=== PATIENT | female | born 1960 | race Caucasian/White ===

== ENCOUNTER 2021-10-30 01:36 | Inpatient (IN) | payer MEDICARE, SELFPAY ==
[2021-10-30] VITALS (64 sets, daily range): BP systolic 30–187; BP diastolic 16–115; PULSE 58–84; RESP 12–21; TEMP 34.8–37.9; O2SAT 48–100; BMI 53.1; BMI 51.2
--- NOTE | 2021-10-30 01:42 | RAD_ITS ---
ACR Level 3 findings have been noted. An addendum which confirms receipt of the report will follow. EXAM: XR CHEST, 1 VIEW CLINICAL INDICATION: dyspnea TECHNIQUE: Frontal view of the chest. This report was created using [employer] report generation technology. COMPARISON: None. FINDINGS: LUNGS AND PLEURAL SPACES: Mixed density ill-defined airspace disease involving multiple lobes of the right lung. Partial atelectasis suspected at both bases with low lung volumes demonstrate overall. Pleural effusions may be present. No pneumothorax. HEART: Fullness of the cardiac silhouette is concerning for cardiomegaly and/or pericardial fluid. MEDIASTINUM: Fullness of the mediastinum and left hilar region. BONES/JOINTS: Degenerative changes of the spine. SOFT TISSUES: Unremarkable. TUBES, LINES AND DEVICES: ET tube tip is at the camelia. Suggest retracting to a more optimal position. Transesophageal catheter has its side-port below the GE junction and tip at the proximal stomach. Right-sided dialysis catheter has its tip at or near the cavoatrial junction. Left-sided AICD/pacer identified with intact wires/leads. RAD/Chest 1 View (Portable) IMPRESSION: 1. ET tube tip is at the camelia. Suggest retracting to a more optimal position. 2. Mixed density ill-defined airspace disease involving multiple lobes of the right lung. Correlate clinically to exclude pneumonia. Partial atelectasis suspected at both bases with low lung volumes demonstrate overall. 3. No pneumothorax. Electronically Signed: Wale Benitez MD at 3:12 EST ,
--- NOTE | 2021-10-30 01:45 | EKG12_ITS ---
Test Reason : DYSRHYTHMIA Blood Pressure : / mmHG Vent. Rate : 060 BPM Atrial Rate : 060 BPM P-R Int : 210 ms QRS Dur : 104 ms QT Int : 488 ms P-R-T Axes : 026 027 062 degrees QTc Int : 488 ms Sinus rhythm with 1st degree A-V block Inferior infarct , age undetermined Anterior infarct , age undetermined Abnormal ECG Confirmed by ROBIN TAYLOR, MARILYN ([id number]), telegraph editor ELAINE ORNELAS ([id number]) on 11/03/2021 12:30:34 PM Referred By: MARCELA Confirmed By:MARILYN KELLY MD
--- NOTE | 2021-10-30 01:45 | CT_ITS ---
HISTORY: altered mental status TECHNIQUE: Multiple axial images were obtained of the brain without intravenous contrast. Coronal and sagittal reformats obtained. Bone algorithm axial images obtained. A radiation dose optimization technique was used for this scan. COMPARISON: None FINDINGS: # of images incl. paperwork: 286 TUBES: Endotracheal tube and enteric tubes partially seen. HEMORRHAGE: No evidence of acute intracranial hemorrhage. CEREBRAL PARENCHYMA: --Volume: Normal cerebral volume for age. --White matter: Mild Hypodense periventricular and subcortical chronic small vessel white matter ischemic change. --Mass: No evidence of intracranial mass. --Stroke: Sheth-white matter differentiation is preserved. VENTRICULAR SYSTEM: No hydrocephalus. MASS EFFECT: No midline shift or focal sulci effacement. Basal cisterns are preserved. SCALP: No large scalp hematoma. CALVARIUM/SKULL BASE: No fracture. PARANASAL SINUSES: Clear. MASTOID AIR CELLS: Scattered partial opacification of the mastoid air cells and posterior middle ears ORBIT IMAGED PORTIONS: Unremarkable for age. VESSELS: Carotid and vertebral atherosclerosis. ASPECTS acute stroke score: 10 CT/Brain/Head without Contrast IMPRESSION: No CT evidence of acute intracranial hemorrhage or injury. Findings concerning for left otomastoiditis. Minimal nonspecific right mastoid air cell fluid. Mild senescent changes with atherosclerosis. Individualized dose optimization techniques were used for this CT. at 0650 Reported and signed by: Aditya Glass MD Electronically Signed: Aditya Glass MD at 6:49 EST Reading Location ID and State: [facility] / [place] Tel , Service support ,
[2021-10-30 02:11] LABS: Allen Test Positive; Base Excess -4 mmol/L (-2 to +2); Bicarbonate 26.1 mmol/L (22-26); Blood Gas Specimen Type ART; FI02 40; O2 Delivery Device BiPAP; PEEP 8; PO2 77 mmHG (75-100); RR 12; SITE R Radial; SO2 88 % (95-99); Total Carbon Dioxide 29 mmol/L; pCO2 82.8 mmHg (35-45); pH 7.11 (7.35-7.45)
[2021-10-30] MEDS: Etomidate 20 MG/10 ML Vial 10 MG IV (02:44)
[2021-10-30 03:05] LABS: Mucous, Urine 0 SEEN /hpf (<or=2+); Squamous Epithelial Cells - UA 0 SEEN /hpf (5-10)
[2021-10-30 03:05] LABS: Absolute Lymphocyte Count 0.32 X10^3/uL (0.83-4.51); Absolute Neutrophil Count 8.2 X10^3/uL (2.0-7.7); Basophil# 0.02 X10^3/uL; Basophil% 0.2 % (0-1); Eosinophil# 0.01 X10^3/uL; Eosinophils% 0.1 % (0-5); Hematocrit 21.9 % (37-47); Hemoglobin 6.4 g/dL (12.0-15.0); Lymphocyte # 0.32 X10^3/ul (0.83-4.51); Lymphocyte % 3.5 % (19-41); Mean Corp Hgb Conc 29.2 g/dL (32-36); Mean Corpuscular Hgb 27.4 pg (27.0-32.0); Mean Corpuscular Volume 93.6 fL (81-99); Mean Platelet Vol. 9.8 fl (6.2-12.0); Monocyte# 0.43 X10^3/uL; Monocyte% 4.7 % (0-10); NRBC Flagged by Analyzer 0 % (0-5); Neutrophil # 8.24 X10^3/uL (2.7-7.7); Neutrophil % 90.7 % (47-70); POSITIVE DIFFERENTIAL YES; Platelet Count 157 K/mm3 (150-450); RBC Distribution Width CV 13.9 % (11.6-14.6); RBC Distribution Width SD 46.5 fl (35.1-43.9); Red Blood Count 2.34 M/mm3 (4.2-5.4); White Blood Count 9.1 K/mm3 (4.4-11.0)
[2021-10-30] MEDS: fentaNYL 100 MCG/2 ML Ampul 50 MCG IV (03:05)
[2021-10-30 03:06] LABS: Differential Indicated SCAN CRITERIA MET
[2021-10-30 03:12] LABS: Color, Urine Red (Yellow); Glucose, Dipstick Normal (Normal); Ketone-Dipstick Negative (Negative); Leukocyte Esterase-Dipstick 25 /ul (Negative); Nitrite-Dipstick Negative (Negative); Occult Blood-Urine 250 /ul (Negative); Protein-Dipstick 500 mg/dl (Negative); Urine Bilirubin Dipstick Negative (Negative); Urine Clarity Turbid (Clear); Urine Urobilinogen Normal (Normal)
[2021-10-30 03:14] LABS: Amorphous Sediment 2+; Bacteria 2+ /hpf (None Seen); Red Blood Cells-Urine > 100 SEEN /hpf (0-5); White Blood Cells 0-5 SEEN /hpf (0-5)
[2021-10-30 03:14] LABS: International Normalized Ratio 1.6; Prothrombin Time (Protime)PT. 18.5 SECONDS (11.7-14.9)
--- NOTE | 2021-10-30 03:21 | HP.PCM.HOS_ITS ---
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 to [facility] and on the same day was noted to have altered mental status at the care home. Patient progressed at the care home to a stage that she was no longer responsive. Her pulse ox was in the 70s to 80s. Squad subsequently brought patient to the emergency department on a nonrebreather mask. On the nonrebreather mask her oxygen saturation was 95%. When a nonrebreather mask was taken off her oxygen saturation dropped to about 50%. Patient was responding to only pain. Reportedly at the care home patient hemoglobin was 6.9. History above was taken for emergent department doctor as patient was intubated and sedated on mechanical ventilation at the time of examination. Also nurses at the emergency department where the patient has had loose stools and stool specimen has been sent to the lab. History was then taken from patient's over the phone. Per patient about 2 and half weeks ago patient was diagnosed with UTI that affected her kidneys and required her to be started on dialysis. After each dialysis episode patient required the use of BiPAP and then she gets unresponsive to the point that her is wondering whether the BiPAP machine is causing her to be unresponsive. 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 Kidney disease Kidney failure Obesity Pneumonia Polyneuropathy due to type 2 diabetes mellitus Recurrent infections Sleep apnea Type 2 diabetes mellitus with stage 3 chronic kidney disease UTI (urinary tract infection) Vision problem Home Medications albuterol sulfate 2.5 mg INHALATION Q6H 07/29/21 [History Last Taken Unknown] amiodarone 200 mg tablet 200 mg PO DAILY 07/29/21 [History Last Taken Unknown] apixaban 5 mg tablet tablet PO 07/29/21 [History Last Taken Unknown] gabapentin 400 mg capsule cap PO 07/29/21 [History Last Taken Unknown] insulin glargine 100 unit/mL (3 mL) subcutaneous pen ml SUBCUT 07/29/21 [History Last Taken Unknown] insulin lispro 100 unit/mL subcutaneous pen ml SUBCUT 07/29/21 [History Last Taken Unknown] levothyroxine 125 mcg tablet tablet PO 07/29/21 [History Last Taken Unknown] losartan 25 mg tablet ea PO 07/29/21 [History Last Taken Unknown] metoprolol succinate 50 mg tablet,extended release 24 hr tablet PO 07/29/21 [History Last Taken Unknown] nitroglycerin 0.4 mg sublingual tablet 0.4 mg SUBLINGUAL Q5M PRN 07/29/21 [History Last Taken Unknown] omeprazole 20 mg capsule,delayed release 20 mg PO cap 07/29/21 [History Last Taken Unknown] pravastatin 80 mg tablet tablet PO 07/29/21 [History Last Taken Unknown] buspirone 5 mg PO BID 10/30/21 [History Last Taken Unknown] clopidogrel 75 mg PO DAILY 10/30/21 [History Last Taken Unknown] cyanocobalamin (vitamin B-12) 1,000 mcg PO DAILY 10/30/21 [History Last Taken Unknown] gabapentin 1,200 mg PO QHS 10/30/21 [History Last Taken Unknown] guaifenesin [Mucinex] 600 mg PO BID 10/30/21 [History Last Taken Unknown] hydrocodone-acetaminophen [Burwell] 1 tab PO Q8H PRN 10/30/21 [History Last Taken Unknown] multivitamin 1 tab PO DAILY 10/30/21 [History Last Taken Unknown] zinc 50 mg PO DAILY 10/30/21 [History Last Taken Unknown] zolpidem 10 mg PO QHS PRN 10/30/21 [History Last Taken Unknown] Allergy/AdvReac Type Severity Reaction Status Date / Time adhesive tape Allergy Intermediate Rash Verified 10/30/21 01:53 codeine Allergy Intermediate n/a Verified 10/30/21 01:53 exenatide Allergy Intermediate n/a Verified 10/30/21 01:53 nalbuphine [From Nubain] Allergy Intermediate n/a Verified 10/30/21 01:53 pantoprazole [From Protonix] Allergy Intermediate n/a Verified 10/30/21 01:53 trioxsalen Allergy Intermediate n/a Verified 10/30/21 01:53 adhesive Allergy rash Verified 10/30/21 01:53 Family History Other Depression Diabetes Heart disease High cholesterol Hypertension Kidney disease Myocardial infarction Social History Smoking Status: Never smoker alcohol intake: never substance use type: does not use what type of physical activity do you participate in: none ROS ROS Narrative Pertinent positives and pertinent negatives that could be provided by patient's is as noted in HPI. All other systems were reviewed patient's did not know or they were negative. Vital Signs Vital Signs Vital Signs: 10/30/21 01:37 10/30/21 01:42 10/30/21 01:49 Temperature 95.5 F L Temperature Source Temporal Pulse Rate 66 Respiratory Rate 15 20 H Respiratory Effort Respiratory Pattern Blood Pressure 123/64 H Blood Pressure Mean 83 Pulse Ox 100 48 100 Oxygen Delivery Method Non-Rebreather Room Air Non-Rebreather Oxygen Flow Rate (L/min) 15 15 Fraction of Inspired Oxygen (FIO2) 10/30/21 01:50 10/30/21 01:53 10/30/21 02:00 Temperature Temperature Source Pulse Rate 66 Respiratory Rate 21 H 15 Respiratory Effort Non-Labored Respiratory Pattern Tachypnea Blood Pressure Blood Pressure Mean Pulse Ox 97 91 Oxygen Delivery Method Bi-pap Oxygen Flow Rate (L/min) Fraction of Inspired Oxygen (FIO2) 40 10/30/21 02:52 Temperature Temperature Source Pulse Rate 58 L Respiratory Rate 20 H Respiratory Effort Respiratory Pattern Blood Pressure Blood Pressure Mean Pulse Ox 96 Oxygen Delivery Method Oxygen Flow Rate (L/min) Fraction of Inspired Oxygen (FIO2) 100 Weight Weight: 131.9 kg Body Mass Index (BMI) 53.1 Physical Exam Narrative Physical exam: General: Morbidly obese. Intubated and sedated on mechanical ventilation. Head: Normocephalic, atraumatic, no tenderness Eyes: Miotic pupils. ENT: ET tube in place. Neck: Nontender. Obese neck. CVS: Regular rate and rhythm. S1-S2 present. No murmur, gallop or rub. Respiratory : clear to auscultation bilaterally, chest wall nontender, no wheezing Abdomen: Soft, nontender, nondistended, normal bowel sounds, no masses : Mckeon catheter in place with gross hematuria in Mckeon bag. Back: Nontender, no CVA tenderness, no midline spinal tenderness, Extremities: Nontender: No edema. Skin: Normal color, no trauma, abrasions Neuro: Intubated and sedated on mechanical ventilation. Psychiatry: Intubated and sedated on mechanical ventilation. Results Lab / Micro Data Result Diagrams: 10/30/21 02:39 10/30/21 02:39 Labs: Laboratory Results - last 24 hr 10/30/21 02:39: WBC 9.1, RBC 2.34 L, Hgb 6.4 L, Hct 21.9 L, MCV 93.6, MCH 27.4, MCHC 29.2 L, RDW Std Deviation 46.5 H, RDW Coeff of Loyda 13.9, Plt Count 157, MPV 9.8, Immature Gran % (Auto) 0.800, Neut % (Auto) 90.7 H, Lymph % (Auto) 3.5 L, Kane % (Auto) 4.7, Eos % (Auto) 0.1, Baso % (Auto) 0.2, Absolute Neuts (auto) 8.2 H, Absolute Lymphs (auto) 0.32 L, Nucleated RBC % 0 10/30/21 02:55: Urine Color Red, Urine Clarity Turbid, Urine pH 6.0, Ur Specific Kerens 1.020, Urine Protein 500 H, Urine Glucose (UA) Normal, Urine Ketones Negative, Urine Occult Blood 250 H, Urine Nitrite Negative, Urine Bilirubin Negative, Urine Urobilinogen Normal, Ur Leukocyte Esterase 25 H, Urine RBC > 100 SEEN, Urine WBC 0-5 SEEN, Ur Squamous Epith Cells 0 SEEN, Amorphous Sediment 2+, Urine Bacteria 2+, Urine Mucus 0 SEEN ABG Data ABG results: ABG 10/30/21 02:04 Specimen Type ART Sample Site R Radial pH 7.11 L* Bicarbonate Actual 26.1 H Total CO2 29 Base Excess -4 L O2 Saturation 88 L O2 % 40 ABG pCO2 82.8 H* ABG pO2 77 Santi Test Positive Respiration Rate 12 O2 Delivery Device BiPAP POC PEEP 8 Crit Call To/Read Back Yes Blood Gas Notified Whom Andes Clinical Comments 14/05 12 40% Radiology Impression Chest X-Ray 10/30/21 01:42 IMPRESSION: 1. ET tube tip is at the camelia. Suggest retracting to a more optimal position. 2. Mixed density ill-defined airspace disease involving multiple lobes of the right lung. Correlate clinically to exclude pneumonia. Partial atelectasis suspected at both bases with low lung volumes demonstrate overall. 3. No pneumothorax. Electronically Signed: Wale Benitez MD at 3:12 EST Reading Location ID and State: [address] [place] [address] Tel , Service support , Assessment & Plan Assessment/Plan (1) Acute and chronic respiratory failure with hypercapnia: (2) Bilateral pneumonia: QUALIFIERS: Lung location: unspecified part of lung Pneumonia type: due to unspecified organism Qualified Code(s): J18.9 - Pneumonia, unspecified organism PLAN: Acute and chronic respiratory failure with hypercapnia secondary to Pneumonia Gram positive, gram negative or atypic pneumonia. Lactic acid: 1.7 Blood culture ?2 is pending Respiratory Gram stain and culture pending Antibiotics: Review of records show that patient was on vancomycin for MRSA in a urine that was started on 10/15/2021. Also patient received 7 days of Zosyn at [facility]. DuoNeb scheduled. Albuterol as needed Legionella antigen screen and Strep antigen ordered Intubated and sedated in the emergency department. Admit to intensive care unit. Because of transient low blood pressure propofol was not started. Patient was started on Versed and fentanyl drip the patient is tolerating well. We will continue patient on Versed and fentanyl drip. Femoral line placed at the ED. Elevated troponin Initial troponin of 56 that has increased to 509. EKG with acute elevations in leads V1 to V3. No previous EKG to compare with. Patient is having hematuria and aspirin would not be started at this point. Indeed her Eliquis will be held at this point. Emergency department doctor discussed the case with cardiology who is okay keeping patient in the hospital. We will continue patient on Plavix and Eliquis. Cardiology consult. Heart failure with reduced ejection fraction Actual chest CT was independently visualized and interpreted. Patchy right greater than left consolidative changes with bronchogram concerning for underlying pneumonia with component of atelectasis and small pleural effusions. I agree with radiologist interpretation. Received IV Lasix at the emergency department. BNP is 1632.2. Per patient has reduced ejection fraction with EF around 4 days. Cannot rule out a component of heart failure at this time. Check echocardiogram. History of atrial fibrillation In sinus rhythm. Eliquis will be continued per cardiology recommendation. Diarrhea Stool studies ordered to ED; follow. Diabetes mellitus Patient with hyperglycemia on presentation De-escalate home basal insulin as patient is n.p.o. Accu-Chek with correction scale insulin ordered. Gross hematuria Eliquis continued per recommendation from cardiology. If hematuria persist consider discussing with urology. End-stage renal disease on dialysis Nephrology consult DVT prophylaxis: SCD ordered.
[2021-10-30 03:28] LABS: Differential Comment SCANNED; Hypochromasia 1+
[2021-10-30 03:29] LABS: Partial Thromboplast Time 42.5 Seconds (24.1-36.2); Platelet Estimate ADEQUATE (ADEQ)
--- NOTE | 2021-10-30 03:34 | CT_ITS ---
STUDY: CT CHEST WITHOUT CONTRAST REASON FOR EXAM: Female, 61 years old. dyspnea RADIATION DOSAGE (If Supplied By Facility): CTDIvol = ( 20.15 ) mGy, DLP = ( 760.27 ) mGycm TECHNIQUE: Transaxial imaging was performed without the administration of intravenous contrast material. Individualized dose optimization techniques were used for this CT. COMPARISON: None. FINDINGS: There is a right tunneled catheter with tip tracking into the right atrium. There is an AICD from a left subclavian approach. Endotracheal tube tracks into the distal trachea. Gastric tube tracks into the stomach. The lungs demonstrate consolidative right greater than left lung base opacities with also consolidative changes involving the right and left upper lobes. There is no demonstrated pleural abnormality. There are calcifications of the coronary arteries. Normal mediastinum. Normal hilar regions. Normal unenhanced pulmonary arteries. Normal aorta arch and descending thoracic aorta. There are multi-level degenerative changes of the thoracic spine. There is no demonstrated abnormality of the visualized upper abdomen. CT/Chest without Contrast IMPRESSION: Patchy right greater than left areas of consolidative changes with air bronchograms concerning for underlying pneumonia with component of atelectasis and small pleural effusions. Electronically Signed: Leroy Aiken MD at 5:51 EST ,
[2021-10-30 03:37] LABS: Lactic Acid 1.7 mmol/L (0.4-1.9)
--- NOTE | 2021-10-30 03:56 | EDS_ITS ---
HPI History of Present Illness Chief Complaint: Alt LOC Narrative Narrative: Patient is a 61-year-old female who was recently admitted to [facility] in the middle of September secondary to acute on chronic renal failure with anemia and UTI. she was discharged from their facility to the long-term today and reportedly long-term noticed that she was having diminished mental status and worsening of her pulse ox and therefore EMS was called. EMS states when they arrived the patient was essentially unresponsive and pulse ox was in the 70s to 80s. They placed her on a nonrebreather and brought her to the hospital for evaluation. Patient cannot give any further history based on her altered mental status. Chart review does show that patient was treated with vancomycin and Zosyn for MRSA positive urinary tract infection. She also had worsening of her kidney function and therefore dialysis catheter was placed and she was started on hemodialysis. It was noted that she had worsening anemia most likely from her worsening renal function and will start on erythropoietin. It is recommended from the notes that she be transfused if hemoglobin drops below 7. 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 Kidney disease Kidney failure Obesity Pneumonia Polyneuropathy due to type 2 diabetes mellitus Recurrent infections Sleep apnea Type 2 diabetes mellitus with stage 3 chronic kidney disease UTI (urinary tract infection) Vision problem Home Medications albuterol sulfate 2.5 mg INHALATION Q6H 07/29/21 [History Last Taken Unknown] amiodarone 200 mg tablet 200 mg PO DAILY 07/29/21 [History Last Taken Unknown] apixaban 5 mg tablet tablet PO 07/29/21 [History Last Taken Unknown] gabapentin 400 mg capsule cap PO 07/29/21 [History Last Taken Unknown] insulin glargine 100 unit/mL (3 mL) subcutaneous pen ml SUBCUT 07/29/21 [History Last Taken Unknown] insulin lispro 100 unit/mL subcutaneous pen ml SUBCUT 07/29/21 [History Last Taken Unknown] levothyroxine 125 mcg tablet tablet PO 07/29/21 [History Last Taken Unknown] losartan 25 mg tablet ea PO 07/29/21 [History Last Taken Unknown] metoprolol succinate 50 mg tablet,extended release 24 hr tablet PO 07/29/21 [History Last Taken Unknown] nitroglycerin 0.4 mg sublingual tablet 0.4 mg SUBLINGUAL Q5M PRN 07/29/21 [History Last Taken Unknown] omeprazole 20 mg capsule,delayed release 20 mg PO cap 07/29/21 [History Last Taken Unknown] pravastatin 80 mg tablet tablet PO 07/29/21 [History Last Taken Unknown] buspirone 5 mg PO BID 10/30/21 [History Last Taken Unknown] clopidogrel 75 mg PO DAILY 10/30/21 [History Last Taken Unknown] cyanocobalamin (vitamin B-12) 1,000 mcg PO DAILY 10/30/21 [History Last Taken Unknown] gabapentin 1,200 mg PO QHS 10/30/21 [History Last Taken Unknown] guaifenesin [Mucinex] 600 mg PO BID 10/30/21 [History Last Taken Unknown] hydrocodone-acetaminophen [[place]] 1 tab PO Q8H PRN 10/30/21 [History Last Taken Unknown] multivitamin 1 tab PO DAILY 10/30/21 [History Last Taken Unknown] zinc 50 mg PO DAILY 10/30/21 [History Last Taken Unknown] zolpidem 10 mg PO QHS PRN 10/30/21 [History Last Taken Unknown] Allergy/AdvReac Type Severity Reaction Status Date / Time adhesive tape Allergy Intermediate Rash Verified 10/30/21 01:53 codeine Allergy Intermediate n/a Verified 10/30/21 01:53 exenatide Allergy Intermediate n/a Verified 10/30/21 01:53 nalbuphine [From Nubain] Allergy Intermediate n/a Verified 10/30/21 01:53 pantoprazole [From Protonix] Allergy Intermediate n/a Verified 10/30/21 01:53 trioxsalen Allergy Intermediate n/a Verified 10/30/21 01:53 adhesive Allergy rash Verified 10/30/21 01:53 Family History Other Depression Diabetes Heart disease High cholesterol Hypertension Kidney disease Myocardial infarction Social History Smoking Status: Never smoker alcohol intake: never substance use type: does not use what type of physical activity do you participate in: none ROS ROS ED Review of Systems ROS Unobtainable: due to mental status EXAM Physical Exam Const Vital Signs: 10/30/21 01:37 10/30/21 01:42 10/30/21 01:49 Temperature 95.5 F L Temperature Source Temporal Pulse Rate 66 Respiratory Rate 15 20 H Respiratory Effort Respiratory Pattern Blood Pressure 123/64 H Blood Pressure Mean 83 Pulse Ox 100 48 100 Oxygen Delivery Method Non-Rebreather Room Air Non-Rebreather Oxygen Flow Rate (L/min) 15 15 Fraction of Inspired Oxygen (FIO2) 10/30/21 01:50 10/30/21 01:53 10/30/21 02:00 Temperature Temperature Source Pulse Rate 66 Respiratory Rate 21 H 15 Respiratory Effort Non-Labored Respiratory Pattern Tachypnea Blood Pressure Blood Pressure Mean Pulse Ox 97 91 Oxygen Delivery Method Bi-pap Oxygen Flow Rate (L/min) Fraction of Inspired Oxygen (FIO2) 40 10/30/21 02:37 10/30/21 02:52 10/30/21 03:27 Temperature 96 F L 96.4 F L Temperature Source Temporal Core Pulse Rate 65 58 L 60 Respiratory Rate 18 20 H 19 H Respiratory Effort Respiratory Pattern Blood Pressure 86/53 L 138/73 H Blood Pressure Mean 64 94 Pulse Ox 92 96 100 Oxygen Delivery Method Bi-pap Mechanical Ventilator Oxygen Flow Rate (L/min) Fraction of Inspired Oxygen (FIO2) 100 Positive obese and unkempt General Appearance ED: unkempt Nutritional Appearance: obese HEENT Reports dry mucous membranes HEENT Narrative: Mucous membranes are dry and tacky without tongue or lip swelling no airway edema or compromise Mouth ED: Yes dry mucous membranes Mouth: dry mucous membranes Eyes PERRL General Eye ED: Yes pale conjunctiva Neck supple Neck Narrative: No obvious meningeal signs noted Chest Wall palpation of chest normal Chest Narrative: Patient has a dialysis catheter in place in the right chest wall. No obvious signs of secondary infection noted Resp Resp Narrative: Patient has diminished breath sounds throughout with diffuse crackles. When she is taken off the nonrebreather her pulse ox drops down to 50% Cardio regular rate and regular rhythm Rate: other Other Details: Radial pulses are +2-4 bilaterally are equal and symmetric GI non-distended and no masses GI Narrative: No pulsatile mass or fluid wave no rigidity noted Auscultation: normoactive bowel sounds Palpation: soft Extremity Extremity Narrative: Extremities have +2 pitting edema that is equal and symmetric Neuro Neuro Narrative: Patient is obtunded with GCS of 9. She will open her eyes to loud voice or sternal rub but then quickly fall back asleep. Gag reflex is present but diminished. No obvious focal neurologic deficit Psych Psych Narrative: Patient has a flat/depressed affect Appearance: unkempt Mood & Affect: depressed Skin no rashes or lesions noted Skin Narrative: Skin is pale in color but capillary refill still less than 3 seconds. She has areas of yeast in the pannus/genital region and underneath breasts. There are also perez consistent with recent IV placements but no obvious signs of cellulitis or abscess MDM MDM MDM Narrative Medical decision making narrative: Patient presented to the ER obtunded with GCS of 9. She would awake to voice and pain but then quickly fall back asleep. She also had a mild gag reflex. As this was a reported improvement from the EMS initial evaluation the patient I did elect to place her on BiPAP initially. We were unable to obtain any peripheral access so therefore a left femoral central line was placed. The patient had a pulse ox in the mid 90s while on the BiPAP but her mental status continued to diminish. Therefore after the central line was placed she was intubated with a 7.0 ET tube as documented below. The patient also became hypotensive while awaiting for the venous access and intubation. Therefore Levophed was ordered after venous access was obtained. However without any type of vasopressor medication given the patient's blood pressure improved to a normal tensive value. Patient's mental status did improve with increased oxygenation with intubation and therefore she was started on a fentanyl and Versed drip. Mckeon catheter was placed and showed dark red urine with +2 bacteria concerning for infection. X-ray also showed inflammatory changes indicating consolidation of the right lung. She had a blood culture obtained as well as urine culture and will start on vancomycin and Zosyn secondary to this. At this time patient is require mechanical ventilation and h er mental status remains diminished and therefore she will need admitted to the ICU for continued treatment. [facility] patient had left the facility only 24 hours ago. They feel that even though there is low chance she would need a repeat heart cath with her troponin increasing by approximately 450 points in 2 hours and her known cardiac history that she would not be appropriate for their facility. They recommend patient be sent to [facility] if we are going to transfer to their facility. I then called the who wishes that patient be kept at our site/hospital. The case was then discussed with the gravel truck driver as well as cardiology and both agree that we are capable of caring for the patient and therefore patient will remain at this facility Patient had a left femoral central line placed. The femoral vein was visualized with ultrasound. It was cannulated and there was return of dark red nonpulsatile blood. The guidewire threaded without difficulty. The central line was placed in each port chen and flushed without difficulty as well. Patient tolerated procedure well without complication Patient was intubated with a 7.0 ET tube. Patient was given 10 mg of etomidate for sedation. The vocal cords were visualized with the glide scope. The ET tube was passed through the vocal cords with 1 attempt. Confirmation was by color change capnography bilateral breath sounds and chest rise. Patient tolerated procedure well without complication. Lab Data Attestation: I reviewed the patient's lab results. Labs: Laboratory Results - last 24 hr 10/30/21 10/30/21 10/30/21 02:39 02:39 02:39 WBC 9.1 RBC 2.34 L Hgb 6.4 L Hct 21.9 L MCV 93.6 MCH 27.4 MCHC 29.2 L RDW Std Deviation 46.5 H RDW Coeff of Loyda 13.9 Plt Count 157 MPV 9.8 Immature Gran % (Auto) 0.800 Neut % (Auto) 90.7 H Lymph % (Auto) 3.5 L Hand % (Auto) 4.7 Eos % (Auto) 0.1 Baso % (Auto) 0.2 Absolute Neuts (auto) 8.2 H Absolute Lymphs (auto) 0.32 L Nucleated RBC % 0 Differential Comment SCANNED Platelet Estimate ADEQUATE Hypochromasia 1+ PT 18.5 H INR 1.6 APTT 42.5 H Sodium 130 L Potassium 6.0 H* Chloride 97 L Carbon Dioxide 25.0 Anion Gap 8 BUN 66 H Creatinine 6.50 H Estim Creat Clear Calc 7.37 Est GFR (MDRD) Af Amer 8 L Est GFR (MDRD) Non-Af 7 L BUN/Creatinine Ratio 10.2 Glucose 270 H Lactic Acid Calcium 7.9 L Magnesium 3.1 H Total Bilirubin 0.50 Direct Bilirubin 0.09 AST 54 H ALT 37 Alkaline Phosphatase 178 H Ammonia Total Creatine Kinase Troponin I High Sens 56 H B-Natriuretic Peptide Total Protein 8.7 H Albumin 1.8 L Globulin 6.9 H TSH 2.26 Urine Color Urine Clarity Urine pH Ur Specific Perrin Urine Protein Urine Glucose (UA) Urine Ketones Urine Occult Blood Urine Nitrite Urine Bilirubin Urine Urobilinogen Ur Leukocyte Esterase Urine RBC Urine WBC Ur Squamous Epith Cells Amorphous Sediment Urine Bacteria Urine Mucus Blood Type Antibody Screen Crossmatch 10/30/21 10/30/21 10/30/21 02:39 02:39 02:39 WBC RBC Hgb Hct MCV MCH MCHC RDW Std Deviation RDW Coeff of Loyda Plt Count MPV Immature Gran % (Auto) Neut % (Auto) Lymph % (Auto) Hand % (Auto) Eos % (Auto) Baso % (Auto) Absolute Neuts (auto) Absolute Lymphs (auto) Nucleated RBC % Differential Comment Platelet Estimate Hypochromasia PT INR APTT Sodium Potassium Chloride Carbon Dioxide Anion Gap BUN Creatinine Estim Creat Clear Calc Est GFR (MDRD) Af Amer Est GFR (MDRD) Non-Af BUN/Creatinine Ratio Glucose Lactic Acid 1.7 Calcium Magnesium Total Bilirubin Direct Bilirubin AST ALT Alkaline Phosphatase Ammonia 21.0 Total Creatine Kinase Troponin I High Sens B-Natriuretic Peptide 1632.2 H Total Protein Albumin Globulin TSH Urine Color Urine Clarity Urine pH Ur Specific Perrin Urine Protein Urine Glucose (UA) Urine Ketones Urine Occult Blood Urine Nitrite Urine Bilirubin Urine Urobilinogen Ur Leukocyte Esterase Urine RBC Urine WBC Ur Squamous Epith Cells Amorphous Sediment Urine Bacteria Urine Mucus Blood Type O POSITIVE Antibody Screen NEGATIVE Crossmatch 10/30/21 10/30/21 10/30/21 02:39 02:39 02:55 WBC RBC Hgb Hct MCV MCH MCHC RDW Std Deviation RDW Coeff of Loyda Plt Count MPV Immature Gran % (Auto) Neut % (Auto) Lymph % (Auto) Hand % (Auto) Eos % (Auto) Baso % (Auto) Absolute Neuts (auto) Absolute Lymphs (auto) Nucleated RBC % Differential Comment Platelet Estimate Hypochromasia PT INR APTT Sodium Potassium Chloride Carbon Dioxide Anion Gap BUN Creatinine Estim Creat Clear Calc Est GFR (MDRD) Af Amer Est GFR (MDRD) Non-Af BUN/Creatinine Ratio Glucose Lactic Acid Calcium Magnesium Total Bilirubin Direct Bilirubin AST ALT Alkaline Phosphatase Ammonia Total Creatine Kinase 31 Troponin I High Sens B-Natriuretic Peptide Total Protein Albumin Globulin TSH Urine Color Red Urine Clarity Turbid Urine pH 6.0 Ur Specific Perrin 1.020 Urine Protein 500 H Urine Glucose (UA) Normal Urine Ketones Negative Urine Occult Blood 250 H Urine Nitrite Negative Urine Bilirubin Negative Urine Urobilinogen Normal Ur Leukocyte Esterase 25 H Urine RBC > 100 SEEN Urine WBC 0-5 SEEN Ur Squamous Epith Cells 0 SEEN Amorphous Sediment 2+ Urine Bacteria 2+ Urine Mucus 0 SEEN Blood Type Antibody Screen Crossmatch See Detail ABG Data ABG results: ABG 10/30/21 02:04 Specimen Type ART Sample Site R Radial pH 7.11 L* Bicarbonate Actual 26.1 H Total CO2 29 Base Excess -4 L O2 Saturation 88 L O2 % 40 ABG pCO2 82.8 H* ABG pO2 77 Santi Test Positive Respiration Rate 12 O2 Delivery Device BiPAP POC PEEP 8 Crit Call To/Read Back Yes Blood Gas Notified Whom Andes Clinical Comments 14/05 12 40% Radiography Diagnostic Testing: Clinical Impression(s) from Imaging Studies Chest X-Ray 10/30/21 01:42 IMPRESSION: 1. ET tube tip is at the camelia. Suggest retracting to a more optimal position. 2. Mixed density ill-defined airspace disease involving multiple lobes of the right lung. Correlate clinically to exclude pneumonia. Partial atelectasis suspected at both bases with low lung volumes demonstrate overall. 3. No pneumothorax. Electronically Signed: Wale Benitez MD at 3:12 EST Reading Location ID and State: [employer] / [place] Tel , Service support , ADDENDUM: 10/30/21 0321 IMPRESSION: 1. ET tube tip is at the camelia. Suggest retracting to a more optimal position. 2. Mixed density ill-defined airspace disease involving multiple lobes of the right lung. Correlate clinically to exclude pneumonia. Partial atelectasis suspected at both bases with low lung volumes demonstrate overall. 3. No pneumothorax. N.B. : Dejuan Agustin RN, confirmed on 10/30/2021 03:14:46 (ET) that the healthcare facility has received the radiology report. Electronically Signed: Wale Benitez MD at 3:12 EST , Brain CT 10/30/21 01:45 IMPRESSION: No CT evidence of acute intracranial hemorrhage or injury. Findings concerning for left otomastoiditis. Minimal nonspecific right mastoid air cell fluid. Mild senescent changes with atherosclerosis. Individualized dose optimization techniques were used for this CT. at 0650 Reported and signed by: Aditya Glass MD Electronically Signed: Aidtya Glass MD at 6:49 EST Reading Location ID and State: [facility] / [place] Tel , Service support , Critical Care Time Critical Care Time: Yes Critical care time (excluding procedures): - (Please note critical care time of 77 minutes) Discharge Plan Triage Chief Complaint: Alt LOC ED Provider: Wale Gibbs Dx/Rx/DC Orders Clinical Impression: Acute and chronic respiratory failure with hypercapnia, Bilateral pneumonia, Chronic renal failure, Hyperkalemia, Urinary tract infection, Non-ST elevated myocardial infarction (non-STEMI), Current use of intermediate manager anticoagulation Primary Care Provider: Blaire Pizano Disposition Disposition: Acute Care Hospital [facility]
[2021-10-30 03:58] LABS: CPK Total, Creatine Kinase 31 U/L (26-192)
[2021-10-30 04:06] LABS: AST(SGOT) 54 U/L (15-37); Alanine Aminotransfer ALT/SGPT 37 U/L (13-56); Albumin, Serum 1.8 g/dL (3.2-5.0); Alkaline Phosphatase 178 U/L (45-117); Anion Gap 8 (5-15); BUN 66 mg/dL (7-18); BUN/Creat Ratio 10.2 RATIO (10-20); Bilirubin, Direct 0.09 mg/dL (0.00-0.30); Calcium,Total 7.9 mg/dL (8.5-10.1); Chloride 97 mmol/L (98-107); EST Glomerular Filtration Rate 7 mL/min (>60); Est Glom Filt Rate - Afr Amer 8 mL/min (>60); Estimated Creatinine Clearance 7.37 ml/min; Globulin 6.9 g/dL (2.2-4.2); Glucose 270 mg/dL (74-106); Magnesium 3.1 mg/dL (1.6-2.6); Protein, Total 8.7 g/dL (6.4-8.2); Sodium Level 130 mmol/L (136-145); Thyroid Stim Hormone (TSH) 2.26 uIU/mL (0.358-3.74); Troponin-I HS 56 pg/mL (3.0-54.0)
[2021-10-30] MEDS: Furosemide 40 MG/4 ML Vial IV (04:09)
--- NOTE | 2021-10-30 04:10 | EKG12_ITS ---
Test Reason : DYSRHYTHMIA Blood Pressure : / mmHG Vent. Rate : 058 BPM Atrial Rate : 058 BPM P-R Int : 202 ms QRS Dur : 104 ms QT Int : 456 ms P-R-T Axes : 053 018 042 degrees QTc Int : 447 ms Sinus bradycardia Inferior infarct , age undetermined Anterior infarct , age undetermined Abnormal ECG Confirmed by ROBIN TAYLOR, MARILYN ([id number]), editor city ELAINE ORNELAS ([id number]) on 11/03/2021 12:30:55 PM Referred By: MARCELA Confirmed By:MARILYN KELLY MD
[2021-10-30] MEDS: Calcium Chloride 1 GM/10 ML Syringe IV (04:40)
[2021-10-30] MEDS: Dextrose 10%-Water 250 ML 999 ML IV (04:42)
[2021-10-30] MEDS: Insulin Lispro 10 UNIT in Syringe 0 ML 6 UNIT IV (05:00)
--- NOTE | 2021-10-30 05:10 | ED.RN ---
report given to BHARAT BOJORQUEZ
[2021-10-30 05:13] LABS: Troponin-I HS 509 pg/mL (3.0-54.0)
[2021-10-30 08:26] LABS: Allen Test Positive; Base Excess -3 mmol/L (-2 to +2); Bicarbonate 24.5 mmol/L (22-26); Blood Gas Specimen Type ART; FI02 35; Mode AC; O2 Delivery Device Adult Vent; PEEP 5; PO2 77 mmHG (75-100); RR 16; SITE R Brach; SO2 92 % (95-99); Total Carbon Dioxide 26 mmol/L; Vt 450; pCO2 56.9 mmHg (35-45); pH 7.24 (7.35-7.45)
--- NOTE | 2021-10-30 08:26 | ECHOCS_ITS ---
Reason For Study: SOB Procedure This was a 2D Doppler, Color Flow transthoracic echocardiogram. The study was technically difficult. Patient was scanned in supine position during reflux assessment. UNABLE TO REPOSITION PATIENT DUE TO OBESITY. PT ON VENT. Contrast injection was performed. Exam performed portable in ICU/CCU. Left Ventricle The estimated ejection fraction is 40-45 %. There is evidence of diastolic dysfunction. [place] : Hypokinetic. septal hypokinesis. Right Ventricle Normal RV size. Normal systolic function. Atria Normal left atrium. Normal right atrium. No doppler evidence for ASD. Mitral Valve There is no mitral valve stenosis. No mitral valve insufficiency. Tricuspid Valve There is no tricuspid stenosis. Unable to estimate RV systolic pressure due to inadequate jet, pulmonary artery pressure probably normal. Aortic Valve The aortic valve is not well visualized. There is no aortic stenosis. No aortic valve insufficiency. Pulmonic Valve There is no pulmonic valvular stenosis. No pulmonic valve insufficiency. Great Vessels Normal aortic root. Pericardium/Pleural No pericardial effusion. Medication Diluted definity 7.0ml given slow IV push to enhance endocardial definition. MMode/2D Measurements & Calculations LVIDd: 4.7 cm FS: 32.8 % Ao root diam: 3.5 cm LVIDs: 3.2 cm LAV(MOD-sp4): 74.1 ml LA A4 area: 25.8 cm2 LA dimension(2D): 3.7 cm Time Measurements MV dec time: 0.21 sec Doppler Measurements & Calculations MV E max harrison: 81.4 cm/sec Lat Peak E' Harrison: 5.8 cm/sec Med Peak E' Harrison: 6.8 cm/sec MV A max harrison: 99.3 cm/sec E/E' lat: 14.0 E/E' med: 11.9 MV E/A: 0.82 Ao V2 max: 134.4 cm/sec LV V1 max: 105.0 cm/sec PA V2 max: 85.3 cm/sec Ao max P.2 mmHg LV V1 max P.4 mmHg ECHO/Echo Complete W/ Contrast Interpretation Summary The estimated ejection fraction is 40-45 %. There is evidence of diastolic dysfunction. [place] : Hypokinetic. septal hypokinesis Ordering Physician: Gage Schwab Referring Physician: Daisy Pizano Performed By: Sirena Washington, RDCS, RVT
[2021-10-30] MEDS: Chlorhexidine 15 ML PO ×2 (09:00→23:09)
[2021-10-30 09:01] LABS: Bedside Glucose 192 mg/dL (70-110)
--- NOTE | 2021-10-30 09:41 | CON.PCM.CC_ITS ---
Assessment & Plan Assessment/Plan (1) Acute and chronic respiratory failure with hypercapnia: (2) Bilateral pneumonia: QUALIFIERS: Lung location: unspecified part of lung Pneumonia type: due to unspecified organism Qualified Code(s): J18.9 - Pneumonia, unspecified organism (3) Non-ST elevated myocardial infarction (non-STEMI): (4) Type 2 diabetes mellitus with stage 3 chronic kidney disease: QUALIFIERS: Chronic kidney disease stage 3 subtype: stage 3b (GFR 30-44) Diabetes mellitus care home insulin use: with manager intermediate use Qualified Code(s): E11.22 - Type 2 diabetes mellitus with diabetic chronic kidney disease; N18.32 - Chronic kidney disease, stage 3b; Z79.4 - manager intermediate (current) use of insulin PLAN: RECOMMENDATIONS: 1. Continue empiric antibiotics pending cultures 2. Obtain echocardiogram for possible endocarditis 3. Hold anticoagulation given hematuria. Consider urology evaluation 4. Okay to start tube feeds 5. Aggressive control of blood sugars 6. Transfuse to keep hemoglobin greater than 7 given blood crisis 7. Spontaneous breathing and awakening trials per protocol 8. Attempt to obtain further information on protracted hospitalization 9. Volume removal with dialysis IMPRESSIONS: 1. Acute on chronic combined respiratory failure secondary to bilateral pneumonia Patient with predominant right lower lobe pneumonia. Cannot exclude aspiration given decreased mental status. Patient reportedly has also had a recent infection with MRSA in the urine. This may be hematologic spread. Some concern for possible endocarditis, but given body habitus this will be difficult to assess. Antigens have been ordered. Patient will be continued on antibiotics pending culture results. Discontinue Versed drip as this is will be difficult to titrate given renal failure. Wean supplemental oxygen as tolerated. Spontaneous breathing and awakening trials per protocol. Patient will likely need BiPAP on extubation. Patient is a reported non-smoker. Patient may have an element of obesity hypoventilation syndrome. Unclear if steroids are necessary. 2. Coronary artery disease with elevated troponin/acute systolic CHF/history of A. fib Await echocardiogram. Patient does have an elevated BNP at this time. Patient has received IV Lasix of unclear utility. Patient does have a dialysis catheter, so volume removal with dialysis may be necessary. Patient appears to be sinus rhythm at this time. Eliquis will be discontinued given anemia, hematuria and need for transfusions in the setting of a blood crisis. 3. Uncontrolled diabetes mellitus?insulin-dependent Unclear baseline regimen. Patient currently is n.p.o., but tube feeds can be initiated. Patient should be placed on Lantus with sliding scale insulin. Will attempt to avoid steroids given patient's diabetes and unknown obstructive lung disease component. 4. End-stage renal disease on hemodialysis Unclear when patient had last hemodialysis. Will consult nephrology. Patient would benefit from volume removal given elevated BNP and hypoxia. 5. Acute blood loss anemia secondary to gross hematuria Unclear etiology. We will continue to monitor. If hematuria continues or patient gets persistent clots, may need to consult urology. We will discontinue Eliquis given need for transfusion and variable availability of blood products. Continue H&H's with transfusions as necessary. 7. Morbid obesity/recent protracted hospitalization/poor history/hypercho lesterolemia/hypertension/hypothyroidism Complicates care, management, recovery and prognosis. Okay to continue with baseline antihypertensives. Amiodarone okay to continue, but Eliquis needs to be held. Plavix can be continued for now, but this may ultimately also need to be held. Patient is on Synthroid and this can be continued. Addendum 4:12 PM: Patient did receive dialysis today with volume removal. However, at the end of dialysis, patient became very hypotensive. No pulse was noted, so CPR was initiated. Patient was noted to be DNR Comfort Care arrest with intubation, so compressions were ceased. However, patient was noted to have cardiac squeeze and a pulse oximetry showing good correlation. Resulting blood pressure was hypertensive. Patient did not receive epinephrine. Hospitalist discussed with the patient's and she was made a full code. TIME: 78 minutes critical care time spent addressing patient's acute on chronic respiratory failure, coronary artery disease, diabetes mellitus, end-stage renal disease, acute blood loss anemia, review of all data and collaboration with care team HPI Consult Data Date of Consult: 10/30/21 HPI Narrative HPI Narrative: YANIRA LEMOS is a 61 F, with past medical history listed below, who presents to [facility] on 10/30/2021 for altered mental status. Patient reportedly has been admitted to [facility] for almost 6 weeks and was sent to a local senior living. In less than 24 hours, patient was noted to have worsening mental status, pulse ox and EMS was called. On arrival, patient reportedly had a pulse ox in the 70s to 80s and was placed on a nonrebreather. Patient reportedly had been treated with vancomycin and Zosyn secondary to an MRSA urinary tract infection while at outside facility. Patient reportedly had progressive renal failure and was placed on dialysis. Patient reportedly also had anemia and was started on erythropoietin. On arrival to the emergency department, patient was hypothermic, but normotensive at 123/64. Patient was noted to be 48% on room air 100% on nonrebreather. Patient was attempted on BiPAP, but ultimately required intubation. Laboratory work-up showed a white blood cell count of 9.1, hemoglob in of 6.4 and platelets of 157. Patient was noted to have an INR of 1.6, potassium of 6, BUN of 66 and creatinine of 6.5. Glucose was elevated at 270. Lactate was within normal limits, but BNP was elevated at 1632. Mckeon catheter was difficult to place, but ultimately had red turbid output. Urinalysis showed significant red blood cells, but no white blood cells. Patient did have leukocyte esterase and 2+ bacteria. Nitrites were negative. VBG on BiPAP showed significant acidosis. Patient did have a central line placed in the left femoral area. Levophed was ordered, but not initiated. Patient was given vancomycin and Zosyn. There was discussion about sending the patient back to [facility], but they refused secondary to elevated troponin. There was a recommendation to go to [facility], but reportedly the had asked the patient to stay here. Awaiting additional history from [facility] on protracted hospitalization. There does not appear to be any discussion of previous hematuria. Patient reportedly did have a spinal lesion, but it is unclear on the status. Patient has received a blood transfusion. It is unclear when patient last had hemodialysis. [facility] is not able to provide much additional information as she was only there for a brief period of time. Patient has never been seen as an inpatient at [facility]. [facility] Medical History (Updated 10/30/21 @ 11:[address] 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 Kidney disease Kidney failure Obesity Pneumonia Polyneuropathy due to type 2 diabetes mellitus Recurrent infections Sleep apnea Type 2 diabetes mellitus with stage 3 chronic kidney disease UTI (urinary tract infection) Vision problem Home Medications albuterol sulfate 2.5 mg INHALATION Q6H 07/29/21 [History Last Taken Unknown] amiodarone 200 mg tablet 200 mg PO DAILY 07/29/21 [History Last Taken Unknown] apixaban 5 mg tablet 2.5 tablet PO BID 07/29/21 [History Last Taken Unknown] gabapentin 400 mg capsule 400 cap PO DAILY 07/29/21 [History Last Taken Unknown] insulin glargine 100 unit/mL (3 mL) subcutaneous pen 75 ml SUBCUT QHS 07/29/21 [History Last Taken Unknown] insulin lispro 100 unit/mL subcutaneous pen 0 ml SUBCUT ACHS 07/29/21 [History Last Taken Unknown] levothyroxine 125 mcg tablet 125 tablet PO QHS 07/29/21 [History Last Taken Unknown] losartan 25 mg tablet 50 ea PO DAILY 07/29/21 [History Last Taken Unknown] metoprolol succinate 50 mg tablet,extended release 24 hr 50 tablet PO BID 07/29/21 [History Last Taken Unknown] nitroglycerin 0.4 mg sublingual tablet 0.4 mg SUBLINGUAL Q5M PRN 07/29/21 [History Last Taken Unknown] omeprazole 20 mg capsule,delayed release 20 mg PO DAILY cap 07/29/21 [History Last Taken Unknown] pravastatin 80 mg tablet 80 tablet PO QHS 07/29/21 [History Last Taken Unknown] buspirone 5 mg PO BID 10/30/21 [History Last Taken Unknown] clopidogrel 75 mg PO DAILY 10/30/21 [History Last Taken Unknown] cyanocobalamin (vitamin B-12) 1,000 mcg PO DAILY 10/30/21 [History Last Taken Unknown] gabapentin 1,200 mg PO QHS 10/30/21 [History Last Taken Unknown] guaifenesin [Mucinex] 600 mg PO BID 10/30/21 [History Last Taken Unknown] hydrocodone-acetaminophen [[place]] 1 tab PO Q8H PRN 10/30/21 [History Last Taken Unknown] multivitamin 1 tab PO DAILY 10/30/21 [History Last Taken Unknown] zinc 50 mg PO DAILY 10/30/21 [History Last Taken Unknown] zolpidem 10 mg PO QHS PRN 10/30/21 [History Last Taken Unknown] Allergy/AdvReac Type Severity Reaction Status Date / Time adhesive tape Allergy Intermediate Rash Verified 10/30/21 01:53 codeine Allergy Intermediate n/a Verified 10/30/21 01:53 exenatide Allergy Intermediate n/a Verified 10/30/21 01:53 nalbuphine [From Nubain] Allergy Intermediate n/a Verified 10/30/21 01:53 pantoprazole [From Protonix] Allergy Intermediate n/a Verified 10/30/21 01:53 trioxsalen Allergy Intermediate n/a Verified 10/30/21 01:53 adhesive Allergy rash Verified 10/30/21 01:53 Family History Other Depression Diabetes Heart disease High cholesterol Hypertension Kidney disease Myocardial infarction Social History Smoking Status: Never smoker alcohol intake: never substance use type: does not use what type of physical activity do you participate in: none ROS Review of Systems ROS Unobtainable: due to endotracheal tube and other Details: Brief ECF stay Physical Exam Const Constitutional Narrative: Fair vent synchrony General Appearance: uncooperative, lethargic, intubated and patient mechanically ventilated Nutritional Appearance: morbidly obese HEENT normocephalic HEENT Narrative: Extremely short neck Mouth: endotracheal tube in place and OG tube in place Eyes PERRL, EOMs intact bilaterally and no scleral icterus Sclera: No sclera abnormal Neck Neck Narrative: Unable to assess JVD and lymphadenopathy secondary to adipose tissue Chest inspection of chest normal Chest Narrative: Right temporary hemodialysis catheter in subclavian position is clean, dry and intact Chest: symmetrical chest wall rise; Negative for crepitus Resp Effort and Inspection: prolonged expiratory phase Auscultation: rhonchi right lower and diminished lung sounds; Negative for rales or wheezes Cardio regular rate, regular rhythm, S1 normal heart sound, S2 normal heart sound, no murmurs, no rub and no gallops GI normal to inspection, nondistended, normoactive bowel sounds Extremity General Extremity: edema Skin no rashes or lesions noted Neuro Sensorium / Orientation: sedated on vent Psych Mood & Affect: flat affect Lab / Micro Data Result Diagrams: 10/30/21 11:20 10/30/21 02:39 Labs: Laboratory Results - last 24 hr 10/30/21 02:39: WBC 9.1, RBC 2.34 L, Hgb 6.4 L, Hct 21.9 L, MCV 93.6, MCH 27.4, MCHC 29.2 L, RDW Std Deviation 46.5 H, RDW Coeff of [place] 13.9, Plt Count 157, MPV 9.8, Immature Gran % (Auto) 0.800, Neut % (Auto) 90.7 H, Lymph % (Auto) 3.5 L, [place] % (Auto) 4.7, Eos % (Auto) 0.1, Baso % (Auto) 0.2, Absolute Neuts (auto) 8.2 H, Absolute Lymphs (auto) 0.32 L, Nucleated RBC % 0, Differential Comment SCANNED, Platelet Estimate ADEQUATE, Hypochromasia 1+ 10/30/21 02:39: PT 18.5 H, INR 1.6, APTT 42.5 H 10/30/21 02:39: Sodium 130 L, Potassium 6.0 H*, Chloride 97 L, Carbon Dioxide 25.0, Anion Gap 8, BUN 66 H, Creatinine 6.50 H, Estim Creat Clear Calc 7.37, Est GFR (MDRD) Af Amer 8 L, Est GFR (MDRD) Non-Af 7 L, BUN/Creatinine Ratio 10.2, Glucose 270 H, Calcium 7.9 L, Magnesium 3.1 H, Total Bilirubin 0.50, Direct Bilirubin 0.09, AST 54 H, ALT 37, Alkaline Phosphatase 178 H, Troponin I High Sens 56 H, Total Protein 8.7 H, Albumin 1.8 L, Globulin 6.9 H, TSH 2.26 10/30/21 02:39: Ammonia 21.0, B-Natriuretic Peptide 1632.2 H 10/30/21 02:39: Lactic Acid 1.7 10/30/21 02:39: Blood Type O POSITIVE, Antibody Screen NEGATIVE 10/30/21 02:39: Total Creatine Kinase 31 10/30/21 02:39: Crossmatch See Detail 10/30/21 02:55: Urine Color Red, Urine Clarity Turbid, Urine pH 6.0, Ur Specific [place] 1.020, Urine Protein 500 H, Urine Glucose (UA) Normal, Urine Ketones Negative, Urine Occult Blood 250 H, Urine Nitrite Negative, Urine Bilirubin Negative, Urine Urobilinogen Normal, Ur Leukocyte Esterase 25 H, Urine RBC > 100 SEEN, Urine WBC 0-5 SEEN, Ur Squamous Epith Cells 0 SEEN, Amorphous Sediment 2+, Urine Bacteria 2+, Urine Mucus 0 SEEN 10/30/21 04:40: Troponin I High Sens 509 H* 10/30/21 08:55: POC Glucose 192 H Micro: Microbiology 10/30/21 03:40 Stool Stool Lactoferrin - Final 10/30/21 03:40 Stool Enteric Bacteriology - Final 10/30/21 03:40 Stool C. difficile DNA Amplification - Final 10/30/21 04:30 Mucosa - Nasopharyngeal Influenza Types A,B Direct FA (MILI) - Final 10/30/21 03:30 Urine Catheter - Mckeon Legionella Antigen - Final 10/30/21 03:30 Urine Catheter - Mckeon Streptococcus pneumoniae Antigen (M - Final 10/30/21 04:11 Nasal Secretion SARS-CoV-2 Antigen (Rapid) - Final ABG Data ABG results: ABG 10/30/21 10/30/21 02:04 08:19 Specimen Type ART ART Sample Site R Radial R Brach pH 7.11 L* 7.24 L Bicarbonate Actual 26.1 H 24.5 Total CO2 29 26 Base Excess -4 L -3 L O2 Saturation 88 L 92 L O2 % 40 35 ABG pCO2 82.8 H* 56.9 H ABG pO2 77 77 Santi Test Positive Positive Respiration Rate 12 16 O2 Delivery Device BiPAP Adult Vent Vent Mode AC Tidal Volume 450 POC PEEP 8 5 Crit Call To/Read Back Yes Blood Gas Notified Whom Andes Clinical Comments 14/05 12 40% Radiology Impression Chest X-Ray 10/30/21 01:42 IMPRESSION: 1. ET tube tip is at the camelia. Suggest retracting to a more optimal position. 2. Mixed density ill-defined airspace disease involving multiple lobes of the right lung. Correlate clinically to exclude pneumonia. Partial atelectasis suspected at both bases with low lung volumes demonstrate overall. 3. No pneumothorax. Electronically Signed: Wale Benitez MD at 3:12 EST , ADDENDUM: 10/30/21 0321 IMPRESSION: 1. ET tube tip is at the camelia. Suggest retracting to a more optimal position. 2. Mixed density ill-defined airspace disease involving multiple lobes of the right lung. Correlate clinically to exclude pneumonia. Partial atelectasis suspected at both bases with low lung volumes demonstrate overall. 3. No pneumothorax. N.B. : Dejuan Agustin RN, confirmed on 10/30/2021 03:14:46 (ET) that the healthcare facility has received the radiology report. Electronically Signed: Wale Benitez MD at 3:12 EST , Brain CT 10/30/21 01:45 IMPRESSION: No CT evidence of acute intracranial hemorrhage or injury. Findings concerning for left otomastoiditis. Minimal nonspecific right mastoid air cell fluid. Mild senescent changes with atherosclerosis. Individualized dose optimization techniques were used for this CT. at 0650 Reported and signed by: Aditya Glass MD Electronically Signed: Aditya Glass MD at 6:49 EST , Chest CT 10/30/21 03:34 IMPRESSION: Patchy right greater than left areas of consolidative changes with air bronchograms concerning for underlying pneumonia with component of atelectasis and small pleural effusions. Electronically Signed: Leroy Aiken MD at 5:51 EST , Charges/Coding Procedures Hospitalists Procedures: 61414 Critial Care 1st Hr Multi Select Codes Hospitalists' Procedures Procedures: 32952 Critial Care Addl 30 Min
[2021-10-30] MEDS: 0.9% Saline Lock 10 ML Syringe IV ×2 (11:03→18:04)
--- NOTE | 2021-10-30 11:32 | PCM.CONS.C ---
Assessment & Plan Assessment/Plan (1) Elevated troponin: PLAN: While patient does have underlying CAD, her elevated troponin this time appears to be from her underlying respiratory failure with a pH of 7.1 and PCO2 of over 80 on presentation. She also has active hematuria. Her hemoglobin was 6.9. She does not need anticoagulation at this time. Okay to hold Eliquis. Since she had recent stents, if possible continue aspirin and Plavix. This can be held as well, if required, balancing the risks of continuing severe bleed and risk of stent thrombosis. If aspirin and Plavix are held, please restart when stable from a bleeding standpoint. We will sign off at this time. Please let us know if we can be of any further assistance. Thank you very much for letting us participate in the care of this patient. (2) Coronary artery disease: QUALIFIERS: Coronary Disease-Associated Artery/Lesion type: [place] artery [place] vs. transplanted heart: ass[place] and si[place] heart Associated angina: unspecified whether angina present Qualified Code(s): I25.10 - Atherosclerotic heart disease of [place] coronary artery without angina pectoris (3) Atrial fibrillation: QUALIFIERS: Atrial fibrillation type: unspecified Qualified Code(s): I48.91 - Unspecified atrial fibrillation HPI Consult Data Date of Consult: 10/30/21 HPI Narrative HPI Narrative: Patient is intubated, sedated and history is obtained from chart. 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 Patient progressed at the long-term to a stage that she was no longer responsive. Her pulse ox was in the 70s to 80s. Squad subsequently brought patient to the emergency department on a nonrebreather mask. On the nonrebreather mask her oxygen saturation was 95%. When a nonrebreather mask was taken off her oxygen saturation dropped to about 50%. Patient was responding to only pain. Reportedly at the long-term patient hemoglobin was 6.9. Patient was also noted to have hematuria and her Eliquis has been held. Apparently she was on Eliquis for A. fib. Cardiology consult was requested since her troponin went up to around 500. [facility] Medical History (Updated 10/30/21 @ 11:[address] 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 Kidney disease Kidney failure Obesity Pneumonia Polyneuropathy due to type 2 diabetes mellitus Recurrent infections Sleep apnea Type 2 diabetes mellitus with stage 3 chronic kidney disease UTI (urinary tract infection) Vision problem Home Medications albuterol sulfate 2.5 mg INHALATION Q6H 07/29/21 [History Last Taken Unknown] amiodarone 200 mg tablet 200 mg PO DAILY 07/29/21 [History Last Taken Unknown] apixaban 5 mg tablet 2.5 tablet PO BID 07/29/21 [History Last Taken Unknown] gabapentin 400 mg capsule 400 cap PO DAILY 07/29/21 [History Last Taken Unknown] insulin glargine 100 unit/mL (3 mL) subcutaneous pen 75 ml SUBCUT QHS 07/29/21 [History Last Taken Unknown] insulin lispro 100 unit/mL subcutaneous pen 0 ml SUBCUT ACHS 07/29/21 [History Last Taken Unknown] levothyroxine 125 mcg tablet 125 tablet PO QHS 07/29/21 [History Last Taken Unknown] losartan 25 mg tablet 50 ea PO DAILY 07/29/21 [History Last Taken Unknown] metoprolol succinate 50 mg tablet,extended release 24 hr 50 tablet PO BID 07/29/21 [History Last Taken Unknown] nitroglycerin 0.4 mg sublingual tablet 0.4 mg SUBLINGUAL Q5M PRN 07/29/21 [History Last Taken Unknown] omeprazole 20 mg capsule,delayed release 20 mg PO DAILY cap 07/29/21 [History Last Taken Unknown] pravastatin 80 mg tablet 80 tablet PO QHS 07/29/21 [History Last Taken Unknown] buspirone 5 mg PO BID 10/30/21 [History Last Taken Unknown] clopidogrel 75 mg PO DAILY 10/30/21 [History Last Taken Unknown] cyanocobalamin (vitamin B-12) 1,000 mcg PO DAILY 10/30/21 [History Last Taken Unknown] gabapentin 1,200 mg PO QHS 10/30/21 [History Last Taken Unknown] guaifenesin [Mucinex] 600 mg PO BID 10/30/21 [History Last Taken Unknown] hydrocodone-acetaminophen [[place]] 1 tab PO Q8H PRN 10/30/21 [History Last Taken Unknown] multivitamin 1 tab PO DAILY 10/30/21 [History Last Taken Unknown] zinc 50 mg PO DAILY 10/30/21 [History Last Taken Unknown] zolpidem 10 mg PO QHS PRN 10/30/21 [History Last Taken Unknown] Allergy/AdvReac Type Severity Reaction Status Date / Time adhesive tape Allergy Intermediate Rash Verified 10/30/21 01:53 codeine Allergy Intermediate n/a Verified 10/30/21 01:53 exenatide Allergy Intermediate n/a Verified 10/30/21 01:53 nalbuphine [From Nubain] Allergy Intermediate n/a Verified 10/30/21 01:53 pantoprazole [From Protonix] Allergy Intermediate n/a Verified 10/30/21 01:53 trioxsalen Allergy Intermediate n/a Verified 10/30/21 01:53 adhesive Allergy rash Verified 10/30/21 01:53 Family History Other Depression Diabetes Heart disease High cholesterol Hypertension Kidney disease Myocardial infarction Social History Smoking Status: Never smoker alcohol intake: never substance use type: does not use what type of physical activity do you participate in: none Physical Exam Const Constitutional Narrative: Intubated, sedated HEENT normocephalic Resp clear to auscultation bilaterally Extremity Extremity Narrative: Trace edema Risk Stratification Risk Stratification Applicable: No Charges/Coding Visit Charges Inpatient E&M: 51779 Init Hosp L2 Objective Data Vital Signs: Vital Signs Temp Pulse Resp BP Pulse Ox 96.7 F L 61 16 154/88 H 98 10/30/21 06:50 10/30/21 07:15 10/30/21 07:15 10/30/21 06:50 10/30/21 07:15 Oxygen Flow Rate (L/min) 15 Oxygen Delivery Method Mechanical Ventilator Weight: 290 lb 12.635 oz Body Mass Index (BMI) 53.1 Intake & Output: Intake and Output for Last 24 Hours 10/28/21 10/29/21 10/30/21 23:59 23:59 23:59 Intake Total 851.47 / 851.47 Balance 851.47 / 851.47 Lab / Micro Data Result Diagrams: 10/30/21 02:39 10/30/21 02:39 Labs: Laboratory Results - last 24 hr 10/30/21 02:39: WBC 9.1, RBC 2.34 L, Hgb 6.4 L, Hct 21.9 L, MCV 93.6, MCH 27.4, MCHC 29.2 L, RDW Std Deviation 46.5 H, RDW Coeff of [place] 13.9, Plt Count 157, MPV 9.8, Immature Gran % (Auto) 0.800, Neut % (Auto) 90.7 H, Lymph % (Auto) 3.5 L, [place] % (Auto) 4.7, Eos % (Auto) 0.1, Baso % (Auto) 0.2, Absolute Neuts (auto) 8.2 H, Absolute Lymphs (auto) 0.32 L, Nucleated RBC % 0, Differential Comment SCANNED, Platelet Estimate ADEQUATE, Hypochromasia 1+ 10/30/21 02:39: PT 18.5 H, INR 1.6, APTT 42.5 H 10/30/21 02:39: Sodium 130 L, Potassium 6.0 H*, Chloride 97 L, Carbon Dioxide 25.0, Anion Gap 8, BUN 66 H, Creatinine 6.50 H, Estim Creat Clear Calc 7.37, Est GFR (MDRD) Af Amer 8 L, Est GFR (MDRD) Non-Af 7 L, BUN/Creatinine Ratio 10.2, Glucose 270 H, Calcium 7.9 L, Magnesium 3.1 H, Total Bilirubin 0.50, Direct Bilirubin 0.09, AST 54 H, ALT 37, Alkaline Phosphatase 178 H, Troponin I High Sens 56 H, Total Protein 8.7 H, Albumin 1.8 L, Globulin 6.9 H, TSH 2.26 10/30/21 02:39: Ammonia 21.0, B-Natriuretic Peptide 1632.2 H 10/30/21 02:39: Lactic Acid 1.7 10/30/21 02:39: Blood Type O POSITIVE, Antibody Screen NEGATIVE 10/30/21 02:39: Total Creatine Kinase 31 10/30/21 02:39: Crossmatch See Detail 10/30/21 02:55: Urine Color Red, Urine Clarity Turbid, Urine pH 6.0, Ur Specific [place] 1.020, Urine Protein 500 H, Urine Glucose (UA) Normal, Urine Ketones Negative, Urine Occult Blood 250 H, Urine Nitrite Negative, Urine Bilirubin Negative, Urine Urobilinogen Normal, Ur Leukocyte Esterase 25 H, Urine RBC > 100 SEEN, Urine WBC 0-5 SEEN, Ur Squamous Epith Cells 0 SEEN, Amorphous Sediment 2+, Urine Bacteria 2+, Urine Mucus 0 SEEN 10/30/21 04:40: Troponin I High Sens 509 H* 10/30/21 08:55: POC Glucose 192 H Micro: Microbiology 10/30/21 03:40 Stool Stool Lactoferrin - Final 10/30/21 03:40 Stool Enteric Bacteriology - Final 10/30/21 03:40 Stool C. difficile DNA Amplification - Final 10/30/21 04:30 Mucosa - Nasopharyngeal Influenza Types A,B Direct FA (MILI) - Final 10/30/21 03:30 Urine Catheter - [place]on Legionella Antigen - Final 10/30/21 03:30 Urine Catheter - Mcke[place] Streptococcus pneumoniae Antigen (M - Final 10/30/21 04:11 Nasal Secretion SARS-CoV-2 Antigen (Rapid) - Final ABG Data ABG results: ABG 10/30/21 10/30/21 02:04 08:19 Specimen Type ART ART Sample Site R Radial R Brach pH 7.11 L* 7.24 L Bicarbonate Actual 26.1 H 24.5 Total CO2 29 26 Base Excess -4 L -3 L O2 Saturation 88 L 92 L O2 % 40 35 ABG pCO2 82.8 H* 56.9 H ABG pO2 77 77 Santi Test Positive Positive Respiration Rate 12 16 O2 Delivery Device BiPAP Adult Vent Vent Mode AC Tidal Volume 450 POC PEEP 8 5 Crit Call To/Read Back Yes Blood Gas Notified Whom Andes Clinical Comments 14/05 12 40% Cardiology Labs/Tests 10/30/21 02:04: pH 7.11 L*, Bicarbonate Actual 26.1 H, Base Excess -4 L, O2 Saturation 88 L, ABG pCO2 82.8 H*, ABG pO2 77, Santi Test Positive 10/30/21 02:39: WBC 9.1, RBC 2.34 L, Hgb 6.4 L, Hct 21.9 L, MCV 93.6, MCH 27.4, MCHC 29.2 L, Plt Count 157, MPV 9.8, Immature Gran % (Auto) 0.800, Neut % (Auto) 90.7 H, Lymph % (Auto) 3.5 L, [place] % (Auto) 4.7, Eos % (Auto) 0.1, Baso % (Auto) 0.2, Absolute Neuts (auto) 8.2 H, Nucleated RBC % 0 10/30/21 02:39: PT 18.5 H, INR 1.6, APTT 42.5 H 10/30/21 02:39: Sodium 130 L, Potassium 6.0 H*, Chloride 97 L, Carbon Dioxide 25.0, Anion Gap 8, BUN 66 H, Creatinine 6.50 H, Est GFR (MDRD) Af Amer 8 L, Est GFR (MDRD) Non-Af 7 L, BUN/Creatinine Ratio 10.2, Glucose 270 H, Calcium 7.9 L, Magnesium 3.1 H, Total Bilirubin 0.50, Direct Bilirubin 0.09 10/30/21 02:39: B-Natriuretic Peptide 1632.2 H 10/30/21 02:39: Lactic Acid 1.7 10/30/21 02:55: Urine Color Red, Urine Clarity Turbid, Urine pH 6.0, Ur Specific [place] 1.020, Urine Protein 500 H, Urine Glucose (UA) Normal, Urine Ketones Negative, Urine Occult Blood 250 H, Urine Nitrite Negative, Urine Bilirubin Negative, Urine Urobilinogen Normal, Ur Leukocyte Esterase 25 H, Urine RBC > 100 SEEN, Urine WBC 0-5 SEEN 10/30/21 08:19: pH 7.24 L, Bicarbonate Actual 24.5, Base Excess -3 L, O2 Saturation 92 L, ABG pCO2 56.9 H, ABG pO2 77, Santi Test Positive Rhythm: EKG: ECHO: Stress Test: Cardiac Cath: PCI: CT Surgery: Holter monitor: EPS: PPM: CXR: Chest CT Scan: Radiography Diagnostic Testing: Radiology Impression Chest X-Ray 10/30/21 01:42 IMPRESSION: 1. ET tube tip is at the [place]. Suggest retracting to a more optimal position. 2. Mixed density ill-defined airspace disease involving multiple lobes of the right lung. Correlate clinically to exclude pneumonia. Partial atelectasis suspected at both bases with low lung volumes demonstrate overall. 3. No pneumothorax. Electronically Signed: Wale Benitez MD at 3:12 EST , ADDENDUM: 10/30/21 0321 IMPRESSION: 1. ET tube tip is at the [place]. Suggest retracting to a more optimal position. 2. Mixed density ill-defined airspace disease involving multiple lobes of the right lung. Correlate clinically to exclude pneumonia. Partial atelectasis suspected at both bases with low lung volumes demonstrate overall. 3. No pneumothorax. N.B. : Dejuan Agustin RN, confirmed on 10/30/2021 03:14:46 (ET) that the healthcare facility has received the radiology report. Electronically Signed: Wale Benitez MD at 3:12 EST , Brain CT 10/30/21 01:45 IMPRESSION: No CT evidence of acute intracranial hemorrhage or injury. Findings concerning for left otomastoiditis. Minimal nonspecific right mastoid air cell fluid. Mild senescent changes with atherosclerosis. Individualized dose optimization techniques were used for this CT. at 0650 Reported and signed by: Aditya Glass MD Electronically Signed: Aditya Glass MD at 6:49 EST , Chest CT 10/30/21 03:34 IMPRESSION: Patchy right greater than left areas of consolidative changes with air bronchograms concerning for underlying pneumonia with component of atelectasis and small pleural effusions. Electronically Signed: Leroy Aiken MD at 5:51 EST ,
[2021-10-30 11:33] LABS: Hematocrit 23.5 % (37-47); Hemoglobin 7.3 g/dL (12.0-15.0)
[2021-10-30] MEDS: Propofol 10MG/Ml 1,000 MG/100 ML Bottle 7.9 MG CONT INF ×2 (12:30→22:55)
[2021-10-30 14:03] LABS: Hepatitis B Surface Antibody Non-Reactive; Hepatitis B Surface Antigen Non-Reactive (Nonreactive)
--- NOTE | 2021-10-30 14:20 | CASEMGMT ---
RN BECKY called for initial transition planning/care coordination assessment as patient is currently on ventilator. RN BECKY introduced self and role at [facility]. , [place], willing to participate in assessment and is able to answer all questions appropriately. Care providers, pharmacy, and demographics verified. wishes for patient to return to [facility] when medically stable. states he has no further needs or concerns at this time. CM to follow for discharge planning needs that may arise. PCP: Andres Velez Specialists: Clara Z[employer] Preferred Pharmacy: [facility] Insurance: [place] [facility] Prescription Benefit: yes Living Will/HPOA: yes, Refugio Bridger LNOK: Living Arrangements: Patient lives with in a 2 story home with bed and bath on the first floor. Patient was independent at home prior to currently illness. Transportation: DME/HHC: patient has shower chair, hospital bed, walker, wheelchair, lift chair, nebulizer, pulse ox, and oxygen with portability through [employer] at 3-5lpm. Patient was at [facility] prior to admission to [facility]. Disposition Plan: [facility] when medically stable. Lizette MAC, RN, CM
--- NOTE | 2021-10-30 14:31 | NURSING ---
1420 vent alarming, RN to room, curator present. vent alarming high pressure, pt marquez/mottled, bp 30/16. call for Dr. Cruz. 1422 Dr. Cruz present, dialysis stopped, blood returned to pt. 1428 pt w/good color return, bp 182/66 HR 79, SpO2 97
--- NOTE | 2021-10-30 15:19 | CASEMGMT ---
Social Work Pt is from [facility] and per pt , pt plans to return. Shay at [facility] updated. BRIAN Garcia
--- NOTE | 2021-10-30 15:38 | DIALYSIS ---
Pt rec'd 2hrs of 2.5hr tx. BP dropped, ns bolus given, and bp dropped further. Blood returned. ICU team at bedside. Post blood return BP 187/81. See flow record for tx data. Net UF -1360ml.
--- NOTE | 2021-10-30 16:08 | PCM.HOSP.N ---
Hospitalist Note Patient was seen and examined today briefly in ICU, she remains sedated and on the ventilator, she had an episode this afternoon more nursing briefly was not able to palpate a pulse, this was during dialysis treatment, patient's pulse ox however did not drop during this episode. There was brief chest compressions delivered and critical care evaluated the patient, a short time later there was a palpable pulse. His ICU nurse talked with the of the patient by phone who requested that I call him to discuss her CODE STATUS-she was a DNR CC arrest with intubation when she was admitted to the hospital. wished to reverse this and he wanted her to be a full code. He felt that he was talked into making her a DNR by another physician at the hospital where she recently was hospitalized. I went over with him that she had multiple medical problems, and I tried to paint a picture that her recovery was very guarded, he stated that he wanted to give her every chance. Patient is now full code, I let critical care know about the discussion. At this time I will transfuse 1 more unit of packed red blood cells, her last hemoglobin was 7.3 and the dialysis nurses here and able to give the blood through her dialysis catheter.
[2021-10-30] MEDS: Aspirin 81 MG TAB.CHEW GT (17:27)
[2021-10-30] MEDS: busPIRone 5 MG Tablet GT ×2 (17:28→23:09)
[2021-10-30] MEDS: Clopidogrel Bisulfate 75 MG Tablet GT (17:29)
[2021-10-30] MEDS: NEPRO TUBE FEED 1,000 ML 40 ML GT (17:29)
[2021-10-30] MEDS: Famotidine 20 MG Tablet GT (17:29)
[2021-10-30] MEDS: Amiodarone 200 MG Tablet GT (17:29)
[2021-10-30 17:51] LABS: Bedside Glucose 63 mg/dL (70-110)
[2021-10-30 17:51] LABS: Bedside Glucose 64 mg/dL (70-110)
[2021-10-30 18:20] LABS: Bedside Glucose 71 mg/dL (70-110)
--- NOTE | 2021-10-30 18:57 | CON.PCM_ITS ---
Assessment & Plan Assessment/Plan (1) Urinary tract infection: (2) Gross hematuria: PLAN: Continue with manual irrigations every 3 hours and continuous bladder irrigation to keep urine pink-tinged to clear Await final urine culture results and continue antibiotic coverage Will eventually require imaging and cystoscopy for full evaluation. due to her condition today and the fact that we can see half of her kidneys on the chest CT without obvious evidence of obstruction, we will plan to image her tomorrow to rule out urologic obstruction will follow with you HPI Consult Data Date of Consult: 10/30/21 HPI Narrative HPI Narrative: YANIRA LEMOS, is a 61 F who presented unresponsive from a nursing facility with multiple medical concerns including respiratory failure, renal failure for which dialysis was started approximately 2 weeks ago. On further evaluation here, she was found to have grossly bloody, purulent urine via catheter. [facility] Medical History (Updated 10/30/21 @ 18:[address] 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 Kidney disease Kidney failure Obesity Pneumonia Polyneuropathy due to type 2 diabetes mellitus Recurrent infections Sleep apnea Type 2 diabetes mellitus with stage 3 chronic kidney disease UTI (urinary tract infection) Vision problem Home Medications albuterol sulfate 2.5 mg INHALATION Q6H 07/29/21 [History Last Taken Unknown] amiodarone 200 mg tablet 200 mg PO DAILY 07/29/21 [History Last Taken Unknown] apixaban 5 mg tablet 2.5 tablet PO BID 07/29/21 [History Last Taken Unknown] gabapentin 400 mg capsule 400 cap PO DAILY 07/29/21 [History Last Taken Unknown] insulin glargine 100 unit/mL (3 mL) subcutaneous pen 75 ml SUBCUT QHS 07/29/21 [History Last Taken Unknown] insulin lispro 100 unit/mL subcutaneous pen 0 ml SUBCUT ACHS 07/29/21 [History Last Taken Unknown] levothyroxine 125 mcg tablet 125 tablet PO QHS 07/29/21 [History Last Taken Unknown] losartan 25 mg tablet 50 ea PO DAILY 07/29/21 [History Last Taken Unknown] metoprolol succinate 50 mg tablet,extended release 24 hr 50 tablet PO BID 07/29/21 [History Last Taken Unknown] nitroglycerin 0.4 mg sublingual tablet 0.4 mg SUBLINGUAL Q5M PRN 07/29/21 [History Last Taken Unknown] omeprazole 20 mg capsule,delayed release 20 mg PO DAILY cap 07/29/21 [History Last Taken Unknown] pravastatin 80 mg tablet 80 tablet PO QHS 07/29/21 [History Last Taken Unknown] buspirone 5 mg PO BID 10/30/21 [History Last Taken Unknown] clopidogrel 75 mg PO DAILY 10/30/21 [History Last Taken Unknown] cyanocobalamin (vitamin B-12) 1,000 mcg PO DAILY 10/30/21 [History Last Taken Unknown] gabapentin 1,200 mg PO QHS 10/30/21 [History Last Taken Unknown] guaifenesin [Mucinex] 600 mg PO BID 10/30/21 [History Last Taken Unknown] hydrocodone-acetaminophen [[place]] 1 tab PO Q8H PRN 10/30/21 [History Last Taken Unknown] multivitamin 1 tab PO DAILY 10/30/21 [History Last Taken Unknown] zinc 50 mg PO DAILY 10/30/21 [History Last Taken Unknown] zolpidem 10 mg PO QHS PRN 10/30/21 [History Last Taken Unknown] Allergy/AdvReac Type Severity Reaction Status Date / Time adhesive tape Allergy Intermediate Rash Verified 10/30/21 01:53 codeine Allergy Intermediate n/a Verified 10/30/21 01:53 exenatide Allergy Intermediate n/a Verified 10/30/21 01:53 nalbuphine [From Nubain] Allergy Intermediate n/a Verified 10/30/21 01:53 pantoprazole [From Protonix] Allergy Intermediate n/a Verified 10/30/21 01:53 trioxsalen Allergy Intermediate n/a Verified 10/30/21 01:53 adhesive Allergy rash Verified 10/30/21 01:53 Family History Other Depression Diabetes Heart disease High cholesterol Hypertension Kidney disease Myocardial infarction Social History Smoking Status: Never smoker alcohol intake: never substance use type: does not use what type of physical activity do you participate in: none ROS Review of Systems ROS Unobtainable: due to endotracheal tube Physical Exam Resp Resp Narrative: On ventilator Cardio regular rate GI soft to palpation Narrative: Three-way Mckeon catheter is in place and continuous bladder irrigation is running with clear urine. Some gross clot has been irrigated. Urine culture is pending. Extremity normal to inspection Skin no rashes or lesions noted, no wounds, no jaundice and no petechiae Lab / Micro Data Result Diagrams: 10/30/21 11:20 10/30/21 02:39 Labs: Laboratory Results - last 24 hr 10/30/21 02:39: WBC 9.1, RBC 2.34 L, Hgb 6.4 L, Hct 21.9 L, MCV 93.6, MCH 27.4, MCHC 29.2 L, RDW Std Deviation 46.5 H, RDW Coeff of Loyda 13.9, Plt Count 157, MPV 9.8, Immature Gran % (Auto) 0.800, Neut % (Auto) 90.7 H, Lymph % (Auto) 3.5 L, Band[place] % (Auto) 4.7, Eos % (Auto) 0.1, Baso % (Auto) 0.2, Absolute Neuts (auto) 8.2 H, Absolute Lymphs (auto) 0.32 L, Nucleated RBC % 0, Differential Comment SCANNED, Platelet Estimate ADEQUATE, Hypochromasia 1+ 10/30/21 02:39: PT 18.5 H, INR 1.6, APTT 42.5 H 10/30/21 02:39: Sodium 130 L, Potassium 6.0 H*, Chloride 97 L, Carbon Dioxide 25.0, Anion Gap 8, BUN 66 H, Creatinine 6.50 H, Estim Creat Clear Calc 7.37, Est GFR (MDRD) Af Amer 8 L, Est GFR (MDRD) Non-Af 7 L, BUN/Creatinine Ratio 10.2, Glucose 270 H, Calcium 7.9 L, Magnesium 3.1 H, Total Bilirubin 0.50, Direct Bilirubin 0.09, AST 54 H, ALT 37, Alkaline Phosphatase 178 H, Troponin I High Sens 56 H, Total Protein 8.7 H, Albumin 1.8 L, Globulin 6.9 H, TSH 2.26 10/30/21 02:39: Ammonia 21.0, B-Natriuretic Peptide 1632.2 H 10/30/21 02:39: Lactic Acid 1.7 10/30/21 02:39: Blood Type O POSITIVE, Antibody Screen NEGATIVE 10/30/21 02:39: Total Creatine Kinase 31 10/30/21 02:39: Crossmatch See Detail 10/30/21 02:39: Crossmatch See Detail 10/30/21 02:55: Urine Color Red, Urine Clarity Turbid, Urine pH 6.0, Ur Specific [place] 1.020, Urine Protein 500 H, Urine Glucose (UA) Normal, Urine Ketones Negative, Urine Occult Blood 250 H, Urine Nitrite Negative, Urine Bilirubin Negative, Urine Urobilinogen Normal, Ur Leukocyte Esterase 25 H, Urine RBC > 100 SEEN, Urine WBC 0-5 SEEN, Ur Squamous Epith Cells 0 SEEN, Amorphous Sediment 2+, Urine Bacteria 2+, Urine Mucus 0 SEEN 10/30/21 04:40: Troponin I High Sens 509 H* 10/30/21 08:55: POC Glucose 192 H 10/30/21 11:20: Hgb 7.3 L, Hct 23.5 L 10/30/21 13:15: Hep Bs Antigen Non-Reactive, Hep Bs Antibody Non-Reactive 10/30/21 17:27: POC Glucose 63 L 10/30/21 17:46: POC Glucose 64 L 10/30/21 18:06: POC Glucose 71 Micro: Microbiology 10/30/21 03:32 Sputum, Tracheal Aspirate Gram Stain - Final 10/30/21 03:40 Stool Stool Lactoferrin - Final 10/30/21 03:40 Stool Enteric Bacteriology - Final 10/30/21 03:40 Stool C. difficile DNA Amplification - Final 10/30/21 04:30 Mucosa - Nasopharyngeal Influenza Types A,B Direct FA (MILI) - Final 10/30/21 03:30 Urine Catheter - Mckeon Legionella Antigen - Final 10/30/21 03:30 Urine Catheter - Mckeon Streptococcus pneumoniae Antigen (M - Final 10/30/21 04:11 Nasal Secretion SARS-CoV-2 Antigen (Rapid) - Final ABG Data ABG results: ABG 10/30/21 10/30/21 02:04 08:19 Specimen Type ART ART Sample Site R Radial R Brach pH 7.11 L* 7.24 L Bicarbonate Actual 26.1 H 24.5 Total CO2 29 26 Base Excess -4 L -3 L O2 Saturation 88 L 92 L O2 % 40 35 ABG pCO2 82.8 H* 56.9 H ABG pO2 77 77 Santi Test Positive Positive Respiration Rate 12 16 O2 Delivery Device BiPAP Adult Vent Vent Mode AC Tidal Volume 450 POC PEEP 8 5 Crit Call To/Read Back Yes Blood Gas Notified Whom Andes Clinical Comments 14/05 12 40% Radiology Impression Chest X-Ray 10/30/21 01:42 IMPRESSION: 1. ET tube tip is at the camelia. Suggest retracting to a more optimal position. 2. Mixed density ill-defined airspace disease involving multiple lobes of the right lung. Correlate clinically to exclude pneumonia. Partial atelectasis suspected at both bases with low lung volumes demonstrate overall. 3. No pneumothorax. Electronically Signed: Wale Benitez MD at 3:12 EST , ADDENDUM: 10/30/21 0321 IMPRESSION: 1. ET tube tip is at the camelia. Suggest retracting to a more optimal position. 2. Mixed density ill-defined airspace disease involving multiple lobes of the right lung. Correlate clinically to exclude pneumonia. Partial atelectasis suspected at both bases with low lung volumes demonstrate overall. 3. No pneumothorax. N.B. : Dejuan Agustin RN, confirmed on 10/30/2021 03:14:46 (ET) that the healthcare facility has received the radiology report. Electronically Signed: Wale Benitez MD at 3:12 EST , Brain CT 10/30/21 01:45 IMPRESSION: No CT evidence of acute intracranial hemorrhage or injury. Findings concerning for left otomastoiditis. Minimal nonspecific right mastoid air cell fluid. Mild senescent changes with atherosclerosis. Individualized dose optimization techniques were used for this CT. at 0650 Reported and signed by: Aditya Glass MD Electronically Signed: Aditya Glass MD at 6:49 EST , Chest CT 10/30/21 03:34 IMPRESSION: Patchy right greater than left areas of consolidative changes with air bronchograms concerning for underlying pneumonia with component of atelectasis and small pleural effusions. Electronically Signed: Leroy Aiken MD at 5:51 EST ,
--- NOTE | 2021-10-30 19:59 | NURSING ---
education re chronic illness deferred till acute illness resovling
[2021-10-30] MEDS: Pravastatin 80 MG Tablet GT (23:09)
[2021-10-30] MEDS: Levothyroxine 125 MCG Tablet GT (23:09)
[2021-10-30] MEDS: Metoprolol Tartrate 50 MG Tablet GT (23:09)
--- NOTE | 2021-10-30 23:44 | PCM.PN.BLA ---
Progress Note Blood glucose of 99. With earlier episodes of hypoglycemia. Patient now on tube feeding. At home patient is on basal insulin 75 nightly. On presentation patient was ordered 30 units basal insulin nightly. At this time we will hold 30 units basal insulin for tonight and will give 10 units basal insulin and see how patient fares.
[2021-10-31] VITALS (47 sets, daily range): BP systolic 98–177; BP diastolic 39–106; PULSE 60–82; RESP 12–21; TEMP 36.1–36.7; O2SAT 88–100
[2021-10-31 04:01] LABS: Bedside Glucose 99 mg/dL (70-110)
[2021-10-31 04:25] LABS: Absolute Lymphocyte Count 1.43 X10^3/uL (0.83-4.51); Absolute Neutrophil Count 6.5 X10^3/uL (2.0-7.7); Basophil# 0.04 X10^3/uL; Basophil% 0.4 % (0-1); Eosinophil# 0.15 X10^3/uL; Eosinophils% 1.7 % (0-5); Hematocrit 23.7 % (37-47); Hemoglobin 7.7 g/dL (12.0-15.0); Lymphocyte # 1.43 X10^3/ul (0.83-4.51); Lymphocyte % 16.1 % (19-41); Mean Corp Hgb Conc 32.5 g/dL (32-36); Mean Corpuscular Hgb 28.3 pg (27.0-32.0); Mean Corpuscular Volume 87.1 fL (81-99); Mean Platelet Vol. 10.1 fl (6.2-12.0); Monocyte# 0.76 X10^3/uL; Monocyte% 8.5 % (0-10); NRBC Flagged by Analyzer 0 % (0-5); Neutrophil # 6.45 X10^3/uL (2.7-7.7); Neutrophil % 72.6 % (47-70); Platelet Count 100 K/mm3 (150-450); RBC Distribution Width CV 14.3 % (11.6-14.6); RBC Distribution Width SD 45.1 fl (35.1-43.9); Red Blood Count 2.72 M/mm3 (4.2-5.4); White Blood Count 8.9 K/mm3 (4.4-11.0)
[2021-10-31 04:41] LABS: Anion Gap 6 (5-15); BUN 59 mg/dL (7-18); BUN/Creat Ratio 10.8 RATIO (10-20); Calcium,Total 7.7 mg/dL (8.5-10.1); Chloride 98 mmol/L (98-107); Creatinine, Serum 5.47 mg/dL (0.55-1.02); EST Glomerular Filtration Rate 9 mL/min (>60); Est Glom Filt Rate - Afr Amer 10 mL/min (>60); Estimated Creatinine Clearance 8.76 ml/min; Glucose 87 mg/dL (74-106); Potassium 4.3 mmol/L (3.5-5.1); Sodium Level 132 mmol/L (136-145)
[2021-10-31 05:04] LABS: CPK Total, Creatine Kinase 38 U/L (26-192); Triglycerides 170 mg/dL
[2021-10-31 06:31] LABS: Allen Test Positive; Base Excess 1 mmol/L (-2 to +2); Bicarbonate 26.4 mmol/L (22-26); Blood Gas Specimen Type ART; FI02 30; Mode CPAP/PS; O2 Delivery Device Adult Vent; PEEP 5; PO2 62 mmHG (75-100); PS 5; SITE L Radial; SO2 91 % (95-99); Total Carbon Dioxide 28 mmol/L; pCO2 45.8 mmHg (35-45); pH 7.37 (7.35-7.45)
--- NOTE | 2021-10-31 06:36 | PCM.PN.INT ---
Assessment & Plan Assessment/Plan (1) Acute and chronic respiratory failure with hypercapnia: (2) Bilateral pneumonia: QUALIFIERS: Pneumonia type: due to unspecified organism Lung location: unspecified part of lung Qualified Code(s): J18.9 - Pneumonia, unspecified organism (3) Non-ST elevated myocardial infarction (non-STEMI): (4) Type 2 diabetes mellitus with stage 3 chronic kidney disease: QUALIFIERS: Diabetes mellitus jail insulin use: with long chain quiller tender use Chronic kidney disease stage 3 subtype: stage 3b (GFR 30-44) Qualified Code(s): E11.22 - Type 2 diabetes mellitus with diabetic chronic kidney disease; N18.32 - Chronic kidney disease, stage 3b; Z79.4 - manager long term care (current) use of insulin PLAN: RECOMMENDATIONS: 1. Continue empiric antibiotics pending cultures 2. Consider echocardiogram for possible endocarditis 3. Hold anticoagulation given hematuria. Okay to continue Plavix from my perspective 4. Proceed with extubation 5. Aggressive control of blood sugars 6. Transfuse to keep hemoglobin greater than 7 given blood crisis 7. Keep saturations between 90 and 94% 8. Volume removal with dialysis IMPRESSIONS: 1. Acute on chronic combined respiratory failure secondary to bilateral pneumonia Patient with predominant right lower lobe pneumonia. Cannot exclude aspiration given decreased mental status. Patient reportedly has also had a recent infection with MRSA in the urine. This may be hematologic spread. Some concern for possible endocarditis, but given body habitus this will be difficult to assess. Antigens were negative. Patient appears to be growing E faecalis in her blood. Patient will be extubated given results of blood gas. Patient will likely need BiPAP on extubation. Patient is a reported non-smoker. Patient may have an element of obesity hypoventilation syndrome. Unclear if steroids are necessary. 2. Coronary artery disease with elevated troponin/acute systolic CHF/history of A. fib Consider echocardiogram. Cardiology has seen the patient, but abruptly signed off. Patient does have an elevated BNP at this time. Patient does have a dialysis catheter, so volume removal with dialysis may be necessary. Patient appears to be sinus rhythm at this time. Eliquis will be discontinued given anemia, hematuria and need for transfusions in the setting of a blood crisis. 3. Uncontrolled diabetes mellitus?insulin-dependent Unclear baseline regimen. Patient currently is n.p.o., but tube feeds can be initiated. Patient should be placed on Lantus with sliding scale insulin. Will attempt to avoid steroids given patient's diabetes and unknown obstructive lung disease component. 4. End-stage renal disease on hemodialysis Unclear when patient had last hemodialysis. Nephrology following. Patient would benefit from volume removal given elevated BNP and hypoxia. 5. Acute blood loss anemia secondary to gross hematuria Unclear etiology. We will continue to monitor. Urology planning work-up. We will discontinue Eliquis given need for transfusion and variable availability of blood products. Continue H&H's with transfusions as necessary. 7. Morbid obesity/recent protracted hospitalization/poor history/hypercholesterolemia/hypertension/hypothyroidism Complicates care, management, recovery and prognosis. Okay to continue with baseline antihypertensives. Amiodarone okay to continue, but Eliquis needs to be held. Plavix can be continued for now, but this may ultimately also need to be held. Patient is on Synthroid and this can be continued. TIME: 34 minutes critical care time spent addressing patient's acute on chronic respiratory failure, coronary artery disease, diabetes mellitus, end-stage renal disease, acute blood loss anemia, review of all data and collaboration with care team Subjective Subjective Patient did well overnight. Patient has been receiving CBI with good response. Patient did receive 2 units of packed red blood cells and tolerated this well. Nursing is reporting patient has E.faecalis growing in her blood. Patient is following commands and was able to pass a spontaneous breathing trial this morning. Patient did have dialysis yesterday. Objective Data Objective Data Vital Signs: Vital Signs Temp Pulse Resp BP Pulse Ox 36.6 C 76 18 154/59 H 93 10/31/21 04:00 10/31/21 06:00 10/31/21 06:00 10/31/21 06:00 10/31/21 06:00 Oxygen Flow Rate (L/min) 15 Oxygen Delivery Method Mechanical Ventilator Weight: 125.7 kg Body Mass Index (BMI) 51.2 Intake & Output: Intake and Output for Last 24 Hours 10/29/21 10/30/21 10/31/21 23:59 23:59 23:59 Intake Total 1440.63 / 1512.36 447.36 / 447.36 Output Total 3820 / 5770 6400 / 6400 Balance -2379.37 / -4257.64 -5952.64 / -5952.64 Lab / Micro Data Result Diagrams: 10/31/21 04:15 10/31/21 04:15 Labs: Laboratory Results - last 24 hr 10/30/21 02:39: Crossmatch See Detail 10/30/21 02:39: Crossmatch See Detail 10/30/21 04:15: Total Creatine Kinase 38, Triglycerides 170 10/30/21 08:55: POC Glucose 192 H 10/30/21 11:20: Hgb 7.3 L, Hct 23.5 L 10/30/21 13:15: Hep Bs Antigen Non-Reactive, Hep Bs Antibody Non-Reactive 10/30/21 17:27: POC Glucose 63 L 10/30/21 17:46: POC Glucose 64 L 10/30/21 18:06: POC Glucose 71 10/30/21 23:23: POC Glucose 99 10/31/21 04:15: WBC 8.9, RBC 2.72 L, Hgb 7.7 L, Hct 23.7 L, MCV 87.1 D, MCH 28.3, MCHC 32.5 D, RDW Std Deviation 45.1 H, RDW Coeff of Loyda 14.3, Plt Count 100 L, MPV 10.1, Immature Gran % (Auto) 0.700, Neut % (Auto) 72.6 H, Lymph % (Auto) 16.1 L, [place] % (Auto) 8.5, Eos % (Auto) 1.7, Baso % (Auto) 0.4, Absolute Neuts (auto) 6.5, Absolute Lymphs (auto) 1.43, Nucleated RBC % 0 10/31/21 04:15: Sodium 132 L, Potassium 4.3, Chloride 98, Carbon Dioxide 28.0, Anion Gap 6, BUN 59 H, Creatinine 5.47 H, Estim Creat Clear Calc 8.76, Est GFR (MDRD) Af Amer 10 L, Est GFR (MDRD) Non-Af 9 L, BUN/Creatinine Ratio 10.8, Glucose 87, Calcium 7.7 L Micro: Microbiology 10/30/21 02:39 Blood Culture (Wb) - Femoral Artery Bacteria Detection (PCR) - Preliminary Enterococcus faecalis 10/30/21 02:39 Blood Culture (Wb) - Femoral Artery Blood Culture - Preliminary 10/30/21 03:32 Sputum, Tracheal Aspirate Gram Stain - Final 10/30/21 03:40 Stool Stool Lactoferrin - Final 10/30/21 03:40 Stool Enteric Bacteriology - Final 10/30/21 03:40 Stool C. difficile DNA Amplification - Final 10/30/21 04:30 Mucosa - Nasopharyngeal Influenza Types A,B Direct FA (MILI) - Final 10/30/21 03:30 Urine Catheter - Mckeon Legionella Antigen - Final 10/30/21 03:30 Urine Catheter - Mckeon Streptococcus pneumoniae Antigen (M - Final 10/30/21 04:11 Nasal Secretion SARS-CoV-2 Antigen (Rapid) - Final ABG Data ABG results: ABG 10/30/21 10/31/21 08:19 06:24 Specimen Type ART ART Sample Site R Brach L Radial pH 7.24 L 7.37 Bicarbonate Actual 24.5 26.4 H Total CO2 26 28 Base Excess -3 L 1 O2 Saturation 92 L 91 L O2 % 35 30 ABG pCO2 56.9 H 45.8 H ABG pO2 77 62 L Santi Test Positive Positive Respiration Rate 16 O2 Delivery Device Adult Vent Adult Vent Vent Mode AC CPAP/PS Tidal Volume 450 POC PEEP 5 5 POC Pressure Suppt 5 Radiography Diagnostic Testing: Radiology Impression Brain CT 10/30/21 01:45 IMPRESSION: No CT evidence of acute intracranial hemorrhage or injury. Findings concerning for left otomastoiditis. Minimal nonspecific right mastoid air cell fluid. Mild senescent changes with atherosclerosis. Individualized dose optimization techniques were used for this CT. at 0650 Reported and signed by: Aditya Glass MD Electronically Signed: Aditya Glass MD at 6:49 EST , Physical Exam Const Constitutional Narrative: Seen well on spontaneous breathing trial General Appearance: uncooperative, lethargic, intubated and patient mechanically ventilated Nutritional Appearance: morbidly obese HEENT normocephalic HEENT Narrative: Extremely short neck. Some attempts at IJ noted. Mouth: endotracheal tube in place and OG tube in place Eyes PERRL, EOMs intact bilaterally and no scleral icterus Sclera: No sclera abnormal Neck Neck Narrative: Unable to assess JVD and lymphadenopathy secondary to adipose tissue Chest inspection of chest normal Chest Narrative: Right temporary hemodialysis catheter in subclavian position is clean, dry and intact Chest: symmetrical chest wall rise; Negative for crepitus Resp Effort and Inspection: prolonged expiratory phase Auscultation: rhonchi right lower and diminished lung sounds; Negative for rales or wheezes Cardio regular rate, regular rhythm, S1 normal heart sound, S2 normal heart sound, no murmurs, no rub and no gallops GI normal to inspection, nondistended, normoactive bowel sounds Extremity General Extremity: edema Skin no rashes or lesions noted Neuro Sensorium / Orientation: sedated on vent Psych Mood & Affect: flat affect Charges/Coding Procedures Hospitalists Procedures: [id number] Critial Care 1st Hr
[2021-10-31 06:51] LABS: Bedside Glucose 78 mg/dL (70-110)
[2021-10-31] MEDS: Morphine 2 MG/ML Syringe IV ×3 (08:38→21:36)
[2021-10-31] MEDS: 0.9% Saline Lock 10 ML Syringe IV ×3 (08:39→21:36)
[2021-10-31] MEDS: Vancomycin IV 1,000 MG/200 ML BAG 200 MG IV (09:44)
--- NOTE | 2021-10-31 09:53 | PCM.RX.CS ---
Consult Pharmacy has been consulted to manage selected antiobiotic: Vancomycin Type of Consult: Follow-up Suspected Infection: Bacteremia Labs: Sodium 132 mmol/L (136-145) L 10/31/21 04:15 Potassium 4.3 mmol/L (3.5-5.1) 10/31/21 04:15 Chloride 98 mmol/L (98-107) 10/31/21 04:15 Carbon Dioxide 28.0 mmol/L (21.0-32.0) 10/31/21 04:15 Anion Gap 6 (5-15) 10/31/21 04:15 BUN 59 mg/dL (7-18) H 10/31/21 04:15 Creatinine 5.47 mg/dL (0.55-1.02) H 10/31/21 04:15 Est GFR (MDRD) Af Amer 10 mL/min (>60) L 10/31/21 04:15 Est GFR (MDRD) Non-Af 9 mL/min (>60) L 10/31/21 04:15 BUN/Creatinine Ratio 10.8 RATIO (10-20) 10/31/21 04:15 Glucose 87 mg/dL (74-106) 10/31/21 04:15 Microbiology: Microbiology 10/30/21 03:32 Sputum, Tracheal Aspirate Gram Stain - Final 10/30/21 03:32 Sputum, Tracheal Aspirate Respiratory Culture - Preliminary Alpha Hemolytic Streptococcus Gram positive organism 10/30/21 02:55 Urine Catheter - Catheter Urine Culture - Preliminary Culture exhibits no growth. 10/30/21 02:39 Blood Culture (Wb) - Femoral Artery Bacteria Detection (PCR) - Final Enterococcus faecalis 10/30/21 02:39 Blood Culture (Wb) - Femoral Artery Blood Culture - Preliminary 10/30/21 03:40 Stool Stool Lactoferrin - Final 10/30/21 03:40 Stool Enteric Bacteriology - Final 10/30/21 03:40 Stool C. difficile DNA Amplification - Final 10/30/21 04:30 Mucosa - Nasopharyngeal Influenza Types A,B Direct FA (MILI) - Final 10/30/21 03:30 Urine Catheter - Mckeon Legionella Antigen - Final 10/30/21 03:30 Urine Catheter - Mckeon Streptococcus pneumoniae Antigen (M - Final 10/30/21 04:11 Nasal Secretion SARS-CoV-2 Antigen (Rapid) - Final Goal Trough: 15-20 mcg/mL Pharmacy Plan for Drug Dosing: DAILY ASSESSMENT Current Vancomycin Dose: 2G IV X1 10/30/21 @0414 Number of Doses Received: 1 Current Renal Function: On hemodialysis, pharmacy needs to call daily to assess if pt is getting a HD treatment Renal Function Trend: n/a Lab/Micro: Cx growing E. faecalis, no sensitivity data at this time Any Change in Vanc Plan: 1g IV x1 today, no plans for HD today at this time per discussion with patient's RN. Patient will be due for a pre-HD level prior to next treatment. Pharmacy to call floor daily to assess daily HD needs and to schedule subsequent troughs and doses Pending Level:Call daily to determine HD status Pharmacy Service will continue to monitor and adjust dosing as required.
--- NOTE | 2021-10-31 11:01 | NURSING ---
Pt taken off bipap for approx 1.5 hours. SPO2 88/89 majority of time at 6L. Placed back on AVAPS at this time FIO2 30%. Tolerating well. Unable to complete swallow evaluation at this time due to this.
--- NOTE | 2021-10-31 11:25 | CASEMGMT ---
RN BECKY called [facility] and spoke with Shay in admissions. Per Shay patient will need precert to return to [facility]. Roberto was just extubated this am. Shay stated that she would start precert when patient is more medically ready for discharge and will have her phone on her over the weekend for updates. BECKY will continue to follow this patient and plan for a safe discharge.
[2021-10-31 12:06] LABS: Bedside Glucose 60 mg/dL (70-110)
[2021-10-31] MEDS: Dextrose 10%-Water 250 ML 999 ML IV (12:19)
--- NOTE | 2021-10-31 13:26 | CON.PCM.RE_ITS ---
Assessment & Plan Assessment/Plan (1) Hyperkalemia: (2) Chronic renal failure: PLAN: As per records from previous admission, she had history of CKD stage IV, sustained acute renal failure in the setting of pyelonephritis/UTI and ended up on dialysis. S/p dialysis yesterday. Dialysis next schedule planned for tomorrow. Hyperkalemia. Is better with dialysis. Will discuss with ICU attending. HPI Consult Data Date of Consult: 10/31/21 HPI Narrative HPI Narrative: YANIRA LEMOS, is a 61 F who presents to the hospital with worsening respiratory status. Nephrology consulted for possible ESRD. She is from [facility]. Worsening Dr. Ziegler from [place]. Recently admitted to [facility] after recent hospital stay with UTI. Sustained renal failure and started on dialysis. Was sent back into the ER with worsening oxygenation. Chest x-ray is consistent with extensive pneumonia, pleural effusions. Nephrology consulted for dialysis needs. She was dialyzed on an emergent basis yesterday. Currently extubated. Complains of low back pain. [facility] Medical History (Updated 10/30/21 @ 18:[address] 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 Kidney disease Kidney failure Obesity Pneumonia Polyneuropathy due to type 2 diabetes mellitus Recurrent infections Sleep apnea Type 2 diabetes mellitus with stage 3 chronic kidney disease UTI (urinary tract infection) Vision problem Home Medications albuterol sulfate 2.5 mg INHALATION Q6H 07/29/21 [History Last Taken Unknown] amiodarone 200 mg tablet 200 mg PO DAILY 07/29/21 [History Last Taken Unknown] apixaban 5 mg tablet 2.5 tablet PO BID 07/29/21 [History Last Taken Unknown] gabapentin 400 mg capsule 400 cap PO DAILY 07/29/21 [History Last Taken Unknown] insulin glargine 100 unit/mL (3 mL) subcutaneous pen 75 ml SUBCUT QHS 07/29/21 [History Last Taken Unknown] insulin lispro 100 unit/mL subcutaneous pen 0 ml SUBCUT ACHS 07/29/21 [History Last Taken Unknown] levothyroxine 125 mcg tablet 125 tablet PO QHS 07/29/21 [History Last Taken Unknown] losartan 25 mg tablet 50 ea PO DAILY 07/29/21 [History Last Taken Unknown] metoprolol succinate 50 mg tablet,extended release 24 hr 50 tablet PO BID 07/29/21 [History Last Taken Unknown] nitroglycerin 0.4 mg sublingual tablet 0.4 mg SUBLINGUAL Q5M PRN 07/29/21 [History Last Taken Unknown] omeprazole 20 mg capsule,delayed release 20 mg PO DAILY cap 07/29/21 [History Last Taken Unknown] pravastatin 80 mg tablet 80 tablet PO QHS 07/29/21 [History Last Taken Unknown] buspirone 5 mg PO BID 10/30/21 [History Last Taken Unknown] clopidogrel 75 mg PO DAILY 10/30/21 [History Last Taken Unknown] cyanocobalamin (vitamin B-12) 1,000 mcg PO DAILY 10/30/21 [History Last Taken Unknown] gabapentin 1,200 mg PO QHS 10/30/21 [History Last Taken Unknown] guaifenesin [Mucinex] 600 mg PO BID 10/30/21 [History Last Taken Unknown] hydrocodone-acetaminophen [[place]] 1 tab PO Q8H PRN 10/30/21 [History Last Taken Unknown] multivitamin 1 tab PO DAILY 10/30/21 [History Last Taken Unknown] zinc 50 mg PO DAILY 10/30/21 [History Last Taken Unknown] zolpidem 10 mg PO QHS PRN 10/30/21 [History Last Taken Unknown] Allergy/AdvReac Type Severity Reaction Status Date / Time adhesive tape Allergy Intermediate Rash Verified 10/30/21 01:53 codeine Allergy Intermediate n/a Verified 10/30/21 01:53 exenatide Allergy Intermediate n/a Verified 10/30/21 01:53 nalbuphine [From Nubain] Allergy Intermediate n/a Verified 10/30/21 01:53 pantoprazole [From Protonix] Allergy Intermediate n/a Verified 10/30/21 01:53 trioxsalen Allergy Intermediate n/a Verified 10/30/21 01:53 adhesive Allergy rash Verified 10/30/21 01:53 Family History Other Depression Diabetes Heart disease High cholesterol Hypertension Kidney disease Myocardial infarction Social History Smoking Status: Never smoker alcohol intake: never substance use type: does not use what type of physical activity do you participate in: none ROS ROS Narrative Somewhat sleepy. Negative except above Physical Exam Narrative sleepy no obvious distress no pallor no icterus no JVD s1s2 no murmurs lungs clear abdomen soft no organomegaly no edema no cyanosis Lab / Micro Data Result Diagrams: 10/31/21 04:15 10/31/21 04:15 Labs: Laboratory Results - last 24 hr 10/30/21 02:39: Crossmatch See Detail 10/30/21 02:39: Crossmatch See Detail 10/30/21 04:15: Total Creatine Kinase 38, Triglycerides 170 10/30/21 13:15: Hep Bs Antigen Non-Reactive, Hep Bs Antibody Non-Reactive 10/30/21 17:27: POC Glucose 63 L 10/30/21 17:46: POC Glucose 64 L 10/30/21 18:06: POC Glucose 71 10/30/21 23:23: POC Glucose 99 10/31/21 04:15: WBC 8.9, RBC 2.72 L, Hgb 7.7 L, Hct 23.7 L, MCV 87.1 D, MCH 28.3, MCHC 32.5 D, RDW Std Deviation 45.1 H, RDW Coeff of Loyda 14.3, Plt Count 100 L, MPV 10.1, Immature Gran % (Auto) 0.700, Neut % (Auto) 72.6 H, Lymph % (Auto) 16.1 L, [place] % (Auto) 8.5, Eos % (Auto) 1.7, Baso % (Auto) 0.4, Absolute Neuts (auto) 6.5, Absolute Lymphs (auto) 1.43, Nucleated RBC % 0 10/31/21 04:15: Sodium 132 L, Potassium 4.3, Chloride 98, Carbon Dioxide 28.0, Anion Gap 6, BUN 59 H, Creatinine 5.47 H, Estim Creat Clear Calc 8.76, Est GFR (MDRD) Af Amer 10 L, Est GFR (MDRD) Non-Af 9 L, BUN/Creatinine Ratio 10.8, Glucose 87, Calcium 7.7 L 10/31/21 06:21: POC Glucose 78 10/31/21 12:04: POC Glucose 60 L Micro: Microbiology 10/30/21 03:32 Sputum, Tracheal Aspirate Gram Stain - Final 10/30/21 03:32 Sputum, Tracheal Aspirate Respiratory Culture - Preliminary Alpha Hemolytic Streptococcus Coag Negative Staph 10/30/21 02:39 Blood Culture (Wb) - Femoral Artery Bacteria Detection (PCR) - Final Enterococcus faecalis 10/30/21 02:39 Blood Culture (Wb) - Femoral Artery Blood Culture - Preliminary Enterococcus faecalis 10/30/21 02:55 Urine Catheter - Catheter Urine Culture - Preliminary Culture exhibits no growth. ABG Data ABG results: ABG 10/31/21 06:24 Specimen Type ART Sample Site L Radial pH 7.37 Bicarbonate Actual 26.4 H Total CO2 28 Base Excess 1 O2 Saturation 91 L O2 % 30 ABG pCO2 45.8 H ABG pO2 62 L Santi Test Positive O2 Delivery Device Adult Vent Vent Mode CPAP/PS POC PEEP 5 POC Pressure Suppt 5 Radiology Impression Echocardiogram 10/30/21 08:26 Interpretation Summary The estimated ejection fraction is 40-45 %. There is evidence of diastolic dysfunction. [place] : Hypokinetic. septal hypokinesis Ordering Physician: Gage Schwab Referring Physician: Daisy Pizano Performed By: Sirena Washington, BENIGNO, RVT
--- NOTE | 2021-10-31 13:39 | CHAPLAIN ---
Type of Pastoral Visit _x__ Initial Visit ___ Follow-up Visit ___ On-call Visit ___ General Patient Visit ___ Spiritual Assessment ___ Family Conference ___ Bereavement ___ Rapid Response ___ Code Blue ___ Other (describe below) Pastoral Care Referral From ___ Patient _x__ Family ___ Nurse ___ Physician ___ Research Psychologist ___ Inspector Open Die ___ Other (describe below) Sacrament/Intervention _x__ Active listening ___ Anointing ___ Religious ___ Bereavement ___ Communion ___ [place] exploration ___ _x__ Life review _x__ Prayer ___ Reconciliation ___ Sacrament of Sick __x_ Supportive presence ___ Wedding ___ Other (describe below) Pastoral Comments patient was sleeping and on bi-pap when this basic combatant swimmer entered the room; spouse is sitting at bedside; offer of support to spouse who gives information on health status of pt; 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
--- NOTE | 2021-10-31 13:50 | PN.HOSP_ITS ---
Subjective Subjective Patient was seen and examined today, she was extubated earlier this morning, she is alert at this time and complains of generalized back pain to this examiner. Patient does not complain of any shortness of breath or chest discomfort. Objective Data Objective Data Vital Signs: Vital Signs Temp Pulse Resp BP Pulse Ox 98.1 F 74 19 H 169/73 H 97 10/31/21 12:00 10/31/21 13:00 10/31/21 13:00 10/31/21 13:00 10/31/21 13:00 Oxygen Flow Rate (L/min) 6 Oxygen Delivery Method Bi-pap Weight: 125.7 kg Body Mass Index (BMI) 51.2 Intake & Output: Intake and Output for Last 24 Hours 10/29/21 10/30/21 10/31/21 23:59 23:59 23:59 Intake Total 1440.63 / 1512.36 897.36 / 897.36 Output Total 3820 / 5770 6400 / 6400 Balance -2379.37 / -4257.64 -5502.64 / -5502.64 Lab / Micro Data Result Diagrams: 10/31/21 04:15 10/31/21 04:15 Labs: Laboratory Results - last 24 hr 10/30/21 02:39: Crossmatch See Detail 10/30/21 02:39: Crossmatch See Detail 10/30/21 04:15: Total Creatine Kinase 38, Triglycerides 170 10/30/21 13:15: Hep Bs Antigen Non-Reactive, Hep Bs Antibody Non-Reactive 10/30/21 17:27: POC Glucose 63 L 10/30/21 17:46: POC Glucose 64 L 10/30/21 18:06: POC Glucose 71 10/30/21 23:23: POC Glucose 99 10/31/21 04:15: WBC 8.9, RBC 2.72 L, Hgb 7.7 L, Hct 23.7 L, MCV 87.1 D, MCH 28.3, MCHC 32.5 D, RDW Std Deviation 45.1 H, RDW Coeff of Loyda 14.3, Plt Count 100 L, MPV 10.1, Immature Gran % (Auto) 0.700, Neut % (Auto) 72.6 H, Lymph % (Auto) 16.1 L, [place] % (Auto) 8.5, Eos % (Auto) 1.7, Baso % (Auto) 0.4, Absolute Neuts (auto) 6.5, Absolute Lymphs (auto) 1.43, Nucleated RBC % 0 10/31/21 04:15: Sodium 132 L, Potassium 4.3, Chloride 98, Carbon Dioxide 28.0, Anion Gap 6, BUN 59 H, Creatinine 5.47 H, Estim Creat Clear Calc 8.76, Est GFR (MDRD) Af Amer 10 L, Est GFR (MDRD) Non-Af 9 L, BUN/Creatinine Ratio 10.8, Glucose 87, Calcium 7.7 L 10/31/21 06:21: POC Glucose 78 10/31/21 12:04: POC Glucose 60 L Micro: Microbiology 10/30/21 03:32 Sputum, Tracheal Aspirate Gram Stain - Final 10/30/21 03:32 Sputum, Tracheal Aspirate Respiratory Culture - Preliminary Alpha Hemolytic Streptococcus Coag Negative Staph 10/30/21 02:39 Blood Culture (Wb) - Femoral Artery Bacteria Detection (PCR) - Final Enterococcus faecalis 10/30/21 02:39 Blood Culture (Wb) - Femoral Artery Blood Culture - Preliminary Enterococcus faecalis 10/30/21 02:55 Urine Catheter - Catheter Urine Culture - Preliminary Culture exhibits no growth. 10/30/21 03:40 Stool Stool Lactoferrin - Final 10/30/21 03:40 Stool Enteric Bacteriology - Final 10/30/21 03:40 Stool C. difficile DNA Amplification - Final 10/30/21 04:30 Mucosa - Nasopharyngeal Influenza Types A,B Direct FA (MILI) - Final 10/30/21 03:30 Urine Catheter - [place] Legionella Antigen - Final 10/30/21 03:30 Urine Catheter - [place] Streptococcus pneumoniae Antigen (M - Final 10/30/21 04:11 Nasal Secretion SARS-CoV-2 Antigen (Rapid) - Final ABG Data ABG results: ABG 10/31/21 06:24 Specimen Type ART Sample Site L Radial pH 7.37 Bicarbonate Actual 26.4 H Total CO2 28 Base Excess 1 O2 Saturation 91 L O2 % 30 ABG pCO2 45.8 H ABG pO2 62 L Santi Test Positive O2 Delivery Device Adult Vent Vent Mode CPAP/PS POC PEEP 5 POC Pressure Suppt 5 Radiography Diagnostic Testing: Radiology Impression Echocardiogram 10/30/21 08:26 Interpretation Summary The estimated ejection fraction is 40-45 %. There is evidence of diastolic dysfunction. [place] : Hypokinetic. septal hypokinesis Ordering Physician: Gage Schwab Referring Physician: Daisy Pizano Performed By: Sirena Washington, BENIGNO, RVT Physical Exam Const alert, oriented x3 and no apparent distress Constitutional Narrative: Patient appears older than her stated age General Appearance: cooperative, well kempt and well developed Orientation / Consciousness: awake, oriented to person, oriented to place and oriented to time Nutritional Appearance: morbidly obese HEENT normocephalic, head/scalp atraumatic and moist oral mucous membranes Head and Scalp: normocephalic Eyes PERRL, EOMs intact bilaterally and conjunctivae normal Neck nuchal rigidity, supple, no JVD and thyroid normal General: trachea midline Resp normal respiratory effort, no retractions, no use of accessory muscles and clear to auscultation bilaterally Auscultation: Negative for rales, rhonchi or wheezes Cardio regular rate, regular rhythm, S1 normal heart sound, S2 normal heart sound, no murmurs, no rub and no gallops GI normal to inspection, nondistended, normoactive bowel sounds, soft to palpation, non-tender and non-distended Extremity no clubbing, cyanosis or edema Skin no rashes or lesions noted and no wounds General Skin Exam: no breakdown Neuro CN's II-XII intact bilaterally, no focal motor deficits and no sensory deficits noted Sensorium / Orientation: awake, alert, oriented to person and oriented to place Speech: speech normal Psych Psych Narrative: flat affect Assessment & Plan Assessment/Plan (1) Acute and chronic respiratory failure with hypercapnia: PLAN: 1. Acute on chronic combined respiratory failure secondary to bilateral pneumonia-probably from alpha hemolytic Streptococcus,-continue present antibiotic coverage #2 bacteremia secondary to Enterococcus faecalis-continue present antibiotic treatment #3 acute cystitis-exact etiology unknown at this time, continue present antibiotic coverage #4 acute hematuria-patient is now off Eliquis, she was seen in consultation by urology, the exact etiology of the hematuria is unknown but may be secondary to acute cystitis. #5 morbid obesity-complicates care, recovery, and prognosis Charges/Coding Visit Charges Inpatient E&M: 65357 Subs Hosp L2
--- NOTE | 2021-10-31 14:07 | PN_ITS ---
Subjective Subjective Off ventilator on CPAP at present. Shaking head in response to questions. Was up to side of bed earlier. Objective Data Objective Data Vital Signs: Vital Signs Temp Pulse Resp BP Pulse Ox 98.1 F 74 19 H 169/73 H 97 10/31/21 12:00 10/31/21 13:00 10/31/21 13:00 10/31/21 13:00 10/31/21 13:00 Oxygen Flow Rate (L/min) 6 Oxygen Delivery Method Bi-pap Weight: 125.7 kg Body Mass Index (BMI) 51.2 Intake & Output: Intake and Output for Last 24 Hours 10/29/21 10/30/21 10/31/21 23:59 23:59 23:59 Intake Total 1440.63 / 1512.36 897.36 / 897.36 Output Total 3820 / 5770 6400 / 6400 Balance -2379.37 / -4257.64 -5502.64 / -5502.64 Lab / Micro Data Result Diagrams: 10/31/21 04:15 10/31/21 04:15 Labs: Laboratory Results - last 24 hr 10/30/21 02:39: Crossmatch See Detail 10/30/21 02:39: Crossmatch See Detail 10/30/21 04:15: Total Creatine Kinase 38, Triglycerides 170 10/30/21 17:27: POC Glucose 63 L 10/30/21 17:46: POC Glucose 64 L 10/30/21 18:06: POC Glucose 71 10/30/21 23:23: POC Glucose 99 10/31/21 04:15: WBC 8.9, RBC 2.72 L, Hgb 7.7 L, Hct 23.7 L, MCV 87.1 D, MCH 28.3, MCHC 32.5 D, RDW Std Deviation 45.1 H, RDW Coeff of Loyda 14.3, Plt Count 100 L, MPV 10.1, Immature Gran % (Auto) 0.700, Neut % (Auto) 72.6 H, Lymph % (Auto) 16.1 L, [place] % (Auto) 8.5, Eos % (Auto) 1.7, Baso % (Auto) 0.4, Absolute Neuts (auto) 6.5, Absolute Lymphs (auto) 1.43, Nucleated RBC % 0 10/31/21 04:15: Sodium 132 L, Potassium 4.3, Chloride 98, Carbon Dioxide 28.0, Anion Gap 6, BUN 59 H, Creatinine 5.47 H, Estim Creat Clear Calc 8.76, Est GFR (MDRD) Af Amer 10 L, Est GFR (MDRD) Non-Af 9 L, BUN/Creatinine Ratio 10.8, Glucose 87, Calcium 7.7 L 10/31/21 06:21: POC Glucose 78 10/31/21 12:04: POC Glucose 60 L Micro: Microbiology 10/30/21 03:32 Sputum, Tracheal Aspirate Gram Stain - Final 10/30/21 03:32 Sputum, Tracheal Aspirate Respiratory Culture - Preliminary Alpha Hemolytic Streptococcus Coag Negative Staph 10/30/21 02:39 Blood Culture (Wb) - Femoral Artery Bacteria Detection (PCR) - Final Enterococcus faecalis 10/30/21 02:39 Blood Culture (Wb) - Femoral Artery Blood Culture - Prelimin chuck Enterococcus faecalis 10/30/21 02:55 Urine Catheter - Catheter Urine Culture - Preliminary Culture exhibits no growth. 10/30/21 03:40 Stool Stool Lactoferrin - Final 10/30/21 03:40 Stool Enteric Bacteriology - Final 10/30/21 03:40 Stool C. difficile DNA Amplification - Final 10/30/21 04:30 Mucosa - Nasopharyngeal Influenza Types A,B Direct FA (MILI) - Final 10/30/21 03:30 Urine Catheter - [place] Legionella Antigen - Final 10/30/21 03:30 Urine Catheter - [place] Streptococcus pneumoniae Antigen (M - Final 10/30/21 04:11 Nasal Secretion SARS-CoV-2 Antigen (Rapid) - Final ABG Data ABG results: ABG 10/31/21 06:24 Specimen Type ART Sample Site L Radial pH 7.37 Bicarbonate Actual 26.4 H Total CO2 28 Base Excess 1 O2 Saturation 91 L O2 % 30 ABG pCO2 45.8 H ABG pO2 62 L Santi Test Positive O2 Delivery Device Adult Vent Vent Mode CPAP/PS POC PEEP 5 POC Pressure Suppt 5 Radiography Diagnostic Testing: Radiology Impression Echocardiogram 10/30/21 08:26 Interpretation Summary The estimated ejection fraction is 40-45 %. There is evidence of diastolic dysfunction. [place] : Hypokinetic. septal hypokinesis Ordering Physician: Gage Schwab Referring Physician: Daisy Pizano Performed By: Sirena Washington RDCS, RVT Physical Exam Neck supple General: trachea midline Chest Chest: symmetrical chest wall rise GI soft to palpation and non-distended Narrative: cho draining clear with CBI running. I turned the CBI off. Skin no rashes or lesions noted Neuro CN's II-XII intact bilaterally and moves all extremities Assessment & Plan Assessment/Plan (1) Gross hematuria: (2) Urinary tract infection: PLAN: CBI off. Manually irrigate as needed to keep clear. culture negative, but still could be due to infection. needs imaging, will order CT without contrast will need cystoscopy in the office and will order cytology as well
--- NOTE | 2021-10-31 14:11 | CT_ITS ---
STUDY: CT ABDOMEN AND PELVIS WITHOUT CONTRAST REASON FOR EXAM: Female, 61 years old. Gross hematuria, renal failure RADIATION DOSAGE (If Supplied By Facility): CTDIvol = ( 33.40 ) mGy, DLP = ( 1810.62 ) mGycm TECHNIQUE: Transaxial images were obtained from the dome of the diaphragm to the symphysis pubis without oral contrast, and without intravenous contrast. Sagittal and coronal images were reconstructed. Individualized dose optimization techniques were used for this CT. COMPARISON: None. FINDINGS: Small right pleural effusion with right basilar infiltrate. Mild pulmonary infiltrate in the left lower lobe. A paulo catheter is seen with the tip in the right atrium. Coronary artery calcification. Normal liver. There are surgical clips in the gallbladder fossa consistent with a prior cholecystectomy. Normal spleen. Normal pancreas. Normal bilateral adrenal glands. The right kidney is enlarged. Is evidence of a right perinephric stranding worse along the lower pole. I suspect a 5.7 cm x 6 cm hyperdense mass in the lower pole. This may represent focal hematoma. Clinical correlation is recommended. Underlying mass lesion cannot be excluded. Normal left kidney. Normal visualized stomach. Normal small intestine. Normal colon. The appendix is visualized and appears normal. There is diffuse atherosclerotic calcification of the abdominal aorta and its major visceral branches, without a demonstrated aneurysm. Normal inferior vena cava. Normal retroperitoneum. A BLACKBURN catheter is seen within the urinary bladder. I suspect a 3 cm Bard 3 cm polypoid lesion arising from the right lateral bladder wall. An air-fluid level is seen within the urinary bladder most likely secondary to the BLACKBURN catheter insertion. Increased markings are seen overlying the right subcutaneous tissues worse in the right lateral mid abdomen. There is evidence of a 8.6 cm x 6.3 cm soft tissue density at that site. This may represent possible hematoma. Clinical correlation is recommended. 50% loss of height of the L5 vertebrae. 5% loss of height of the superior endplate of the L3 vertebrae. CT/Abdomen/Pelvis without Cont IMPRESSION: Enlargement of the right kidney with the hyperdense mass in the lower pole with surrounding perinephric stranding. A capsular hematoma versus mass lesion should BE ruled out. Increased markings in the subcutaneous tissues overlying the right lateral abdomen as described. Loss of height of the L4 and L5 lumbar vertebrae. Right basilar infiltrate. Electronically Signed: Miguel Chisholm MD at 15:28 EST ,
[2021-10-31 17:31] LABS: Bedside Glucose 59 mg/dL (70-110)
--- NOTE | 2021-10-31 19:14 | DIALYSIS ---
Hemodialysis today. UF -2000mL removed., Pt stable and tolerated tx well. Report to surekha Iniguez
[2021-10-31] MEDS: Pravastatin 80 MG Tablet GT (21:32)
[2021-10-31] MEDS: Metoprolol Tartrate 50 MG Tablet GT (21:32)
[2021-10-31] MEDS: Levothyroxine 125 MCG Tablet GT (21:32)
[2021-10-31] MEDS: busPIRone 5 MG Tablet GT (21:35)
[2021-10-31] MEDS: Insulin Lispro 100 UNIT/ML INSULN.PEN SC (23:19)
[2021-10-31 23:25] LABS: Bedside Glucose 165 mg/dL (70-110)
[2021-11-01] VITALS (29 sets, daily range): BP systolic 111–144; BP diastolic 31–62; PULSE 60–76; RESP 12–19; TEMP 36.3–36.8; O2SAT 93–100
[2021-11-01] MEDS: Morphine 2 MG/ML Syringe IV ×2 (01:50→06:26)
[2021-11-01 05:16] LABS: Absolute Lymphocyte Count 0.88 X10^3/uL (0.83-4.51); Absolute Neutrophil Count 5.9 X10^3/uL (2.0-7.7); Basophil# 0.02 X10^3/uL; Basophil% 0.3 % (0-1); Eosinophil# 0.13 X10^3/uL; Eosinophils% 1.7 % (0-5); Hematocrit 25.9 % (37-47); Hemoglobin 8.1 g/dL (12.0-15.0); Lymphocyte # 0.88 X10^3/ul (0.83-4.51); Lymphocyte % 11.5 % (19-41); Mean Corp Hgb Conc 31.3 g/dL (32-36); Mean Corpuscular Hgb 28.6 pg (27.0-32.0); Mean Corpuscular Volume 91.5 fL (81-99); Monocyte# 0.67 X10^3/uL; Monocyte% 8.8 % (0-10); NRBC Flagged by Analyzer 0 % (0-5); Neutrophil # 5.91 X10^3/uL (2.7-7.7); Neutrophil % 77.4 % (47-70); Platelet Count 103 K/mm3 (150-450); RBC Distribution Width CV 14.3 % (11.6-14.6); RBC Distribution Width SD 47.6 fl (35.1-43.9); Red Blood Count 2.83 M/mm3 (4.2-5.4); White Blood Count 7.6 K/mm3 (4.4-11.0)
[2021-11-01 05:31] LABS: Anion Gap 5 (5-15); BUN 45 mg/dL (7-18); BUN/Creat Ratio 9.1 RATIO (10-20); Calcium,Total 7.9 mg/dL (8.5-10.1); Chloride 97 mmol/L (98-107); Creatinine, Serum 4.92 mg/dL (0.55-1.02); EST Glomerular Filtration Rate 10 mL/min (>60); Est Glom Filt Rate - Afr Amer 12 mL/min (>60); Estimated Creatinine Clearance 9.74 ml/min; Glucose 118 mg/dL (74-106); Potassium 4.7 mmol/L (3.5-5.1); Sodium Level 132 mmol/L (136-145)
[2021-11-01 05:35] LABS: Vancomycin, Random Level 29.2 ug/mL (0.0-15.0)
[2021-11-01] MEDS: 0.9% Saline Lock 10 ML Syringe IV (06:26)
--- NOTE | 2021-11-01 07:03 | PN.CC_ITS ---
Assessment & Plan Assessment/Plan (1) Acute and chronic respiratory failure with hypercapnia: (2) Bilateral pneumonia: QUALIFIERS: Pneumonia type: due to unspecified organism Lung location: unspecified part of lung Qualified Code(s): J18.9 - Pneumonia, unspecified organism (3) Non-ST elevated myocardial infarction (non-STEMI): (4) Type 2 diabetes mellitus with stage 3 chronic kidney disease: QUALIFIERS: Diabetes mellitus usp insulin use: with extermination supervisor use Chronic kidney disease stage 3 subtype: stage 3b (GFR 30-44) Qualified Code(s): E11.22 - Type 2 diabetes mellitus with diabetic chronic kidney disease; N18.32 - Chronic kidney disease, stage 3b; Z79.4 - termite control technician (current) use of insulin PLAN: RECOMMENDATIONS: 1. Continue empiric antibiotics pending sensitivities 2. Consider echocardiogram for possible endocarditis 3. Hold anticoagulation given hematuria. Okay to continue Plavix from my perspective 4. Proceed with extubation 5. Aggressive control of blood sugars 6. Transfuse to keep hemoglobin greater than 7 given blood crisis 7. Keep saturations between 90 and 94% 8. Volume removal with dialysis 9. Okay to leave the intensive care unit from my perspective IMPRESSIONS: 1. Acute on chronic combined respiratory failure secondary to bilateral pneumonia Patient with predominant right lower lobe pneumonia. Cannot exclude aspiration given decreased mental status. Patient reportedly has also had a recent infection with MRSA in the urine. This may be hematologic spread and patient currently has E faecalis and staph aureus growing in blood culture. Some concern for possible endocarditis, but given body habitus this will be difficult to assess. Patient may require a BRITTA for evaluation. Antigens were negative. We will continue with AVAPS with sleep and rescue. Patient is a reported non-smoker. Patient may have an element of obesity hypoventilation syndrome. This will be exacerbated by patient's need for pain medications 2. Coronary artery disease with elevated troponin/acute systolic CHF/history of A. fib Echocardiogram not showing significant change in EF, but valve visualization is poor given body habitus. Cardiology has seen the patient, but signed off. Patient does have an elevated BNP at this time. Patient does have a dialysis catheter, so volume removal with dialysis may be necessary. Patient appears to be sinus rhythm at this time. Eliquis will be discontinued given anemia, hematuria and need for transfusions in the setting of a blood crisis. 3. Uncontrolled diabetes mellitus?insulin-dependent Unclear baseline regimen. Patient tolerating p.o. diet at this time. Patient should be placed on Lantus with sliding scale insulin. Will attempt to avoid steroids given patient's diabetes and unknown obstructive lung disease component. 4. End-stage renal disease on hemodialysis Unclear when patient had last hemodialysis prior to hospitalization. Nephrology following. Patient would benefit from volume removal given elevated BNP and hypoxia. 5. Acute blood loss anemia secondary to gross hematuria Unclear etiology. We will continue to monitor. Urology planning work-up. CT of the abdomen showing a possible renal mass. We will discontinue Eliquis given need for transfusion and variable availability of blood products. Likely okay to transition to daily blood counts 7. Morbid obesity/recent protracted hospitalization/poor history/hypercholesterolemia/hypertension/hypothyroidism Complicates care, management, recovery and prognosis. Okay to continue with baseline antihypertensives. Amiodarone okay to continue, but Eliquis needs to be held. Plavix can be continued for now, but this may ultimately also need to be held. Patient is on Synthroid and this can be continued. Subjective Subjective Patient successfully extubated yesterday. No acute issues have been reported. Patient continues to report chronic pain, but does not believe this is changed in character or intensity. Patient was able to tolerate dinner last evening. Patient was able to tolerate BiPAP with sleep. Objective Data Objective Data Vital Signs: Vital Signs Temp Pulse Resp BP Pulse Ox 36.6 C 67 16 128/62 H 93 11/01/21 04:00 11/01/21 06:00 11/01/21 06:00 11/01/21 06:00 11/01/21 06:00 Oxygen Flow Rate (L/min) 2 Oxygen Delivery Method Bi-pap Weight: 127.5 kg Body Mass Index (BMI) 51.2 Intake & Output: Intake and Output for Last 24 Hours 10/30/21 10/31/21 11/01/21 23:59 23:59 23:59 Intake Total 1440.63 / 1512.36 947.36 / 947.36 50 / 50 Output Total 3820 / 5770 7300 / 7300 1800 / 1800 Balance -2379.37 / -4257.64 -6352.64 / -6352.64 -1750 / -1750 Lab / Micro Data Result Diagrams: 11/01/21 04:35 11/01/21 04:35 Labs: Laboratory Results - last 24 hr 10/31/21 12:04: POC Glucose 60 L 10/31/21 17:23: POC Glucose 59 L 10/31/21 23:16: POC Glucose 165 H 11/01/21 04:35: Random Vancomycin 29.2 H 11/01/21 04:35: WBC 7.6, RBC 2.83 L, Hgb 8.1 L, Hct 25.9 L, MCV 91.5 D, MCH 28.6, MCHC 31.3 L, RDW Std Deviation 47.6 H, RDW Coeff of [place] 14.3, Plt Count 103 L, MPV 10.0, Immature Gran % (Auto) 0.300, Neut % (Auto) 77.4 H, Lymph % (Auto) 11.5 L, [place] % (Auto) 8.8, Eos % (Auto) 1.7, Baso % (Auto) 0.3, Absolute Neuts (auto) 5.9, Absolute Lymphs (auto) 0.88, Nucleated RBC % 0 11/01/21 04:35: Sodium 132 L, Potassium 4.7, Chloride 97 L, Carbon Dioxide 30.0, Anion Gap 5, BUN 45 H, Creatinine 4.92 H, Estim Creat Clear Calc 9.74, Est GFR (MDRD) Af Amer 12 L, Est GFR (MDRD) Non-Af 10 L, BUN/Creatinine Ratio 9.1 L, Glucose 118 H, Calcium 7.9 L Micro: Microbiology 10/30/21 02:39 Blood Culture (Wb) - Femoral Artery Bacteria Detection (PCR) - Final Enterococcus faecalis 10/30/21 02:39 Blood Culture (Wb) - Femoral Artery Blood Culture - Preliminary Enterococcus faecalis Staphylococcus aureus 10/30/21 03:32 Sputum, Tracheal Aspirate Gram Stain - Final 10/30/21 03:32 Sputum, Tracheal Aspirate Respiratory Culture - Preliminary Alpha Hemolytic Streptococcus Coag Negative Staph 10/30/21 02:55 Urine Catheter - Catheter Urine Culture - Preliminary Culture exhibits no growth. 10/30/21 03:40 Stool Stool Lactoferrin - Final 10/30/21 03:40 Stool Enteric Bacteriology - Final 10/30/21 03:40 Stool C. difficile DNA Amplification - Final 10/30/21 04:30 Mucosa - Nasopharyngeal Influenza Types A,B Direct FA (MILI) - Final 10/30/21 03:30 Urine Catheter - Mckeon Legionella Antigen - Final 10/30/21 03:30 Urine Catheter - Mckeon Streptococcus pneumoniae Antigen (M - Final 10/30/21 04:11 Nasal Secretion SARS-CoV-2 Antigen (Rapid) - Final Radiography Diagnostic Testing: Radiology Impression Echocardiogram 10/30/21 08:26 Interpretation Summary The estimated ejection fraction is 40-45 %. There is evidence of diastolic dysfunction. [place] : Hypokinetic. septal hypokinesis Ordering Physician: Gage Schwab Referring Physician: Daisy Pizano Performed By: Sirena Washington, RDCS, RVT Abdomen/Pelvis CT 10/31/21 14:11 IMPRESSION: Enlargement of the right kidney with the hyperdense mass in the lower pole with surrounding perinephric stranding. A capsular hematoma versus mass lesion should BE ruled out. Increased markings in the subcutaneous tissues overlying the right lateral abdomen as described. Loss of height of the L4 and L5 lumbar vertebrae. Right basilar infiltrate. Electronically Signed: Miguel Chisholm MD at 15:28 EST , Physical Exam Const Constitutional Narrative: Interacting well with BiPAP in place General Appearance: uncooperative and lethargic Nutritional Appearance: morbidly obese HEENT normocephalic HEENT Narrative: Extremely short neck. Some attempts at IJ noted. Eyes PERRL, EOMs intact bilaterally and no scleral icterus Sclera: No sclera abnormal Neck Neck Narrative: Unable to assess JVD and lymphadenopathy secondary to adipose tissue Chest inspection of chest normal Chest Narrative: Right temporary hemodialysis catheter in subclavian position is clean, dry and intact Chest: symmetrical chest wall rise; Negative for crepitus Resp Effort and Inspection: prolonged expiratory phase Auscultation: rhonchi right lower and diminished lung sounds; Negative for rales or wheezes Cardio regular rate, regular rhythm, S1 normal heart sound, S2 normal heart sound, no murmurs, no rub and no gallops GI normal to inspection, nondistended, normoactive bowel sounds Extremity General Extremity: edema Skin no rashes or lesions noted Neuro Sensorium / Orientation: sedated on vent Psych Mood & Affect: flat affect Charges/Coding Visit Charges Inpatient E&M: 78486 [facility] Hosp L3
[2021-11-01 08:06] LABS: Bedside Glucose 90 mg/dL (70-110)
[2021-11-01] MEDS: Clopidogrel Bisulfate 75 MG Tablet GT (08:34)
[2021-11-01] MEDS: Amiodarone 200 MG Tablet GT (08:34)
[2021-11-01] MEDS: Famotidine 20 MG Tablet GT (08:34)
[2021-11-01] MEDS: busPIRone 5 MG Tablet GT ×2 (08:34→21:12)
[2021-11-01] MEDS: Metoprolol Tartrate 50 MG Tablet GT ×2 (08:34→21:12)
[2021-11-01] MEDS: Aspirin 81 MG TAB.CHEW GT (08:34)
--- NOTE | 2021-11-01 09:26 | PN.CARD_ITS ---
Subjective Subjective Patient seen and evaluated. And appears to be doing well. Objective Data Vital Signs: Vital Signs Temp Pulse Resp BP Pulse Ox 98.0 F 72 14 127/47 H 98 11/01/21 08:00 11/01/21 08:34 11/01/21 08:00 11/01/21 08:00 11/01/21 08:55 Oxygen Flow Rate (L/min) 2 Oxygen Delivery Method Nasal Cannula Weight: 281 lb 1.43 oz Body Mass Index (BMI) 51.2 Intake & Output: Intake and Output for Last 24 Hours 10/30/21 10/31/21 11/01/21 23:59 23:59 23:59 Intake Total 1440.63 / 1512.36 947.36 / 947.36 50 / 50 Output Total 3820 / 5770 7300 / 7300 1850 / 1850 Balance -2379.37 / -4257.64 -6352.64 / -6352.64 -1800 / -1800 Lab / Micro Data Result Diagrams: 11/01/21 04:35 11/01/21 04:35 Labs: Laboratory Results - last 24 hr 10/31/21 12:04: POC Glucose 60 L 10/31/21 17:23: POC Glucose 59 L 10/31/21 23:16: POC Glucose 165 H 11/01/21 04:35: Random Vancomycin 29.2 H 11/01/21 04:35: WBC 7.6, RBC 2.83 L, Hgb 8.1 L, Hct 25.9 L, MCV 91.5 D, MCH 28.6, MCHC 31.3 L, RDW Std Deviation 47.6 H, RDW Coeff of [place]oyda 14.3, Plt Count 103 L, MPV 10.0, Immature Gran % (Auto) 0.300, Neut % (Auto) 77.4 H, Lymph % (Auto) 11.5 L, [place] % (Auto) 8.8, Eos % (Auto) 1.7, Baso % (Auto) 0.3, Absolute Neuts (auto) 5.9, Absolute Lymphs (auto) 0.88, Nucleated RBC % 0 11/01/21 04:35: Sodium 132 L, Potassium 4.7, Chloride 97 L, Carbon Dioxide 30.0, Anion Gap 5, BUN 45 H, Creatinine 4.92 H, Estim Creat Clear Calc 9.74, Est GFR (MDRD) Af Amer 12 L, Est GFR (MDRD) Non-Af 10 L, BUN/Creatinine Ratio 9.1 L, Glucose 118 H, Calcium 7.9 L 11/01/21 07:59: POC Glucose 90 Micro: Microbiology 10/30/21 03:32 Sputum, Tracheal Aspirate Gram Stain - Final 10/30/21 03:32 Sputum, Tracheal Aspirate Respiratory Culture - Preliminary Appears to be normal respiratory franny. Further studies to follow. 10/30/21 02:55 Urine Catheter - Catheter Urine Culture - Final Culture exhibits no growth. 10/30/21 02:39 Blood Culture (Wb) - Femoral Artery Bacteria Detection (PCR) - Final Enterococcus faecalis 10/30/21 02:39 Blood Culture (Wb) - Femoral Artery Blood Culture - Preliminary Enterococcus faecalis Staphylococcus aureus Cardiology Labs/Tests 11/01/21 04:35: WBC 7.6, RBC 2.83 L, Hgb 8.1 L, Hct 25.9 L, MCV 91.5 D, MCH 28.6, MCHC 31.3 L, Plt Count 103 L, MPV 10.0, Immature Gran % (Auto) 0.300, Neut % (Auto) 77.4 H, Lymph % (Auto) 11.5 L, [place] % (Auto) 8.8, Eos % (Auto) 1.7, Baso % (Auto) 0.3, Absolute Neuts (auto) 5.9, Nucleated RBC % 0 11/01/21 04:35: Sodium 132 L, Potassium 4.7, Chloride 97 L, Carbon Dioxide 30.0, Anion Gap 5, BUN 45 H, Creatinine 4.92 H, Est GFR (MDRD) Af Amer 12 L, Est GFR (MDRD) Non-Af 10 L, BUN/Creatinine Ratio 9.1 L, Glucose 118 H, Calcium 7.9 L Rhythm: EKG: ECHO: Stress Test: Cardiac Cath: PCI: CT Surgery: Holter monitor: EPS: PPM: CXR: Chest CT Scan: Radiography Diagnostic Testing: Radiology Impression Echocardiogram 10/30/21 08:26 Interpretation Summary The estimated ejection fraction is 40-45 %. There is evidence of diastolic dysfunction. [place] : Hypokinetic. septal hypokinesis Ordering Physician: Gage Schwab Referring Physician: Daisy Pizano Performed By: Sirena Washington, BENIGNO, RVT Abdomen/Pelvis CT 10/31/21 14:11 IMPRESSION: Enlargement of the right kidney with the hyperdense mass in the lower pole with surrounding perinephric stranding. A capsular hematoma versus mass lesion should BE ruled out. Increased markings in the subcutaneous tissues overlying the right lateral abdomen as described. Loss of height of the L4 and L5 lumbar vertebrae. Right basilar infiltrate. Electronically Signed: Miguel Chisholm MD at 15:28 EST , Physical Exam Const alert, oriented x3 and no apparent distress General Appearance: cooperative HEENT hearing grossly normal bilaterally Head and Scalp: atraumatic Eyes EOMs intact bilaterally Neck General: normal visual inspection Chest inspection of chest normal and palpation of chest normal Resp normal respiratory effort Auscultation: clear to auscultation bilaterally Cardio regular rate, regular rhythm, S1 normal heart sound and S2 normal heart sound Jugular Venous Distention: JVD GI normal to inspection, nondistended, normoactive bowel sounds Extremity normal capillary refill and no pedal edema Peripheral Pulses: Yes pulses 2+ throughout and femoral pulses present Skin no rashes or lesions noted Neuro oriented x3 and CN's II-XII intact bilaterally Psych Appearance: grossly normal and appropriate Assessment & Plan Assessment/Plan (1) Elevated troponin: PLAN: Patient has a recent history of elevated troponin. The above is likely secondary to demand ischemia. My recommendation at this time will be in the face of her significant renal dysfunction to continue to manage her expectantly. Her ejection fraction demonstrates mildly reduced left ventricular systolic function with apical hypokinesis. (2) Coronary artery disease: QUALIFIERS: Coronary Disease-Associated Artery/Lesion type: [place] artery [place] vs. transplanted heart: [place] heart Associated angina: unspecified whether angina present Qualified Code(s): I25.10 - Atherosclerotic heart disease of [place] coronary artery without angina pectoris PLAN: She does have a history of coronary disease status post previous angioplasty and stenting. The plan will be to continue the current medical therapy. The aspirin and the clopidogrel can be continued. (3) Atrial fibrillation: QUALIFIERS: Atrial fibrillation type: unspecified Qualified Code(s): I48.91 - Unspecified atrial fibrillation PLAN: She does have evidence of previous atrial fibrillation. She is maintaining sinus rhythm at this time. Due to the hematuria I would not recommend anticoagulation. She will remain on amiodarone for maintenance of sinus rhythm. Thank you for allowing me to participate in the care of your patient. Please don't hesitate to call if any issues arise.
[2021-11-01] MEDS: oxyCODONE 5 MG Tablet PO ×2 (10:54→15:33)
[2021-11-01] MEDS: Acetaminophen 650 MG/20 ML UDC GT (10:54)
[2021-11-01 11:40] LABS: Bedside Glucose 190 mg/dL (70-110)
[2021-11-01 12:35] LABS: Bedside Glucose 213 mg/dL (70-110)
[2021-11-01] MEDS: Insulin Lispro 100 UNIT/ML INSULN.PEN SC ×3 (12:47→21:09)
--- NOTE | 2021-11-01 14:51 | PN.HOSP_ITS ---
Subjective Subjective Patient was seen and examined today, she remains on nasal cannula oxygen at 2 L. She complains of generalized back pain, she states that she has it all the time. Patient takes Clare at home but she states that the Clare does not seem to affect the back pain. Objective Data Objective Data Vital Signs: Vital Signs Temp Pulse Resp BP Pulse Ox 98.2 F 66 15 118/39 L 97 11/01/21 12:00 11/01/21 14:00 11/01/21 14:00 11/01/21 14:00 11/01/21 14:00 Oxygen Flow Rate (L/min) 2 Oxygen Delivery Method Nasal Cannula Weight: 127.5 kg Body Mass Index (BMI) 51.2 Intake & Output: Intake and Output for Last 24 Hours 10/30/21 10/31/21 11/01/21 23:59 23:59 23:59 Intake Total 1440.63 / 1512.36 947.36 / 947.36 100 / 100 Output Total 3820 / 5770 7300 / 7300 1850 / 1850 Balance -2379.37 / -4257.64 -6352.64 / -6352.64 -1750 / -1750 Lab / Micro Data Result Diagrams: 11/01/21 04:35 11/01/21 04:35 Labs: Laboratory Results - last 24 hr 10/31/21 17:23: POC Glucose 59 L 10/31/21 23:16: POC Glucose 165 H 11/01/21 04:35: Random Vancomycin 29.2 H 11/01/21 04:35: WBC 7.6, RBC 2.83 L, Hgb 8.1 L, Hct 25.9 L, MCV 91.5 D, MCH 28.6, MCHC 31.3 L, RDW Std Deviation 47.6 H, RDW Coeff of Loyda 14.3, Plt Count 103 L, MPV 10.0, Immature Gran % (Auto) 0.300, Neut % (Auto) 77.4 H, Lymph % (Auto) 11.5 L, [place] % (Auto) 8.8, Eos % (Auto) 1.7, Baso % (Auto) 0.3, Absolute Neuts (auto) 5.9, Absolute Lymphs (auto) 0.88, Nucleated RBC % 0 11/01/21 04:35: Sodium 132 L, Potassium 4.7, Chloride 97 L, Carbon Dioxide 30.0, Anion Gap 5, BUN 45 H, Creatinine 4.92 H, Estim Creat Clear Calc 9.74, Est GFR (MDRD) Af Amer 12 L, Est GFR (MDRD) Non-Af 10 L, BUN/Creatinine Ratio 9.1 L, Glucose 118 H, Calcium 7.9 L 11/01/21 07:59: POC Glucose 90 11/01/21 11:36: POC Glucose 190 H 11/01/21 12:32: POC Glucose 213 H Micro: Microbiology 10/30/21 03:32 Sputum, Tracheal Aspirate Gram Stain - Final 10/30/21 03:32 Sputum, Tracheal Aspirate Respiratory Culture - Preliminary Appears to be normal respiratory franny. Further studies to follow. 10/30/21 02:55 Urine Catheter - Catheter Urine Culture - Final Culture exhibits no growth. 10/30/21 02:39 Blood Culture (Wb) - Femoral Artery Bacteria Detection (PCR) - Final Enterococcus faecalis 10/30/21 02:39 Blood Culture (Wb) - Femoral Artery Blood Culture - Preliminary Enterococcus faecalis Staphylococcus aureus 10/30/21 03:40 Stool Stool Lactoferrin - Final 10/30/21 03:40 Stool Enteric Bacteriology - Final 10/30/21 03:40 Stool C. difficile DNA Amplification - Final 10/30/21 04:30 Mucosa - Nasopharyngeal Influenza Types A,B Direct FA (MILI) - Final 10/30/21 03:30 Urine Catheter - Mckeon Legionella Antigen - Final 10/30/21 03:30 Urine Catheter - Mckeon Streptococcus pneumoniae Antigen (M - Final 10/30/21 04:11 Nasal Secretion SARS-CoV-2 Antigen (Rapid) - Final Radiography Diagnostic Testing: Radiology Impression Abdomen/Pelvis CT 10/31/21 14:11 IMPRESSION: Enlargement of the right kidney with the hyperdense mass in the lower pole with surrounding perinephric stranding. A capsular hematoma versus mass lesion should BE ruled out. Increased markings in the subcutaneous tissues overlying the right lateral abdomen as described. Loss of height of the L4 and L5 lumbar vertebrae. Right basilar infiltrate. Electronically Signed: Miguel Chisholm MD at 15:28 EST , Physical Exam Narrative alert, oriented x3 and no apparent distress Constitutional Narrative: Patient appears older than her stated age General Appearance: cooperative, well kempt and well developed Orientation / Consciousness: awake, oriented to person, oriented to place and oriented to time Nutritional Appearance: morbidly obese HEENT normocephalic, head/scalp atraumatic and moist oral mucous membranes Head and Scalp: normocephalic Eyes PERRL, EOMs intact bilaterally and conjunctivae normal Neck nuchal rigidity, supple, no JVD and thyroid normal General: trachea midline Resp normal respiratory effort, no retractions, no use of accessory muscles and clear to auscultation bilaterally Auscultation: Negative for rales, rhonchi or wheezes Cardio regular rate, regular rhythm, S1 normal heart sound, S2 normal heart sound, no murmurs, no rub and no gallops GI normal to inspection, nondistended, normoactive bowel sounds, soft to palpation, non-tender and non-distended Extremity no clubbing, cyanosis or edema Skin no rashes or lesions noted and no wounds General Skin Exam: no breakdown Neuro CN's II-XII intact bilaterally, no focal motor deficits and no sensory deficits noted Sensorium / Orientation: awake, alert, oriented to person and oriented to place Speech: speech normal Psych Psych Narrative: flat affect Assessment & Plan Assessment/Plan (1) Coronary artery disease: QUALIFIERS: Coronary Disease-Associated Artery/Lesion type: [place] artery [place] vs. transplanted heart: [place] heart Associated angina: unspecified whether angina present Qualified Code(s): I25.10 - Atherosclerotic heart disease of [place] coronary artery without angina pectoris (2) Acute and chronic respiratory failure with hypercapnia: PLAN: 1. Acute on chronic combined respiratory failure secondary to bilateral pneumonia-probably from alpha hemolytic Streptococcus,-continue present antibiotic coverage #2 bacteremia secondary to Enterococcus faecalis-continue present antibiotic treatment #3 acute cystitis-exact etiology unknown at this time, continue present antibiotic coverage #4 acute hematuria-patient is now off Eliquis, she was seen in consultation by urology, the exact etiology of the hematuria is unknown #5 morbid obesity-complicates care, recovery, and prognosis #6 chronic back pain-secondary to probable osteoarthritis and degenerative joint disease of the lumbar spine, I will maintain the patient on OxyIR for pain-we will have to be careful with the dosage to avoid sedation. #7 ischemic cardiomyopathy-patient's ejection fraction on her last echocardiogram was 40 to 45%, she has a past history of coronary artery disease, continue on aspirin and Plavix. Patient appears stable for transfer to PCU Charges/Coding Visit Charges Inpatient E&M: 50300 Subs Hosp L2
[2021-11-01 16:46] LABS: Bedside Glucose 218 mg/dL (70-110)
--- NOTE | 2021-11-01 19:52 | PCM.RX.CS ---
Consult Pharmacy has been consulted to manage selected antiobiotic: Vancomycin Type of Consult: Follow-up Suspected Infection: Pneumonia, Bacteremia Labs: Sodium 132 mmol/L (136-145) L 11/01/21 04:35 Potassium 4.7 mmol/L (3.5-5.1) 11/01/21 04:35 Chloride 97 mmol/L (98-107) L 11/01/21 04:35 Carbon Dioxide 30.0 mmol/L (21.0-32.0) 11/01/21 04:35 Anion Gap 5 (5-15) 11/01/21 04:35 BUN 45 mg/dL (7-18) H 11/01/21 04:35 Creatinine 4.92 mg/dL (0.55-1.02) H 11/01/21 04:35 Est GFR (MDRD) Af Amer 12 mL/min (>60) L 11/01/21 04:35 Est GFR (MDRD) Non-Af 10 mL/min (>60) L 11/01/21 04:35 BUN/Creatinine Ratio 9.1 RATIO (10-20) L 11/01/21 04:35 Glucose 118 mg/dL (74-106) H 11/01/21 04:35 Random Vancomycin 29.2 ug/mL (0.0-15.0) H 11/01/21 04:35 Microbiology: Microbiology 10/30/21 03:32 Sputum, Tracheal Aspirate Gram Stain - Final 10/30/21 03:32 Sputum, Tracheal Aspirate Respiratory Culture - Preliminary Appears to be normal respiratory franny. Further studies to follow. 10/30/21 02:55 Urine Catheter - Catheter Urine Culture - Final Culture exhibits no growth. 10/30/21 02:39 Blood Culture (Wb) - Femoral Artery Bacteria Detection (PCR) - Final Enterococcus faecalis 10/30/21 02:39 Blood Culture (Wb) - Femoral Artery Blood Culture - Preliminary Enterococcus faecalis Staphylococcus aureus 10/30/21 03:40 Stool Stool Lactoferrin - Final 10/30/21 03:40 Stool Enteric Bacteriology - Final 10/30/21 03:40 Stool C. difficile DNA Amplification - Final 10/30/21 04:30 Mucosa - Nasopharyngeal Influenza Types A,B Direct FA (MILI) - Final 10/30/21 03:30 Urine Catheter - Mckeon Legionella Antigen - Final 10/30/21 03:30 Urine Catheter - Mckeon Streptococcus pneumoniae Antigen (M - Final 10/30/21 04:11 Nasal Secretion SARS-CoV-2 Antigen (Rapid) - Final Goal Trough: 15-20 mcg/mL Pharmacy Plan for Drug Dosing: VANCOMYCIN LEVEL RECEIVED Current Vancomycin Dose: pt is on HD dosing Number of Doses Received: last dose received as 1000mg on 10/31/21 Vancomycin Level: 29.2 Hours Since Last Dose: 19 Renal Function: Renal Function Trend: Lab/Micro: Vancomycin Plan/Comments: pt is on MWF dialysis Pending Level: random level at 0600 on 11/03/21 Pharmacy Service will continue to monitor and adjust dosing as required. Follow-Up Labs: Trough Vancomycin - 11/03/21 at 0600 (random level)
[2021-11-01] MEDS: Levothyroxine 125 MCG Tablet GT (21:12)
[2021-11-01] MEDS: Pravastatin 80 MG Tablet GT (21:12)
[2021-11-01 21:45] LABS: Bedside Glucose 205 mg/dL (70-110)
[2021-11-02] VITALS (14 sets, daily range): BP systolic 99–144; BP diastolic 33–76; PULSE 53–62; RESP 12–20; TEMP 36.2–36.7; O2SAT 97–99
[2021-11-02] MEDS: Acetaminophen 650 MG/20 ML UDC GT (03:29)
[2021-11-02] MEDS: oxyCODONE 5 MG Tablet PO ×2 (03:29→10:07)
[2021-11-02] MEDS: Insulin Lispro 100 UNIT/ML INSULN.PEN SC ×3 (06:10→16:45)
[2021-11-02 06:25] LABS: Bedside Glucose 161 mg/dL (70-110)
--- NOTE | 2021-11-02 07:46 | PCM.PN.INT ---
Assessment & Plan Assessment/Plan (1) Acute and chronic respiratory failure with hypercapnia: (2) Bilateral pneumonia: QUALIFIERS: Pneumonia type: due to unspecified organism Lung location: unspecified part of lung Qualified Code(s): J18.9 - Pneumonia, unspecified organism (3) Non-ST elevated myocardial infarction (non-STEMI): (4) Type 2 diabetes mellitus with stage 3 chronic kidney disease: QUALIFIERS: Diabetes mellitus correction insulin use: with terminal manager use Chronic kidney disease stage 3 subtype: stage 3b (GFR 30-44) Qualified Code(s): E11.22 - Type 2 diabetes mellitus with diabetic chronic kidney disease; N18.32 - Chronic kidney disease, stage 3b; Z79.4 - intermodal truck driver (current) use of insulin PLAN: RECOMMENDATIONS: 1. Anticipate 10 days of total antibiotics 2. Consider echocardiogram for possible endocarditis 3. Hold anticoagulation given hematuria. Okay to continue Plavix from my perspective 4. Increase activity as tolerated 5. Aggressive control of blood sugars 6. Transfuse to keep hemoglobin greater than 7 given blood crisis 7. Keep saturations between 90 and 94% 8. Volume removal with dialysis 9. Hemodynamically stable on minimal nasal cannula oxygen. Will sign off from a critical care perspective 10. Patient can follow-up as an outpatient for initiation of AVAPS therapy IMPRESSIONS: 1. Acute on chronic combined respiratory failure secondary to bilateral pneumonia Patient with predominant right lower lobe pneumonia. Cannot exclude aspiration given decreased mental status. Patient reportedly has also had a recent infection with MRSA in the urine. This may be hematologic spread and patient currently has E faecalis and staph aureus growing in blood culture. Some concern for possible endocarditis, but given body habitus this will be difficult to assess. Patient may require a BRITTA for evaluation. Antigens were negative. We will continue with AVAPS with sleep and rescue. Patient is a reported non-smoker. Patient may have an element of obesity hypoventilation syndrome. This will be exacerbated by patient's need for pain medications. Patient has been stable following extubation. Will sign off from a pulmonary/critical care perspective. Patient can follow-up as an outpatient to address sleep issues. 2. Coronary artery disease with elevated troponin/acute systolic CHF/history of A. fib Echocardiogram not showing significant change in EF, but valve visualization is poor given body habitus. Cardiology has seen the patient, but signed off. Patient does have an elevated BNP at this time. Patient does have a dialysis catheter, so volume removal with dialysis may be necessary. Patient appears to be sinus rhythm at this time. Eliquis will be discontinued given anemia, hematuria and need for transfusions in the setting of a blood crisis. 3. Uncontrolled diabetes mellitus?insulin-dependent Unclear baseline regimen. Patient tolerating p.o. diet at this time. Patient should be placed on Lantus with sliding scale insulin. No real indication for steroids from a pulmonary perspective 4. End-stage renal disease on hemodialysis Unclear when patient had last hemodialysis prior to hospitalization. Nephrology following. Patient would benefit from volume removal given elevated BNP and hypoxia. 5. Acute blood loss anemia secondary to gross hematuria Unclear etiology. We will continue to monitor. Urology planning work-up. CT of the abdomen showing a possible renal mass. We will discontinue Eliquis given need for transfusion and variable availability of blood products. Await daily blood counts 7. Morbid obesity/recent protracted hospitalization/poor history/hypercholesterolemia/hypertension/hypothyroidism Complicates care, management, recovery and prognosis. Okay to continue with baseline antihypertensives. Amiodarone okay to continue, but Eliquis needs to be held. Plavix can be continued for now, but this may ultimately also need to be held. Patient is on Synthroid and this can be continued. Subjective Subjective Patient did well overnight. No acute issues were reported. Patient was able to tolerate BiPAP without difficulty. Patient states that she does not have a BiPAP for home. Patient has been able to be weaned to 2 L nasal cannula during the day. Pain is much better controlled with OxyIR. Nursing is not aware of plans for uroscopy, but hematuria has been controlled. Objective Data Objective Data Vital Signs: Vital Signs Temp Pulse Resp BP Pulse Ox 36.7 C 59 L 18 144/56 H 99 11/02/21 03:16 11/02/21 07:00 11/02/21 03:16 11/02/21 03:16 11/02/21 03:16 Oxygen Flow Rate (L/min) 2 Oxygen Delivery Method Bi-pap Weight: 131 kg Body Mass Index (BMI) 51.2 Intake & Output: Intake and Output for Last 24 Hours 10/31/21 11/01/21 11/02/21 23:59 23:59 23:59 Intake Total 947.36 / 947.36 100 / 100 50 / 50 Output Total 7300 / 7300 1850 / 1850 Balance -6352.64 / -6352.64 -1750 / -1750 50 / 50 Lab / Micro Data Result Diagrams: 11/01/21 04:35 11/01/21 04:35 Labs: Laboratory Results - last 24 hr 11/01/21 07:59: POC Glucose 90 11/01/21 11:36: POC Glucose 190 H 11/01/21 12:32: POC Glucose 213 H 11/01/21 16:31: POC Glucose 218 H 11/01/21 21:05: POC Glucose 205 H 11/02/21 06:09: POC Glucose 161 H Micro: Microbiology 10/30/21 02:39 Blood Culture (Wb) - Femoral Artery Bacteria Detection (PCR) - Final Enterococcus faecalis 10/30/21 02:39 Blood Culture (Wb) - Femoral Artery Blood Culture - Preliminary Enterococcus faecalis Staphylococcus aureus Staphylococcus epidermidis 10/30/21 03:32 Sputum, Tracheal Aspirate Gram Stain - Final 10/30/21 03:32 Sputum, Tracheal Aspirate Respiratory Culture - Preliminary Appears to be normal respiratory franny. Further studies to follow. 10/30/21 02:55 Urine Catheter - Catheter Urine Culture - Final Culture exhibits no growth. 10/30/21 03:40 Stool Stool Lactoferrin - Final 10/30/21 03:40 Stool Enteric Bacteriology - Final 10/30/21 03:40 Stool C. difficile DNA Amplification - Final 10/30/21 04:30 Mucosa - Nasopharyngeal Influenza Types A,B Direct FA (MILI) - Final 10/30/21 03:30 Urine Catheter - Mckeon Legionella Antigen - Final 10/30/21 03:30 Urine Catheter - Mckeon Streptococcus pneumoniae Antigen (M - Final 10/30/21 04:11 Nasal Secretion SARS-CoV-2 Antigen (Rapid) - Final Physical Exam Const alert, oriented x3 and no apparent distress Constitutional Narrative: Completely appropriate Nutritional Appearance: morbidly obese HEENT normocephalic HEENT Narrative: Extremely short neck. Eyes PERRL, EOMs intact bilaterally and no scleral icterus Sclera: No sclera abnormal Neck Neck Narrative: Unable to assess JVD and lymphadenopathy secondary to adipose tissue Chest inspection of chest normal Chest Narrative: Right temporary hemodialysis catheter in subclavian position is clean, dry and intact Chest: symmetrical chest wall rise; Negative for crepitus Resp Effort and Inspection: prolonged expiratory phase Auscultation: rhonchi right lower and diminished lung sounds; Negative for rales or wheezes Cardio regular rate, regular rhythm, S1 normal heart sound, S2 normal heart sound, no murmurs, no rub and no gallops GI normal to inspection, nondistended, normoactive bowel sounds Extremity General Extremity: edema Skin no rashes or lesions noted Neuro Sensorium / Orientation: sedated on vent Psych Mood & Affect: flat affect Charges/Coding Visit Charges Inpatient E&M: 15976 Subs Hosp L2
[2021-11-02 07:49] LABS: Absolute Lymphocyte Count 0.84 X10^3/uL (0.83-4.51); Absolute Neutrophil Count 5.8 X10^3/uL (2.0-7.7); Basophil# 0.02 X10^3/uL; Basophil% 0.3 % (0-1); Eosinophil# 0.08 X10^3/uL; Eosinophils% 1.1 % (0-5); Hematocrit 26.7 % (37-47); Lymphocyte # 0.84 X10^3/ul (0.83-4.51); Lymphocyte % 11.3 % (19-41); Mean Corpuscular Hgb 27.9 pg (27.0-32.0); Mean Platelet Vol. 10.1 fl (6.2-12.0); Monocyte# 0.61 X10^3/uL; Monocyte% 8.2 % (0-10); NRBC Flagged by Analyzer 0 % (0-5); Neutrophil # 5.84 X10^3/uL (2.7-7.7); Neutrophil % 78.7 % (47-70); Platelet Count 103 K/mm3 (150-450); RBC Distribution Width CV 14.3 % (11.6-14.6); RBC Distribution Width SD 48.2 fl (35.1-43.9); Red Blood Count 2.87 M/mm3 (4.2-5.4); White Blood Count 7.4 K/mm3 (4.4-11.0)
[2021-11-02 08:09] LABS: Anion Gap 6 (5-15); BUN 60 mg/dL (7-18); BUN/Creat Ratio 9.7 RATIO (10-20); Calcium,Total 7.9 mg/dL (8.5-10.1); Chloride 96 mmol/L (98-107); Creatinine, Serum 6.18 mg/dL (0.55-1.02); EST Glomerular Filtration Rate 7 mL/min (>60); Est Glom Filt Rate - Afr Amer 9 mL/min (>60); Estimated Creatinine Clearance 7.75 ml/min; Glucose 182 mg/dL (74-106); Potassium 5.1 mmol/L (3.5-5.1); Sodium Level 128 mmol/L (136-145)
--- NOTE | 2021-11-02 09:49 | PN.CARD_ITS ---
Subjective Subjective Patient seen. Status quo. Objective Data Vital Signs: Vital Signs Temp Pulse Resp BP Pulse Ox 98.1 F 59 L 18 144/56 H 98 11/02/21 03:16 11/02/21 07:00 11/02/21 03:16 11/02/21 03:16 11/02/21 06:55 Oxygen Flow Rate (L/min) 2.5 Oxygen Delivery Method Nasal Cannula Weight: 288 lb 12.889 oz Body Mass Index (BMI) 51.2 Intake & Output: Intake and Output for Last 24 Hours 10/31/21 11/01/21 11/02/21 23:59 23:59 23:59 Intake Total 947.36 / 947.36 100 / 100 50 / 50 Output Total 7300 / 7300 1850 / 1850 Balance -6352.64 / -6352.64 -1750 / -1750 50 / 50 Lab / Micro Data Result Diagrams: 11/02/21 07:35 11/02/21 07:35 Labs: Laboratory Results - last 24 hr 11/01/21 11:36: POC Glucose 190 H 11/01/21 12:32: POC Glucose 213 H 11/01/21 16:31: POC Glucose 218 H 11/01/21 21:05: POC Glucose 205 H 11/02/21 06:09: POC Glucose 161 H 11/02/21 07:35: WBC 7.4, RBC 2.87 L, Hgb 8.0 L, Hct 26.7 L, MCV 93.0, MCH 27.9, MCHC 30.0 L, RDW Std Deviation 48.2 H, RDW Coeff of [place] 14.3, Plt Count 103 L, MPV 10.1, Immature Gran % (Auto) 0.400, Neut % (Auto) 78.7 H, Lymph % (Auto) 11.3 L, [place] % (Auto) 8.2, Eos % (Auto) 1.1, Baso % (Auto) 0.3, Absolute Neuts (auto) 5.8, Absolute Lymphs (auto) 0.84, Nucleated RBC % 0 11/02/21 07:35: Sodium 128 L, Potassium 5.1, Chloride 96 L, Carbon Dioxide 26.0, Anion Gap 6, BUN 60 H, Creatinine 6.18 H, Estim Creat Clear Calc 7.75, Est GFR (MDRD) Af Amer 9 L, Est GFR (MDRD) Non-Af 7 L, BUN/Creatinine Ratio 9.7 L, Glucose 182 H, Calcium 7.9 L Micro: Microbiology 10/30/21 03:32 Sputum, Tracheal Aspirate Gram Stain - Final 10/30/21 03:32 Sputum, Tracheal Aspirate Respiratory Culture - Final Gram positive gilberto Strep not Strep pneumo 10/30/21 02:39 Blood Culture (Wb) - Femoral Artery Bacteria Detection (PCR) - Final Enterococcus faecalis 10/30/21 02:39 Blood Culture (Wb) - Femoral Artery Blood Culture - Preliminary Enterococcus faecalis Meth. resistant Staph. aureus Staphylococcus epidermidis 10/30/21 02:55 Urine Catheter - Catheter Urine Culture - Final Culture exhibits no growth. Cardiology Labs/Tests 11/02/21 07:35: WBC 7.4, RBC 2.87 L, Hgb 8.0 L, Hct 26.7 L, MCV 93.0, MCH 27.9, MCHC 30.0 L, Plt Count 103 L, MPV 10.1, Immature Gran % (Auto) 0.400, Neut % (Auto) 78.7 H, Lymph % (Auto) 11.3 L, [place] % (Auto) 8.2, Eos % (Auto) 1.1, Baso % (Auto) 0.3, Absolute Neuts (auto) 5.8, Nucleated RBC % 0 11/02/21 07:35: Sodium 128 L, Potassium 5.1, Chloride 96 L, Carbon Dioxide 26.0, Anion Gap 6, BUN 60 H, Creatinine 6.18 H, Est GFR (MDRD) Af Amer 9 L, Est GFR (MDRD) Non-Af 7 L, BUN/Creatinine Ratio 9.7 L, Glucose 182 H, Calcium 7.9 L Rhythm: EKG: ECHO: Stress Test: Cardiac Cath: PCI: CT Surgery: Holter monitor: EPS: PPM: CXR: Chest CT Scan: Physical Exam Const alert, oriented x3 and no apparent distress General Appearance: cooperative HEENT hearing grossly normal bilaterally Head and Scalp: atraumatic Eyes EOMs intact bilaterally Neck General: normal visual inspection Chest inspection of chest normal and palpation of chest normal Resp normal respiratory effort Auscultation: clear to auscultation bilaterally Cardio regular rate, regular rhythm, S1 normal heart sound and S2 normal heart sound Jugular Venous Distention: JVD GI normal to inspection, nondistended, normoactive bowel sounds Extremity normal capillary refill and no pedal edema Peripheral Pulses: Yes pulses 2+ throughout and femoral pulses present Skin no rashes or lesions noted Neuro oriented x3 and CN's II-XII intact bilaterally Psych Appearance: grossly normal and appropriate Assessment & Plan Assessment/Plan (1) Elevated troponin: PLAN: Patient has a recent history of elevated troponin. The above is likely secondary to demand ischemia. My recommendation at this time will be in the face of her significant renal dysfunction to continue to manage her expectantly. Her ejection fraction demonstrates mildly reduced left ventricular systolic function with apical hypokinesis. (2) Coronary artery disease: QUALIFIERS: Coronary Disease-Associated Artery/Lesion type: [place] artery [place] vs. transplanted heart: [place] heart Associated angina: unspecified whether angina present Qualified Code(s): I25.10 - Atherosclerotic heart disease of [place] coronary artery without angina pectoris PLAN: She does have a history of coronary disease status post previous angioplasty and stenting. The plan will be to continue the current medical therapy. The aspirin and the clopidogrel can be continued. (3) Atrial fibrillation: QUALIFIERS: Atrial fibrillation type: unspecified Qualified Code(s): I48.91 - Unspecified atrial fibrillation PLAN: She does have evidence of previous atrial fibrillation. She is maintaining sinus rhythm at this time. Due to the hematuria I would not recommend anticoagulation. She will remain on amiodarone for maintenance of sinus rhythm. Thank you for allowing me to participate in the care of your patient. Please don't hesitate to call if any issues arise.
[2021-11-02] MEDS: Aspirin 81 MG TAB.CHEW GT (10:06)
[2021-11-02] MEDS: Metoprolol Tartrate 50 MG Tablet GT (10:06)
[2021-11-02] MEDS: Clopidogrel Bisulfate 75 MG Tablet GT (10:07)
[2021-11-02] MEDS: Amiodarone 200 MG Tablet GT (10:07)
[2021-11-02] MEDS: busPIRone 5 MG Tablet GT (10:07)
--- NOTE | 2021-11-02 11:02 | PN.RENAL_ITS ---
Subjective Subjective Following for ALEXY/dialysis dependence. The patient denies chest pain, shortness of breath at rest, or nausea. Objective Data Objective Data Vital Signs: Vital Signs Temp Pulse Resp BP Pulse Ox 98.1 F 60 18 117/49 L 99 11/02/21 09:15 11/02/21 10:06 11/02/21 09:15 11/02/21 10:06 11/02/21 09:15 Oxygen Flow Rate (L/min) 2 Oxygen Delivery Method Nasal Cannula Weight: 131 kg Body Mass Index (BMI) 51.2 Intake & Output: Intake and Output for Last 24 Hours 10/31/21 11/01/21 11/02/21 23:59 23:59 23:59 Intake Total 947.36 / 947.36 100 / 100 50 / 50 Output Total 7300 / 7300 1850 / 1850 Balance -6352.64 / -6352.64 -1750 / -1750 50 / 50 Lab / Micro Data Result Diagrams: 11/02/21 07:35 11/02/21 07:35 Labs: Laboratory Results - last 24 hr 11/01/21 11:36: POC Glucose 190 H 11/01/21 12:32: POC Glucose 213 H 11/01/21 16:31: POC Glucose 218 H 11/01/21 21:05: POC Glucose 205 H 11/02/21 06:09: POC Glucose 161 H 11/02/21 07:35: WBC 7.4, RBC 2.87 L, Hgb 8.0 L, Hct 26.7 L, MCV 93.0, MCH 27.9, MCHC 30.0 L, RDW Std Deviation 48.2 H, RDW Coeff of [place]oyda 14.3, Plt Count 103 L, MPV 10.1, Immature Gran % (Auto) 0.400, Neut % (Auto) 78.7 H, Lymph % (Auto) 11.3 L, [place] % (Auto) 8.2, Eos % (Auto) 1.1, Baso % (Auto) 0.3, Absolute Neuts (auto) 5.8, Absolute Lymphs (auto) 0.84, Nucleated RBC % 0 11/02/21 07:35: Sodium 128 L, Potassium 5.1, Chloride 96 L, Carbon Dioxide 26.0, Anion Gap 6, BUN 60 H, Creatinine 6.18 H, Estim Creat Clear Calc 7.75, Est GFR (MDRD) Af Amer 9 L, Est GFR (MDRD) Non-Af 7 L, BUN/Creatinine Ratio 9.7 L, Glucose 182 H, Calcium 7.9 L Micro: Microbiology 10/30/21 03:32 Sputum, Tracheal Aspirate Gram Stain - Final 10/30/21 03:32 Sputum, Tracheal Aspirate Respiratory Culture - Final Gram positive gilberto Strep not Strep pneumo 10/30/21 02:39 Blood Culture (Wb) - Femoral Artery Bacteria Detection (PCR) - Final Enterococcus faecalis 10/30/21 02:39 Blood Culture (Wb) - Femoral Artery Blood Culture - Preliminary Enterococcus faecalis Meth. resistant Staph. aureus Staphylococcus epidermidis 10/30/21 02:55 Urine Catheter - Catheter Urine Culture - Final Culture exhibits no growth. 10/30/21 03:40 Stool Stool Lactoferrin - Final 10/30/21 03:40 Stool Enteric Bacteriology - Final 10/30/21 03:40 Stool C. difficile DNA Amplification - Final 10/30/21 04:30 Mucosa - Nasopharyngeal Influenza Types A,B Direct FA (MILI) - Final 10/30/21 03:30 Urine Catheter - Mckeon Legionella Antigen - Final 10/30/21 03:30 Urine Catheter - Mckeon Streptococcus pneumoniae Antigen (M - Final 10/30/21 04:11 Nasal Secretion SARS-CoV-2 Antigen (Rapid) - Final Physical Exam Narrative General: No apparent distress HEENT: Normocephalic, atraumatic. Mucous membrane moist Heart: Normal S1, S2. No rubs or murmurs Lungs: Clear to auscultation bilaterally Abdomen: Obese, normal bowel sound, soft, nontender Extremity: No clubbing, cyanosis, or edema Assessment & Plan Assessment/Plan (1) Acute kidney injury: PLAN: -The patient was initiated on dialysis when she was admitted to hospital in [place] recently. -ALEXY was thought to be secondary to ischemic ATN related to sepsis due to py elonephritis. -She has been on a MWF dialysis schedule. -Serum creatinine has been increasing between dialysis, so there is no evidence of renal recovery. -We will plan on dialyzing the patient tomorrow. (2) Chronic kidney disease, stage 4 (severe): PLAN: -Per Dr. Cleveland's note, the patient has stage IV chronic kidney disease prior to her admission to the hospital in [place]. -Last available serum creatinine that I can see on record was from November 2020. At that time, her serum creatinine was 1.55 mg/dL, estimated GFR 34 mL/min putting her in stage IIIb CKD. -Renal dysfunction may have deteriorated in the past year. -CKD is likely due to diabetic kidney disease. - (3) Hyperkalemia: PLAN: -The patient presented on 10/30/2021 with potassium level of 6.0 mmol/L. -Potassium has improved with hemodialysis. -We will continue to monitor serum potassium level. (4) Acute and chronic respiratory failure with hypercapnia: PLAN: -The patient is being treated for HAP (she is from a half-way facility). She has bilateral pneumonia. -Antimicrobial treatment as per hospital medicine and pulmonary team. -We will remove more fluid with dialysis tomorrow to help with oxygenation.
--- NOTE | 2021-11-02 11:37 | PN.HOSP_ITS ---
Subjective Subjective Patient was seen and examined today on PCU, she appears comfortable at rest and does not appear short of breath, she does not complain of any discomfort except when palpating the chest wall. I increase the patient's pain medication yesterday due to complaints of ongoing back pain. 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 I also talked briefly with cardiology, they did not have any plans for any additional interventional studies at this time or non interventional studies at this time. Objective Data Objective Data Vital Signs: Vital Signs Temp Pulse Resp BP Pulse Ox 98.1 F 58 L 18 117/49 L 99 11/02/21 09:15 11/02/21 11:00 11/02/21 09:15 11/02/21 10:06 11/02/21 09:15 Oxygen Flow Rate (L/min) 2 Oxygen Delivery Method Nasal Cannula Weight: 131 kg Body Mass Index (BMI) 51.2 Intake & Output: Intake and Output for Last 24 Hours 10/31/21 11/01/21 11/02/21 23:59 23:59 23:59 Intake Total 947.36 / 947.36 100 / 100 50 / 50 Output Total 7300 / 7300 1850 / 1850 Balance -6352.64 / -6352.64 -1750 / -1750 50 / 50 Lab / Micro Data Result Diagrams: 11/02/21 07:35 11/02/21 07:35 Labs: Laboratory Results - last 24 hr 11/01/21 11:36: POC Glucose 190 H 11/01/21 12:32: POC Glucose 213 H 11/01/21 16:31: POC Glucose 218 H 11/01/21 21:05: POC Glucose 205 H 11/02/21 06:09: POC Glucose 161 H 11/02/21 07:35: WBC 7.4, RBC 2.87 L, Hgb 8.0 L, Hct 26.7 L, MCV 93.0, MCH 27.9, MCHC 30.0 L, RDW Std Deviation 48.2 H, RDW Coeff of [place]oy[place] 14.3, Plt Count 103 L, MPV 10.1, Immature Gran % (Auto) 0.400, Neut % (Auto) 78.7 H, Lymph % (Auto) 11.3 L, [place] % (Auto) 8.2, Eos % (Auto) 1.1, Baso % (Auto) 0.3, Absolute Neuts (auto) 5.8, Absolute Lymphs (auto) 0.84, Nucleated RBC % 0 11/02/21 07:35: Sodium 128 L, Potassium 5.1, Chloride 96 L, Carbon Dioxide 26.0, Anion Gap 6, BUN 60 H, Creatinine 6.18 H, Estim Creat Clear Calc 7.75, Est GFR (MDRD) Af Amer 9 L, Est GFR (MDRD) Non-Af 7 L, BUN/Creatinine Ratio 9.7 L, Glucose 182 H, Calcium 7.9 L Micro: Microbiology 10/30/21 03:32 Sputum, Tracheal Aspirate Gram Stain - Final 10/30/21 03:32 Sputum, Tracheal Aspirate Respiratory Culture - Final Gram positive gilberto Strep not Strep pneumo 10/30/21 02:39 Blood Culture (Wb) - Femoral Artery Bacteria Detection (PCR) - Final Enterococcus faecalis 10/30/21 02:39 Blood Culture (Wb) - Femoral Artery Blood Culture - Preliminary Enterococcus faecalis Meth. resistant Staph. aureus Staphylococcus epidermidis 10/30/21 02:55 Urine Catheter - Catheter Urine Culture - Final Culture exhibits no growth. 10/30/21 03:40 Stool Stool Lactoferrin - Final 10/30/21 03:40 Stool Enteric Bacteriology - Final 10/30/21 03:40 Stool C. difficile DNA Amplification - Final 10/30/21 04:30 Mucosa - Nasopharyngeal Influenza Types A,B Direct FA (MILI) - Final 10/30/21 03:30 Urine Catheter - Mckeon Legionella Antigen - Final 10/30/21 03:30 Urine Catheter - Mkceon Streptococcus pneumoniae Antigen (M - Final 10/30/21 04:11 Nasal Secretion SARS-CoV-2 Antigen (Rapid) - Final Physical Exam Narrative alert, oriented x3 and no apparent distress Constitutional Narrative: Patient appears older than her stated age General Appearance: cooperative, well kempt and well developed Orientation / Consciousness: awake, oriented to person, oriented to place Nutritional Appearance: morbidly obese HEENT normocephalic, head/scalp atraumatic and moist oral mucous membranes Head and Scalp: normocephalic Eyes PERRL, EOMs intact bilaterally and conjunctivae normal Neck nuchal rigidity, supple, no JVD and thyroid normal General: trachea midline Resp normal respiratory effort, no retractions, no use of accessory muscles and clear to auscultation bilaterally Auscultation: Negative for rales, rhonchi or wheezes Cardio regular rate, regular rhythm, S1 normal heart sound, S2 normal heart sound, no murmurs, no rub and no gallops GI normal to inspection, nondistended, normoactive bowel sounds, soft to palpation, non-tender and non-distended Extremity no clubbing, cyanosis or edema Skin no rashes or lesions noted and no wounds General Skin Exam: no breakdown Neuro CN's II-XII intact bilaterally, no focal motor deficits and no sensory deficits noted Sensorium / Orientation: awake, alert, oriented to person and oriented to place Speech: speech normal Psych Psych Narrative: flat affect Assessment & Plan Assessment/Plan (1) Coronary artery disease: QUALIFIERS: Coronary Disease-Associated Artery/Lesion type: [place] artery [place] vs. transplanted heart: [place] heart Associated angina: unspecified whether angina present Qualified Code(s): I25.10 - Atherosclerotic heart disease of [place] coronary artery without angina pectoris (2) Acute and chronic respiratory failure with hypercapnia: PLAN: 1. Acute on chronic combined respiratory failure secondary to bilateral pneumonia-probably from alpha hemolytic Streptococcus,-continue present antibiotic coverage, pulmonary medicine is continuing to see the patient #2 bacteremia secondary to Enterococcus faecalis-continue present antibiotic treatment #3 acute cystitis-cannot be ruled out at this time, however, patient's urine culture exhibits no growth at this time #4 acute hematuria-patient is now off Eliquis, she was seen in consultation by urology, the exact etiology of the hematuria is unknown, patient continues to have bladder irrigation, she may need a cystoscope performed #5 morbid obesity-complicates care, recovery, and prognosis #6 chronic back pain-secondary to probable osteoarthritis and degenerative joint disease of the lumbar spine, I will maintain the patient on OxyIR for pain-we will have to be careful with the dosage to avoid sedation. #7 ischemic cardiomyopathy-patient's ejection fraction on her last echocardiogram was 40 to 45%, she has a past history of coronary artery disease, continue on aspirin and Plavix. #8 type II [id number] had elevation of her troponin when she was admitted, cardiology is aware of this but does not feel patient needs to undergo any additional testing at this time, she will continue on her present medications #9 acute kidney injury-on a backdrop of stage IV chronic kidney disease, patient has been undergoing dialysis for approximately 2 to 3 weeks, it is likely that this will be end-stage renal disease requiring dialysis chronically. Patient will be dialyzed again tomorrow #10 acute anemia-probably secondary to blood loss anemia from hematuria on a backdrop of anemia of chronic renal disease-requiring blood transfusion, patient's hemoglobin today was 8, CBC will be monitored. I do not believe she needs a blood transfusion at this time. Charges/Coding Visit Charges Inpatient E&M: 70862 Subs Hosp L3
[2021-11-02 12:05] LABS: Bedside Glucose 158 mg/dL (70-110)
[2021-11-02 17:06] LABS: Bedside Glucose 181 mg/dL (70-110)
[2021-11-02 21:51] LABS: Bedside Glucose 145 mg/dL (70-110)
[2021-11-03] VITALS (13 sets, daily range): BP systolic 108–128; BP diastolic 38–50; PULSE 63–81; RESP 12–18; TEMP 36.6–37; O2SAT 94–100
[2021-11-03 06:33] LABS: Absolute Lymphocyte Count 0.52 X10^3/uL (0.83-4.51); Absolute Neutrophil Count 5.5 X10^3/uL (2.0-7.7); Basophil# 0.01 X10^3/uL; Basophil% 0.2 % (0-1); Eosinophil# 0.01 X10^3/uL; Eosinophils% 0.2 % (0-5); Hematocrit 26.7 % (37-47); Hemoglobin 8.1 g/dL (12.0-15.0); Lymphocyte # 0.52 X10^3/ul (0.83-4.51); Lymphocyte % 8.1 % (19-41); Mean Corp Hgb Conc 30.3 g/dL (32-36); Mean Corpuscular Hgb 28.6 pg (27.0-32.0); Mean Corpuscular Volume 94.3 fL (81-99); Mean Platelet Vol. 10.2 fl (6.2-12.0); Monocyte# 0.41 X10^3/uL; Monocyte% 6.4 % (0-10); NRBC Flagged by Analyzer 0 % (0-5); Neutrophil # 5.47 X10^3/uL (2.7-7.7); Neutrophil % 84.6 % (47-70); POSITIVE DIFFERENTIAL YES; Platelet Count 110 K/mm3 (150-450); RBC Distribution Width CV 14.1 % (11.6-14.6); RBC Distribution Width SD 47.9 fl (35.1-43.9); Red Blood Count 2.83 M/mm3 (4.2-5.4); White Blood Count 6.5 K/mm3 (4.4-11.0)
[2021-11-03] MEDS: Insulin Lispro 100 UNIT/ML INSULN.PEN SC ×2 (06:34→20:55)
[2021-11-03 06:36] LABS: Bedside Glucose 210 mg/dL (70-110)
--- NOTE | 2021-11-03 06:37 | CPS ---
pt declined cpap/bipap all night. Pt was asked by RT and RN
[2021-11-03 06:46] LABS: Differential Indicated SCAN CRITERIA MET
[2021-11-03 06:56] LABS: Vancomycin, Random Level 25.3 ug/mL (0.0-15.0)
--- NOTE | 2021-11-03 07:07 | PN.CARD_ITS ---
Subjective Subjective Patient seen and evaluated. Sleeping. Objective Data Vital Signs: Vital Signs Temp Pulse Resp BP Pulse Ox 97.8 F 67 18 113/38 L 97 11/03/21 02:53 11/03/21 02:53 11/03/21 02:53 11/03/21 02:53 11/03/21 02:53 Oxygen Flow Rate (L/min) 2 Oxygen Delivery Method Nasal Cannula Weight: 293 lb 14.019 oz Body Mass Index (BMI) 51.2 Intake & Output: Intake and Output for Last 24 Hours 11/01/21 11/02/21 11/03/21 23:59 23:59 23:59 Intake Total 100 / 100 220.25 / 220.25 50 / 50 Output Total 1850 / 1850 1100 / 1250 575 / 575 Balance -1750 / -1750 -879.75 / -1029.75 -525 / -525 Lab / Micro Data Result Diagrams: 11/03/21 06:16 11/02/21 07:35 Labs: Laboratory Results - last 24 hr 11/02/21 07:35: WBC 7.4, RBC 2.87 L, Hgb 8.0 L, Hct 26.7 L, MCV 93.0, MCH 27.9, MCHC 30.0 L, RDW Std Deviation 48.2 H, RDW Coeff of [place] 14.3, Plt Count 103 L, MPV 10.1, Immature Gran % (Auto) 0.400, Neut % (Auto) 78.7 H, Lymph % (Auto) 11.3 L, [place] % (Auto) 8.2, Eos % (Auto) 1.1, Baso % (Auto) 0.3, Absolute Neuts (auto) 5.8, Absolute Lymphs (auto) 0.84, Nucleated RBC % 0 11/02/21 07:35: Sodium 128 L, Potassium 5.1, Chloride 96 L, Carbon Dioxide 26.0, Anion Gap 6, BUN 60 H, Creatinine 6.18 H, Estim Creat Clear Calc 7.75, Est GFR (MDRD) Af Amer 9 L, Est GFR (MDRD) Non-Af 7 L, BUN/Creatinine Ratio 9.7 L, Glucose 182 H, Calcium 7.9 L 11/02/21 11:25: POC Glucose 158 H 11/02/21 16:44: POC Glucose 181 H 11/02/21 21:12: POC Glucose 145 H 11/03/21 06:16: Random Vancomycin 25.3 H 11/03/21 06:16: WBC 6.5, RBC 2.83 L, Hgb 8.1 L, Hct 26.7 L, MCV 94.3, MCH 28.6, MCHC 30.3 L, RDW Std Deviation 47.9 H, RDW Coeff of [place] 14.1, Plt Count 110 L, MPV 10.2, Immature Gran % (Auto) 0.500, Neut % (Auto) 84.6 H, Lymph % (Auto) 8.1 L, [place] % (Auto) 6.4, Eos % (Auto) 0.2, Baso % (Auto) 0.2, Absolute Neuts (auto) 5.5, Absolute Lymphs (auto) 0.52 L, Nucleated RBC % 0 11/03/21 06:28: POC Glucose 210 H Micro: Microbiology 10/30/21 03:32 Sputum, Tracheal Aspirate Gram Stain - Final 10/30/21 03:32 Sputum, Tracheal Aspirate Respiratory Culture - Final Gram positive gilberto Strep not Strep pneumo 10/30/21 02:39 Blood Culture (Wb) - Femoral Artery Bacteria Detection (PCR) - Final Enterococcus faecalis 10/30/21 02:39 Blood Culture (Wb) - Femoral Artery Blood Culture - Preliminary Enterococcus faecalis Meth. resistant Staph. aureus Staphylococcus epidermidis Cardiology Labs/Tests 11/02/21 07:35: WBC 7.4, RBC 2.87 L, Hgb 8.0 L, Hct 26.7 L, MCV 93.0, MCH 27.9, MCHC 30.0 L, Plt Count 103 L, MPV 10.1, Immature Gran % (Auto) 0.400, Neut % (Auto) 78.7 H, Lymph % (Auto) 11.3 L, [place] % (Auto) 8.2, Eos % (Auto) 1.1, Baso % (Auto) 0.3, Absolute Neuts (auto) 5.8, Nucleated RBC % 0 11/02/21 07:35: Sodium 128 L, Potassium 5.1, Chloride 96 L, Carbon Dioxide 26.0, Anion Gap 6, BUN 60 H, Creatinine 6.18 H, Est GFR (MDRD) Af Amer 9 L, Est GFR (MDRD) Non-Af 7 L, BUN/Creatinine Ratio 9.7 L, Glucose 182 H, Calcium 7.9 L 11/03/21 06:16: WBC 6.5, RBC 2.83 L, Hgb 8.1 L, Hct 26.7 L, MCV 94.3, MCH 28.6, MCHC 30.3 L, Plt Count 110 L, MPV 10.2, Immature Gran % (Auto) 0.500, Neut % (Auto) 84.6 H, Lymph % (Auto) 8.1 L, [place] % (Auto) 6.4, Eos % (Auto) 0.2, Baso % (Auto) 0.2, Absolute Neuts (auto) 5.5, Nucleated RBC % 0 Rhythm: EKG: ECHO: Stress Test: Cardiac Cath: PCI: CT Surgery: Holter monitor: EPS: PPM: CXR: Chest CT Scan: Physical Exam Const alert, oriented x3 and no apparent distress General Appearance: cooperative HEENT hearing grossly normal bilaterally Head and Scalp: atraumatic Eyes EOMs intact bilaterally Neck General: normal visual inspection Chest inspection of chest normal and palpation of chest normal Resp normal respiratory effort Auscultation: clear to auscultation bilaterally Cardio regular rate, regular rhythm, S1 normal heart sound and S2 normal heart sound Jugular Venous Distention: JVD GI normal to inspection, nondistended, normoactive bowel sounds Extremity normal capillary refill and no pedal edema Peripheral Pulses: Yes pulses 2+ throughout and femoral pulses present Skin no rashes or lesions noted Neuro oriented x3 and CN's II-XII intact bilaterally Psych Appearance: grossly normal and appropriate Assessment & Plan Assessment/Plan (1) Elevated troponin: PLAN: Patient has a recent history of elevated troponin. The above is lik axel secondary to demand ischemia. My recommendation at this time will be in the face of her significant renal dysfunction to continue to manage her expectantly. Her ejection fraction demonstrates mildly reduced left ventricular systolic function with apical hypokinesis. (2) Coronary artery disease: QUALIFIERS: Coronary Disease-Associated Artery/Lesion type: [place] artery [place] vs. transplanted heart: [place] heart Associated angina: unspecified whether angina present Qualified Code(s): I25.10 - Atherosclerotic heart disease of [place] coronary artery without angina pectoris PLAN: She does have a history of coronary disease status post previous angioplasty and stenting. The plan will be to continue the current medical therapy. The aspirin and the clopidogrel can be continued. (3) Atrial fibrillation: QUALIFIERS: Atrial fibrillation type: unspecified Qualified Code(s): I48.91 - Unspecified atrial fibrillation PLAN: She does have evidence of previous atrial fibrillation. She is maintaining sinus rhythm at this time. Due to the hematuria I would not recommend anticoagulation. She will remain on amiodarone for maintenance of sinus rhythm. Thank you for allowing me to participate in the care of your patient. Please don't hesitate to call if any issues arise.
[2021-11-03 07:08] LABS: Albumin, Serum 1.8 g/dL (3.2-5.0); BUN 65 mg/dL (7-18); BUN/Creat Ratio 8.9 RATIO (10-20); Chloride 96 mmol/L (98-107); Creatinine, Serum 7.28 mg/dL (0.55-1.02); EST Glomerular Filtration Rate 6 mL/min (>60); Est Glom Filt Rate - Afr Amer 7 mL/min (>60); Estimated Creatinine Clearance 6.58 ml/min; Glucose 178 mg/dL (74-106); Phosphorus 9.4 mg/dL (2.5-4.9); Sodium Level 129 mmol/L (136-145)
--- NOTE | 2021-11-03 07:26 | PCM.RX.CS ---
Consult Type of Consult: Follow-up Suspected Infection: Pneumonia, Bacteremia Labs: Sodium 129 mmol/L (136-145) L 11/03/21 06:16 Potassium 6.0 mmol/L (3.5-5.1) H* 11/03/21 06:16 Chloride 96 mmol/L (98-107) L 11/03/21 06:16 Carbon Dioxide 24.0 mmol/L (21.0-32.0) 11/03/21 06:16 Anion Gap 6 (5-15) 11/02/21 07:35 BUN 65 mg/dL (7-18) H 11/03/21 06:16 Creatinine 7.28 mg/dL (0.55-1.02) H 11/03/21 06:16 Est GFR (MDRD) Af Amer 7 mL/min (>60) L 11/03/21 06:16 Est GFR (MDRD) Non-Af 6 mL/min (>60) L 11/03/21 06:16 BUN/Creatinine Ratio 8.9 RATIO (10-20) L 11/03/21 06:16 Glucose 178 mg/dL (74-106) H 11/03/21 06:16 Random Vancomycin 25.3 ug/mL (0.0-15.0) H 11/03/21 06:16 Microbiology: Microbiology 10/30/21 02:39 Blood Culture (Wb) - Femoral Artery Bacteria Detection (PCR) - Final Enterococcus faecalis 10/30/21 02:39 Blood Culture (Wb) - Femoral Artery Blood Culture - Preliminary Enterococcus faecalis Meth. resistant Staph. aureus Staphylococcus epidermidis 10/30/21 03:32 Sputum, Tracheal Aspirate Gram Stain - Final 10/30/21 03:32 Sputum, Tracheal Aspirate Respiratory Culture - Final Gram positive gilberto Strep not Strep pneumo 10/30/21 02:55 Urine Catheter - Catheter Urine Culture - Final Culture exhibits no growth. 10/30/21 03:40 Stool Stool Lactoferrin - Final 10/30/21 03:40 Stool Enteric Bacteriology - Final 10/30/21 03:40 Stool C. difficile DNA Amplification - Final 10/30/21 04:30 Mucosa - Nasopharyngeal Influenza Types A,B Direct FA (MILI) - Final 10/30/21 03:30 Urine Catheter - Mckeon Legionella Antigen - Final 10/30/21 03:30 Urine Catheter - Mckeon Streptococcus pneumoniae Antigen (M - Final 10/30/21 04:11 Nasal Secretion SARS-CoV-2 Antigen (Rapid) - Final Goal Trough: 15-20 mcg/mL Pharmacy Plan for Drug Dosing: VANCOMYCIN LEVEL RECEIVED Current Vancomycin Dose: Dosing by pre-HD levels Number of Doses Received: 2 Vancomycin Level: 25.3 Hours Since Last Dose: 69 Renal Function: sCr 7.28 Renal Function Trend: HD MWF Vancomycin Plan/Comments: No vancomycin dosing necessary today Pending Level: Random vancomycin level @ 0600 11/05/21 prior to next HD session Pharmacy Service will continue to monitor and adjust dosing as required. Labs to be done on [date and time ordered]: Random vancomycin level @ 0600 11/05/21
--- NOTE | 2021-11-03 09:31 | CASEMGMT ---
Social Work MIMA called [facility]Say at [facility], message left. Updates faxed. MIMA requested on fax cover sheet and via voicemail for Shay that she start precert. MIMA will continue to follow. VANESSA Cantrell
[2021-11-03 12:05] LABS: Bedside Glucose 107 mg/dL (70-110)
--- NOTE | 2021-11-03 12:18 | DIALYSIS ---
Hemodialysis today. Pt tolerated tx well. UF -2500mL removed. Pt stable Report to RENO Corrales
[2021-11-03] MEDS: Metoprolol Tartrate 50 MG Tablet GT (12:50)
[2021-11-03] MEDS: Clopidogrel Bisulfate 75 MG Tablet GT (12:50)
[2021-11-03] MEDS: Amiodarone 200 MG Tablet GT (12:51)
[2021-11-03] MEDS: Aspirin 81 MG TAB.CHEW GT (12:51)
[2021-11-03] MEDS: busPIRone 5 MG Tablet GT (12:51)
--- NOTE | 2021-11-03 13:16 | PN.HOSP_ITS ---
Subjective Subjective Patient seen and examined. She was having dialysis at time of review. She had no active complaints and denied fever, chills, cough, chest pain, nausea or vomiting. Review of systems otherwise negative. Objective Data Objective Data Vital Signs: Vital Signs Temp Pulse Resp BP Pulse Ox 98.6 F 81 18 128/47 H 100 11/03/21 12:40 11/03/21 12:50 11/03/21 12:40 11/03/21 12:40 11/03/21 12:40 Oxygen Flow Rate (L/min) 2 Oxygen Delivery Method Nasal Cannula Weight: 293 lb 14.019 oz Body Mass Index (BMI) 51.2 Intake & Output: Intake and Output for Last 24 Hours 11/01/21 11/02/21 11/03/21 23:59 23:59 23:59 Intake Total 100 / 100 220.25 / 220.25 50 / 50 Output Total 1850 / 1850 1100 / 1250 575 / 575 Balance -1750 / -1750 -879.75 / -1029.75 -525 / -525 Lab / Micro Data Result Diagrams: 11/03/21 06:16 11/03/21 06:16 Labs: Laboratory Results - last 24 hr 11/02/21 16:44: POC Glucose 181 H 11/02/21 21:12: POC Glucose 145 H 11/03/21 06:16: Random Vancomycin 25.3 H 11/03/21 06:16: Sodium 129 L, Potassium 6.0 H*, Chloride 96 L, Carbon Dioxide 24.0, BUN 65 H, Creatinine 7.28 H, Estim Creat Clear Calc 6.58, Est GFR (MDRD) Af Amer 7 L, Est GFR (MDRD) Non-Af 6 L, BUN/Creatinine Ratio 8.9 L, Glucose 178 H, Calcium 8.0 L, Phosphorus 9.4 H*, Albumin 1.8 L 11/03/21 06:16: WBC 6.5, RBC 2.83 L, Hgb 8.1 L, Hct 26.7 L, MCV 94.3, MCH 28.6, MCHC 30.3 L, RDW Std Deviation 47.9 H, RDW Coeff of Loyda 14.1, Plt Count 110 L, MPV 10.2, Immature Gran % (Auto) 0.500, Neut % (Auto) 84.6 H, Lymph % (Auto) 8.1 L, [place] % (Auto) 6.4, Eos % (Auto) 0.2, Baso % (Auto) 0.2, Absolute Neuts (auto) 5.5, Absolute Lymphs (auto) 0.52 L, Nucleated RBC % 0 11/03/21 06:28: POC Glucose 210 H 11/03/21 11:45: POC Glucose 107 Micro: Microbiology 10/30/21 02:39 Blood Culture (Wb) - Femoral Artery Bacteria Detection (PCR) - Final Enterococcus faecalis 10/30/21 02:39 Blood Culture (Wb) - Femoral Artery Blood Culture - Preli minary Enterococcus faecalis Meth. resistant Staph. aureus Staphylococcus epidermidis 10/30/21 03:32 Sputum, Tracheal Aspirate Gram Stain - Final 10/30/21 03:32 Sputum, Tracheal Aspirate Respiratory Culture - Final Gram positive gilberto Strep not Strep pneumo 10/30/21 02:55 Urine Catheter - Catheter Urine Culture - Final Culture exhibits no growth. 10/30/21 03:40 Stool Stool Lactoferrin - Final 10/30/21 03:40 Stool Enteric Bacteriology - Final 10/30/21 03:40 Stool C. difficile DNA Amplification - Final 10/30/21 04:30 Mucosa - Nasopharyngeal Influenza Types A,B Direct FA (MILI) - Final 10/30/21 03:30 Urine Catheter - Mckeon Legionella Antigen - Final 10/30/21 03:30 Urine Catheter - Mckeon Streptococcus pneumoniae Antigen (M - Final 10/30/21 04:11 Nasal Secretion SARS-CoV-2 Antigen (Rapid) - Final Physical Exam Const alert Orientation / Consciousness: lethargic Exam Limitations: no limitations HEENT head/scalp atraumatic and moist oral mucous membranes Head and Scalp: normocephalic Eyes EOMs intact bilaterally and conjunctivae normal Neck no lymphadenopathy and supple Resp Resp Narrative: mildly diminished breath sounds bibasally, no wheezes or crackles. On 2L of oxygen by nasal canula GI normal to inspection, nondistended, normoactive bowel sounds, soft to palpation, non-tender, non-distended and hepatosplenomegaly Extremity normal to inspection, full ROM and no clubbing, cyanosis or edema Peripheral Pulses: Yes pulses 2+ throughout Skin no rashes or lesions noted Skin Narrative: has dialysis catheter in chest Neuro CN's II-XII intact bilaterally and moves all extremities Neuro Narrative: lethargic Sensorium / Orientation: awake and alert Psych Psych Narrative: flat affect Assessment & Plan Assessment/Plan (1) Acute kidney injury: (2) Gross hematuria: (3) Atrial fibrillation: QUALIFIERS: Atrial fibrillation type: unspecified Qualified Code(s): I48.91 - Unspecified atrial fibrillation (4) Bilateral pneumonia: QUALIFIERS: Pneumonia type: due to unspecified organism Lung location: unspecified part of lung Qualified Code(s): J18.9 - Pneumonia, unspecified organism PLAN: #acute on chronic hypoxic respiratory failure due to Bilateral pneumonia * Sputum cultures grew alphahemolytic strep. * Pulmonology on board. * On on IV vancomycin and Zosyn. #MRSA bacterEMIA * Blood PCR grew Enterococcus faecalis as well as MRSA. * ID consulted today. Had 2D echo which showed EF of 40 to 45% with evidence of diastolic dysfunction and akinetic apex as well as septal hypokinesis. * In light of MRSA, dialysis catheter would likely need to come out. Will defer to ID recommendations. * will get blood cultures * On IV vancomycin and Zosyn. #ESRD * Appears to have ALEXY that has advanced ESRD. Patient getting dialysis. Had dialysis today. Nephrology on board. * Potassium today is 6 which is likely due to the kidney disease. Expect that will improve with dialysis. * #Hyperkalemia: Potassium is 6 as mentioned above. Expect to improve with dialysis. #Hyponatremia: Present since admission. Likely due to kidney disease as well. Hopefully should improve with dialysis. #Acute hematuria * Patient was on Eliquis which has been discontinued. CT of the abdomen and pelvis ordered by urology showed a 5.7 cm x 6 cm mass in the inferior pole of the left kidney which could be a mass versus hematoma. I discussed this with Dr. Denice LACY today who stated that patient will need to follow-up at a tertiary facility with this could be evaluated further. * Hematuria is improving. #Ischemic cardiomyopathy: EF known to be 40 to 45%. On aspirin and Plavix. #Type 2 diabetes mellitus: On Lantus 30 units nightly. Insulin sliding scale. Accu-Cheks AC at bedtime. #Hypothyroidism: On Synthroid #Hypertension: On metoprolol #Non-STEMI: Thought to be type II non-STEMI. Cardiology on board. Cardiology does not plan on any further work-up now. #Acute on chronic anemia * likely due to hematuria. Required blood transfusion during this admission * Hb today: 8.1 * #SUper morbid obesity: BMI is 53.8. complicates acute care, expected recovery and prognosis. DVT prophylaxis: SCDs. No anticoagulants o/a of hematuria * Charges/Coding Visit Charges Inpatient E&M: 40664 Subs Hosp L3
--- NOTE | 2021-11-03 14:38 | PCM.CONS.GEN ---
Assessment & Plan Assessment/Plan (1) Chronic renal failure: (2) Gross hematuria: (3) Acute and chronic respiratory failure with hypercapnia: (4) Bacteremia: PLAN: MRSA, enterococcus, and CoNS bacteremia in 1 of 1 bcx, permacath in place. Reported recent MRSA uti, not clear if came from cho or from hematogenous spread. TTE here was poor quality study. Will order repeat bcx from periphery and from permacath. On vanc/zosyn. Recommend permacath removal and line holiday if possible given MRSA bacteremia. Recommend BRITTA, will contact Dr. Garay. Not clear why she has a polymicrobial bacteremia. CT does show hyperdense renal mass with associated pyelo, urology following. May need to aspirate if possible abscess present. Will follow, thank you, d/w Dr. Murry. HPI Consult Data Date of Consult: 11/03/21 HPI Narrative HPI Narrative: YANIRA LEMOS, is a 61 F who presented to ED 2/3 from ECF with several days worsening mental status and hypoxia. Reportedly recently treated for MRSA uti. Newly started on HD. Also found to have anemia and hematuria. Admitted here, intubated, started on vanc/zosyn. Seen by urology, cardiology, pulm, and neph. Now off vent, out of icu. Feeling ok, no complaints. Not able to provide history. Full ROS performed and neg except as noted above. 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 Kidney disease Kidney failure Obesity Pneumonia Polyneuropathy due to type 2 diabetes mellitus Recurrent infections Sleep apnea Type 2 diabetes mellitus with stage 3 chronic kidney disease UTI (urinary tract infection) Vision problem Home Medications albuterol sulfate 2.5 mg INHALATION Q6H 07/29/21 [History Last Taken Unknown] amiodarone 200 mg tablet 200 mg PO DAILY 07/29/21 [History Last Taken Unknown] apixaban 5 mg tablet 2.5 tablet PO BID 07/29/21 [History Last Taken Unknown] gabapentin 400 mg capsule 400 cap PO DAILY 07/29/21 [History Last Taken Unknown] insulin glargine 100 unit/mL (3 mL) subcutaneous pen 75 ml SUBCUT QHS 07/29/21 [History Last Taken Unknown] insulin lispro 100 unit/mL subcutaneous pen 0 ml SUBCUT ACHS 07/29/21 [History Last Taken Unknown] levothyroxine 125 mcg tablet 125 tablet PO QHS 07/29/21 [History Last Taken Unknown] losartan 25 mg tablet 50 ea PO DAILY 07/29/21 [History Last Taken Unknown] metoprolol succinate 50 mg tablet,extended release 24 hr 50 tablet PO BID 07/29/21 [History Last Taken Unknown] nitroglycerin 0.4 mg sublingual tablet 0.4 mg SUBLINGUAL Q5M PRN 07/29/21 [History Last Taken Unknown] omeprazole 20 mg capsule,delayed release 20 mg PO DAILY cap 07/29/21 [History Last Taken Unknown] pravastatin 80 mg tablet 80 tablet PO QHS 07/29/21 [History Last Taken Unknown] buspirone 5 mg PO BID 10/30/21 [History Last Taken Unknown] clopidogrel 75 mg PO DAILY 10/30/21 [History Last Taken Unknown] cyanocobalamin (vitamin B-12) 1,000 mcg PO DAILY 10/30/21 [History Last Taken Unknown] gabapentin 1,200 mg PO QHS 10/30/21 [History Last Taken Unknown] guaifenesin [Mucinex] 600 mg PO BID 10/30/21 [History Last Taken Unknown] hydrocodone-acetaminophen [[place]] 1 tab PO Q8H PRN 10/30/21 [History Last Taken Unknown] multivitamin 1 tab PO DAILY 10/30/21 [History Last Taken Unknown] zinc 50 mg PO DAILY 10/30/21 [History Last Taken Unknown] zolpidem 10 mg PO QHS PRN 10/30/21 [History Last Taken Unknown] Allergy/AdvReac Type Severity Reaction Status Date / Time adhesive tape Allergy Intermediate Rash Verified 10/30/21 01:53 codeine Allergy Intermediate n/a Verified 10/30/21 01:53 exenatide Allergy Intermediate n/a Verified 10/30/21 01:53 nalbuphine [From Nubain] Allergy Intermediate n/a Verified 10/30/21 01:53 pantoprazole [From Protonix] Allergy Intermediate n/a Verified 10/30/21 01:53 trioxsalen Allergy Intermediate n/a Verified 10/30/21 01:53 adhesive Allergy rash Verified 10/30/21 01:53 Family History Other Depression Diabetes Heart disease High cholesterol Hypertension Kidney disease Myocardial infarction Social History Smoking Status: Never smoker alcohol intake: never substance use type: does not use what type of physical activity do you participate in: none Physical Exam Const no apparent distress Constitutional Narrative: oriented x1 Orientation / Consciousness: disoriented Exam Limitations: altered mental status HEENT normocephalic and head/scalp atraumatic Eyes PERRL and EOMs intact bilaterally Neck supple and No nodes Resp Auscultation: rhonchi Cardio regular rate and regular rhythm GI soft to palpation, non-tender and non-distended Extremity General Extremity: edema Skin no rashes or lesions noted Skin Narrative: R chest permacath no erythema or swelling. No splinter hemorrhages on hands or feet Neuro CN's II-XII intact bilaterally Lab / Micro Data Result Diagrams: 11/03/21 06:16 11/03/21 06:16 Labs: Laboratory Results - last 24 hr 11/02/21 16:44: POC Glucose 181 H 11/02/21 21:12: POC Glucose 145 H 11/03/21 06:16: Random Vancomycin 25.3 H 11/03/21 06:16: Sodium 129 L, Potassium 6.0 H*, Chloride 96 L, Carbon Dioxide 24.0, BUN 65 H, Creatinine 7.28 H, Estim Creat Clear Calc 6.58, Est GFR (MDRD) Af Amer 7 L, Est GFR (MDRD) Non-Af 6 L, BUN/Creatinine Ratio 8.9 L, Glucose 178 H, Calcium 8.0 L, Phosphorus 9.4 H*, Albumin 1.8 L 11/03/21 06:16: WBC 6.5, RBC 2.83 L, Hgb 8.1 L, Hct 26.7 L, MCV 94.3, MCH 28.6, MCHC 30.3 L, RDW Std Deviation 47.9 H, RDW Coeff of Loyda 14.1, Plt Count 110 L, MPV 10.2, Immature Gran % (Auto) 0.500, Neut % (Auto) 84.6 H, Lymph % (Auto) 8.1 L, [place] % (Auto) 6.4, Eos % (Auto) 0.2, Baso % (Auto) 0.2, Absolute Neuts (auto) 5.5, Absolute Lymphs (auto) 0.52 L, Nucleated RBC % 0 11/03/21 06:28: POC Glucose 210 H 11/03/21 11:45: POC Glucose 107 Micro: Microbiology 10/30/21 02:39 Blood Culture (Wb) - Femoral Artery Bacteria Detection (PCR) - Final Enterococcus faecalis 10/30/21 02:39 Blood Culture (Wb) - Femoral Artery Blood Culture - Preliminary Enterococcus faecalis Meth. resistant Staph. aureus Staphylococcus epidermidis
--- NOTE | 2021-11-03 14:59 | CHAPLAIN ---
Type of Pastoral Visit ___ Initial Visit _x__ Follow-up Visit ___ On-call Visit ___ General Patient Visit ___ Spiritual Assessment ___ Family Conference ___ Bereavement ___ Rapid Response ___ Code Blue ___ Other (describe below) Pastoral Care Referral From _x__ Patient ___ Family ___ Nurse ___ Physician ___ Educational Administration Teacher ___ Radiology Special Procedure Tech ___ Other (describe below) Sacrament/Intervention ___ Active listening ___ Anointing ___ Oriental Orthodox ___ Bereavement ___ Communion ___ [place] exploration ___ ___ Life review _x__ Prayer ___ Reconciliation ___ Sacrament of Sick _x__ Supportive presence ___ Wedding ___ Other (describe below) Pastoral Comments
--- NOTE | 2021-11-03 15:03 | ECHOTEE_ITS ---
Reason For Study: Sepsis, R/O Endocarditis Medication BRITTA probe 6VT-D (SN [id number]) passed without difficulty. No complications were noted. Cetacaine Topical [place] given X2 orally. Versed 1 mg given slow IVP. Fentanyl 50 mcg given slow IVP. Performed a rapid injection of agitated mix of 9 cc saline and 1cc air to assess for atrial septal defect. Left Ventricle Normal LV size. Left ventricular systolic function is normal. The estimated ejection fraction is 55 %. No regional wall motion abnormalities noted. Right Ventricle Normal RV size. ICD or pacer leads identified within the right ventricle. Normal systolic function. Atria Bubble contrast study negative for right to left interatrial shunt. Normal left atrium. No thrombus is detected in the left atrial appendage. Normal right atrium. ICD or pacer leads identified within the right atrium. Mitral Valve Mild diffuse mitral valve thickening. Mild mitral valve prolapse. Mild (1+) mitral valve insufficiency. Tricuspid Valve Normal tricuspid valve. Mild tricuspid valve insufficiency. Aortic Valve Normal aortic valve. Trisinus/trileaflet aortic valve. Pulmonic Valve Normal pulmonic valve. Vessels Normal aortic root. Normal arch. The pulmonary artery is normal size. Pulmonary venous flow normal. Pericardium No pericardial effusion. ECHO/Echo Transesophageal (BRITTA) Interpretation Summary Normal LV size. Left ventricular systolic function is normal. The estimated ejection fraction is 55 %. Mild mitral valve prolapse. Mild (1+) mitral valve insufficiency. Mild tricuspid valve insufficiency. No vegetations noted Ordering Physician: Dequan Garay Referring Physician: Harinder Rudd Performed By: Luz Dye RDCS
--- NOTE | 2021-11-03 16:11 | PN.RENAL_ITS ---
Subjective Subjective Resting in bed. No overnight events. No acute distress. Objective Data Objective Data Vital Signs: Vital Signs Temp Pulse Resp BP Pulse Ox 98.6 F 66 18 128/47 H 100 11/03/21 12:40 11/03/21 15:31 11/03/21 12:40 11/03/21 12:40 11/03/21 12:40 Oxygen Flow Rate (L/min) 2 Oxygen Delivery Method Nasal Cannula Weight: 133.3 kg Body Mass Index (BMI) 51.2 Intake & Output: Intake and Output for Last 24 Hours 11/01/21 11/02/21 11/03/21 23:59 23:59 23:59 Intake Total 100 / 100 220.25 / 220.25 222.5 / 222.5 Output Total 1850 / 1850 1100 / 1250 3075 / 3075 Balance -1750 / -1750 -879.75 / -1029.75 -2852.5 / -2852.5 Lab / Micro Data Result Diagrams: 11/03/21 06:16 11/03/21 06:16 Labs: Laboratory Results - last 24 hr 11/02/21 16:44: POC Glucose 181 H 11/02/21 21:12: POC Glucose 145 H 11/03/21 06:16: Random Vancomycin 25.3 H 11/03/21 06:16: Sodium 129 L, Potassium 6.0 H*, Chloride 96 L, Carbon Dioxide 24.0, BUN 65 H, Creatinine 7.28 H, Estim Creat Clear Calc 6.58, Est GFR (MDRD) Af Amer 7 L, Est GFR (MDRD) Non-Af 6 L, BUN/Creatinine Ratio 8.9 L, Glucose 178 H, Calcium 8.0 L, Phosphorus 9.4 H*, Albumin 1.8 L 11/03/21 06:16: WBC 6.5, RBC 2.83 L, Hgb 8.1 L, Hct 26.7 L, MCV 94.3, MCH 28.6, MCHC 30.3 L, RDW Std Deviation 47.9 H, RDW Coeff of Loyda 14.1, Plt Count 110 L, MPV 10.2, Immature Gran % (Auto) 0.500, Neut % (Auto) 84.6 H, Lymph % (Auto) 8.1 L, [place] % (Auto) 6.4, Eos % (Auto) 0.2, Baso % (Auto) 0.2, Absolute Neuts (auto) 5.5, Absolute Lymphs (auto) 0.52 L, Nucleated RBC % 0 11/03/21 06:28: POC Glucose 210 H 11/03/21 11:45: POC Glucose 107 Micro: Microbiology 10/30/21 02:39 Blood Culture (Wb) - Femoral Artery Bacteria Detection (PCR) - Final Enterococcus faecalis 10/30/21 02:39 Blood Culture (Wb) - Femoral Artery Blood Culture - Preliminary Enterococcus faecalis Meth. resistant Staph. aureus Staphylococcus epidermidis 10/30/21 03:32 Sputum, Tracheal Aspirate Gram Stain - Final 10/30/21 03:32 Sputum, Tracheal Aspirate Respiratory Culture - Final Gram positive gilberto Strep not Strep pneumo 10/30/21 02:55 Urine Catheter - Catheter Urine Culture - Final Culture exhibits no growth. 10/30/21 03:40 Stool Stool Lactoferrin - Final 10/30/21 03:40 Stool Enteric Bacteriology - Final 10/30/21 03:40 Stool C. difficile DNA Amplification - Final 10/30/21 04:30 Mucosa - Nasopharyngeal Influenza Types A,B Direct FA (MILI) - Final 10/30/21 03:30 Urine Catheter - Mckeon Legionella Antigen - Final 10/30/21 03:30 Urine Catheter - Mckeon Streptococcus pneumoniae Antigen (M - Final 10/30/21 04:11 Nasal Secretion SARS-CoV-2 Antigen (Rapid) - Final Physical Exam Narrative General: No apparent distress HEENT: Normocephalic, atraumatic. Mucous membrane moist Heart: Normal S1, S2. No rubs or murmurs Lungs: Clear to auscultation bilaterally Abdomen: Obese, normal bowel sound, soft, nontender Extremity: No clubbing, cyanosis, or edema Assessment & Plan Assessment/Plan (1) Acute kidney injury: PLAN: -The patient was initiated on dialysis when she was admitted to hospital in [place] recently. -ALEXY was thought to be secondary to ischemic ATN related to sepsis due to pyelonephritis. -She has been on a MWF dialysis schedule. -Serum creatinine has been increasing between dialysis, so there is no evidence of renal recovery. -Today Pre-HD creatinine 7.28 mg/dL, potassium 6; patient underwent in termittent HD today, 2kbath with around 2 L UF. Labs ordered for am (2) Chronic kidney disease, stage 4 (severe): PLAN: -Per Dr. Cleveland's note, the patient has stage IV chronic kidney disease prior to her admission to the hospital in [place]. -Last available serum creatinine that I can see on record was from November 2020. At that time, her serum creatinine was 1.55 mg/dL, estimated GFR 34 mL/min putting her in stage IIIb CKD. -Renal dysfunction may have deteriorated in the past year. -CKD is likely due to diabetic kidney disease. - bps acceptable on metoprolol, hold am dose morning of HD (3) Hyperkalemia: PLAN: -The patient presented on 10/30/2021 with potassium level of 6.0 mmol/L. -Potassium has improved with hemodialysis. -We will continue to monitor serum potassium level. -Recommend renal diet in hospital and at time of discharge (4) Acute and chronic respiratory failure with hypercapnia: PLAN: -The patient is being treated for HAP (she is from a custodial facility). She has bilateral pneumonia. -Antimicrobial treatment as per ID. Currently on Zosyn and Vanco. -We will remove more fluid with dialysis to help with oxygenation.
[2021-11-03 16:50] LABS: Bedside Glucose 117 mg/dL (70-110)
[2021-11-03] MEDS: Acetaminophen 650 MG/20 ML UDC GT (18:22)
[2021-11-03 21:06] LABS: Bedside Glucose 153 mg/dL (70-110)
[2021-11-03] MEDS: Levothyroxine 125 MCG Tablet GT (21:07)
[2021-11-03] MEDS: Pravastatin 80 MG Tablet GT (22:00)
[2021-11-04] VITALS (19 sets, daily range): BP systolic 107–145; BP diastolic 25–56; PULSE 60–72; RESP 12–18; TEMP 36.2–37.3; O2SAT 92–100
[2021-11-04] MEDS: oxyCODONE 5 MG Tablet PO ×4 (01:10→23:35)
[2021-11-04 06:01] LABS: Absolute Lymphocyte Count 0.83 X10^3/uL (0.83-4.51); Absolute Neutrophil Count 4.3 X10^3/uL (2.0-7.7); Basophil# 0.01 X10^3/uL; Basophil% 0.2 % (0-1); Eosinophil# 0.09 X10^3/uL; Eosinophils% 1.5 % (0-5); Hematocrit 23.9 % (37-47); Hemoglobin 7.5 g/dL (12.0-15.0); Lymphocyte # 0.83 X10^3/ul (0.83-4.51); Lymphocyte % 14.2 % (19-41); Mean Corp Hgb Conc 31.4 g/dL (32-36); Mean Corpuscular Hgb 28.8 pg (27.0-32.0); Mean Corpuscular Volume 91.9 fL (81-99); Mean Platelet Vol. 9.3 fl (6.2-12.0); Monocyte# 0.56 X10^3/uL; Monocyte% 9.6 % (0-10); NRBC Flagged by Analyzer 0.3 % (0-5); Neutrophil # 4.32 X10^3/uL (2.7-7.7); Platelet Count 123 K/mm3 (150-450); RBC Distribution Width CV 14.2 % (11.6-14.6); RBC Distribution Width SD 47.2 fl (35.1-43.9); White Blood Count 5.8 K/mm3 (4.4-11.0)
[2021-11-04 06:33] LABS: Anion Gap 8 (5-15); BUN 36 mg/dL (7-18); BUN/Creat Ratio 7.1 RATIO (10-20); Calcium,Total 7.8 mg/dL (8.5-10.1); Chloride 98 mmol/L (98-107); Creatinine, Serum 5.09 mg/dL (0.55-1.02); EST Glomerular Filtration Rate 9 mL/min (>60); Est Glom Filt Rate - Afr Amer 11 mL/min (>60); Estimated Creatinine Clearance 9.41 ml/min; Glucose 100 mg/dL (74-106); Potassium 4.5 mmol/L (3.5-5.1); Sodium Level 132 mmol/L (136-145)
[2021-11-04 06:51] LABS: Bedside Glucose 101 mg/dL (70-110)
[2021-11-04] MEDS: 0.9% Saline Lock 10 ML Syringe IV ×2 (07:37→09:51)
--- NOTE | 2021-11-04 07:52 | PCM.PROGNOTE ---
Subjective Subjective The patient is currently down getting BRITTA performed. I stopped the CBI last night. Per nursing she has had 20 cc of yellow urine that is slightly pink-tinged. Objective Data Objective Data CT shows a right renal mass versus hematoma, some mention as to possible abscess has been made. There is also what appears to be hematoma versus mass within the urinary bladder. Vital Signs: Vital Signs Temp Pulse Resp BP Pulse Ox 99.2 F H 71 18 144/43 H 96 11/04/21 07:15 11/04/21 07:15 11/04/21 07:15 11/04/21 07:15 11/04/21 07:15 Oxygen Flow Rate (L/min) 2 Oxygen Delivery Method Nasal Cannula Weight: 133.3 kg Body Mass Index (BMI) 51.2 Intake & Output: Intake and Output for Last 24 Hours 11/02/21 11/03/21 11/04/21 23:59 23:59 23:59 Intake Total 220.25 / 220.25 709.75 / 829.75 170 / 170 Output Total 1100 / 1250 3725 / 3730 Balance -879.75 / -1029.75 -3015.25 / -2900.25 160 / 160 Lab / Micro Data Attestation: I reviewed the patient's lab results. Result Diagrams: 11/04/21 05:50 11/04/21 05:50 Labs: Laboratory Results - last 24 hr 11/03/21 11:45: POC Glucose 107 11/03/21 16:24: POC Glucose 117 H 11/03/21 20:50: POC Glucose 153 H 11/04/21 05:50: WBC 5.8, RBC 2.60 L, Hgb 7.5 L, Hct 23.9 L, MCV 91.9, MCH 28.8, MCHC 31.4 L, RDW Std Deviation 47.2 H, RDW Coeff of Loyda 14.2, Plt Count 123 L, MPV 9.3, Immature Gran % (Auto) 0.500, Neut % (Auto) 74.0 H, Lymph % (Auto) 14.2 L, [place] % (Auto) 9.6, Eos % (Auto) 1.5, Baso % (Auto) 0.2, Absolute Neuts (auto) 4.3, Absolute Lymphs (auto) 0.83, Nucleated RBC % 0.3 11/04/21 05:50: Sodium 132 L, Potassium 4.5, Chloride 98, Carbon Dioxide 26.0, Anion Gap 8, BUN 36 H, Creatinine 5.09 H, Estim Creat Clear Calc 9.41, Est GFR (MDRD) Af Amer 11 L, Est GFR (MDRD) Non-Af 9 L, BUN/Creatinine Ratio 7.1 L, Glucose 100, Calcium 7.8 L 11/04/21 06:40: POC Glucose 101 Micro: Microbiology 10/30/21 02:39 Blood Culture (Wb) - Femoral Artery Bacteria Detection (PCR) - Final Enterococcus faecalis 10/30/21 02:39 Blood Culture (Wb) - Femoral Artery Blood Culture - Preliminary Enterococcus faecalis Meth. resistant Staph. aureus Staphylococcus epidermidis 10/30/21 03:32 Sputum, Tracheal Aspirate Gram Stain - Final 10/30/21 03:32 Sputum, Tracheal Aspirate Respiratory Culture - Final Gram positive gilberto Strep not Strep pneumo 10/30/21 02:55 Urine Catheter - Catheter Urine Culture - Final Culture exhibits no growth. 10/30/21 03:40 Stool Stool Lactoferrin - Final 10/30/21 03:40 Stool Enteric Bacteriology - Final 10/30/21 03:40 Stool C. difficile DNA Amplification - Final 10/30/21 04:30 Mucosa - Nasopharyngeal Influenza Types A,B Direct FA (MILI) - Final 10/30/21 03:30 Urine Catheter - Mckeon Legionella Antigen - Final 10/30/21 03:30 Urine Catheter - Mckeon Streptococcus pneumoniae Antigen (M - Final 10/30/21 04:11 Nasal Secretion SARS-CoV-2 Antigen (Rapid) - Final Assessment & Plan Assessment/Plan (1) Gross hematuria: (2) Renal mass: (3) Urinary tract infection: PLAN: Continue antibiotics and management of her infection per infectious disease Hold the CBI at this time and continue the Mckeon catheter Recommend a repeat CT scan to see if there has been any change or further progression or organization of the right renal mass to suggest evidence of an abscess
--- NOTE | 2021-11-04 08:17 | PN.CARD_ITS ---
Subjective Subjective Patient seen and evaluated. Appears to be doing well. Underwent BRITTA today Objective Data Vital Signs: Vital Signs Temp Pulse Resp BP Pulse Ox 99.2 F H 71 18 144/43 H 96 11/04/21 07:15 11/04/21 07:15 11/04/21 07:15 11/04/21 07:15 11/04/21 07:15 Oxygen Flow Rate (L/min) 2 Oxygen Delivery Method Nasal Cannula Weight: 293 lb 14.019 oz Body Mass Index (BMI) 51.2 Intake & Output: Intake and Output for Last 24 Hours 11/02/21 11/03/21 11/04/21 23:59 23:59 23:59 Intake Total 220.25 / 220.25 709.75 / 829.75 308.25 / 308.25 Output Total 1100 / 1250 3725 / 3730 Balance -879.75 / -1029.75 -3015.25 / -2900.25 298.25 / 298.25 Lab / Micro Data Result Diagrams: 11/04/21 05:50 11/04/21 05:50 Labs: Laboratory Results - last 24 hr 11/03/21 11:45: POC Glucose 107 11/03/21 16:24: POC Glucose 117 H 11/03/21 20:50: POC Glucose 153 H 11/04/21 05:50: WBC 5.8, RBC 2.60 L, Hgb 7.5 L, Hct 23.9 L, MCV 91.9, MCH 28.8, MCHC 31.4 L, RDW Std Deviation 47.2 H, RDW Coeff of Loyda 14.2, Plt Count 123 L, MPV 9.3, Immature Gran % (Auto) 0.500, Neut % (Auto) 74.0 H, Lymph % (Auto) 14.2 L, [place] % (Auto) 9.6, Eos % (Auto) 1.5, Baso % (Auto) 0.2, Absolute Neuts (auto) 4.3, Absolute Lymphs (auto) 0.83, Nucleated RBC % 0.3 11/04/21 05:50: Sodium 132 L, Potassium 4.5, Chloride 98, Carbon Dioxide 26.0, Anion Gap 8, BUN 36 H, Creatinine 5.09 H, Estim Creat Clear Calc 9.41, Est GFR (MDRD) Af Amer 11 L, Est GFR (MDRD) Non-Af 9 L, BUN/Creatinine Ratio 7.1 L, Glucose 100, Calcium 7.8 L 11/04/21 06:40: POC Glucose 101 Micro: Microbiology 10/30/21 02:39 Blood Culture (Wb) - Femoral Artery Bacteria Detection (PCR) - Final Enterococcus faecalis 10/30/21 02:39 Blood Culture (Wb) - Femoral Artery Blood Culture - Preliminary Enterococcus faecalis Meth. resistant Staph. aureus Staphylococcus epidermidis Cardiology Labs/Tests 11/04/21 05:50: WBC 5.8, RBC 2.60 L, Hgb 7.5 L, Hct 23.9 L, MCV 91.9, MCH 28.8, MCHC 31.4 L, Plt Count 123 L, MPV 9.3, Immature Gran % (Auto) 0.500, Neut % (Auto) 74.0 H, Lymph % (Auto) 14.2 L, [place] % (Auto) 9.6, Eos % (Auto) 1.5, Baso % (Auto) 0.2, Absolute Neuts (auto) 4.3, Nucleated RBC % 0.3 11/04/21 05:50: Sodium 132 L, Potassium 4.5, Chloride 98, Carbon Dioxide 26.0, Anion Gap 8, BUN 36 H, Creatinine 5.09 H, Est GFR (MDRD) Af Amer 11 L, Est GFR (MDRD) Non-Af 9 L, BUN/Creatinine Ratio 7.1 L, Glucose 100, Calcium 7.8 L Rhythm: EKG: ECHO: Stress Test: Cardiac Cath: PCI: CT Surgery: Holter monitor: EPS: PPM: CXR: Chest CT Scan: Assessment & Plan Assessment/Plan (1) Elevated troponin: PLAN: Patient has a recent history of elevated troponin. The above is likely secondary to demand ischemia. My recommendation at this time will be in the face of her significant renal dysfunction to continue to manage her expectantly. Her ejection fraction demonstrates mildly reduced left ventricular systolic function with apical hypokinesis. (2) Coronary artery disease: QUALIFIERS: Coronary Disease-Associated Artery/Lesion type: [place] artery [place] vs. transplanted heart: [place] heart Associated angina: unspecified whether angina present Qualified Code(s): I25.10 - Atherosclerotic heart disease of [place] coronary artery without angina pectoris PLAN: She does have a history of coronary disease status post previous angioplasty and stenting. The plan will be to continue the current medical therapy. The aspirin and the clopidogrel can be continued. (3) Atrial fibrillation: QUALIFIERS: Atrial fibrillation type: unspecified Qualified Code(s): I48.91 - Unspecified atrial fibrillation PLAN: She does have evidence of previous atrial fibrillation. She is maintaining sinus rhythm at this time. Due to the hematuria I would not recommend anticoagulation. She will remain on amiodarone for maintenance of sinus rhythm. (4) Pacemaker: PLAN: The patient is status post permanent pacemaker implantation. This will be evaluated at a later date. (5) Bacteremia: PLAN: The patient underwent a transesophageal echocardiogram today which demonstrated preserved ejection fraction and normal valvular apparatus. No evidence of endocarditis was noted. Pacemaker leads did not have any evidence of vegetation or thrombus noted.
[2021-11-04] MEDS: 0.9% Normal Saline 1,000 ML 154.2 ML IV (09:46)
--- NOTE | 2021-11-04 10:25 | PCM.PN.ID ---
Physical Exam Narrative Feeling ok, c/o back pain present for several years. Wants to eat. No fever. Const no apparent distress General Appearance: cooperative Resp normal air movement and clear to auscultation bilaterally Cardio regular rate and regular rhythm GI soft to palpation, non-tender and non-distended Skin no rashes or lesions noted ID ID: Route of nutrition/ use of supplements: [] Nutritional Intake: [] IV Site: [] Cho Catheter: [] Assessment & Plan Assessment/Plan (1) Chronic renal failure: (2) Gross hematuria: (3) Acute and chronic respiratory failure with hypercapnia: (4) Bacteremia: PLAN: MRSA, enterococcus, and CoNS bacteremia in 1 of 1 bcx, permacath in place. Reported recent MRSA uti, not clear if came from cho or from hematogenous spread. TTE here was poor quality study. Will order repeat bcx. On vanc/zosyn. Recommend permacath removal and line holiday if possible given MRSA bacteremia. BRITTA this AM neg for veg. Not clear why she has a polymicrobial bacteremia. CT does show hyperdense renal mass with associated pyelo, urology following. Repeat CT with IV contrast pending, will need to coordinate CT, HD, and line removal with neph. Will follow, d/w Dr. Murry.
--- NOTE | 2021-11-04 11:19 | PN.HOSP_ITS ---
Subjective Subjective Patient seen and examined. She had just come back from having BRITTA. She complained of back pain and wanted narcotics. She said Tylenol did not work. She denied any coughing, chest pain, nausea vomiting, palpitations or dizziness. Review of systems otherwise negative. Objective Data Objective Data Vital Signs: Vital Signs Temp Pulse Resp BP Pulse Ox 98.4 F 72 18 115/39 L 96 11/04/21 09:15 11/04/21 09:15 11/04/21 09:15 11/04/21 09:15 11/04/21 10:07 Oxygen Flow Rate (L/min) 2 Oxygen Delivery Method Nasal Cannula Weight: 293 lb 14.019 oz Body Mass Index (BMI) 51.2 Intake & Output: Intake and Output for Last 24 Hours 11/02/21 11/03/21 11/04/21 23:59 23:59 23:59 Intake Total 220.25 / 220.25 709.75 / 829.75 349.37 / 349.37 Output Total 1100 / 1250 3725 / 3730 10 / 10 Balance -879.75 / -1029.75 -3015.25 / -2900.25 339.37 / 339.37 Lab / Micro Data Result Diagrams: 11/04/21 05:50 11/04/21 05:50 Labs: Laboratory Results - last 24 hr 11/03/21 11:45: POC Glucose 107 11/03/21 16:24: POC Glucose 117 H 11/03/21 20:50: POC Glucose 153 H 11/04/21 05:50: WBC 5.8, RBC 2.60 L, Hgb 7.5 L, Hct 23.9 L, MCV 91.9, MCH 28.8, MCHC 31.4 L, RDW Std Deviation 47.2 H, RDW Coeff of Loyda 14.2, Plt Count 123 L, MPV 9.3, Immature Gran % (Auto) 0.500, Neut % (Auto) 74.0 H, Lymph % (Auto) 14.2 L, [place] % (Auto) 9.6, Eos % (Auto) 1.5, Baso % (Auto) 0.2, Absolute Neuts (auto) 4.3, Absolute Lymphs (auto) 0.83, Nucleated RBC % 0.3 11/04/21 05:50: Sodium 132 L, Potassium 4.5, Chloride 98, Carbon Dioxide 26.0, Anion Gap 8, BUN 36 H, Creatinine 5.09 H, Estim Creat Clear Calc 9.41, Est GFR (MDRD) Af Amer 11 L, Est GFR (MDRD) Non-Af 9 L, BUN/Creatinine Ratio 7.1 L, Glucose 100, Calcium 7.8 L 11/04/21 06:40: POC Glucose 101 Micro: Microbiology 10/30/21 02:39 Blood Culture (Wb) - Femoral Artery Bacteria Detection (PCR) - Final Enterococcus faecalis 10/30/21 02:39 Blood Culture (Wb) - Femoral Artery Blood Culture - Final Enterococcus faecalis Meth. resistant Staph. aureus Staphylococcus epidermidis 10/30/21 03:32 Sputum, Tracheal Aspirate Gram Stain - Final 10/30/21 03:32 Sputum, Tracheal Aspirate Respiratory Culture - Final Gram positive gilberto Strep not Strep pneumo 10/30/21 02:55 Urine Catheter - Catheter Urine Culture - Final Culture exhibits no growth. 10/30/21 03:40 Stool Stool Lactoferrin - Final 10/30/21 03:40 Stool Enteric Bacteriology - Final 10/30/21 03:40 Stool C. difficile DNA Amplification - Final 10/30/21 04:30 Mucosa - Nasopharyngeal Influenza Types A,B Direct FA (MILI) - Final 10/30/21 03:30 Urine Catheter - Mckeon Legionella Antigen - Final 10/30/21 03:30 Urine Catheter - Mckeon Streptococcus pneumoniae Antigen (M - Final 10/30/21 04:11 Nasal Secretion SARS-CoV-2 Antigen (Rapid) - Final Radiography Diagnostic Testing: Radiology Impression Transesophageal Echocardiogram 11/03/21 15:03 Interpretation Summary Normal LV size. Left ventricular systolic function is normal. The estimated ejection fraction is 55 %. Mild mitral valve prolapse. Mild (1+) mitral valve insufficiency. Mild tricuspid valve insufficiency. No vegetations noted Ordering Physician: Jarrod, [place] Referring Physician: Harinder Rudd Performed By: Luz Dye RDCS Physical Exam Const alert, oriented x3 and no apparent distress Constitutional Narrative: Patient appears older than her stated age General Appearance: cooperative, well kempt and well developed Orientation / Consciousness: awake, oriented to person, oriented to place, oriented to time and lethargic Exam Limitations: no limitations Nutritional Appearance: morbidly obese HEENT normocephalic, head/scalp atraumatic and moist oral mucous membranes Head and Scalp: normocephalic Eyes PERRL, EOMs intact bilaterally and conjunctivae normal Neck nuchal rigidity, no lymphadenopathy, supple, no JVD and thyroid normal General: trachea midline Resp normal respiratory effort, no retractions, no use of accessory muscles and clear to auscultation bilaterally Resp Narrative: mildly diminished breath sounds bibasally, no wheezes or crackles. On 2L of oxygen by nasal canula Auscultation: Negative for rales, rhonchi or wheezes Cardio regular rate, regular rhythm, S1 normal heart sound, S2 normal heart sound, no murmurs, no rub and no gallops GI normal to inspection, nondistended, normoactive bowel sounds, soft to palpation, non-tender, non-distended and hepatosplenomegaly Extremity normal to inspection, full ROM and no clubbing, cyanosis or edema Peripheral Pulses: Yes pulses 2+ throughout Skin no rashes or lesions noted and no wounds Skin Narrative: has dialysis catheter in chest General Skin Exam: no breakdown Neuro CN's II-XII intact bilaterally, moves all extremities, no focal motor deficits and no sensory deficits noted Neuro Narrative: lethargic Sensorium / Orientation: awake, alert, oriented to person and oriented to place Speech: speech normal Psych Psych Narrative: flat affect Assessment & Plan Assessment/Plan (1) Acute kidney injury: (2) Gross hematuria: (3) Atrial fibrillation: QUALIFIERS: Atrial fibrillation type: unspecified Qualified Code(s): I48.91 - Unspecified atrial fibrillation (4) Bilateral pneumonia: QUALIFIERS: Pneumonia type: due to unspecified organism Lung location: unspecified part of lung Qualified Code(s): J18.9 - Pneumonia, unspecified organism PLAN: #acute on chronic hypoxic respiratory failure due to Bilateral pneumonia * Sputum cultures grew alphahemolytic strep. * Pulmonology on board. * On on IV vancomycin and Zosyn. #MRSA bacterEMIA * Blood PCR grew Enterococcus faecalis as well as MRSA. * ID consulted today. Had 2D echo which showed EF of 40 to 45% with evidence of diastolic dysfunction and akinetic apex as well as septal hypokinesis. * repeat blood cultures pending. * Per ID, dialysis catheter needs to be removed. Nephro informed. * will get blood cultures * On IV vancomycin and Zosyn. * had BRITTA today which showed no evidence of endocarditis #ESRD * Appears to have ALEXY that has advanced ESRD. Had dialysis yesterday. Nephro on board * * #Hyperkalemia:resolved with dialysis #Hyponatremia: Present since admission. Na is 132 today #Acute hematuria * Patient was on Eliquis which has been discontinued. CT of the abdomen and pelvis ordered by urology showed a 5.7 cm x 6 cm mass in the inferior pole of the left kidney which could be a mass versus hematoma. I discussed this with Dr. Denice LACY today who stated that patient will need to follow-up at a tertiary facility with this could be evaluated further. * Hematuria is improving. * repeat CT with contrast ordered by urology for tomorrow to evaluate mass again #Ischemic cardiomyopathy: EF known to be 40 to 45%. On aspirin and Plavix. #Type 2 diabetes mellitus: On Lantus 30 units nightly. Insulin sliding scale. Accu-Cheks AC at bedtime. #Hypothyroidism: On Synthroid #Hypertension: On metoprolol #Non-STEMI: Thought to be type II non-STEMI. Cardiology on board. Cardiology does not plan on any further work-up now. #Acute on chronic anemia * likely due to hematuria. Required blood transfusion during this admission * Hb today: 7.5 * transfuse if Hb <7 * #SUper morbid obesity: BMI is 53.8. complicates acute care, expected recovery and prognosis. DVT prophylaxis: SCDs. No anticoagulants o/a of hematuria * Charges/Coding Visit Charges Inpatient E&M: [id number] [facility] Hosp L3
--- NOTE | 2021-11-04 11:56 | PCM.PN.REN ---
Subjective Subjective no new complaints Objective Data Objective Data Vital Signs: Vital Signs Temp Pulse Resp BP Pulse Ox 98.4 F 72 18 115/39 L 96 11/04/21 09:15 11/04/21 09:15 11/04/21 09:15 11/04/21 09:15 11/04/21 10:07 Oxygen Flow Rate (L/min) 2 Oxygen Delivery Method Nasal Cannula Weight: 133.3 kg Body Mass Index (BMI) 51.2 Intake & Output: Intake and Output for Last 24 Hours 11/02/21 11/03/21 11/04/21 23:59 23:59 23:59 Intake Total 220.25 / 220.25 709.75 / 829.75 349.37 / 349.37 Output Total 1100 / 1250 3725 / 3730 10 Balance -879.75 / -1029.75 -3015.25 / -2900.25 339.37 / 339.37 Lab / Micro Data Result Diagrams: 11/04/21 05:50 11/04/21 05:50 Labs: Laboratory Results - last 24 hr 11/03/21 11:45: POC Glucose 107 11/03/21 16:24: POC Glucose 117 H 11/03/21 20:50: POC Glucose 153 H 11/04/21 05:50: WBC 5.8, RBC 2.60 L, Hgb 7.5 L, Hct 23.9 L, MCV 91.9, MCH 28.8, MCHC 31.4 L, RDW Std Deviation 47.2 H, RDW Coeff of Loyda 14.2, Plt Count 123 L, MPV 9.3, Immature Gran % (Auto) 0.500, Neut % (Auto) 74.0 H, Lymph % (Auto) 14.2 L, [place] % (Auto) 9.6, Eos % (Auto) 1.5, Baso % (Auto) 0.2, Absolute Neuts (auto) 4.3, Absolute Lymphs (auto) 0.83, Nucleated RBC % 0.3 11/04/21 05:50: Sodium 132 L, Potassium 4.5, Chloride 98, Carbon Dioxide 26.0, Anion Gap 8, BUN 36 H, Creatinine 5.09 H, Estim Creat Clear Calc 9.41, Est GFR (MDRD) Af Amer 11 L, Est GFR (MDRD) Non-Af 9 L, BUN/Creatinine Ratio 7.1 L, Glucose 100, Calcium 7.8 L 11/04/21 06:40: POC Glucose 101 Micro: Microbiology 11/04/21 11:14 Blood Culture (Wb) - Right Hand Blood Culture - Preliminary 10/30/21 02:39 Blood Culture (Wb) - Femoral Artery Bacteria Detection (PCR) - Final Enterococcus faecalis 10/30/21 02:39 Blood Culture (Wb) - Femoral Artery Blood Culture - Final Enterococcus faecalis Meth. resistant Staph. aureus Staphylococcus epidermidis 10/30/21 03:32 Sputum, Tracheal Aspirate Gram Stain - Final 10/30/21 03:32 Sputum, Tracheal Aspirate Respiratory Culture - Final Gram positive gilberto Strep not Strep pneumo 10/30/21 02:55 Urine Catheter - Catheter Urine Culture - Final Culture exhibits no growth. 10/30/21 03:40 Stool Stool Lactoferrin - Final 10/30/21 03:40 Stool Enteric Bacteriology - Final 10/30/21 03:40 Stool C. difficile DNA Amplification - Final 10/30/21 04:30 Mucosa - Nasopharyngeal Influenza Types A,B Direct FA (MILI) - Final 10/30/21 03:30 Urine Catheter - Mckeon Legionella Antigen - Final 10/30/21 03:30 Urine Catheter - Mckeon Streptococcus pneumoniae Antigen (M - Final 10/30/21 04:11 Nasal Secretion SARS-CoV-2 Antigen (Rapid) - Final Radiography Diagnostic Testing: Radiology Impression Transesophageal Echocardiogram 11/03/21 15:03 Interpretation Summary Normal LV size. Left ventricular systolic function is normal. The estimated ejection fraction is 55 %. Mild mitral valve prolapse. Mild (1+) mitral valve insufficiency. Mild tricuspid valve insufficiency. No vegetations noted Ordering Physician: Dequan Garay Referring Physician: Harinder Rudd Performed By: Hardik, Luz, RDCS Physical Exam Narrative General: No apparent distress HEENT: Normocephalic, atraumatic. Mucous membrane moist Heart: Normal S1, S2. No rubs or murmurs Lungs: Clear to auscultation bilaterally Abdomen: Obese, normal bowel sound, soft, nontender Extremity: No clubbing, cyanosis, or edema No pallor icterus Assessment & Plan Assessment/Plan (1) Acute kidney injury: PLAN: -The patient was initiated on dialysis when she was admitted to hospital in [place] recently. -ALEXY was thought to be secondary to ischemic ATN related to sepsis due to pyelonephritis. -She has been on a MWF dialysis schedule. (2) Chronic kidney disease, stage 4 (severe): PLAN: -Per Dr. Cleveland's note, the patient has stage IV chronic kidney disease prior to her admission to the hospital in [place]. -Last available serum creatinine that I can see on record was from November 2020. At that time, her serum creatinine was 1.55 mg/dL, estimated GFR 34 mL/min putting her in stage IIIb CKD. -Renal dysfunction may have deteriorated in the past year. -CKD is likely due to diabetic kidney disease. (3) Hyperkalemia: PLAN: -better (4) Acute and chronic respiratory failure with hypercapnia: PLAN: Polymicrobial bacetremia. ID note reviewed. CT abd showed possible right renal mass vs fluid collection. dw Dr Murry. CT abd with contrast today for better visualization. will plan for HD after. ID requesting tunneled line removal due to MRSA bacteremia. consult placed for tunneled line removal. line removal after HD today
[2021-11-04] MEDS: Aspirin 81 MG TAB.CHEW GT (12:02)
[2021-11-04] MEDS: busPIRone 5 MG Tablet GT ×2 (12:02→22:34)
[2021-11-04] MEDS: Clopidogrel Bisulfate 75 MG Tablet GT (12:02)
[2021-11-04] MEDS: Metoprolol Tartrate 50 MG Tablet GT ×2 (12:03→22:34)
[2021-11-04] MEDS: Amiodarone 200 MG Tablet GT (12:03)
[2021-11-04 12:36] LABS: Bedside Glucose 109 mg/dL (70-110)
--- NOTE | 2021-11-04 13:00 | CASEMGMT ---
MIMA called Shay at [facility] and left her a voice mail inquiring if she has started pre-cert and/or if patient has been approved. Pepper Freeman COST ESTIMATOREloise SHAIKH
--- NOTE | 2021-11-04 13:27 | CASEMGMT ---
MIMA received a return call from [facility] and patient was approved to return to [facility]. MIMA let [facility] know patient is not ready today. Plan; d/c back to [facility] when medically ready. Pepper SHAIKH
[2021-11-04] MEDS: Acetaminophen 650 MG/20 ML UDC GT ×2 (13:30→20:33)
--- NOTE | 2021-11-04 16:25 | EX.PCM.CON.S ---
Assessment & Plan Assessment/Plan (1) Bacteremia: PLAN: Patient with MRSA, Enterococcus, coag negative staph bacteremia and concurrent right, tunneled dialysis catheter who requires discontinuation of catheter and a line holiday to try to resolve this bacteremia per infectious disease recommendations. Patient was just recently initiated on dialysis at outside hospital and has therefore only had the catheter for a couple of weeks. In conversations with nephrology, plan is to perform dialysis today and then wait a couple of days before orchestrating new access for the patient. I have explained this plan to the patient and we will plan to perform removal of the catheter under local MAC tomorrow to 11/05/2021. Patient should be made n.p.o. past midnight in anticipation of this procedure. HPI Consult Data Date of Consult: 11/04/21 HPI Narrative HPI Narrative: YANIRA LEMOS, is a 61 F with multiple comorbidities including kidney disease, super morbid obesity, arrhythmias and ICD placement, who presented earlier this month from an outside nursing facility with altered mental status. She had been at this facility just a short time as she recovered from a acute inpatient stay in [place] for a MRSA UTI. Unfortunately, the patient's chronic kidney disease was exacerbated through this process and she ultimately required initiation of dialysis at the outside hospital. Additionally, blood cultures were obtained here that shows evidence of a polymicrobial bacteremia. Infectious disease has been consulted and recommends discontinuation of the patient's tunneled dialysis catheter with a line holiday. Nephrology is performing a session of dialysis today with plans to discontinue the catheter later today versus tomorrow and reevaluating the patient's access status later this week. For her part, Mrs. Lemos denies any fevers or chills at the outside facility and is unfortunately able to comment much on her altered mental status but is now able to respond appropriately with history taking. [facility] Medical History (Updated 11/04/21 @ 08:[address] 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 Kidney disease Kidney failure Obesity Pneumonia Polyneuropathy due to type 2 diabetes mellitus Recurrent infections Renal mass Sleep apnea Type 2 diabetes mellitus with stage 3 chronic kidney disease UTI (urinary tract infection) Vision problem Home Medications albuterol sulfate 2.5 mg INHALATION Q6H 07/29/21 [History Last Taken Unknown] amiodarone 200 mg tablet 200 mg PO DAILY 07/29/21 [History Last Taken Unknown] apixaban 5 mg tablet 2.5 tablet PO BID 07/29/21 [History Last Taken Unknown] gabapentin 400 mg capsule 400 cap PO DAILY 07/29/21 [History Last Taken Unknown] insulin glargine 100 unit/mL (3 mL) subcutaneous pen 75 ml SUBCUT QHS 07/29/21 [History Last Taken Unknown] insulin lispro 100 unit/mL subcutaneous pen 0 ml SUBCUT ACHS 07/29/21 [History Last Taken Unknown] levothyroxine 125 mcg tablet 125 tablet PO QHS 07/29/21 [History Last Taken Unknown] losartan 25 mg tablet 50 ea PO DAILY 07/29/21 [History Last Taken Unknown] metoprolol succinate 50 mg tablet,extended release 24 hr 50 tablet PO BID 07/29/21 [History Last Taken Unknown] nitroglycerin 0.4 mg sublingual tablet 0.4 mg SUBLINGUAL Q5M PRN 07/29/21 [History Last Taken Unknown] omeprazole 20 mg capsule,delayed release 20 mg PO DAILY cap 07/29/21 [History Last Taken Unknown] pravastatin 80 mg tablet 80 tablet PO QHS 07/29/21 [History Last Taken Unknown] buspirone 5 mg PO BID 10/30/21 [History Last Taken Unknown] clopidogrel 75 mg PO DAILY 10/30/21 [History Last Taken Unknown] cyanocobalamin (vitamin B-12) 1,000 mcg PO DAILY 10/30/21 [History Last Taken Unknown] gabapentin 1,200 mg PO QHS 10/30/21 [History Last Taken Unknown] guaifenesin [Mucinex] 600 mg PO BID 10/30/21 [History Last Taken Unknown] hydrocodone-acetaminophen [[place]] 1 tab PO Q8H PRN 10/30/21 [History Last Taken Unknown] multivitamin 1 tab PO DAILY 10/30/21 [History Last Taken Unknown] zinc 50 mg PO DAILY 10/30/21 [History Last Taken Unknown] zolpidem 10 mg PO QHS PRN 10/30/21 [History Last Taken Unknown] Allergy/AdvReac Type Severity Reaction Status Date / Time adhesive tape Allergy Intermediate Rash Verified 10/30/21 01:53 codeine Allergy Intermediate n/a Verified 10/30/21 01:53 exenatide Allergy Intermediate n/a Verified 10/30/21 01:53 nalbuphine [From Nubain] Allergy Intermediate n/a Verified 10/30/21 01:53 pantoprazole [From Protonix] Allergy Intermediate n/a Verified 10/30/21 01:53 trioxsalen Allergy Intermediate n/a Verified 10/30/21 01:53 adhesive Allergy rash Verified 10/30/21 01:53 Family History Other Depression Diabetes Heart disease High cholesterol Hypertension Kidney disease Myocardial infarction Social History Smoking Status: Never smoker alcohol intake: never substance use type: does not use what type of physical activity do you participate in: none Physical Exam Chest Chest Narrative: Patient with right?sided tunneled CVC and chlorhexidine gel dressing in place. There is a mild amount of erythema around the patient's access site in the right neck and a visible suture remnant. Patient has no tenderness over the tunneling or access sites with palpation. Lab / Micro Data Result Diagrams: 11/04/21 05:50 11/04/21 05:50 Labs: Laboratory Results - last 24 hr 11/03/21 16:24: POC Glucose 117 H 11/03/21 20:50: POC Glucose 153 H 11/04/21 05:50: WBC 5.8, RBC 2.60 L, Hgb 7.5 L, Hct 23.9 L, MCV 91.9, MCH 28.8, MCHC 31.4 L, RDW Std Deviation 47.2 H, RDW Coeff of Loyda 14.2, Plt Count 123 L, MPV 9.3, Immature Gran % (Auto) 0.500, Neut % (Auto) 74.0 H, Lymph % (Auto) 14.2 L, [place] % (Auto) 9.6, Eos % (Auto) 1.5, Baso % (Auto) 0.2, Absolute Neuts (auto) 4.3, Absolute Lymphs (auto) 0.83, Nucleated RBC % 0.3 11/04/21 05:50: Sodium 132 L, Potassium 4.5, Chloride 98, Carbon Dioxide 26.0, Anion Gap 8, BUN 36 H, Creatinine 5.09 H, Estim Creat Clear Calc 9.41, Est GFR (MDRD) Af Amer 11 L, Est GFR (MDRD) Non-Af 9 L, BUN/Creatinine Ratio 7.1 L, Glucose 100, Calcium 7.8 L 11/04/21 06:40: POC Glucose 101 11/04/21 12:17: POC Glucose 109 Micro: Microbiology 10/30/21 03:40 Stool Ova and Parasites - Final 11/03/21 14:30 Blood Culture (Wb) - Right Hand Blood Culture - Preliminary 11/04/21 11:14 Blood Culture (Wb) - Right Hand Blood Culture - Preliminary 10/30/21 02:39 Blood Culture (Wb) - Femoral Artery Bacteria Detection (PCR) - Final Enterococcus faecalis 10/30/21 02:39 Blood Culture (Wb) - Femoral Artery Blood Culture - Final Enterococcus faecalis Meth. resistant Staph. aureus Staphylococcus epidermidis Radiology Impression Transesophageal Echocardiogram 11/03/21 15:03 Interpretation Summary Normal LV size. Left ventricular systolic function is normal. The estimated ejection fraction is 55 %. Mild mitral valve prolapse. Mild (1+) mitral valve insufficiency. Mild tricuspid valve insufficiency. No vegetations noted Ordering Physician: Dequan Garay Referring Physician: Harinder Rudd Performed By: Luz Dye RDCS Charges/Coding Visit Charges Inpatient E&M: 17068 Init Hosp L2
--- NOTE | 2021-11-04 16:26 | DIALYSIS ---
HD tx 2hrs completed without complications. Pt stable, tolerated well. Total UF removed 1800ml. Report given to RENO Rivera.
[2021-11-04 18:11] LABS: Bedside Glucose 146 mg/dL (70-110)
[2021-11-04 22:30] LABS: Bedside Glucose 192 mg/dL (70-110)
[2021-11-04] MEDS: Pravastatin 80 MG Tablet GT (22:35)
[2021-11-04] MEDS: Levothyroxine 125 MCG Tablet GT (22:35)
[2021-11-04] MEDS: Insulin Lispro 100 UNIT/ML INSULN.PEN SC (22:40)
[2021-11-05] VITALS (20 sets, daily range): BP systolic 117–158; BP diastolic 47–64; PULSE 59–72; RESP 12–20; TEMP 36.6–37.1; O2SAT 96–100; BMI 46.7
--- NOTE | 2021-11-05 01:57 | CPS ---
Patient put on bipap by RN. Patient already off bipap, only tolerated for 1-2 hours.
[2021-11-05] MEDS: Acetaminophen 650 MG/20 ML UDC GT (03:09)
[2021-11-05 05:46] LABS: Bedside Glucose 140 mg/dL (70-110)
--- NOTE | 2021-11-05 05:55 | EKG12_ITS ---
Test Reason : PRE PROCEDURE Blood Pressure : / mmHG Vent. Rate : 060 BPM Atrial Rate : 300 BPM P-R Int : 000 ms QRS Dur : 106 ms QT Int : 456 ms P-R-T Axes : 000 -06 060 degrees QTc Int : 456 ms Normal sinus rhythm Inferior infarct (cited on or before 30-OCT-2021) Anterior infarct (cited on or before 30-OCT-2021) Abnormal ECG When compared with ECG of 30-OCT-2021 04:42, Junctional rhythm has replaced Sinus rhythm T wave inversion less evident in Anterior leads Confirmed by ROBIN TAYLOR, MARILYN ([id number]), acquisition editor ELAINE ORNELAS ([id number]) on 11/06/2021 9:56:00 AM Referred By: SANDRA Confirmed By:MARILYN KELLY MD
--- NOTE | 2021-11-05 06:00 | CT_ITS ---
EXAM: CT ABDOMEN AND PELVIS WITH INTRAVENOUS CONTRAST : 1960 CLINICAL INDICATION: renal hematoma/mass/ABSCESS TECHNIQUE: Helically acquired images were obtained of the abdomen and pelvis with intravenous contrast. This CT exam was performed using one or more of the following dose reduction techniques: automated exposure control, adjustment of the mA and/or kV according to patient size, and/or use of iterative reconstruction technique. This report was created using [employer] report generation technology. CONTRAST: IV 75mL Isovue-370 COMPARISON: 10/31/21 FINDINGS: LOWER THORAX: Continued right greater than left pleural effusions with bilateral lower lobe infiltrates. No cardiomegaly. ABDOMEN: LIVER: Unremarkable. Homogeneous. No focal mass. GALLBLADDER AND BILE DUCTS: Cholecystectomy. No intra- or extrahepatic biliary ductal dilation. PANCREAS: Unremarkable. No focal cystic or solid mass. SPLEEN: Unremarkable. Normal size without focal cystic or solid mass. ADRENALS: Unremarkable. No nodules. KIDNEYS AND URETERS: Hyperdense abnormality with abnormal contour along the posterior margin of the right kidney measuring up 7.5 x 4.6 cm. Additional rounded heterogeneous abnormality in the upper pole of the right kidney measuring up to 5 cm. Normal renal size and position. No hydronephrosis. No evidence of renal abscess. STOMACH AND BOWEL: Unremarkable. No stomach or bowel distention. No focal inflammatory change. PELVIS: APPENDIX: The appendix is normal. BLADDER: Mckeon catheter the bladder. REPRODUCTIVE: Unremarkable as visualized. No mass. ABDOMEN and PELVIS: INTRAPERITONEAL SPACE: Unremarkable. No ascites or other fluid collection. No free air. BONES/JOINTS: Diffuse degenerative changes of the spine. No suspicious lytic or blastic abnormality. SOFT TISSUES: Unremarkable. No discrete abdominal or pelvic wall hernia. VASCULATURE: Moderate atherosclerotic changes of the abdominal aorta and its major branches without aneurysm. LYMPH NODES: Unremarkable. No enlarged lymph nodes. CT/Abdomen/Pelvis WITH Contrast IMPRESSION: 1. Hyperdense abnormality with abnormal contour along the posterior margin of the right kidney measuring up 7.5 x 4.6 cm. Additional rounded heterogeneous abnormality in the upper pole of the right kidney measuring up to 5 cm. Findings could represent underlying malignancy, possibly complicated by hemorrhage with capsular hematoma. Differentiation is difficult based on CT findings. Consider follow-up with MRI. 2. Continued right greater than left pleural effusions with bilateral lower lobe infiltrates. Individualized dose optimization techniques were used for this CT. at 0641 Reported and signed by: Sai Yan MD Electronically Signed: Sai Yan MD at 6:40 EST ,
[2021-11-05] MEDS: oxyCODONE 5 MG Tablet PO ×3 (06:42→22:41)
--- NOTE | 2021-11-05 08:47 | NURSING ---
Attempted to start peripheral IV x2, unable to gain IV access.
[2021-11-05 09:38] LABS: Absolute Lymphocyte Count 0.68 X10^3/uL (0.83-4.51); Absolute Neutrophil Count 3.8 X10^3/uL (2.0-7.7); Basophil# 0.02 X10^3/uL; Basophil% 0.4 % (0-1); Eosinophil# 0.12 X10^3/uL; Eosinophils% 2.3 % (0-5); Hematocrit 24.2 % (37-47); Hemoglobin 7.3 g/dL (12.0-15.0); Lymphocyte # 0.68 X10^3/ul (0.83-4.51); Mean Corp Hgb Conc 30.2 g/dL (32-36); Mean Corpuscular Hgb 28.3 pg (27.0-32.0); Mean Corpuscular Volume 93.8 fL (81-99); Mean Platelet Vol. 9.4 fl (6.2-12.0); Monocyte# 0.54 X10^3/uL; Monocyte% 10.3 % (0-10); NRBC Flagged by Analyzer 0.4 % (0-5); Neutrophil # 3.84 X10^3/uL (2.7-7.7); Neutrophil % 73.6 % (47-70); Platelet Count 144 K/mm3 (150-450); RBC Distribution Width CV 13.8 % (11.6-14.6); RBC Distribution Width SD 46.8 fl (35.1-43.9); Red Blood Count 2.58 M/mm3 (4.2-5.4); White Blood Count 5.2 K/mm3 (4.4-11.0)
[2021-11-05 09:47] LABS: Anion Gap 3 (5-15); BUN 31 mg/dL (7-18); BUN/Creat Ratio 6.6 RATIO (10-20); Calcium,Total 7.7 mg/dL (8.5-10.1); Chloride 99 mmol/L (98-107); EST Glomerular Filtration Rate 10 mL/min (>60); Est Glom Filt Rate - Afr Amer 12 mL/min (>60); Estimated Creatinine Clearance 10.19 ml/min; Glucose 119 mg/dL (74-106); Potassium 4.1 mmol/L (3.5-5.1); Sodium Level 131 mmol/L (136-145)
[2021-11-05 10:13] LABS: Vancomycin, Random Level 17.2 ug/mL (0.0-15.0)
--- NOTE | 2021-11-05 10:58 | CASEMGMT ---
MIMA called Shay at [facility] and notified her that patient is not ready for discharge. MIMA told her SW will let her know when SW has a better idea of when she will be ready. Updates faxed to [facility]. Pepper SHAIKH
--- NOTE | 2021-11-05 11:06 | PCM.RX.CS ---
Consult Pharmacy has been consulted to manage selected antiobiotic: Vancomycin Type of Consult: Follow-up Suspected Infection: Pneumonia, Bacteremia Prior Doses of Antibiotics Received/Current Regimen: Received 1000mg iv x 1 on 10.31.21. Labs: Sodium 131 mmol/L (136-145) L 11/05/21 09:00 Potassium 4.1 mmol/L (3.5-5.1) 11/05/21 09:00 Chloride 99 mmol/L (98-107) 11/05/21 09:00 Carbon Dioxide 29.0 mmol/L (21.0-32.0) 11/05/21 09:00 Anion Gap 3 (5-15) L 11/05/21 09:00 BUN 31 mg/dL (7-18) H 11/05/21 09:00 Creatinine 4.70 mg/dL (0.55-1.02) H 11/05/21 09:00 Est GFR (MDRD) Af Amer 12 mL/min (>60) L 11/05/21 09:00 Est GFR (MDRD) Non-Af 10 mL/min (>60) L 11/05/21 09:00 BUN/Creatinine Ratio 6.6 RATIO (10-20) L 11/05/21 09:00 Glucose 119 mg/dL (74-106) H 11/05/21 09:00 Random Vancomycin 17.2 ug/mL (0.0-15.0) H 11/05/21 09:00 Microbiology: Microbiology 11/03/21 18:10 Blood Culture (Wb) - Central Line Blood Culture - Preliminary Staphylococcus aureus 11/03/21 14:30 Blood Culture (Wb) - Right Hand Blood Culture - Preliminary 11/04/21 11:14 Blood Culture (Wb) - Right Hand Blood Culture - Preliminary 10/30/21 03:40 Stool Ova and Parasites - Final 10/30/21 02:39 Blood Culture (Wb) - Femoral Artery Bacteria Detection (PCR) - Final Enterococcus faecalis 10/30/21 02:39 Blood Culture (Wb) - Femoral Artery Blood Culture - Final Enterococcus faecalis Meth. resistant Staph. aureus Staphylococcus epidermidis 10/30/21 03:32 Sputum, Tracheal Aspirate Gram Stain - Final 10/30/21 03:32 Sputum, Tracheal Aspirate Respiratory Culture - Final Gram positive gilberto Strep not Strep pneumo 10/30/21 02:55 Urine Catheter - Catheter Urine Culture - Final Culture exhibits no growth. 10/30/21 03:40 Stool Stool Lactoferrin - Final 10/30/21 03:40 Stool Enteric Bacteriology - Final 10/30/21 03:40 Stool C. difficile DNA Amplification - Final 10/30/21 04:30 Mucosa - Nasopharyngeal Influenza Types A,B Direct FA (MILI) - Final 10/30/21 03:30 Urine Catheter - Mckeon Legionella Antigen - Final 10/30/21 03:30 Urine Catheter - Mckeon Streptococcus pneumoniae Antigen (M - Final 10/30/21 04:11 Nasal Secretion SARS-CoV-2 Antigen (Rapid) - Final Weight used for dosin.8 kg Estimated Creatinine Clearance: 10 ml/min Goal Trough: 15-20 mcg/mL Pharmacy Plan for Drug Dosing: Random level today ~119 hrs post last dose was 17.2. Per protocol, will give 500mg iv x 1 post dialysis session today. New random level ordered for .08.18 before next dialysis. Pharmacy Service will continue to monitor and adjust dosing as required. Follow-Up Labs: Trough Vancomycin - random level 2.08.18@0600
[2021-11-05 11:45] LABS: Bedside Glucose 93 mg/dL (70-110)
--- NOTE | 2021-11-05 12:08 | DIALYSIS ---
Hemodialysis x3 hours completed at 1200 on a 2K bath, tolerated well, UF 3000mL, accessed via right chest tunneled dialysis catheter, worked well, small amount of blood noted under dressing pre-tx and scant amount of bleeding coming through bottom of dressing during treatment, dressing not changed and lines flushed with only saline as line being removed in OR post dialysis today
--- NOTE | 2021-11-05 12:13 | NURSING ---
Report given to Hermilo BOJORQUEZ, who accompanied transport to surgery.
--- NOTE | 2021-11-05 12:52 | PCM.PN.BLA ---
Progress Note went to OR. multiple discussions with all services yesterday and today. HD today am. line out today. plan to leave without line for 2 days. also has central line. dw primary service about removal of this. can be removed once peripheral is established
--- NOTE | 2021-11-05 13:36 | PN.HOSP_ITS ---
Subjective Subjective Patient seen and examined. She was complaining of back pain still. Her was by her bedside. Back pain is chronic. She denied any lightheadedness, nausea or vomiting. She was having dialysis at time of review. Hemoglobin today is 7.3.She had a repeat CT abdomen today. Objective Data Objective Data Vital Signs: Vital Signs Temp Pulse Resp BP Pulse Ox 98.7 F 66 20 H 158/64 H 97 11/05/21 12:08 11/05/21 12:08 11/05/21 12:08 11/05/21 12:08 11/05/21 12:08 Oxygen Flow Rate (L/min) 2 Oxygen Delivery Method Nasal Cannula Weight: 255 lb 4.725 oz Body Mass Index (BMI) 46.7 Intake & Output: Intake and Output for Last 24 Hours 11/03/21 11/04/21 11/05/21 23:59 23:59 23:59 Intake Total 709.75 / 829.75 1219.37 / 1219.37 2164.02 / 2164.02 Output Total 3725 / 3730 1872 / 1872 3005 / 3005 Balance -3015.25 / -2900.25 -652.63 / -652.63 -840.98 / -840.98 Lab / Micro Data Result Diagrams: 11/05/21 09:00 11/05/21 09:00 Labs: Laboratory Results - last 24 hr 11/04/21 16:57: POC Glucose 146 H 11/04/21 22:22: POC Glucose 192 H 11/05/21 05:32: POC Glucose 140 H 11/05/21 09:00: Random Vancomycin 17.2 H 11/05/21 09:00: WBC 5.2, RBC 2.58 L, Hgb 7.3 L, Hct 24.2 L, MCV 93.8, MCH 28.3, MCHC 30.2 L, RDW Std Deviation 46.8 H, RDW Coeff of Loyda 13.8, Plt Count 144 L, MPV 9.4, Immature Gran % (Auto) 0.400, Neut % (Auto) 73.6 H, Lymph % (Auto) 13.0 L, Giles % (Auto) 10.3 H, Eos % (Auto) 2.3, Baso % (Auto) 0.4, Absolute Neuts (auto) 3.8, Absolute Lymphs (auto) 0.68 L, Nucleated RBC % 0.4 11/05/21 09:00: Sodium 131 L, Potassium 4.1, Chloride 99, Carbon Dioxide 29.0, Anion Gap 3 L, BUN 31 H, Creatinine 4.70 H, Estim Creat Clear Calc 10.19, Est GFR (MDRD) Af Amer 12 L, Est GFR (MDRD) Non-Af 10 L, BUN/Creatinine Ratio 6.6 L, Glucose 119 H, Calcium 7.7 L 11/05/21 09:00: Hemoglobin A1c 7.0 H 11/05/21 11:40: POC Glucose 93 Micro: Microbiology 11/03/21 18:10 Blood Culture (Wb) - Central Line Blood Culture - Preliminary Staphylococcus aureus 11/03/21 14:30 Blood Culture (Wb) - Right Hand Blood Culture - Preliminary 11/04/21 11:14 Blood Culture (Wb) - Right Hand Blood Culture - Preliminary 10/30/21 03:40 Stool Ova and Parasites - Final 10/30/21 02:39 Blood Culture (Wb) - Femoral Artery Bacteria Detection (PCR) - Final Enterococcus faecalis 10/30/21 02:39 Blood Culture (Wb) - Femoral Artery Blood Culture - Final Enterococcus faecalis Meth. resistant Staph. aureus Staphylococcus epidermidis 10/30/21 03:32 Sputum, Tracheal Aspirate Gram Stain - Final 10/30/21 03:32 Sputum, Tracheal Aspirate Respiratory Culture - Final Gram positive gilberto Strep not Strep pneumo 10/30/21 02:55 Urine Catheter - Catheter Urine Culture - Final Culture exhibits no growth. 10/30/21 03:40 Stool Stool Lactoferrin - Final 10/30/21 03:40 Stool Enteric Bacteriology - Final 10/30/21 03:40 Stool C. difficile DNA Amplification - Final 10/30/21 04:30 Mucosa - Nasopharyngeal Influenza Types A,B Direct FA (MILI) - Final 10/30/21 03:30 Urine Catheter - Mckeon Legionella Antigen - Final 10/30/21 03:30 Urine Catheter - Mckeon Streptococcus pneumoniae Antigen (M - Final 10/30/21 04:11 Nasal Secretion SARS-CoV-2 Antigen (Rapid) - Final Radiography Diagnostic Testing: Radiology Impression Abdomen/Pelvis CT 11/05/21 06:00 IMPRESSION: 1. Hyperdense abnormality with abnormal contour along the posterior margin of the right kidney measuring up 7.5 x 4.6 cm. Additional rounded heterogeneous abnormality in the upper pole of the right kidney measuring up to 5 cm. Findings could represent underlying malignancy, possibly complicated by hemorrhage with capsular hematoma. Differentiation is difficult based on CT findings. Consider follow-up with MRI. 2. Continued right greater than left pleural effusions with bilateral lower lobe infiltrates. Individualized dose optimization techniques were used for this CT. at 0641 Reported and signed by: Sai Yan MD Electronically Signed: Sai Yan MD at 6:40 EST , Physical Exam Const alert, oriented x3 and no apparent distress General Appearance: cooperative, well kempt and well developed Orientation / Consciousness: awake, oriented to person, oriented to place, oriented to time and lethargic Exam Limitations: no limitations Nutritional Appearance: morbidly obese HEENT normocephalic, head/scalp atraumatic and moist oral mucous membranes Eyes PERRL, EOMs intact bilaterally and conjunctivae normal Neck nuchal rigidity, no lymphadenopathy, supple, no JVD and thyroid normal General: trachea midline Resp Resp Narrative: mildly diminished breath sounds bibasally, no wheezes or crackles. On 2L of oxygen by nasal canula Auscultation: Negative for rales, rhonchi or wheezes Cardio regular rate, regular rhythm, S1 normal heart sound, S2 normal heart sound, no murmurs, no rub and no gallops GI normal to inspection, nondistended, normoactive bowel sounds, soft to palpation, non-tender, non-distended and hepatosplenomegaly Extremity normal to inspection, full ROM and no clubbing, cyanosis or edema Peripheral Pulses: Yes pulses 2+ throughout Skin no rashes or lesions noted and no wounds Skin Narrative: has dialysis catheter in chest; having dialysis at time of review General Skin Exam: no breakdown Neuro CN's II-XII intact bilaterally, moves all extremities, no focal motor deficits and no sensory deficits noted Neuro Narrative: lethargic Sensorium / Orientation: awake, alert, oriented to person and oriented to place Speech: speech normal Psych Psych Narrative: flat affect Assessment & Plan Assessment/Plan (1) Acute kidney injury: (2) Gross hematuria: (3) Atrial fibrillation: QUALIFIERS: Atrial fibrillation type: unspecified Qualified Code(s): I48.91 - Unspecified atrial fibrillation (4) Bilateral pneumonia: QUALIFIERS: Pneumonia type: due to unspecified organism Lung location: unspecified part of lung Qualified Code(s): J18.9 - Pneumonia, unspecified organism PLAN: #acute on chronic hypoxic respiratory failure due to Bilateral pneumonia * Sputum cultures grew alphahemolytic strep. * Pulmonology on board. * On on IV vancomycin and Zosyn. #MRSA bacterEMIA * Blood PCR grew Enterococcus faecalis as well as MRSA. * ID on board. Had 2D echo which showed EF of 40 to 45% with evidence of diastolic dysfunction and akinetic apex as well as septal hypokinesis. * repeat blood cultures pending. * Per ID, dialysis catheter needs to be removed today; femoral line catheter to also be removed. * On IV vancomycin and Zosyn. * had BRITTA which showed no evidence of endocarditis #ESRD * Appears to have ALEXY that has advanced ESRD. Had dialysis yesterday and is having dialysis today as well, before the dialysis catheter is removed.. Nephro on board * * #Hyperkalemia:resolved with dialysis #Hyponatremia: Present since admission. Na is 132 today #Acute hematuria * Patient was on Eliquis which has been discontinued. CT of the abdomen and pelvis ordered by urology showed a 5.7 cm x 6 cm mass in the inferior pole of the left kidney which could be a mass versus hematoma. I discussed this with Dr. Denice LACY today who stated that patient will need to follow-up at a tertiary facility with this could be evaluated further. * Hematuria is improving. * repeat CT with contrast showed hyperdense abnormality with abnormal contour along the posterior margin of the right kidney measuring 7.5 x 4.6 cm with an additional rounded heterogeneous abnormality in the upper pole of the right kidney measuring up to 5 cm and findings could represent underlying malignancy possibly complicated by hemorrhage with capsular hematoma. * Awaiting urology input. #Ischemic cardiomyopathy: EF known to be 40 to 45%. On aspirin and Plavix. #Type 2 diabetes mellitus: On Lantus 30 units nightly. Insulin sliding scale. Accu-Cheks AC at bedtime. #Hypothyroidism: On Synthroid #Hypertension: On metoprolol #Non-STEMI: Thought to be type II non-STEMI. Cardiology on board. Cardiology does not plan on any further work-up now. #Acute on chronic anemia * likely due to hematuria. Required blood transfusion during this admission * Hb today: 7.3. I am concerned the hematoma in the left kidney is causing the worsening anemia * await urology input * transfuse if Hb <7 * #SUper morbid obesity: BMI is 53.8. complicates acute care, expected recovery and prognosis. DVT prophylaxis: SCDs. No anticoagulants o/a of hematuria * Charges/Coding Visit Charges Inpatient E&M: 76016 Subs Hosp L3
[2021-11-05] MEDS: Lidocaine 1%/Epi 1:200 (30ml) 30 ML AMPUL (14:13)
--- NOTE | 2021-11-05 14:20 | OP.PCM_ITS ---
Problems Associated Problem List Diagnoses (1) Bacteremia: Report of Operation Date of Procedure: 11/05/21 Pre-Operative Diagnosis: 1. Polymicrobial bacteremia 2. Acute on chronic renal failure requiring hemodialysis 3. Difficult venous access with current femoral central venous catheter Post-Operative Diagnosis: Same Surgery/Procedure Performed:: Removal of tunneled right internal jugular hemodialysis catheter and left femoral central venous catheter under anesthesia Description of Surgical Findings:: ?Erythematous insertion site for tunneled, right hemodialysis line Surgeon: Ron Laureano distribution collection operator: None Type of Anesthesia: MAC/Supplemental Anesthesiologist: Jamari Oquendo Specimen's removed: Aerobic and anaerobic wound cultures from tunneled dialysis catheter insertion site Drains: Not applicable Estimated Blood Loss (mL): 5 Description of Procedure: After appropriate identification in the preoperative holding area the patient was brought to the operating room where she was positioned supine on the operating room table. Sedation was begun through the patient's left femoral central venous catheter. Thereafter, anesthesia begin a search for peripheral access. A peripheral IV was placed in the patient's left hand. Simultaneously, I performed an ultrasound of the patient's left neck and identified her external jugular vein. I placed a 20-gauge IV at this location as well. Satisfied with this peripheral access, we transferred the patient's intravenous lines to this access and commenced with the regular portion of the case. Patient's tunneled right internal jugular hemodialysis catheter site was prepped using Betadine as was her left femoral central venous catheter site. She was then draped in the usual sterile fashion and a formal timeout was conducted to confirm patient, procedural concerns, and the procedure to be performed. I began the procedure by instilling a total volume of 10 mL 1% lidocaine around the patient's tunneled line insertion site and tunneling tract. Then the suture material was cut from the patient's insertion site given the presence of erythema at that location as well as from around the catheter. Patient's insertion site appeared erythematous and potentially locally infected, so I obtained aerobic wound culture/Gram stain from the base of this wound. A clamp was used to bluntly dissect the patient's catheter cuff from the surrounding soft tissues. Then the patient was placed in Trendelenburg positioning and the catheter was pulled while applying pressure to the right neck at the insertion site. Given concerns for possible wound infection at this location I applied a gauze with hydrogen peroxide and attempted to cleanse the site while pressure was applied. Pressure application was made for a total of 10 minutes. I then removed the suture material anchoring the patient's left femoral line and this line was withdrawn in a similar fashion while pressure was applied. Following pressure application left groin, both sites were checked for hemostasis and this was found to be intact. Pressure dressings were fashioned with 4 x 4 gauzes folded into fourths and secured in place with Tegaderm dressings over both line insertion site. A short length of quarter inch iodoform gauze was packed into the patient's exit site for her tunneling tract and a sterile gauze was taped in place over this area as well. Patient was then allowed to emerge from sedation and was transferred to PACU for ongoing recovery. Complications None
[2021-11-05] MEDS: Vancomycin IV 500 MG/100 ML BAG 100 MG IV (16:07)
[2021-11-05 17:25] LABS: Bedside Glucose 112 mg/dL (70-110)
--- NOTE | 2021-11-05 19:14 | PN.URO_ITS ---
Subjective Subjective Patient is resting, is awake and in bed She is complaining of diffuse abdominal pain. There is no nausea or vomiting. She reports that she is having bowel movements without difficulty. She reports the same chronic back pain currently. Objective Data Objective Data Vital Signs: Vital Signs Temp Pulse Resp BP Pulse Ox 98.2 F 68 16 152/50 H 98 11/05/21 16:00 11/05/21 16:00 11/05/21 16:00 11/05/21 16:00 11/05/21 16:00 Oxygen Flow Rate (L/min) 2 Oxygen Delivery Method Nasal Cannula Weight: 115.8 kg Body Mass Index (BMI) 46.7 Intake & Output: Intake and Output for Last 24 Hours 11/03/21 11/04/21 11/05/21 23:59 23:59 23:59 Intake Total 709.75 / 829.75 1219.37 / 1219.37 2364.02 / 2364.02 Output Total 3725 / 3730 1872 / 1872 3030 / 3030 Balance -3015.25 / -2900.25 -652.63 / -652.63 -665.98 / -665.98 Lab / Micro Data Result Diagrams: 11/05/21 09:00 11/05/21 09:00 Labs: Laboratory Results - last 24 hr 11/04/21 22:22: POC Glucose 192 H 11/05/21 05:32: POC Glucose 140 H 11/05/21 09:00: Random Vancomycin 17.2 H 11/05/21 09:00: WBC 5.2, RBC 2.58 L, Hgb 7.3 L, Hct 24.2 L, MCV 93.8, MCH 28.3, MCHC 30.2 L, RDW Std Deviation 46.8 H, RDW Coeff of Loyda 13.8, Plt Count 144 L, MPV 9.4, Immature Gran % (Auto) 0.400, Neut % (Auto) 73.6 H, Lymph % (Auto) 13.0 L, Hardin % (Auto) 10.3 H, Eos % (Auto) 2.3, Baso % (Auto) 0.4, Absolute Neuts (auto) 3.8, Absolute Lymphs (auto) 0.68 L, Nucleated RBC % 0.4 11/05/21 09:00: Sodium 131 L, Potassium 4.1, Chloride 99, Carbon Dioxide 29.0, Anion Gap 3 L, BUN 31 H, Creatinine 4.70 H, Estim Creat Clear Calc 10.19, Est GFR (MDRD) Af Amer 12 L, Est GFR (MDRD) Non-Af 10 L, BUN/Creatinine Ratio 6.6 L, Glucose 119 H, Calcium 7.7 L 11/05/21 09:00: Hemoglobin A1c 7.0 H 11/05/21 11:40: POC Glucose 93 11/05/21 17:21: POC Glucose 112 H Micro: Microbiology 11/03/21 18:10 Blood Culture (Wb) - Central Line Blood Culture - Preliminary Staphylococcus aureus 11/03/21 14:30 Blood Culture (Wb) - Right Hand Blood Culture - Preliminary 11/04/21 11:14 Blood Culture (Wb) - Right Hand Blood Culture - Preliminary 10/30/21 03:40 Stool Ova and Parasites - Final 10/30/21 02:39 Blood Culture (Wb) - Femoral Artery Bacteria Detection (PCR) - Final Enterococcus faecalis 10/30/21 02:39 Blood Culture (Wb) - Femoral Artery Blood Culture - Final Enterococcus faecalis Meth. resistant Staph. aureus Staphylococcus epidermidis 10/30/21 03:32 Sputum, Tracheal Aspirate Gram Stain - Final 10/30/21 03:32 Sputum, Tracheal Aspirate Respiratory Culture - Final Gram positive gilberto Strep not Strep pneumo 10/30/21 02:55 Urine Catheter - Catheter Urine Culture - Final Culture exhibits no growth. 10/30/21 03:40 Stool Stool Lactoferrin - Final 10/30/21 03:40 Stool Enteric Bacteriology - Final 10/30/21 03:40 Stool C. difficile DNA Amplification - Final 10/30/21 04:30 Mucosa - Nasopharyngeal Influenza Types A,B Direct FA (MILI) - Final 10/30/21 03:30 Urine Catheter - Mckeon Legionella Antigen - Final 10/30/21 03:30 Urine Catheter - Mckeon Streptococcus pneumoniae Antigen (M - Final 10/30/21 04:11 Nasal Secretion SARS-CoV-2 Antigen (Rapid) - Final Radiography Diagnostic Testing: Radiology Impression Abdomen/Pelvis CT 11/05/21 06:00 IMPRESSION: 1. Hyperdense abnormality with abnormal contour along the posterior margin of the right kidney measuring up 7.5 x 4.6 cm. Additional rounded heterogeneous abnormality in the upper pole of the right kidney measuring up to 5 cm. Findings could represent underlying malignancy, possibly complicated by hemorrhage with capsular hematoma. Differentiation is difficult based on CT findings. Consider follow-up with MRI. 2. Continued right greater than left pleural effusions with bilateral lower lobe infiltrates. Individualized dose optimization techniques were used for this CT. at 0641 Reported and signed by: Sai Yan MD Electronically Signed: Sai Yan MD at 6:40 EST , Physical Exam Const alert and oriented x3 General Appearance: cooperative HEENT normocephalic and external ears normal Eyes General Eye: normal appearance of both eyes Neck supple General: trachea midline Chest Chest: symmetrical chest wall rise GI soft to palpation Palpation: soft Narrative: Urine in the Mckeon catheter is like pink lemonade. Assessment & Plan Assessment/Plan (1) Renal mass: (2) Gross hematuria: PLAN: Right kidney is suspicious for malignancy with superimposed acute hematoma. Hemoglobin has been slowly drifting, down to 7.3 today. There is minimal hematuria present and the patient is not making much urine either. I doubt that this degree of hematuria is the source for continuing drifting anemia. However, if there is new bleeding into the right kidney this could be an area of concern. In addition to the fact that she is likely not producing sufficient RBC's either. Agree with supportive care with transfusion as necessary. If hgb continues to trend down, would have low threshold for repeat imaging for enlargi ng hematoma more than evaluation of malignancy. Repeat imaging for malignancy will likely require waiting for resolution of the hematoma for better evaluation. This will need to wait and be done after the patient is stable and discharged. There are no plans for intervention in regards to possible malignancy during this admission. If she continues to have concerns with bleeding into the right kidney, requiring significant transfusion, recommend transfer to tertiary facility for possible intervention with IR.
[2021-11-05] MEDS: Nystatin Powder 15gm Bottle 1 APPLIC TOPICAL (20:48)
[2021-11-05] MEDS: Levothyroxine 125 MCG Tablet GT (20:49)
[2021-11-05] MEDS: busPIRone 5 MG Tablet GT (20:49)
[2021-11-05] MEDS: Metoprolol Tartrate 50 MG Tablet GT (20:51)
[2021-11-05] MEDS: Pravastatin 80 MG Tablet GT (20:53)
[2021-11-05 23:01] LABS: Bedside Glucose 96 mg/dL (70-110)
[2021-11-06] VITALS (12 sets, daily range): BP systolic 136–167; BP diastolic 53–72; PULSE 57–73; RESP 18; TEMP 36.3–37.1; O2SAT 92–99
[2021-11-06] MEDS: oxyCODONE 5 MG Tablet PO ×3 (04:55→17:05)
[2021-11-06 05:50] LABS: Absolute Lymphocyte Count 0.53 X10^3/uL (0.83-4.51); Absolute Neutrophil Count 4.1 X10^3/uL (2.0-7.7); Basophil# 0.02 X10^3/uL; Basophil% 0.4 % (0-1); Eosinophil# 0.07 X10^3/uL; Eosinophils% 1.3 % (0-5); Hematocrit 23.5 % (37-47); Hemoglobin 7.7 g/dL (12.0-15.0); Lymphocyte # 0.53 X10^3/ul (0.83-4.51); Lymphocyte % 9.9 % (19-41); Mean Corp Hgb Conc 32.8 g/dL (32-36); Mean Corpuscular Hgb 28.5 pg (27.0-32.0); Mean Platelet Vol. 9.3 fl (6.2-12.0); Monocyte# 0.63 X10^3/uL; Monocyte% 11.8 % (0-10); NRBC Flagged by Analyzer 0 % (0-5); Neutrophil # 4.06 X10^3/uL (2.7-7.7); Neutrophil % 76.2 % (47-70); POSITIVE DIFFERENTIAL YES; Platelet Count 170 K/mm3 (150-450); RBC Distribution Width CV 13.7 % (11.6-14.6); RBC Distribution Width SD 43.2 fl (35.1-43.9); White Blood Count 5.3 K/mm3 (4.4-11.0)
[2021-11-06 05:51] LABS: Differential Indicated SCAN CRITERIA MET
[2021-11-06 06:14] LABS: Anion Gap 8 (5-15); BUN 23 mg/dL (7-18); BUN/Creat Ratio 6.2 RATIO (10-20); Calcium,Total 7.9 mg/dL (8.5-10.1); Chloride 97 mmol/L (98-107); Creatinine, Serum 3.69 mg/dL (0.55-1.02); EST Glomerular Filtration Rate 13 mL/min (>60); Est Glom Filt Rate - Afr Amer 16 mL/min (>60); Estimated Creatinine Clearance 12.98 ml/min; Glucose 96 mg/dL (74-106); Potassium 3.6 mmol/L (3.5-5.1); Sodium Level 132 mmol/L (136-145)
[2021-11-06 07:01] LABS: Bedside Glucose 110 mg/dL (70-110)
[2021-11-06] MEDS: Acetaminophen 650 MG/20 ML UDC GT (09:58)
[2021-11-06] MEDS: Metoprolol Tartrate 50 MG Tablet GT ×2 (10:02→21:29)
[2021-11-06] MEDS: Clopidogrel Bisulfate 75 MG Tablet GT (10:03)
[2021-11-06] MEDS: busPIRone 5 MG Tablet GT ×2 (10:03→21:29)
[2021-11-06] MEDS: Aspirin 81 MG TAB.CHEW GT (10:03)
[2021-11-06] MEDS: Amiodarone 200 MG Tablet GT (10:03)
--- NOTE | 2021-11-06 10:11 | PN.ID_ITS ---
Physical Exam Narrative C/o worsening thoracic back pain. No fever. Const alert General Appearance: cooperative Resp normal air movement and clear to auscultation bilaterally Cardio regular rate and regular rhythm GI soft to palpation, non-tender and non-distended Skin no rashes or lesions noted Skin Narrative: diffuse back pain on palpation and movement ID ID: Route of nutrition/ use of supplements: [] Nutritional Intake: [] IV Site: [] Cho Catheter: [] Assessment & Plan Assessment/Plan (1) Chronic renal failure: (2) Gross hematuria: (3) Acute and chronic respiratory failure with hypercapnia: (4) Bacteremia: PLAN: MRSA, enterococcus, and CoNS bacteremia in 1 of 1 bcx, with permac ath in place on admit as well as pacemaker. Reported recent MRSA uti, not clear if came from cho or from hematogenous spread. TTE here was poor quality study. Will order repeat bcx. On vanc, zosyn stopped. Permacath removed 11/05, temp line in place. BRITTA neg for vegetation on valve or pacemaker lead. Not clear why she has a polymicrobial bacteremia. CT abd/pelvis concern for renal cancer. Urology following. Pt with chronic back pain but has been worsening since admit. Reports cannot have MRI due to pacer. Will order CT t- spine. Will follow
--- NOTE | 2021-11-06 10:14 | CT_ITS ---
EXAM: CT THORACIC SPINE WITH INTRAVENOUS CONTRAST CLINICAL INDICATION: back pain TECHNIQUE: Helically acquired images were obtained of the thoracic spine with intravenous contrast. 2D reformats were reviewed. This CT exam was performed using one or more of the following dose reduction techniques: automated exposure control, adjustment of the mA and/or kV according to patient size, and/or use of iterative reconstruction technique. This report was created using [employer] report generation technology. CONTRAST: IV 100mL [id number] COMPARISON: 10.30.[address] 11.05.21 FINDINGS: VERTEBRAE: There is a stable T11 compression deformity. DISCS/SPINAL CANAL/NEURAL FORAMINA: There are degenerative findings of the thoracic spine. VASCULATURE: Visualized thoracic aorta is not dilated. LYMPH NODES: Unremarkable. No retroperitoneal adenopathy. LUNGS AND PLEURAL SPACES: There is bilateral pneumonia. There are bilateral pleural effusions. No mass. GALLBLADDER AND BILE DUCTS: The gallbladder is surgically absent. KIDNEYS AND URETERS: There is severe motion artifact. This makes it difficult to evaluate enlarged and hyperdense right kidney. This is suggestive of subcapsular renal hematoma or underlying mass as noted on the prior studies. TUBES, LINES AND DEVICES: There is a feeding tube/ nasogastric tube noted. The tip is in the region of the stomach. ET tube in place. There is a left sided pacemaker battery pack. OTHER FINDINGS: There is an elevated right hemidiaphragm. CT/Spine Thoracic WITH Contrast IMPRESSION: 1. There is bilateral pneumonia. 2. There are bilateral pleural effusions. 3. There is a stable T11 compression deformity. 4. There is severe motion artifact. This makes it difficult to evaluate enlarged and hyperdense right kidney. This is suggestive of subcapsular renal hematoma or underlying mass as noted on the prior studies. Electronically Signed: Sai Cook MD at 14:41 EST ,
--- NOTE | 2021-11-06 10:27 | PCM.PN.SRG ---
Subjective Subjective Patient seen and examined during AM rounds. She complains of back pain but denies any pain associated with where her catheters were removed yesterday. Objective Data Objective Data Vital Signs: Vital Signs Temp Pulse Resp BP Pulse Ox 97.3 F L 73 18 160/53 H 98 11/06/21 09:00 11/06/21 10:02 11/06/21 09:00 11/06/21 09:00 11/06/21 09:00 Oxygen Flow Rate (L/min) 2 Oxygen Delivery Method Nasal Cannula Weight: 264 lb 8.875 oz Body Mass Index (BMI) 46.7 Intake & Output: Intake and Output for Last 24 Hours 11/04/21 11/05/21 11/06/21 23:59 23:59 23:59 Intake Total 1219.37 / 1219.37 2474.02 / 2474.02 Output Total 1872 / 1872 3030 / 3030 75 / 75 Balance -652.63 / -652.63 -555.98 / -555.98 -75 / -75 Lab / Micro Data Result Diagrams: 11/06/21 05:16 11/06/21 05:16 Labs: Laboratory Results - last 24 hr 11/05/21 11:40: POC Glucose 93 11/05/21 17:21: POC Glucose 112 H 11/05/21 22:39: POC Glucose 96 11/06/21 05:16: WBC 5.3, RBC 2.70 L, Hgb 7.7 L, Hct 23.5 L, MCV 87.0 D, MCH 28.5, MCHC 32.8 D, RDW Std Deviation 43.2, RDW Coeff of Loyda 13.7, Plt Count 170, MPV 9.3, Immature Gran % (Auto) 0.400, Neut % (Auto) 76.2 H, Lymph % (Auto) 9.9 L, [place] % (Auto) 11.8 H, Eos % (Auto) 1.3, Baso % (Auto) 0.4, Absolute Neuts (auto) 4.1, Absolute Lymphs (auto) 0.53 L, Nucleated RBC % 0 11/06/21 05:16: Sodium 132 L, Potassium 3.6, Chloride 97 L, Carbon Dioxide 27.0, Anion Gap 8, BUN 23 H, Creatinine 3.69 H, Estim Creat Clear Calc 12.98, Est GFR (MDRD) Af Amer 16 L, Est GFR (MDRD) Non-Af 13 L, BUN/Creatinine Ratio 6.2 L, Glucose 96, Calcium 7.9 L 11/06/21 06:33: POC Glucose 110 Micro: Microbiology 11/04/21 11:14 Blood Culture (Wb) - Right Hand Blood Culture - Preliminary Staphylococcus aureus 11/03/21 18:10 Blood Culture (Wb) - Central Line Blood Culture - Preliminary Staphylococcus aureus 11/03/21 14:30 Blood Culture (Wb) - Right Hand Blood Culture - Final Meth. resistant Staph. aureus 10/30/21 03:40 Stool Ova and Parasites - Final 10/30/21 02:39 Blood Culture (Wb) - Femoral Artery Bacteria Detection (PCR) - Final Enterococcus faecalis 10/30/21 02:39 Blood Culture (Wb) - Femoral Artery Blood Culture - Final Enterococcus faecalis Meth. resistant Staph. aureus Staphylococcus epidermidis 10/30/21 03:32 Sputum, Tracheal Aspirate Gram Stain - Final 10/30/21 03:32 Sputum, Tracheal Aspirate Respiratory Culture - Final Gram positive gilberto Strep not Strep pneumo 10/30/21 02:55 Urine Catheter - Catheter Urine Culture - Final Culture exhibits no growth. 10/30/21 03:40 Stool Stool Lactoferrin - Final 10/30/21 03:40 Stool Enteric Bacteriology - Final 10/30/21 03:40 Stool C. difficile DNA Amplification - Final 10/30/21 04:30 Mucosa - Nasopharyngeal Influenza Types A,B Direct FA (MILI) - Final 10/30/21 03:30 Urine Catheter - Mckeon Legionella Antigen - Final 10/30/21 03:30 Urine Catheter - Mckeon Streptococcus pneumoniae Antigen (M - Final 10/30/21 04:11 Nasal Secretion SARS-CoV-2 Antigen (Rapid) - Final Physical Exam Neck Neck Narrative: No abnormal swelling or evidence of subcutaneous hematoma formation. Clean, dry operative compressive dressing in place over insertion site. Chest Chest Narrative: Clean, dry operative dressing over drainage area. Patient's tunneling tract remains packed with iodoform. The margin of erythema is somewhat improved. Narrative: Patient's left groin with clean, dry, intact operative compression dressing. No evidence of underlying hematoma or infection. Assessment & Plan Assessment/Plan (1) Bacteremia: PLAN: Patient postoperative day 1 from discontinuation of right internal jugular, tunneled hemodialysis catheter and left central venous catheter for line holiday today. Physical exam confirms hemostasis is intact. I have asked nursing to replace dressings with simple, sterile gauzes today. (2) Acute kidney injury: PLAN: Patient with acute on chronic kidney injury requiring hemodialysis. Tentative plan is to replace patient's tunneled dialysis catheter on the right tomorrow in the operating room. Patient should be made n.p.o. after midnight in anticipation of this procedure.
[2021-11-06] MEDS: 0.9% Normal Saline 1,000 ML 130 ML IV (11:08)
[2021-11-06 12:00] LABS: Bedside Glucose 179 mg/dL (70-110)
[2021-11-06] MEDS: Insulin Lispro 100 UNIT/ML INSULN.PEN SC ×3 (12:12→21:28)
--- NOTE | 2021-11-06 12:59 | RAD.NOTE ---
John Bryant ([facility]) (CT) was contacted by RENO Padilla, in regards to patient's pre-contrast hydration (per radiology renal protocol) being stopped per Dr. Mauro. CAT Scan will proceed with contrasted imaging test without further hydration. Dr. Chisholm, onsite radiologist, and imaging management aware.
--- NOTE | 2021-11-06 13:15 | PN.RENAL_ITS ---
Subjective Subjective no new events Objective Data Objective Data Vital Signs: Vital Signs Temp Pulse Resp BP Pulse Ox 97.3 F L 73 18 160/53 H 98 11/06/21 09:00 11/06/21 10:02 11/06/21 09:00 11/06/21 09:00 11/06/21 09:00 Oxygen Flow Rate (L/min) 2 Oxygen Delivery Method Nasal Cannula Weight: 120 kg Body Mass Index (BMI) 46.7 Intake & Output: Intake and Output for Last 24 Hours 11/04/21 11/05/21 11/06/21 23:59 23:59 23:59 Intake Total 1219.37 / 1219.37 2474.02 / 2474.02 303.67 / 303.67 Output Total 1872 / 1872 3030 / 3030 75 / 75 Balance -652.63 / -652.63 -555.98 / -555.98 228.67 / 228.67 Lab / Micro Data Result Diagrams: 11/06/21 05:16 11/06/21 05:16 Labs: Laboratory Results - last 24 hr 11/05/21 17:21: POC Glucose 112 H 11/05/21 22:39: POC Glucose 96 11/06/21 05:16: WBC 5.3, RBC 2.70 L, Hgb 7.7 L, Hct 23.5 L, MCV 87.0 D, MCH 28.5, MCHC 32.8 D, RDW Std Deviation 43.2, RDW Coeff of Loyda 13.7, Plt Count 170, MPV 9.3, Immature Gran % (Auto) 0.400, Neut % (Auto) 76.2 H, Lymph % (Auto) 9.9 L, [place] % (Auto) 11.8 H, Eos % (Auto) 1.3, Baso % (Auto) 0.4, Absolute Neuts (auto) 4.1, Absolute Lymphs (auto) 0.53 L, Nucleated RBC % 0 11/06/21 05:16: Sodium 132 L, Potassium 3.6, Chloride 97 L, Carbon Dioxide 27.0, Anion Gap 8, BUN 23 H, Creatinine 3.69 H, Estim Creat Clear Calc 12.98, Est GFR (MDRD) Af Amer 16 L, Est GFR (MDRD) Non-Af 13 L, BUN/Creatinine Ratio 6.2 L, Glucose 96, Calcium 7.9 L 11/06/21 06:33: POC Glucose 110 11/06/21 11:52: POC Glucose 179 H Micro: Microbiology 11/05/21 14:01 Catheter Insertion Site Gram Stain - Final 11/05/21 14:01 Catheter Insertion Site Wound Culture - Preliminary No growth-Final to follow 11/04/21 11:14 Blood Culture (Wb) - Right Hand Blood Culture - Preliminary Staphylococcus aureus 11/03/21 18:10 Blood Culture (Wb) - Central Line Blood Culture - Preliminary Staphylococcus aureus 11/03/21 14:30 Blood Culture (Wb) - Right Hand Blood Culture - Final Meth. resistant Staph. aureus 10/30/21 03:40 Stool Ova and Parasites - Final 10/30/21 02:39 Blood Culture (Wb) - Femoral Artery Bacteria Detection (PCR) - Final Enterococcus faecalis 10/30/21 02:39 Blood Culture (Wb) - Femoral Artery Blood Culture - Final Enterococcus faecalis Meth. resistant Staph. aureus Staphylococcus epidermidis 10/30/21 03:32 Sputum, Tracheal Aspirate Gram Stain - Final 10/30/21 03:32 Sputum, Tracheal Aspirate Respiratory Culture - Final Gram positive gilberto Strep not Strep pneumo 10/30/21 02:55 Urine Catheter - Catheter Urine Culture - Final Culture exhibits no growth. 10/30/21 03:40 Stool Stool Lactoferrin - Final 10/30/21 03:40 Stool Enteric Bacteriology - Final 10/30/21 03:40 Stool C. difficile DNA Amplification - Final 10/30/21 04:30 Mucosa - Nasopharyngeal Influenza Types A,B Direct FA (MILI) - Final 10/30/21 03:30 Urine Catheter - Mckeon Legionella Antigen - Final 10/30/21 03:30 Urine Catheter - Mckeon Streptococcus pneumoniae Antigen (M - Final 10/30/21 04:11 Nasal Secretion SARS-CoV-2 Antigen (Rapid) - Final Physical Exam Narrative General: No apparent distress HEENT: Normocephalic, atraumatic. Mucous membrane moist Heart: Normal S1, S2. No rubs or murmurs Lungs: Clear to auscultation bilaterally Abdomen: Obese, normal bowel sound, soft, nontender Extremity: No clubbing, cyanosis, or edema No pallor icterus Assessment & Plan Assessment/Plan (1) Acute kidney injury: PLAN: -The patient was initiated on dialysis when she was admitted to hospital in [place] recently. -ALEXY was thought to be secondary to ischemic ATN related to sepsis due to pyelonephritis. -last HD was yesterday. remains anuric. (2) Chronic kidney disease, stage 4 (severe): PLAN: -Per Dr. Cleveland's note, the patient has stage IV chronic kidney disease prior to her admission to the hospital in [place]. -Last available serum creatinine that I can see on record was from November 2020. At that time, her serum creatinine was 1.55 mg/dL, estimated GFR 34 mL/min putting her in stage IIIb CKD. -Renal dysfunction may have deteriorated in the past year. -CKD is likely due to diabetic kidney disease. (3) Hyperkalemia: PLAN: -better (4) Acute and chronic respiratory failure with hypercapnia: PLAN: dw Dr Joshua Laureano. last cultures are still positive. sent another set today. all central lines out. hold tunneled line tomorrow. CT T spine ordered by ID. spoke to radiology attending. no need for IV fluids with CT since she is anuric already. dw hospitalist
--- NOTE | 2021-11-06 13:58 | PN.HOSP_ITS ---
Subjective Subjective Patient seen and examined. She is complaining of back pain still. She however has no other complaints. She was comfortably eating breakfast. She has remained hemodynamically stable. Objective Data Objective Data Vital Signs: Vital Signs Temp Pulse Resp BP Pulse Ox 97.3 F L 73 18 160/53 H 98 11/06/21 09:00 11/06/21 10:02 11/06/21 09:00 11/06/21 09:00 11/06/21 09:00 Oxygen Flow Rate (L/min) 2 Oxygen Delivery Method Nasal Cannula Weight: 264 lb 8.875 oz Body Mass Index (BMI) 46.7 Intake & Output: Intake and Output for Last 24 Hours 11/04/21 11/05/21 11/06/21 23:59 23:59 23:59 Intake Total 1219.37 / 1219.37 2474.02 / 2474.02 303.67 / 303.67 Output Total 1872 / 1872 3030 / 3030 75 / 75 Balance -652.63 / -652.63 -555.98 / -555.98 228.67 / 228.67 Lab / Micro Data Result Diagrams: 11/06/21 05:16 11/06/21 05:16 Labs: Laboratory Results - last 24 hr 11/05/21 17:21: POC Glucose 112 H 11/05/21 22:39: POC Glucose 96 11/06/21 05:16: WBC 5.3, RBC 2.70 L, Hgb 7.7 L, Hct 23.5 L, MCV 87.0 D, MCH 28.5, MCHC 32.8 D, RDW Std Deviation 43.2, RDW Coeff of Loyda 13.7, Plt Count 170, MPV 9.3, Immature Gran % (Auto) 0.400, Neut % (Auto) 76.2 H, Lymph % (Auto) 9.9 L, [place] % (Auto) 11.8 H, Eos % (Auto) 1.3, Baso % (Auto) 0.4, Absolute Neuts (auto) 4.1, Absolute Lymphs (auto) 0.53 L, Nucleated RBC % 0 11/06/21 05:16: Sodium 132 L, Potassium 3.6, Chloride 97 L, Carbon Dioxide 27.0, Anion Gap 8, BUN 23 H, Creatinine 3.69 H, Estim Creat Clear Calc 12.98, Est GFR (MDRD) Af Amer 16 L, Est GFR (MDRD) Non-Af 13 L, BUN/Creatinine Ratio 6.2 L, Glucose 96, Calcium 7.9 L 11/06/21 06:33: POC Glucose 110 11/06/21 11:52: POC Glucose 179 H Micro: Microbiology 11/05/21 14:01 Catheter Insertion Site Gram Stain - Final 11/05/21 14:01 Catheter Insertion Site Wound Culture - Preliminary No growth-Final to follow 11/04/21 11:14 Blood Culture (Wb) - Right Hand Blood Culture - Preliminary Staphylococcus aureus 11/03/21 18:10 Blood Culture (Wb) - Central Line Blood Culture - Preliminary Staphylococcus aureus 11/03/21 14:30 Blood Culture (Wb) - Right Hand Blood Culture - Final Meth. resistant Staph. aureus 10/30/21 03:40 Stool Ova and Parasites - Final 10/30/21 02:39 Blood Culture (Wb) - Femoral Artery Bacteria Detection (PCR) - Final Enterococcus faecalis 10/30/21 02:39 Blood Culture (Wb) - Femoral Artery Blood Culture - Final Enterococcus faecalis Meth. resistant Staph. aureus Staphylococcus epidermidis 10/30/21 03:32 Sputum, Tracheal Aspirate Gram Stain - Final 10/30/21 03:32 Sputum, Tracheal Aspirate Respiratory Culture - Final Gram positive gilberto Strep not Strep pneumo 10/30/21 02:55 Urine Catheter - Catheter Urine Culture - Final Culture exhibits no growth. 10/30/21 03:40 Stool Stool Lactoferrin - Final 10/30/21 03:40 Stool Enteric Bacteriology - Final 10/30/21 03:40 Stool C. difficile DNA Amplification - Final 10/30/21 04:30 Mucosa - Nasopharyngeal Influenza Types A,B Direct FA (MILI) - Final 10/30/21 03:30 Urine Catheter - Mckeon Legionella Antigen - Final 10/30/21 03:30 Urine Catheter - Mckeon Streptococcus pneumoniae Antigen (M - Final 10/30/21 04:11 Nasal Secretion SARS-CoV-2 Antigen (Rapid) - Final Physical Exam Const alert, oriented x3 and no apparent distress General Appearance: cooperative, well kempt and well developed Orientation / Consciousness: awake, oriented to person, oriented to place, oriented to time and lethargic Exam Limitations: no limitations Nutritional Appearance: morbidly obese HEENT normocephalic, head/scalp atraumatic and moist oral mucous membranes Eyes PERRL, EOMs intact bilaterally and conjunctivae normal Neck nuchal rigidity, no lymphadenopathy, supple, no JVD and thyroid normal General: trachea midline Resp normal respiratory effort, no retractions, no use of accessory muscles and clear to auscultation bilaterally Resp Narrative: mildly diminished breath sounds bibasally, no wheezes or crackles. On 2L of oxygen by nasal canula Auscultation: Negative for rales, rhonchi or wheezes Cardio regular rate, regular rhythm, S1 normal heart sound, S2 normal heart sound, no murmurs, no rub and no gallops GI normal to inspection, nondistended, normoactive bowel sounds, soft to palpation, non-tender, non-distended and hepatosplenomegaly Extremity normal to inspection, full ROM and no clubbing, cyanosis or edema Peripheral Pulses: Yes pulses 2+ throughout Skin no rashes or lesions noted and no wounds General Skin Exam: no breakdown Neuro CN's II-XII intact bilaterally, moves all extremities, no focal motor deficits and no sensory deficits noted Neuro Narrative: lethargic Sensorium / Orientation: awake, alert, oriented to person and oriented to place Speech: speech normal Psych Psych Narrative: flat affect Assessment & Plan Assessment/Plan (1) Acute kidney injury: (2) Gross hematuria: (3) Atrial fibrillation: QUALIFIERS: Atrial fibrillation type: unspecified Qualified Code(s): I48.91 - Unspecified atrial fibrillation (4) Bilateral pneumonia: QUALIFIERS: Pneumonia type: due to unspecified organism Lung location: unspecified part of lung Qualified Code(s): J18.9 - Pneumonia, unspecified organism PLAN: #acute on chronic hypoxic respiratory failure due to Bilateral pneumonia * Sputum cultures grew alphahemolytic strep. * Pulmonology on board. * On on IV vancomycin and Zosyn. #MRSA bacteremia * Blood PCR grew Enterococcus faecalis as well as MRSA. * ID on board. Had 2D echo which showed EF of 40 to 45% with evidence of diastolic dysfunction and akinetic apex as well as septal hypokinesis. * repeat blood cultures still growing mrsa * femoral line and dialysis catheter removed. * On IV vancomycin and Zosyn. * had BRITTA which showed no evidence of endocarditis * CT of the thoracic spine ordered as patient keeps complaining of back pain. Read is pending #ESRD * Appears to have ALEXY that has advanced ESRD. * dialysis catheter removed. * nephrology on board * * #Hyperkalemia:resolved with dialysis #Hyponatremia: chronic. Present since admission. Na is 132 today #Acute hematuria * Patient was on Eliquis which has been discontinued. CT of the abdomen and pelvis ordered by urology showed a 5.7 cm x 6 cm mass in the inferior pole of the left kidney which could be a mass versus hematoma. I discussed this with Dr. Denice LACY today who stated that patient will need to follow-up at a tertiary facility with this could be evaluated further. * Hematuria is improving. * repeat CT with contrast showed hyperdense abnormality with abnormal contour along the posterior margin of the right kidney measuring 7.5 x 4.6 cm with an additional rounded heterogeneous abnormality in the upper pole of the right kidney measuring up to 5 cm and findings could represent underlying malignancy possibly complicated by hemorrhage with capsular hematoma. * per urology, no plans for intervention in regards to possible malignancy during this admission. If there are still concerns with bleeding into the right kidney, she may require referral to tertiary facility for intervention with IR. * Hb today is 7.7. #Ischemic cardiomyopathy: EF known to be 40 to 45%. On aspirin and Plavix. #Type 2 diabetes mellitus: On Lantus 30 units nightly. Insulin sliding scale. Accu-Cheks AC at bedtime. #Hypothyroidism: On Synthroid #Hypertension: On metoprolol #Non-STEMI: Thought to be type II non-STEMI. Cardiology on board. Cardiology does not plan on any further work-up now. #Acute on chronic anemia * likely due to hematuria. Required blood transfusion during this admission * Hb today: 7.7. I am concerned the hematoma in the left kidney is causing the worsening anemia * await urology input * transfuse if Hb <7 * #SUper morbid obesity: BMI is 53.8. complicates acute care, expected recovery and prognosis. DVT prophylaxis: SCDs. No anticoagulants o/a of hematuria * Charges/Coding Visit Charges Inpatient E&M: 13720 [facility] Hosp L3
--- NOTE | 2021-11-06 15:24 | CASEMGMT ---
MIMA called Shay at [facility] and let her know the plan is for patient to get a new tunneled dialysis catheter on Wednesday. MIMA will send up updates on Wednesday so she can obtain pre-cert. Pepper SHAIKH
[2021-11-06 17:10] LABS: Bedside Glucose 195 mg/dL (70-110)
--- NOTE | 2021-11-06 18:00 | PCM.PN.GU ---
Subjective Subjective Feeling pretty good today. No pain. Ready to get the hco out. We discussed further imaging for right kidney. She has pacemaker so will need to have repeat CT in few weeks, and will need cystoscopy as outpatient for full work up. Objective Data Objective Data Vital Signs: Vital Signs Temp Pulse Resp BP Pulse Ox 97.8 F 64 18 155/63 H 99 11/06/21 15:00 11/06/21 15:00 11/06/21 15:00 11/06/21 15:00 11/06/21 15:00 Oxygen Flow Rate (L/min) 2 Oxygen Delivery Method Nasal Cannula Weight: 120 kg Body Mass Index (BMI) 46.7 Intake & Output: Intake and Output for Last 24 Hours 11/04/21 11/05/21 11/06/21 23:59 23:59 23:59 Intake Total 1219.37 / 1219.37 2474.02 / 2474.02 303.67 / 303.67 Output Total 1872 / 1872 3030 / 3030 75 / 75 Balance -652.63 / -652.63 -555.98 / -555.98 228.67 / 228.67 Lab / Micro Data Result Diagrams: 11/06/21 05:16 11/06/21 05:16 Labs: Laboratory Results - last 24 hr 11/05/21 22:39: POC Glucose 96 11/06/21 05:16: WBC 5.3, RBC 2.70 L, Hgb 7.7 L, Hct 23.5 L, MCV 87.0 D, MCH 28.5, MCHC 32.8 D, RDW Std Deviation 43.2, RDW Coeff of Loyda 13.7, Plt Count 170, MPV 9.3, Immature Gran % (Auto) 0.400, Neut % (Auto) 76.2 H, Lymph % (Auto) 9.9 L, [place] % (Auto) 11.8 H, Eos % (Auto) 1.3, Baso % (Auto) 0.4, Absolute Neuts (auto) 4.1, Absolute Lymphs (auto) 0.53 L, Nucleated RBC % 0 11/06/21 05:16: Sodium 132 L, Potassium 3.6, Chloride 97 L, Carbon Dioxide 27.0, Anion Gap 8, BUN 23 H, Creatinine 3.69 H, Estim Creat Clear Calc 12.98, Est GFR (MDRD) Af Amer 16 L, Est GFR (MDRD) Non-Af 13 L, BUN/Creatinine Ratio 6.2 L, Glucose 96, Calcium 7.9 L 11/06/21 06:33: POC Glucose 110 11/06/21 11:52: POC Glucose 179 H 11/06/21 17:03: POC Glucose 195 H Micro: Microbiology 11/05/21 14:01 Catheter Insertion Site Gram Stain - Final 11/05/21 14:01 Catheter Insertion Site Wound Culture - Preliminary No growth-Final to follow 11/04/21 11:14 Blood Culture (Wb) - Right Hand Blood Culture - Preliminary Staphylococcus aureus 11/03/21 18:10 Blood Culture (Wb) - Central Line Blood Culture - Preliminary Staphylococcus aureus 11/03/21 14:30 Blood Culture (Wb) - Right Hand Blood Culture - Final Meth. resistant Staph. aureus 10/30/21 03:40 Stool Ova and Parasites - Final 10/30/21 02:39 Blood Culture (Wb) - Femoral Artery Bacteria Detection (PCR) - Final Enterococcus faecalis 10/30/21 02:39 Blood Culture (Wb) - Femoral Artery Blood Culture - Final Enterococcus faecalis Meth. resistant Staph. aureus Staphylococcus epidermidis 10/30/21 03:32 Sputum, Tracheal Aspirate Gram Stain - Final 10/30/21 03:32 Sputum, Tracheal Aspirate Respiratory Culture - Final Gram positive gilberto Strep not Strep pneumo 10/30/21 02:55 Urine Catheter - Catheter Urine Culture - Final Culture exhibits no growth. 10/30/21 03:40 Stool Stool Lactoferrin - Final 10/30/21 03:40 Stool Enteric Bacteriology - Final 10/30/21 03:40 Stool C. difficile DNA Amplification - Final 10/30/21 04:30 Mucosa - Nasopharyngeal Influenza Types A,B Direct FA (MILI) - Final 10/30/21 03:30 Urine Catheter - Cho Legionella Antigen - Final 10/30/21 03:30 Urine Catheter - Cho Streptococcus pneumoniae Antigen (M - Final 10/30/21 04:11 Nasal Secretion SARS-CoV-2 Antigen (Rapid) - Final Radiography Diagnostic Testing: Radiology Impression Thoracic Spine CT 11/06/21 10:14 IMPRESSION: 1. There is bilateral pneumonia. 2. There are bilateral pleural effusions. 3. There is a stable T11 compression deformity. 4. There is severe motion artifact. This makes it difficult to evaluate enlarged and hyperdense right kidney. This is suggestive of subcapsular renal hematoma or underlying mass as noted on the prior studies. Electronically Signed: Sai Cook MD at 14:41 EST Reading Location ID and State: [facility] / [place] , Service support , Physical Exam Const alert, oriented x3 and no apparent distress HEENT normocephalic and head/scalp atraumatic Chest Chest: symmetrical chest wall rise Resp normal respiratory effort, normal air movement and no retractions Cardio regular rate and regular rhythm GI soft to palpation, non-tender and non-distended Narrative: urine clear yellow Skin no rashes or lesions noted, no jaundice, no petechiae and no mottling Neuro oriented x3, CN's II-XII intact bilaterally and moves all extremities Psych mental status grossly normal Assessment & Plan Assessment/Plan (1) Renal mass: (2) Gross hematuria: PLAN: ok to remove cho catheter from my standpoint send urine for cytology will need out patient cystoscopy and follow up imaging right kidney (3) Obesity: QUALIFIERS: Obesity type: due to excess calories Obesity classification: adult class 3 (BMI >= 40) Serious obesity comorbidity presence: with serious comorbidity Body mass index: BMI 50.0-59.9 Qualified Code(s): E66.01 - Morbid (severe) obesity due to excess calories; Z68.43 - Body mass index [BMI] 50.0-59.9, adult
[2021-11-06] MEDS: Levothyroxine 125 MCG Tablet GT (21:29)
[2021-11-06] MEDS: Pravastatin 80 MG Tablet GT (21:30)
[2021-11-06] MEDS: Nystatin Powder 15gm Bottle 1 APPLIC TOPICAL (21:48)
[2021-11-06 23:26] LABS: Bedside Glucose 181 mg/dL (70-110)
[2021-11-07] VITALS (12 sets, daily range): BP systolic 118–167; BP diastolic 46–66; PULSE 57–70; RESP 16–18; TEMP 35.9–37.1; O2SAT 93–100
[2021-11-07] MEDS: oxyCODONE 5 MG Tablet PO ×3 (03:02→17:50)
[2021-11-07 06:10] LABS: Absolute Lymphocyte Count 0.49 X10^3/uL (0.83-4.51); Absolute Neutrophil Count 4.3 X10^3/uL (2.0-7.7); Basophil# 0.02 X10^3/uL; Basophil% 0.4 % (0-1); Eosinophil# 0.05 X10^3/uL; Eosinophils% 0.9 % (0-5); Hematocrit 27.5 % (37-47); Hemoglobin 8.1 g/dL (12.0-15.0); Lymphocyte # 0.49 X10^3/ul (0.83-4.51); Lymphocyte % 8.9 % (19-41); Mean Corp Hgb Conc 29.5 g/dL (32-36); Mean Corpuscular Volume 95.2 fL (81-99); Mean Platelet Vol. 9.2 fl (6.2-12.0); Monocyte# 0.61 X10^3/uL; Monocyte% 11.1 % (0-10); NRBC Flagged by Analyzer 0 % (0-5); Neutrophil # 4.32 X10^3/uL (2.7-7.7); Neutrophil % 78.2 % (47-70); POSITIVE DIFFERENTIAL YES; Platelet Count 167 K/mm3 (150-450); RBC Distribution Width CV 13.9 % (11.6-14.6); RBC Distribution Width SD 47.8 fl (35.1-43.9); Red Blood Count 2.89 M/mm3 (4.2-5.4); White Blood Count 5.5 K/mm3 (4.4-11.0)
[2021-11-07 06:20] LABS: Differential Indicated SCAN CRITERIA MET
[2021-11-07 06:46] LABS: Anion Gap 9 (5-15); BUN 32 mg/dL (7-18); BUN/Creat Ratio 6.3 RATIO (10-20); Chloride 99 mmol/L (98-107); EST Glomerular Filtration Rate 9 mL/min (>60); Est Glom Filt Rate - Afr Amer 11 mL/min (>60); Estimated Creatinine Clearance 9.39 ml/min; Glucose 124 mg/dL (74-106); Sodium Level 131 mmol/L (136-145); Vancomycin, Random Level 18.9 ug/mL (0.0-15.0)
[2021-11-07 06:56] LABS: Bedside Glucose 142 mg/dL (70-110)
[2021-11-07 08:35] LABS: Bedside Glucose 136 mg/dL (70-110)
[2021-11-07] MEDS: Metoprolol Tartrate 50 MG Tablet GT (09:37)
[2021-11-07] MEDS: Amiodarone 200 MG Tablet GT (09:37)
[2021-11-07] MEDS: Aspirin 81 MG TAB.CHEW GT (09:37)
[2021-11-07] MEDS: busPIRone 5 MG Tablet GT (09:37)
[2021-11-07] MEDS: Clopidogrel Bisulfate 75 MG Tablet GT (09:38)
[2021-11-07] MEDS: Nystatin Powder 15gm Bottle 1 APPLIC TOPICAL ×2 (09:47→22:27)
[2021-11-07 11:21] LABS: Bedside Glucose 119 mg/dL (70-110)
--- NOTE | 2021-11-07 12:32 | PCM.PN.ID ---
Physical Exam Narrative Sleeping this AM, no fever Const no apparent distress Resp normal air movement and clear to auscultation bilaterally Cardio regular rate and regular rhythm GI soft to palpation, non-tender and non-distended Skin no rashes or lesions noted ID ID: Route of nutrition/ use of supplements: [] Nutritional Intake: [] IV Site: [] Cho Catheter: [] Assessment & Plan Assessment/Plan (1) Chronic renal failure: (2) Gross hematuria: (3) Acute and chronic respiratory failure with hypercapnia: (4) Bacteremia: PLAN: MRSA, enterococcus, and CoNS bacteremia in 1 of 1 bcx, with permacath in place on admit as well as pacemaker. Reported recent MRSA uti, not clear if came from cho or from hematogenous spread. TTE here was poor quality study. On vanc, zosyn stopped. Permacath removed 11/05. BRITTA neg for vegetation on valve or pacemaker lead. Not clear why she has a polymicrobial bacteremia. CT abd/pelvis concern for renal cancer. Urology following. Pt with chronic back pain but has been worsening since admit. CT spine did not show osteo/discitis/epidural abscess. Repeat bcx still with GPC seen. Cannot get permacath until bcx are cleared. Will repeat today and tomorrow. Will follow
--- NOTE | 2021-11-07 13:53 | PCM.PN.SRG ---
Subjective Subjective Patient seen and examined during afternoon rounds. She is found lying flat on her bed trying to make a phone call. She complains of uncontrolled back pain, but denies any complaints of pain around her catheter sites. Objective Data Objective Data Vital Signs: Vital Signs Temp Pulse Resp BP Pulse Ox 96.6 F L 66 18 167/66 H 99 11/07/21 09:34 11/07/21 09:37 11/07/21 09:34 11/07/21 09:37 11/07/21 09:34 Oxygen Flow Rate (L/min) 2.5 Oxygen Delivery Method Nasal Cannula Weight: 323 lb 6.69 oz Body Mass Index (BMI) 46.7 Intake & Output: Intake and Output for Last 24 Hours 11/05/21 11/06/21 11/07/21 23:59 23:59 23:59 Intake Total 2474.02 / 2474.02 363.67 / 363.67 Output Total 3030 / 3030 125 / 125 60 / 60 Balance -555.98 / -555.98 238.67 / 238.67 -60 / -60 Lab / Micro Data Result Diagrams: 11/07/21 05:56 11/07/21 05:56 Labs: Laboratory Results - last 24 hr 11/06/21 17:03: POC Glucose 195 H 11/06/21 21:27: POC Glucose 181 H 11/07/21 05:56: WBC 5.5, RBC 2.89 L, Hgb 8.1 L, Hct 27.5 L, MCV 95.2 D, MCH 28.0, MCHC 29.5 L D, RDW Std Deviation 47.8 H, RDW Coeff of Loyda 13.9, Plt Count 167, MPV 9.2, Immature Gran % (Auto) 0.500, Neut % (Auto) 78.2 H, Lymph % (Auto) 8.9 L, [place] % (Auto) 11.1 H, Eos % (Auto) 0.9, Baso % (Auto) 0.4, Absolute Neuts (auto) 4.3, Absolute Lymphs (auto) 0.49 L, Nucleated RBC % 0 11/07/21 05:56: Sodium 131 L, Potassium 4.0, Chloride 99, Carbon Dioxide 23.0, Anion Gap 9, BUN 32 H, Creatinine 5.10 H, Estim Creat Clear Calc 9.39, Est GFR (MDRD) Af Amer 11 L, Est GFR (MDRD) Non-Af 9 L, BUN/Creatinine Ratio 6.3 L, Glucose 124 H, Calcium 8.0 L 11/07/21 05:56: Random Vancomycin 18.9 H 11/07/21 06:28: POC Glucose 142 H 11/07/21 08:29: POC Glucose 136 H 11/07/21 11:11: POC Glucose 119 H Micro: Microbiology 11/05/21 14:01 Catheter Insertion Site Gram Stain - Final 11/05/21 14:01 Catheter Insertion Site Wound Culture - Preliminary No growth-Final to follow 11/05/21 14:01 Catheter Insertion Site Anaerobic Culture - Preliminary No growth in 48 hours. 11/04/21 11:14 Blood Culture (Wb) - Right Hand Blood Culture - Final Meth. resistant Staph. aureus 11/03/21 18:10 Blood Culture (Wb) - Central Line Blood Culture - Final Meth. resistant Staph. aureus 11/06/21 10:15 Blood Culture (Wb) - Venous Blood Culture - Preliminary 11/03/21 14:30 Blood Culture (Wb) - Right Hand Blood Culture - Final Meth. resistant Staph. aureus 10/30/21 03:40 Stool Ova and Parasites - Final 10/30/21 02:39 Blood Culture (Wb) - Femoral Artery Bacteria Detection (PCR) - Final Enterococcus faecalis 10/30/21 02:39 Blood Culture (Wb) - Femoral Artery Blood Culture - Final Enterococcus faecalis Meth. resistant Staph. aureus Staphylococcus epidermidis 10/30/21 03:32 Sputum, Tracheal Aspirate Gram Stain - Final 10/30/21 03:32 Sputum, Tracheal Aspirate Respiratory Culture - Final Gram positive gilberto Strep not Strep pneumo 10/30/21 02:55 Urine Catheter - Catheter Urine Culture - Final Culture exhibits no growth. 10/30/21 03:40 Stool Stool Lactoferrin - Final 10/30/21 03:40 Stool Enteric Bacteriology - Final 10/30/21 03:40 Stool C. difficile DNA Amplification - Final 10/30/21 04:30 Mucosa - Nasopharyngeal Influenza Types A,B Direct FA (MILI) - Final 10/30/21 03:30 Urine Catheter - Mckeon Legionella Antigen - Final 10/30/21 03:30 Urine Catheter - Mckeon Streptococcus pneumoniae Antigen (M - Final 10/30/21 04:11 Nasal Secretion SARS-CoV-2 Antigen (Rapid) - Final Radiography Diagnostic Testing: Radiology Impression Thoracic Spine CT 11/06/21 10:14 IMPRESSION: 1. There is bilateral pneumonia. 2. There are bilateral pleural effusions. 3. There is a stable T11 compression deformity. 4. There is severe motion artifact. This makes it difficult to evaluate enlarged and hyperdense right kidney. This is suggestive of subcapsular renal hematoma or underlying mass as noted on the prior studies. Electronically Signed: Sai Cook MD at 14:41 EST , Physical Exam Const no apparent distress Neck Neck Narrative: Patient's catheter insertion site redness has resolved. There is no evidence of underlying hematoma. Chest Chest Narrative: Patient's exit site for tunneled line is clear and erythema has resolved. There is still a small amount of fresh clot at the opening of the wound. The dressing is clean and dry aside from some adherent residual old blood. Resp normal respiratory effort Assessment & Plan Assessment/Plan (1) Bacteremia: PLAN: Patient is postoperative day 2 from discontinuation of right tunneled hemodialysis catheter and left femoral CVC. Hemostasis remains intact and the erythema noted at the time of the operation about the tunneled line has resolved. Yesterday nephrology requested additional time for replacing the tunneled line. Therefore the date has been moved to the afternoon of 11/10/2021. For the interim, I have asked nursing to replace patient's gauzes over the insertion site and tunneling site today. Charges/Coding Visit Charges Inpatient E&M: 80083 Subs Hosp L2
--- NOTE | 2021-11-07 14:06 | PN.HOSP_ITS ---
Subjective Subjective Patient seen and examined. She was lying comfortably in bed. She had no active complaints, and had an uneventful night. Review of systems otherwise negative. Her back pain is better controlled. Objective Data Objective Data Vital Signs: Vital Signs Temp Pulse Resp BP Pulse Ox 98.8 F 60 16 125/57 H 100 11/07/21 14:02 11/07/21 14:02 11/07/21 14:02 11/07/21 14:02 11/07/21 14:02 Oxygen Flow Rate (L/min) 3 Oxygen Delivery Method Nasal Cannula Weight: 323 lb 6.69 oz Body Mass Index (BMI) 46.7 Intake & Output: Intake and Output for Last 24 Hours 11/05/21 11/06/21 11/07/21 23:59 23:59 23:59 Intake Total 2474.02 / 2474.02 363.67 / 363.67 Output Total 3030 / 3030 125 / 125 60 / 60 Balance -555.98 / -555.98 238.67 / 238.67 -60 / -60 Lab / Micro Data Result Diagrams: 11/07/21 05:56 11/07/21 05:56 Labs: Laboratory Results - last 24 hr 11/06/21 17:03: POC Glucose 195 H 11/06/21 21:27: POC Glucose 181 H 11/07/21 05:56: WBC 5.5, RBC 2.89 L, Hgb 8.1 L, Hct 27.5 L, MCV 95.2 D, MCH 28.0, MCHC 29.5 L D, RDW Std Deviation 47.8 H, RDW Coeff of Loyda 13.9, Plt Count 167, MPV 9.2, Immature Gran % (Auto) 0.500, Neut % (Auto) 78.2 H, Lymph % (Auto) 8.9 L, [place] % (Auto) 11.1 H, Eos % (Auto) 0.9, Baso % (Auto) 0.4, Absolute Neuts (auto) 4.3, Absolute Lymphs (auto) 0.49 L, Nucleated RBC % 0 11/07/21 05:56: Sodium 131 L, Potassium 4.0, Chloride 99, Carbon Dioxide 23.0, Anion Gap 9, BUN 32 H, Creatinine 5.10 H, Estim Creat Clear Calc 9.39, Est GFR (MDRD) Af Amer 11 L, Est GFR (MDRD) Non-Af 9 L, BUN/Creatinine Ratio 6.3 L, Glucose 124 H, Calcium 8.0 L 11/07/21 05:56: Random Vancomycin 18.9 H 11/07/21 06:28: POC Glucose 142 H 11/07/21 08:29: POC Glucose 136 H 11/07/21 11:11: POC Glucose 119 H Micro: Microbiology 11/05/21 14:01 Catheter Insertion Site Gram Stain - Final 11/05/21 14:01 Catheter Insertion Site Wound Culture - Preliminary No growth-Final to follow 11/05/21 14:01 Catheter Insertion Site Anaerobic Culture - Preliminary No growth in 48 hours. 11/04/21 11:14 Blood Culture (Wb) - Right Hand Blood Culture - Final Meth. resistant Staph. aureus 11/03/21 18:10 Blood Culture (Wb) - Central Line Blood Culture - Final Meth. resistant Staph. aureus 11/06/21 10:15 Blood Culture (Wb) - Venous Blood Culture - Preliminary 11/03/21 14:30 Blood Culture (Wb) - Right Hand Blood Culture - Final Meth. resistant Staph. aureus 10/30/21 03:40 Stool Ova and Parasites - Final 10/30/21 02:39 Blood Culture (Wb) - Femoral Artery Bacteria Detection (PCR) - Final Enterococcus faecalis 10/30/21 02:39 Blood Culture (Wb) - Femoral Artery Blood Culture - Final Enterococcus faecalis Meth. resistant Staph. aureus Staphylococcus epidermidis 10/30/21 03:32 Sputum, Tracheal Aspirate Gram Stain - Final 10/30/21 03:32 Sputum, Tracheal Aspirate Respiratory Culture - Final Gram positive gilberto Strep not Strep pneumo 10/30/21 02:55 Urine Catheter - Catheter Urine Culture - Final Culture exhibits no growth. 10/30/21 03:40 Stool Stool Lactoferrin - Final 10/30/21 03:40 Stool Enteric Bacteriology - Final 10/30/21 03:40 Stool C. difficile DNA Amplification - Final 10/30/21 04:30 Mucosa - Nasopharyngeal Influenza Types A,B Direct FA (MILI) - Final 10/30/21 03:30 Urine Catheter - Mckeon Legionella Antigen - Final 10/30/21 03:30 Urine Catheter - Mckeon Streptococcus pneumoniae Antigen (M - Final 10/30/21 04:11 Nasal Secretion SARS-CoV-2 Antigen (Rapid) - Final Radiography Diagnostic Testing: Radiology Impression Thoracic Spine CT 11/06/21 10:14 IMPRESSION: 1. There is bilateral pneumonia. 2. There are bilateral pleural effusions. 3. There is a stable T11 compression deformity. 4. There is severe motion artifact. This makes it difficult to evaluate enlarged and hyperdense right kidney. This is suggestive of subcapsular renal hematoma or underlying mass as noted on the prior studies. Electronically Signed: Sai Cook MD at 14:41 EST Reading Location ID and State: [facility] / [place] , Service support , Physical Exam Const alert, oriented x3 and no apparent distress General Appearance: cooperative, well kempt and well developed Orientation / Consciousness: awake, oriented to person, oriented to place and oriented to time Exam Limitations: no limitations Nutritional Appearance: morbidly obese HEENT normocephalic, head/scalp atraumatic and moist oral mucous membranes Head and Scalp: normocephalic Eyes PERRL, EOMs intact bilaterally and conjunctivae normal Neck nuchal rigidity, no lymphadenopathy, supple, no JVD and thyroid normal General: trachea midline Resp normal respiratory effort, no retractions, no use of accessory muscles and clear to auscultation bilaterally Resp Narrative: mildly diminished breath sounds bibasally, no wheezes or crackles. On 2L of oxygen by nasal canula Auscultation: Negative for rales, rhonchi or wheezes Cardio regular rate, regular rhythm, S1 normal heart sound, S2 normal heart sound, no murmurs, no rub and no gallops GI normal to inspection, nondistended, normoactive bowel sounds, soft to palpation, non-tender, non-distended and hepatosplenomegaly Extremity normal to inspection, full ROM and no clubbing, cyanosis or edema Peripheral Pulses: Yes pulses 2+ throughout Skin no rashes or lesions noted and no wounds General Skin Exam: no breakdown Neuro oriented x3, CN's II-XII intact bilaterally, moves all extremities, no focal motor deficits and no sensory deficits noted Sensorium / Orientation: awake and alert Speech: speech normal Psych affect normal Assessment & Plan Assessment/Plan (1) Acute kidney injury: (2) Gross hematuria: (3) Atrial fibrillation: QUALIFIERS: Atrial fibrillation type: unspecified Qualified Code(s): I48.91 - Unspecified atrial fibrillation (4) Bilateral pneumonia: QUALIFIERS: Pneumonia type: due to unspecified organism Lung location: unspecified part of lung Qualified Code(s): J18.9 - Pneumonia, unsp ecified organism PLAN: #acute on chronic hypoxic respiratory failure due to Bilateral pneumonia * Sputum cultures grew alphahemolytic strep. * Pulmonology on board. * On on IV vancomycin * remains on 2L of oxygen. Titrate oxygen to maintain sats >90% #MRSA bacteremia * Blood PCR grew Enterococcus faecalis as well as MRSA. * ID on board. Had 2D echo which showed EF of 40 to 45% with evidence of diastolic dysfunction and akinetic apex as well as septal hypokinesis. * repeat blood cultures still growing mrsa * femoral line and dialysis catheter removed. * On IV vancomycin and Zosyn. * had BRITTA which showed no evidence of endocarditis * CT of the thoracic spine done due to complaints of back pain shwoed bilateral pneumonia and bilateral pleural pleural effusions with a stable T11 compression deformity * Blood cultures repeated. Permacath cannot be reinserted until her blood cultures have cleared. #ESRD * Appears to have ALEXY that has advanced ESRD. * dialysis catheter removed. * nephrology on board * now on dialysis holiday as dialysis catheter has been removed. For re insertion of dialysis catheter on Wednesday11/09/2021 * #Hyperkalemia:resolved with dialysis #Hyponatremia: chronic. Present since admission. Na is 132 today #Acute hematuria * Patient was on Eliquis which has been discontinued. CT of the abdomen and pelvis ordered by urology showed a 5.7 cm x 6 cm mass in the inferior pole of the left kidney which could be a mass versus hematoma. I discussed this with Dr. Denice LACY today who stated that patient will need to follow-up at a tertiary facility with this could be evaluated further. * Hematuria is improving. * repeat CT with contrast showed hyperdense abnormality with abnormal contour along the posterior margin of the right kidney measuring 7.5 x 4.6 cm with an additional rounded heterogeneous abnormality in the upper pole of the right kidney measuring up to 5 cm and findings could represent underlying malignancy possibly complicated by hemorrhage with capsular hematoma. * per urology, no plans for intervention in regards to possible malignancy during this admission. If there are still concerns with bleeding into the right kidney, she may require referral to tertiary facility for intervention with IR. * Hb today is 8.1 #Ischemic cardiomyopathy: EF known to be 40 to 45%. On aspirin and Plavix. #Type 2 diabetes mellitus: On Lantus 30 units nightly. Insulin sliding scale. Accu-Cheks AC at bedtime. #Hypothyroidism: On Synthroid #Hypertension: On metoprolol #Non-STEMI: Thought to be type II non-STEMI. Cardiology on board. Cardiology does not plan on any further work-up now. #Acute on chronic anemia * likely due to hematuria. Required blood transfusion during this admission * Hb today: 8.1 * await urology input * transfuse if Hb <7 * #SUper morbid obesity: BMI is 53.8. complicates acute care, expected recovery and prognosis. DVT prophylaxis: SCDs. No anticoagulants o/a of hematuria * Charges/Coding Visit Charges Inpatient E&M: 65066 Subs Hosp L2
--- NOTE | 2021-11-07 15:26 | PCM.PN.REN ---
Subjective Subjective no new events Objective Data Objective Data Vital Signs: Vital Signs Temp Pulse Resp BP Pulse Ox 98.8 F 57 L 16 125/57 H 100 11/07/21 14:02 11/07/21 14:50 11/07/21 14:02 11/07/21 14:02 11/07/21 14:04 Oxygen Flow Rate (L/min) 3 Oxygen Delivery Method Nasal Cannula Weight: 146.7 kg Body Mass Index (BMI) 46.7 Intake & Output: Intake and Output for Last 24 Hours 11/05/21 11/06/21 11/07/21 23:59 23:59 23:59 Intake Total 2474.02 / 2474.02 363.67 / 363.67 Output Total 3030 / 3030 125 / 125 60 / 60 Balance -555.98 / -555.98 238.67 / 238.67 -60 / -60 Lab / Micro Data Result Diagrams: 11/07/21 05:56 11/07/21 05:56 Labs: Laboratory Results - last 24 hr 11/06/21 17:03: POC Glucose 195 H 11/06/21 21:27: POC Glucose 181 H 11/07/21 05:56: WBC 5.5, RBC 2.89 L, Hgb 8.1 L, Hct 27.5 L, MCV 95.2 D, MCH 28.0, MCHC 29.5 L D, RDW Std Deviation 47.8 H, RDW Coeff of Loyda 13.9, Plt Count 167, MPV 9.2, Immature Gran % (Auto) 0.500, Neut % (Auto) 78.2 H, Lymph % (Auto) 8.9 L, [place] % (Auto) 11.1 H, Eos % (Auto) 0.9, Baso % (Auto) 0.4, Absolute Neuts (auto) 4.3, Absolute Lymphs (auto) 0.49 L, Nucleated RBC % 0 11/07/21 05:56: Sodium 131 L, Potassium 4.0, Chloride 99, Carbon Dioxide 23.0, Anion Gap 9, BUN 32 H, Creatinine 5.10 H, Estim Creat Clear Calc 9.39, Est GFR (MDRD) Af Amer 11 L, Est GFR (MDRD) Non-Af 9 L, BUN/Creatinine Ratio 6.3 L, Glucose 124 H, Calcium 8.0 L 11/07/21 05:56: Random Vancomycin 18.9 H 11/07/21 06:28: POC Glucose 142 H 11/07/21 08:29: POC Glucose 136 H 11/07/21 11:11: POC Glucose 119 H Micro: Microbiology 11/05/21 14:01 Catheter Insertion Site Gram Stain - Final 11/05/21 14:01 Catheter Insertion Site Wound Culture - Preliminary No growth-Final to follow 11/05/21 14:01 Catheter Insertion Site Anaerobic Culture - Preliminary No growth in 48 hours. 11/04/21 11:14 Blood Culture (Wb) - Right Hand Blood Culture - Final Meth. resistant Staph. aureus 11/03/21 18:10 Blood Culture (Wb) - Central Line Blood Culture - Final Meth. resistant Staph. aureus 11/06/21 10:15 Blood Culture (Wb) - Venous Blood Culture - Preliminary 11/03/21 14:30 Blood Culture (Wb) - Right Hand Blood Culture - Final Meth. resistant Staph. aureus 10/30/21 03:40 Stool Ova and Parasites - Final 10/30/21 02:39 Blood Culture (Wb) - Femoral Artery Bacteria Detection (PCR) - Final Enterococcus faecalis 10/30/21 02:39 Blood Culture (Wb) - Femoral Artery Blood Culture - Final Enterococcus faecalis Meth. resistant Staph. aureus Staphylococcus epidermidis 10/30/21 03:32 Sputum, Tracheal Aspirate Gram Stain - Final 10/30/21 03:32 Sputum, Tracheal Aspirate Respiratory Culture - Final Gram positive gilberto Strep not Strep pneumo 10/30/21 02:55 Urine Catheter - Catheter Urine Culture - Final Culture exhibits no growth. 10/30/21 03:40 Stool Stool Lactoferrin - Final 10/30/21 03:40 Stool Enteric Bacteriology - Final 10/30/21 03:40 Stool C. difficile DNA Amplification - Final 10/30/21 04:30 Mucosa - Nasopharyngeal Influenza Types A,B Direct FA (MILI) - Final 10/30/21 03:30 Urine Catheter - Mckeon Legionella Antigen - Final 10/30/21 03:30 Urine Catheter - Mckeon Streptococcus pneumoniae Antigen (M - Final 10/30/21 04:11 Nasal Secretion SARS-CoV-2 Antigen (Rapid) - Final Physical Exam Narrative General: No apparent distress HEENT: Normocephalic, atraumatic. Mucous membrane moist Heart: Normal S1, S2. No rubs or murmurs Lungs: Clear to auscultation bilaterally Abdomen: Obese, normal bowel sound, soft, nontender Extremity: No clubbing, cyanosis, or edema No pallor icterus Assessment & Plan Assessment/Plan (1) Acute kidney injury: PLAN: -The patient was initiated on dialysis when she was admitted to hospital in [place] recently. -ALEXY was thought to be secondary to ischemic ATN related to sepsis due to pyelonephritis. last HD wednesday. blood cultures will finalize tomorrow likely. if negative tunneled line on wednesday. will try lasix if any fluid issues and kayexalate if any K issues (2) Chronic kidney disease, stage 4 (severe): PLAN: -Per Dr. Cleveland's note, the patient has stage IV chronic kidney disease prior to her admission to the hospital in [place]. -Last available serum creatinine that I can see on record was from November 2020. At that time, her serum creatinine was 1.55 mg/dL, estimated GFR 34 mL/min putting her in stage IIIb CKD. -Renal dysfunction may have deteriorated in the past year. -CKD is likely due to diabetic kidney disease. (3) Hyperkalemia: PLAN: -better (4) Acute and chronic respiratory failure with hypercapnia:
[2021-11-07 16:21] LABS: Bedside Glucose 93 mg/dL (70-110)
[2021-11-07] MEDS: 0.9% Saline Lock 10 ML Syringe IV (21:55)
[2021-11-07] MEDS: Insulin Lispro 100 UNIT/ML INSULN.PEN SC (21:56)
[2021-11-07] MEDS: busPIRone 5 MG Tablet PO (21:58)
[2021-11-07] MEDS: Levothyroxine 125 MCG Tablet PO (21:59)
[2021-11-07] MEDS: Metoprolol Tartrate 50 MG Tablet PO (21:59)
[2021-11-07] MEDS: Pravastatin 80 MG Tablet PO (21:59)
[2021-11-07 22:06] LABS: Bedside Glucose 174 mg/dL (70-110)
[2021-11-08] VITALS (14 sets, daily range): BP systolic 109–128; BP diastolic 46–53; PULSE 58–70; RESP 14–18; TEMP 36.1–36.9; O2SAT 95–99
--- NOTE | 2021-11-08 01:30 | CPS ---
pt refused BiPAP
[2021-11-08 05:25] LABS: Absolute Lymphocyte Count 0.48 X10^3/uL (0.83-4.51); Absolute Neutrophil Count 3.8 X10^3/uL (2.0-7.7); Basophil# 0.01 X10^3/uL; Basophil% 0.2 % (0-1); Hematocrit 25.2 % (37-47); Hemoglobin 7.7 g/dL (12.0-15.0); Lymphocyte # 0.48 X10^3/ul (0.83-4.51); Lymphocyte % 9.8 % (19-41); Mean Corp Hgb Conc 30.6 g/dL (32-36); Mean Corpuscular Volume 91.6 fL (81-99); Mean Platelet Vol. 8.8 fl (6.2-12.0); Monocyte# 0.56 X10^3/uL; Monocyte% 11.4 % (0-10); NRBC Flagged by Analyzer 0 % (0-5); Neutrophil # 3.75 X10^3/uL (2.7-7.7); Neutrophil % 76.4 % (47-70); POSITIVE DIFFERENTIAL YES; Platelet Count 205 K/mm3 (150-450); RBC Distribution Width SD 46.6 fl (35.1-43.9); Red Blood Count 2.75 M/mm3 (4.2-5.4); White Blood Count 4.9 K/mm3 (4.4-11.0)
[2021-11-08 05:31] LABS: Differential Indicated SCAN CRITERIA MET
[2021-11-08 05:48] LABS: Anion Gap 6 (5-15); BUN 40 mg/dL (7-18); BUN/Creat Ratio 6.1 RATIO (10-20); Calcium,Total 7.8 mg/dL (8.5-10.1); Chloride 97 mmol/L (98-107); Creatinine, Serum 6.61 mg/dL (0.55-1.02); EST Glomerular Filtration Rate 7 mL/min (>60); Est Glom Filt Rate - Afr Amer 8 mL/min (>60); Estimated Creatinine Clearance 7.25 ml/min; Glucose 158 mg/dL (74-106); Potassium 4.4 mmol/L (3.5-5.1); Sodium Level 131 mmol/L (136-145)
[2021-11-08] MEDS: Insulin Lispro 100 UNIT/ML INSULN.PEN SC ×2 (06:41→21:09)
[2021-11-08] MEDS: oxyCODONE 5 MG Tablet PO (06:45)
[2021-11-08 06:46] LABS: Bedside Glucose 158 mg/dL (70-110)
--- NOTE | 2021-11-08 07:50 | PCM.PN.SRG ---
Subjective Subjective Preliminary blood cultures gram-positive cocci in clusters in 1 and gram-positive cocci in the other. Patient has no complaints otherwise Objective Data Objective Data Vital Signs: Vital Signs Temp Pulse Resp BP Pulse Ox 97.8 F 62 18 120/49 L 99 11/08/21 02:00 11/08/21 06:59 11/08/21 02:00 11/08/21 02:00 11/08/21 02:00 Oxygen Flow Rate (L/min) 3 Oxygen Delivery Method Nasal Cannula Weight: 328 lb 0.765 oz Body Mass Index (BMI) 46.7 Intake & Output: Intake and Output for Last 24 Hours 11/06/21 11/07/21 11/08/21 23:59 23:59 23:59 Intake Total 363.67 / 363.67 240 / 435 285 / 285 Output Total 125 / 125 3060 / 3160 100 / 100 Balance 238.67 / 238.67 -2820 / -2725 185 / 185 Lab / Micro Data Result Diagrams: 11/08/21 05:13 11/08/21 05:13 Labs: Laboratory Results - last 24 hr 11/07/21 08:29: POC Glucose 136 H 11/07/21 11:11: POC Glucose 119 H 11/07/21 16:11: POC Glucose 93 11/07/21 21:54: POC Glucose 174 H 11/08/21 05:13: WBC 4.9, RBC 2.75 L, Hgb 7.7 L, Hct 25.2 L, MCV 91.6, MCH 28.0, MCHC 30.6 L, RDW Std Deviation 46.6 H, RDW Coeff of Loyda 14.0, Plt Count 205, MPV 8.8, Immature Gran % (Auto) 0.200, Neut % (Auto) 76.4 H, Lymph % (Auto) 9.8 L, [place] % (Auto) 11.4 H, Eos % (Auto) 2.0, Baso % (Auto) 0.2, Absolute Neuts (auto) 3.8, Absolute Lymphs (auto) 0.48 L, Nucleated RBC % 0 11/08/21 05:13: Sodium 131 L, Potassium 4.4, Chloride 97 L, Carbon Dioxide 28.0, Anion Gap 6, BUN 40 H, Creatinine 6.61 H, Estim Creat Clear Calc 7.25, Est GFR (MDRD) Af Amer 8 L, Est GFR (MDRD) Non-Af 7 L, BUN/Creatinine Ratio 6.1 L, Glucose 158 H, Calcium 7.8 L 11/08/21 06:40: POC Glucose 158 H Micro: Microbiology 11/07/21 12:30 Blood Culture (Wb) - Right Hand Blood Culture - Preliminary 11/05/21 14:01 Catheter Insertion Site Gram Stain - Final 11/05/21 14:01 Catheter Insertion Site Wound Culture - Preliminary No growth-Final to follow 11/05/21 14:01 Catheter Insertion Site Anaerobic Culture - Preliminary No growth in 48 hours. 11/04/21 11:14 Blood Culture (Wb) - Right Hand Blood Culture - Final Meth. resistant Staph. aureus 11/03/21 18:10 Blood Culture (Wb) - Central Line Blood Culture - Final Meth. resistant Staph. aureus 11/06/21 10:15 Blood Culture (Wb) - Venous Blood Culture - Preliminary 11/03/21 14:30 Blood Culture (Wb) - Right Hand Blood Culture - Final Meth. resistant Staph. aureus 10/30/21 03:40 Stool Ova and Parasites - Final 10/30/21 02:39 Blood Culture (Wb) - Femoral Artery Bacteria Detection (PCR) - Final Enterococcus faecalis 10/30/21 02:39 Blood Culture (Wb) - Femoral Artery Blood Culture - Final Enterococcus faecalis Meth. resistant Staph. aureus Staphylococcus epidermidis 10/30/21 03:32 Sputum, Tracheal Aspirate Gram Stain - Final 10/30/21 03:32 Sputum, Tracheal Aspirate Respiratory Culture - Final Gram positive gilberto Strep not Strep pneumo 10/30/21 02:55 Urine Catheter - Catheter Urine Culture - Final Culture exhibits no growth. 10/30/21 03:40 Stool Stool Lactoferrin - Final 10/30/21 03:40 Stool Enteric Bacteriology - Final 10/30/21 03:40 Stool C. difficile DNA Amplification - Final 10/30/21 04:30 Mucosa - Nasopharyngeal Influenza Types A,B Direct FA (MILI) - Final 10/30/21 03:30 Urine Catheter - Mckeon Legionella Antigen - Final 10/30/21 03:30 Urine Catheter - Mckeon Streptococcus pneumoniae Antigen (M - Final 10/30/21 04:11 Nasal Secretion SARS-CoV-2 Antigen (Rapid) - Final Physical Exam Narrative Right IJ site dressed clean dry and intact, left femoral site also dressed clean dry and intact. Const oriented x3 and no apparent distress Resp normal respiratory effort Cardio regular rate GI soft to palpation and non-tender Assessment & Plan Assessment/Plan (1) Bacteremia: PLAN: Patient is s/p discontinuation of right tunneled hemodialysis catheter and left femoral CVC. Dressings clean dry and intact. Patient's blood cultures are pulmonary growing gram positive cocci. Initially did plan for tunneled dialysis line on Wednesday will await nephrology's recommendation. Cari Arambula M.D. Pager: [phone] [facility] [address] [place] [address], [facility], [address] [place] [address] Office: [phone] Charges/Coding Visit Charges Inpatient E&M: 73165 Subs Hosp L3
[2021-11-08] MEDS: Clopidogrel Bisulfate 75 MG Tablet PO (09:49)
[2021-11-08] MEDS: Amiodarone 200 MG Tablet PO (09:49)
[2021-11-08] MEDS: busPIRone 5 MG Tablet PO ×2 (09:50→21:04)
[2021-11-08] MEDS: Aspirin 81 MG TAB.CHEW PO (09:50)
--- NOTE | 2021-11-08 11:20 | PN.RENAL_ITS ---
Subjective Subjective Following for dialysis dependent ALEXY. Patient is slow to answer questions but denies CP, SOB or nausea. Objective Data Objective Data Vital Signs: Vital Signs Temp Pulse Resp BP Pulse Ox 98.3 F 59 L 18 109/47 L 99 11/08/21 09:46 11/08/21 09:46 11/08/21 09:46 11/08/21 09:46 11/08/21 09:46 Oxygen Flow Rate (L/min) 3 Oxygen Delivery Method Nasal Cannula Weight: 148.8 kg Body Mass Index (BMI) 46.7 Intake & Output: Intake and Output for Last 24 Hours 11/06/21 11/07/21 11/08/21 23:59 23:59 23:59 Intake Total 363.67 / 363.67 240 / 435 285 / 285 Output Total 125 / 125 3060 / 3160 100 / 100 Balance 238.67 / 238.67 -2820 / -2725 185 / 185 Lab / Micro Data Result Diagrams: 11/12/21 05:09 11/12/21 05:09 Labs: Laboratory Results - last 24 hr 11/07/21 11:11: POC Glucose 119 H 11/07/21 16:11: POC Glucose 93 11/07/21 21:54: POC Glucose 174 H 11/08/21 05:13: WBC 4.9, RBC 2.75 L, Hgb 7.7 L, Hct 25.2 L, MCV 91.6, MCH 28.0, MCHC 30.6 L, RDW Std Deviation 46.6 H, RDW Coeff of Loyda 14.0, Plt Count 205, MPV 8.8, Immature Gran % (Auto) 0.200, Neut % (Auto) 76.4 H, Lymph % (Auto) 9.8 L, [place] % (Auto) 11.4 H, Eos % (Auto) 2.0, Baso % (Auto) 0.2, Absolute Neuts (auto) 3.8, Absolute Lymphs (auto) 0.48 L, Nucleated RBC % 0 11/08/21 05:13: Sodium 131 L, Potassium 4.4, Chloride 97 L, Carbon Dioxide 28.0, Anion Gap 6, BUN 40 H, Creatinine 6.61 H, Estim Creat Clear Calc 7.25, Est GFR (MDRD) Af Amer 8 L, Est GFR (MDRD) Non-Af 7 L, BUN/Creatinine Ratio 6.1 L, Glucose 158 H, Calcium 7.8 L 11/08/21 06:40: POC Glucose 158 H Micro: Microbiology 11/06/21 10:15 Blood Culture (Wb) - Venous Blood Culture - Preliminary Staphylococcus aureus 11/07/21 12:30 Blood Culture (Wb) - Right Hand Blood Culture - Preliminary 11/05/21 14:01 Catheter Insertion Site Gram Stain - Final 11/05/21 14:01 Catheter Insertion Site Wound Culture - Preliminary No growth-Final to follow 11/05/21 14:01 Catheter Insertion Site Anaerobic Culture - Preliminary No growth in 48 hours. 11/04/21 11:14 Blood Culture (Wb) - Right Hand Blood Culture - Final Meth. resistant Staph. aureus 11/03/21 18:10 Blood Culture (Wb) - Central Line Blood Culture - Final Meth. resistant Staph. aureus 11/03/21 14:30 Blood Culture (Wb) - Right Hand Blood Culture - Final Meth. resistant Staph. aureus 10/30/21 03:40 Stool Ova and Parasites - Final 10/30/21 02:39 Blood Culture (Wb) - Femoral Artery Bacteria Detection (PCR) - Final Enterococcus faecalis 10/30/21 02:39 Blood Culture (Wb) - Femoral Artery Blood Culture - Final Enterococcus faecalis Meth. resistant Staph. aureus Staphylococcus epidermidis 10/30/21 03:32 Sputum, Tracheal Aspirate Gram Stain - Final 10/30/21 03:32 Sputum, Tracheal Aspirate Respiratory Culture - Final Gram positive gilberto Strep not Strep pneumo 10/30/21 02:55 Urine Catheter - Catheter Urine Culture - Final Culture exhibits no growth. 10/30/21 03:40 Stool Stool Lactoferrin - Final 10/30/21 03:40 Stool Enteric Bacteriology - Final 10/30/21 03:40 Stool C. difficile DNA Amplification - Final 10/30/21 04:30 Mucosa - Nasopharyngeal Influenza Types A,B Direct FA (MILI) - Final 10/30/21 03:30 Urine Catheter - Mckeon Legionella Antigen - Final 10/30/21 03:30 Urine Catheter - Mckeon Streptococcus pneumoniae Antigen (M - Final 10/30/21 04:11 Nasal Secretion SARS-CoV-2 Antigen (Rapid) - Final Physical Exam Narrative General: No apparent distress HEENT: Normocephalic, atraumatic. Mucous membrane moist Heart: Normal S1, S2. No rubs or murmurs Lungs: Clear to auscultation bilaterally Abdomen: Obese, normal bowel sound, soft, nontender Extremity: No clubbing, cyanosis, or edema No pallor icterus Assessment & Plan Assessment/Plan (1) Acute kidney injury: PLAN: -The patient was initiated on dialysis when she was admitted to hospital in [place] recently (less than 3 months ago), so she is still considered ALEXY. -ALEXY was thought to be secondary to ischemic ATN related to sepsis due to pyelonephritis. -However, there is no signs of recovery from ALEXY. If no recovery 3 months after start of HD, she will be considered ESRD. -Will continue MWF HD scehdule. -No need for HD today. -HD on 11/10/21 after new line placement. (2) Chronic kidney disease, stage 4 (severe): PLAN: -Per previous notes, the patient has stage IV chronic kidney disease prior to her admission to the hospital in [place]. -Last available serum creatinine that I can see on record was from November 2020. At that time, her serum creatinine was 1.55 mg/dL, estimated GFR 34 mL/min putting her in stage IIIb CKD. -Renal dysfunction may have deteriorated in the past year. -CKD is likely due to diabetic kidney disease. (3) Hyperkalemia: PLAN: -Resolved. -Continue to monitor K. (4) Bacteremia: PLAN: -Patient has Enterococcus and MRSA bacteremia. -Central lines (including dialysis catheter) have been removed. -Antimicrobial as per hospital medicine and ID services. -To get new HD line on 11/10/21.
[2021-11-08 12:36] LABS: Bedside Glucose 110 mg/dL (70-110)
[2021-11-08] MEDS: Nystatin Powder 15gm Bottle 1 APPLIC TOPICAL ×2 (15:16→21:04)
--- NOTE | 2021-11-08 16:03 | PN.HOSP_ITS ---
Subjective Subjective Patient seen and examined. She was lying in bed and had no active complaints today. She denies chest pain, palpitations no dizziness, nausea or vomiting. Review of systems otherwise negative. She has remained hemodynamically stable. Objective Data Objective Data Vital Signs: Vital Signs Temp Pulse Resp BP Pulse Ox 98.4 F 65 16 128/47 H 99 11/08/21 15:00 11/08/21 15:00 11/08/21 15:00 11/08/21 15:00 11/08/21 15:00 Oxygen Flow Rate (L/min) 3 Oxygen Delivery Method Nasal Cannula Weight: 328 lb 0.765 oz Body Mass Index (BMI) 46.7 Intake & Output: Intake and Output for Last 24 Hours 11/06/21 11/07/21 11/08/21 23:59 23:59 23:59 Intake Total 363.67 / 363.67 240 / 435 360 / 360 Output Total 125 / 125 3060 / 3160 125 / 125 Balance 238.67 / 238.67 -2820 / -2725 235 / 235 Lab / Micro Data Result Diagrams: 11/08/21 05:13 11/08/21 05:13 Labs: Laboratory Results - last 24 hr 11/07/21 16:11: POC Glucose 93 11/07/21 21:54: POC Glucose 174 H 11/08/21 05:13: WBC 4.9, RBC 2.75 L, Hgb 7.7 L, Hct 25.2 L, MCV 91.6, MCH 28.0, MCHC 30.6 L, RDW Std Deviation 46.6 H, RDW Coeff of Loyda 14.0, Plt Count 205, MPV 8.8, Immature Gran % (Auto) 0.200, Neut % (Auto) 76.4 H, Lymph % (Auto) 9.8 L, [place] % (Auto) 11.4 H, Eos % (Auto) 2.0, Baso % (Auto) 0.2, Absolute Neuts (auto) 3.8, Absolute Lymphs (auto) 0.48 L, Nucleated RBC % 0 11/08/21 05:13: Sodium 131 L, Potassium 4.4, Chloride 97 L, Carbon Dioxide 28.0, Anion Gap 6, BUN 40 H, Creatinine 6.61 H, Estim Creat Clear Calc 7.25, Est GFR (MDRD) Af Amer 8 L, Est GFR (MDRD) Non-Af 7 L, BUN/Creatinine Ratio 6.1 L, Glucose 158 H, Calcium 7.8 L 11/08/21 06:40: POC Glucose 158 H 11/08/21 12:28: POC Glucose 110 Micro: Microbiology 11/06/21 10:15 Blood Culture (Wb) - Venous Blood Culture - Preliminary Staphylococcus aureus 11/07/21 12:30 Blood Culture (Wb) - Right Hand Blood Culture - Preliminary 11/05/21 14:01 Catheter Insertion Site Gram Stain - Final 11/05/21 14:01 Catheter Insertion Site Wound Culture - Preliminary No growth-Final to follow 11/05/21 14:01 Catheter Insertion Site Anaerobic Culture - Preliminary No growth in 48 hours. 11/04/21 11:14 Blood Culture (Wb) - Right Hand Blood Culture - Final Meth. resistant Staph. aureus 11/03/21 18:10 Blood Culture (Wb) - Central Line Blood Culture - Final Meth. resistant Staph. aureus 11/03/21 14:30 Blood Culture (Wb) - Right Hand Blood Culture - Final Meth. resistant Staph. aureus 10/30/21 03:40 Stool Ova and Parasites - Final 10/30/21 02:39 Blood Culture (Wb) - Femoral Artery Bacteria Detection (PCR) - Final Enterococcus faecalis 10/30/21 02:39 Blood Culture (Wb) - Femoral Artery Blood Culture - Final Enterococcus faecalis Meth. resistant Staph. aureus Staphylococcus epidermidis 10/30/21 03:32 Sputum, Tracheal Aspirate Gram Stain - Final 10/30/21 03:32 Sputum, Tracheal Aspirate Respiratory Culture - Final Gram positive gilberto Strep not Strep pneumo 10/30/21 02:55 Urine Catheter - Catheter Urine Culture - Final Culture exhibits no growth. 10/30/21 03:40 Stool Stool Lactoferrin - Final 10/30/21 03:40 Stool Enteric Bacteriology - Final 10/30/21 03:40 Stool C. difficile DNA Amplification - Final 10/30/21 04:30 Mucosa - Nasopharyngeal Influenza Types A,B Direct FA (MILI) - Final 10/30/21 03:30 Urine Catheter - Mckeon Legionella Antigen - Final 10/30/21 03:30 Urine Catheter - Mckeon Streptococcus pneumoniae Antigen (M - Final 10/30/21 04:11 Nasal Secretion SARS-CoV-2 Antigen (Rapid) - Final Physical Exam Const alert, oriented x3 and no apparent distress General Appearance: cooperative, well kempt and well developed Orientation / Consciousness: awake, oriented to person, oriented to place and oriented to time Exam Limitations: no limitations Nutritional Appearance: morbidly obese HEENT normocephalic, head/scalp atraumatic and moist oral mucous membranes Eyes PERRL, EOMs intact bilaterally and conjunctivae normal Neck nuchal rigidity, no lymphadenopathy, supple, no JVD and thyroid normal General: trachea midline Resp Resp Narrative: mildly diminished breath sounds bibasally, no wheezes or crackles. On 2L of oxygen by nasal canula Cardio regular rate, regular rhythm, S1 normal heart sound, S2 normal heart sound, no murmurs, no rub and no gallops GI normal to inspection, nondistended, normoactive bowel sounds, soft to palpation, non-tender, non-distended and hepatosplenomegaly Extremity normal to inspection, full ROM and no clubbing, cyanosis or edema Peripheral Pulses: Yes pulses 2+ throughout Skin no rashes or lesions noted and no wounds General Skin Exam: no breakdown Neuro oriented x3, CN's II-XII intact bilaterally, moves all extremities, no focal mo tor deficits and no sensory deficits noted Sensorium / Orientation: awake and alert Speech: speech normal Psych Psych Narrative: flat affect Assessment & Plan Assessment/Plan (1) Acute kidney injury: (2) Gross hematuria: (3) Atrial fibrillation: QUALIFIERS: Atrial fibrillation type: unspecified Qualified Code(s): I48.91 - Unspecified atrial fibrillation (4) Bilateral pneumonia: QUALIFIERS: Pneumonia type: due to unspecified organism Lung location: unspecified part of lung Qualified Code(s): J18.9 - Pneumonia, unspe cified organism PLAN: #acute on chronic hypoxic respiratory failure due to Bilateral pneumonia * Sputum cultures grew alphahemolytic strep. * Pulmonology on board. * on IV vancomycin * remains on 2L of oxygen. Titrate oxygen to maintain sats >90% #MRSA bacteremia * Blood PCR grew Enterococcus faecalis as well as MRSA. * ID on board. Had 2D echo which showed EF of 40 to 45% with evidence of diastolic dysfunction and akinetic apex as well as septal hypokinesis. * repeat blood cultures still growing mrsa * femoral line and dialysis catheter removed. * On IV vancomycin * had BRITTA which showed no evidence of endocarditis * CT of the thoracic spine done due to complaints of back pain shwoed bilateral pneumonia and bilateral pleural pleural effusions with a stable T11 comp ression deformity * Blood cultures repeated. Permacath cannot be reinserted until her blood cultures have cleared. For dialysis catheter insertion on Wednesday #ESRD * dialysis catheter removed. * nephrology on board * now on dialysis holiday as dialysis catheter has been removed. For re insertion of dialysis catheter on Wednesday11/09/2021 * #Hyperkalemia:resolved with dialysis #Hyponatremia: chronic. Present since admission. Na is 131 today #Acute hematuria * Patient was on Eliquis which has been discontinued. CT of the abdomen and pelvis ordered by urology showed a 5.7 cm x 6 cm mass in the inferior pole of the left kidney which could be a mass versus hematoma. I discussed this with Dr. Denice LACY today who stated that patient will need to follow-up at a tertiary facility with this could be evaluated further. * Hematuria is improving. * repeat CT with contrast showed hyperdense abnormality with abnormal contour along the posterior margin of the right kidney measuring 7.5 x 4.6 cm with an additional rounded heterogeneous abnormality in the upper pole of the right kidney measuring up to 5 cm and findings could represent underlying malignancy possibly complicated by hemorrhage with capsular hematoma. * per urology, no plans for intervention in regards to possible malignancy during this admission. If there are still concerns with bleeding into the right kidney, she may require referral to tertiary facility for intervention with IR. * Hb today is 7.7 #Ischemic cardiomyopathy: EF known to be 40 to 45%. On aspirin and Plavix. #Type 2 diabetes mellitus: On Lantus 30 units nightly. Insulin sliding scale. Accu-Cheks AC at bedtime. #Hypothyroidism: On Synthroid #Hypertension: On metoprolol #Non-STEMI: Thought to be type II non-STEMI. Cardiology on board. Cardiology does not plan on any further work-up now. #Acute on chronic anemia * likely due to hematuria. Required blood transfusion during this admission * Hb today: 7.7 * await urology input * transfuse if Hb <7 * #SUper morbid obesity: BMI is 53.8. complicates acute care, expected recovery and prognosis. DVT prophylaxis: SCDs. No anticoagulants o/a of hematuria * Charges/Coding Visit Charges Inpatient E&M: 48383 Subs Hosp L2
[2021-11-08 17:16] LABS: Bedside Glucose 149 mg/dL (70-110)
[2021-11-08] MEDS: Levothyroxine 125 MCG Tablet PO (21:03)
[2021-11-08] MEDS: Metoprolol Tartrate 50 MG Tablet PO (21:03)
[2021-11-08] MEDS: Pravastatin 80 MG Tablet PO (21:03)
[2021-11-08 22:11] LABS: Bedside Glucose 159 mg/dL (70-110)
[2021-11-09] VITALS (12 sets, daily range): BP systolic 102–122; BP diastolic 33–90; PULSE 58–66; RESP 14–18; TEMP 36.4–36.9; O2SAT 93–100
[2021-11-09] MEDS: oxyCODONE 5 MG Tablet PO ×3 (04:18→17:19)
[2021-11-09 06:50] LABS: Bedside Glucose 136 mg/dL (70-110)
[2021-11-09 07:19] LABS: Absolute Lymphocyte Count 0.65 X10^3/uL (0.83-4.51); Absolute Neutrophil Count 3.8 X10^3/uL (2.0-7.7); Basophil# 0.02 X10^3/uL; Basophil% 0.4 % (0-1); Eosinophil# 0.12 X10^3/uL; Eosinophils% 2.3 % (0-5); Hematocrit 22.5 % (37-47); Hemoglobin 7.3 g/dL (12.0-15.0); Lymphocyte # 0.65 X10^3/ul (0.83-4.51); Lymphocyte % 12.6 % (19-41); Mean Corp Hgb Conc 32.4 g/dL (32-36); Mean Corpuscular Hgb 28.4 pg (27.0-32.0); Mean Corpuscular Volume 87.5 fL (81-99); Mean Platelet Vol. 9.4 fl (6.2-12.0); Monocyte# 0.58 X10^3/uL; Monocyte% 11.2 % (0-10); NRBC Flagged by Analyzer 0 % (0-5); Neutrophil # 3.75 X10^3/uL (2.7-7.7); Neutrophil % 72.7 % (47-70); Platelet Count 215 K/mm3 (150-450); RBC Distribution Width SD 44.5 fl (35.1-43.9); Red Blood Count 2.57 M/mm3 (4.2-5.4); White Blood Count 5.2 K/mm3 (4.4-11.0)
[2021-11-09 07:48] LABS: Anion Gap 9 (5-15); BUN 47 mg/dL (7-18); Calcium,Total 7.3 mg/dL (8.5-10.1); Chloride 99 mmol/L (98-107); Creatinine, Serum 7.83 mg/dL (0.55-1.02); EST Glomerular Filtration Rate 6 mL/min (>60); Est Glom Filt Rate - Afr Amer 7 mL/min (>60); Estimated Creatinine Clearance 6.12 ml/min; Glucose 131 mg/dL (74-106); Potassium 4.5 mmol/L (3.5-5.1); Sodium Level 131 mmol/L (136-145)
[2021-11-09] MEDS: Acetaminophen 650 MG/20 ML UDC PO (08:43)
[2021-11-09] MEDS: Clopidogrel Bisulfate 75 MG Tablet PO (08:43)
[2021-11-09] MEDS: Metoprolol Tartrate 50 MG Tablet PO (08:43)
[2021-11-09] MEDS: busPIRone 5 MG Tablet PO ×2 (08:43→22:15)
[2021-11-09] MEDS: Nystatin Powder 15gm Bottle 1 APPLIC TOPICAL ×2 (08:44→22:14)
[2021-11-09] MEDS: Amiodarone 200 MG Tablet PO (08:44)
[2021-11-09] MEDS: Aspirin 81 MG TAB.CHEW PO (08:44)
[2021-11-09 11:41] LABS: Bedside Glucose 139 mg/dL (70-110)
--- NOTE | 2021-11-09 12:25 | PN.RENAL_ITS ---
Subjective Subjective Following for dialysis dependent ALEXY. The patient has no new complaints. She denies chest pain or shortness of breath at rest. Unfortunately, surveillance blood culture from 11/08/2021 is still positive for gram-positive cocci. Objective Data Objective Data Vital Signs: Vital Signs Temp Pulse Resp BP Pulse Ox 98.2 F 65 16 110/57 L 100 11/09/21 08:35 11/09/21 08:43 11/09/21 08:35 11/09/21 08:43 11/09/21 08:35 Oxygen Flow Rate (L/min) 3 Oxygen Delivery Method Nasal Cannula Weight: 149 kg Body Mass Index (BMI) 46.7 Intake & Output: Intake and Output for Last 24 Hours 11/07/21 11/08/21 11/09/21 23:59 23:59 23:59 Intake Total 240 / 435 445 / 445 100 / 100 Output Total 3060 / 3160 140 / 145 15 / 15 Balance -2820 / -2725 305 / 300 85 / 85 Lab / Micro Data Result Diagrams: 11/09/21 06:46 11/09/21 06:46 Labs: Laboratory Results - last 24 hr 11/08/21 12:28: POC Glucose 110 11/08/21 17:05: POC Glucose 149 H 11/08/21 21:08: POC Glucose 159 H 11/09/21 06:38: POC Glucose 136 H 11/09/21 06:46: WBC 5.2, RBC 2.57 L, Hgb 7.3 L, Hct 22.5 L, MCV 87.5, MCH 28.4, MCHC 32.4 D, RDW Std Deviation 44.5 H, RDW Coeff of Loyda 14.0, Plt Count 215, MPV 9.4, Immature Gran % (Auto) 0.800, Neut % (Auto) 72.7 H, Lymph % (Auto) 12.6 L, [place] % (Auto) 11.2 H, Eos % (Auto) 2.3, Baso % (Auto) 0.4, Absolute Neuts (auto) 3.8, Absolute Lymphs (auto) 0.65 L, Nucleated RBC % 0 11/09/21 06:46: Sodium 131 L, Potassium 4.5, Chloride 99, Carbon Dioxide 23.0, Anion Gap 9, BUN 47 H, Creatinine 7.83 H*, Estim Creat Clear Calc 6.12, Est GFR (MDRD) Af Amer 7 L, Est GFR (MDRD) Non-Af 6 L, BUN/Creatinine Ratio 6.0 L, Glucose 131 H, Calcium 7.3 L 11/09/21 11:08: POC Glucose 139 H Micro: Microbiology 11/07/21 12:30 Blood Culture (Wb) - Right Hand Blood Culture - Preliminary Staphylococcus species 11/08/21 08:36 Blood Culture (Wb) - Anticubital Right Blood Culture - Preliminary 11/05/21 14:01 Catheter Insertion Site Gram Stain - Final 11/05/21 14:01 Catheter Insertion Site Wound Culture - Final No growth aerobically. 11/05/21 14:01 Catheter Insertion Site Anaerobic Culture - Preliminary No growth in 48 hours. 11/06/21 10:15 Blood Culture (Wb) - Venous Blood Culture - Final Meth. resistant Staph. aureus 11/04/21 11:14 Blood Culture (Wb) - Right Hand Blood Culture - Final Meth. resistant Staph. aureus 11/03/21 18:10 Blood Culture (Wb) - Central Line Blood Culture - Final Meth. resistant Staph. aureus 11/03/21 14:30 Blood Culture (Wb) - Right Hand Blood Culture - Final Meth. resistant Staph. aureus 10/30/21 03:40 Stool Ova and Parasites - Final 10/30/21 02:39 Blood Culture (Wb) - Femoral Artery Bacteria Detection (PCR) - Final Enterococcus faecalis 10/30/21 02:39 Blood Culture (Wb) - Femoral Artery Blood Culture - Final Enterococcus faecalis Meth. resistant Staph. aureus Staphylococcus epidermidis 10/30/21 03:32 Sputum, Tracheal Aspirate Gram Stain - Final 10/30/21 03:32 Sputum, Tracheal Aspirate Respiratory Culture - Final Gram positive gilberto Strep not Strep pneumo 10/30/21 02:55 Urine Catheter - Catheter Urine Culture - Final Culture exhibits no growth. 10/30/21 03:40 Stool Stool Lactoferrin - Final 10/30/21 03:40 Stool Enteric Bacteriology - Final 10/30/21 03:40 Stool C. difficile DNA Amplification - Final 10/30/21 04:30 Mucosa - Nasopharyngeal Influenza Types A,B Direct FA (MILI) - Final 10/30/21 03:30 Urine Catheter - Mckeon Legionella Antigen - Final 10/30/21 03:30 Urine Catheter - Mckeon Streptococcus pneumoniae Antigen (M - Final 10/30/21 04:11 Nasal Secretion SARS-CoV-2 Antigen (Rapid) - Final Physical Exam Narrative General: No apparent distress HEENT: Normocephalic, atraumatic. Mucous membrane moist Heart: Normal S1, S2. No rubs or murmurs Lungs: Clear to auscultation anteriorly Abdomen: Obese, normal bowel sound, soft, nontender Extremity: No clubbing, cyanosis, or edema No pallor icterus Assessment & Plan Assessment/Plan (1) Acute kidney injury: PLAN: -The patient was initiated on dialysis when she was admitted to hospital in [place] recently (in September 2021, less than 3 months ago), so she is still considered ALEXY. -ALEXY was thought to be secondary to ischemic ATN related to sepsis due to pyelonephritis. -However, there is no signs of recovery from ALEXY. The patient does have a underlying chronic kidney disease stage IV. -If no recovery 3 months after start of HD, she will be considered ESRD. -Will continue MWF HD schedule. -No need for HD today. -HD on 11/10/21 after new line placement. -New dialysis line will need to be a temporary catheter because the patient has not cleared blood culture yet. -I will notify Dr. Arambula. (2) Chronic kidney disease, stage 4 (severe): PLAN: -Per previous notes, the patient has stage IV chronic kidney disease prior to her admission to the hospital in [place]. -Last available serum creatinine that I can see on record was from November 2020. At that time, her serum creatinine was 1.55 mg/dL, estimated GFR 34 mL/min putting her in stage IIIb CKD. -Renal dysfunction may have deteriorated in the past year to stage IV CKD. -CKD is likely due to diabetic kidney disease. (3) Hyperkalemia: PLAN: -Resolved. -Continue to monitor K. (4) Bacteremia: PLAN: -Patient has Enterococcus and MRSA bacteremia. -Central lines (including dialysis catheter) have been removed. -Antimicrobial as per hospital medicine and ID services. -To get new HD line on 11/10/21. We will have to be a temporary line since blood culture has not yet cleared of bacteremia. Blood culture from 11/08/2021 was still positive for gram-positive cocci. I will discuss with surgery.
[2021-11-09 12:47] LABS: Vancomycin, Random Level 17.3 ug/mL (0.0-15.0)
--- NOTE | 2021-11-09 13:39 | PCM.PN.BLA ---
Progress Note We will plan to place a temporary dialysis catheter on Wednesday as patient's blood cultures were still positive. Will cancel the OR for tunnelled catheter for now.
--- NOTE | 2021-11-09 15:04 | PN.HOSP_ITS ---
Subjective Subjective Patient seen and examined. She was lying in bed. He had no active complaints. She says she wanted to go home. Review of systems otherwise negative. Repeat blood cultures are still positive. Objective Data Objective Data Vital Signs: Vital Signs Temp Pulse Resp BP Pulse Ox 97.8 F 58 L 18 106/38 L 98 11/09/21 14:30 11/09/21 14:30 11/09/21 14:30 11/09/21 14:30 11/09/21 14:30 Oxygen Flow Rate (L/min) 3 Oxygen Delivery Method Nasal Cannula Weight: 328 lb 7.82 oz Body Mass Index (BMI) 46.7 Intake & Output: Intake and Output for Last 24 Hours 11/07/21 11/08/21 11/09/21 23:59 23:59 23:59 Intake Total 240 / 435 445 / 445 100 / 100 Output Total 3060 / 3160 140 / 145 15 / 15 Balance -2820 / -2725 305 / 300 85 / 85 Lab / Micro Data Result Diagrams: 11/09/21 06:46 11/09/21 06:46 Labs: Laboratory Results - last 24 hr 11/08/21 17:05: POC Glucose 149 H 11/08/21 21:08: POC Glucose 159 H 11/09/21 06:38: POC Glucose 136 H 11/09/21 06:46: WBC 5.2, RBC 2.57 L, Hgb 7.3 L, Hct 22.5 L, MCV 87.5, MCH 28.4, MCHC 32.4 D, RDW Std Deviation 44.5 H, RDW Coeff of Loyda 14.0, Plt Count 215, MPV 9.4, Immature Gran % (Auto) 0.800, Neut % (Auto) 72.7 H, Lymph % (Auto) 12.6 L, [place] % (Auto) 11.2 H, Eos % (Auto) 2.3, Baso % (Auto) 0.4, Absolute Neuts (auto) 3.8, Absolute Lymphs (auto) 0.65 L, Nucleated RBC % 0 11/09/21 06:46: Sodium 131 L, Potassium 4.5, Chloride 99, Carbon Dioxide 23.0, Anion Gap 9, BUN 47 H, Creatinine 7.83 H*, Estim Creat Clear Calc 6.12, Est GFR (MDRD) Af Amer 7 L, Est GFR (MDRD) Non-Af 6 L, BUN/Creatinine Ratio 6.0 L, Glucose 131 H, Calcium 7.3 L 11/09/21 11:08: POC Glucose 139 H 11/09/21 11:57: Random Vancomycin 17.3 H Micro: Microbiology 11/07/21 12:30 Blood Culture (Wb) - Right Hand Blood Culture - Preliminary Staphylococcus species 11/08/21 08:36 Blood Culture (Wb) - Anticubital Right Blood Culture - Preliminary 11/05/21 14:01 Catheter Insertion Site Gram Stain - Final 11/05/21 14:01 Catheter Insertion Site Wound Culture - Final No growth aerobically. 11/05/21 14:01 Catheter Insertion Site Anaerobic Culture - Preliminary No growth in 48 hours. 11/06/21 10:15 Blood Culture (Wb) - Venous Blood Culture - Final Meth. resistant Staph. aureus 11/04/21 11:14 Blood Culture (Wb) - Right Hand Blood Culture - Final Meth. resistant Staph. aureus 11/03/21 18:10 Blood Culture (Wb) - Central Line Blood Culture - Final Meth. resistant Staph. aureus 11/03/21 14:30 Blood Culture (Wb) - Right Hand Blood Culture - Final Meth. resistant Staph. aureus 10/30/21 03:40 Stool Ova and Parasites - Final 10/30/21 02:39 Blood Culture (Wb) - Femoral Artery Bacteria Detection (PCR) - Final Enterococcus faecalis 10/30/21 02:39 Blood Culture (Wb) - Femoral Artery Blood Culture - Final Enterococcus faecalis Meth. resistant Staph. aureus Staphylococcus epidermidis 10/30/21 03:32 Sputum, Tracheal Aspirate Gram Stain - Final 10/30/21 03:32 Sputum, Tracheal Aspirate Respiratory Culture - Final Gram positive gilberto Strep not Strep pneumo 10/30/21 02:55 Urine Catheter - Catheter Urine Culture - Final Culture exhibits no growth. 10/30/21 03:40 Stool Stool Lactoferrin - Final 10/30/21 03:40 Stool Enteric Bacteriology - Final 10/30/21 03:40 Stool C. difficile DNA Amplification - Final 10/30/21 04:30 Mucosa - Nasopharyngeal Influenza Types A,B Direct FA (MILI) - Final 10/30/21 03:30 Urine Catheter - Mckeon Legionella Antigen - Final 10/30/21 03:30 Urine Catheter - Mckeon Streptococcus pneumoniae Antigen (M - Final 10/30/21 04:11 Nasal Secretion SARS-CoV-2 Antigen (Rapid) - Final Physical Exam Const alert, oriented x3 and no apparent distress General Appearance: cooperative, well kempt and well developed Orientation / Consciousness: awake, oriented to person, oriented to place and oriented to time Exam Limitations: no limitations Nutritional Appearance: morbidly obese HEENT normocephalic, head/scalp atraumatic and moist oral mucous membranes Head and Scalp: normocephalic Eyes PERRL, EOMs intact bilaterally and conjunctivae normal Neck nuchal rigidity, no lymphadenopathy, supple, no JVD and thyroid normal General: trachea midline Resp normal respiratory effort, no retractions, no use of accessory muscles and clear to auscultation bilaterally Resp Narrative: mildly diminished breath sounds bibasally, no wheezes or crackles. On 3L of oxygen by nasal canula Auscultation: Negative for rales, rhonchi or wheezes Cardio regular rate, regular rhythm, S1 normal heart sound, S2 normal heart sound, no murmurs, no rub and no gallops GI normal to inspection, nondistended, normoactive bowel sounds, soft to palpation, non-tender, non-distended and hepatosplenomegaly Extremity normal to inspection, full ROM and no clubbing, cyanosis or edema Peripheral Pulses: Yes pulses 2+ throughout Skin no rashes or lesions noted and no wounds General Skin Exam: no breakdown Neuro oriented x3, CN's II-XII intact bilaterally, moves all extremities, no focal motor deficits and no sensory deficits noted Sensorium / Orientation: awake and alert Speech: speech normal Psych Psych Narrative: flat affect Assessment & Plan Assessment/Plan (1) Acute kidney injury: (2) Gross hematuria: (3) Atrial fibrillation: QUALIFIERS: Atrial fibrillation type: unspecified Qualified Code(s): I48.91 - Unspecified atrial fibrillation (4) Bilateral pneumonia: QUALIFIERS: Pneumonia type: due to unspecified organism Lung location: unspecified part of lung Qualified Code(s): J18.9 - Pneumonia, unspecified organism PLAN: #acute on chronic hypoxic respiratory failure due to Bilateral pneumonia * Sputum cultures grew alphahemolytic strep. * Pulmonology on board. * on IV vancomycin * remains on 2L of oxygen. Titrate oxygen to maintain sats >90% #MRSA bacteremia * Blood PCR grew Enterococcus faecalis as well as MRSA. * ID on board. Had 2D echo which showed EF of 40 to 45% with evidence of diastolic dysfunction and akinetic apex as well as septal hypokinesis. * repeat blood cultures x 2 still growing mrsa * femoral line and dialysis catheter removed. * On IV vancomycin * had BRITTA which showed no evidence of endocarditis * CT of the thoracic spine done due to complaints of back pain shwoed bilateral pneumonia and bilateral pleural pleural effusions with a stable T11 compression deformity * Blood cultures repeated. Permacath cannot be reinserted until her blood cultures have cleared. * since her repeat blood cultures are still positive, will have temporary dialysis catheter inserted tomorrow, as she cannot have tunneled catheter since cultures are still positive. #ESRD * dialysis catheter removed. * nephrology on board * now on dialysis holiday as dialysis catheter has been removed. For insertion of temporary dialysis catheter on Wednesday11/09/2021 * CR is up to 7.83 today. * #Hyperkalemia:resolved with dialysis #Hyponatremia: chronic. Present since admission. Na is 131 today #Acute hematuria * Patient was on Eliquis which has been discontinued. CT of the abdomen and pelvis ordered by urology showed a 5.7 cm x 6 cm mass in the inferior pole of the left kidney which could be a mass versus hematoma. I discussed this with Dr. Grant who stated that patient will need to follow-up at a tertiary [facility] hospitalty with this could be evaluated further. * Hematuria is improving. * repeat CT with contrast showed hyperdense abnormality with abnormal contour along the posterior margin of the right kidney measuring 7.5 x 4.6 cm with an additional rounded heterogeneous abnormality in the upper pole of the right kidney measuring up to 5 cm and findings could represent underlying malignancy possibly complicated by hemorrhage with capsular hematoma. * per urology, no plans for intervention in regards to possible malignancy during this admission. If there are still concerns with bleeding into the right kidney, she may require referral to tertiary facility for intervention with IR. * Hb today is 7.3 #Ischemic cardiomyopathy: EF known to be 40 to 45%. On aspirin and Plavix. #Type 2 diabetes mellitus: On Lantus 30 units nightly. Insulin sliding scale. Accu-Cheks AC at bedtime. #Hypothyroidism: On Synthroid #Hypertension: On metoprolol #Non-STEMI: Thought to be type II non-STEMI. Cardiology on board. Cardiology does not plan on any further work-up now. #Acute on chronic anemia * likely due to hematuria. Required blood transfusion during this admission * Hb today: 7.3 * transfuse if Hb <7 * #SUper morbid obesity: BMI is 53.8. complicates acute care, expected recovery and prognosis. DVT prophylaxis: SCDs. No anticoagulants o/a of hematuria * Charges/Coding Visit Charges Inpatient E&M: 26506 Subs Hosp L2
[2021-11-09] MEDS: Vancomycin IV 500 MG/100 ML BAG 100 MG IV (16:51)
[2021-11-09 17:16] LABS: Bedside Glucose 112 mg/dL (70-110)
[2021-11-09] MEDS: Levothyroxine 125 MCG Tablet PO (22:15)
[2021-11-09] MEDS: Pravastatin 80 MG Tablet PO (22:15)
[2021-11-09 22:31] LABS: Bedside Glucose 148 mg/dL (70-110)
[2021-11-10] VITALS (13 sets, daily range): BP systolic 105–164; BP diastolic 38–66; PULSE 65–95; RESP 14–20; TEMP 3–37.6; O2SAT 92–99; BMI 59.3
[2021-11-10] MEDS: Insulin Lispro 100 UNIT/ML INSULN.PEN SC (06:38)
[2021-11-10 06:51] LABS: Bedside Glucose 180 mg/dL (70-110)
[2021-11-10 06:51] LABS: Vancomycin, Random Level 20.7 ug/mL (0.0-15.0)
[2021-11-10 07:05] LABS: Absolute Lymphocyte Count 0.31 X10^3/uL (0.83-4.51); Absolute Neutrophil Count 5.2 X10^3/uL (2.0-7.7); Basophil# 0.01 X10^3/uL; Basophil% 0.2 % (0-1); Hematocrit 24.6 % (37-47); Hemoglobin 7.9 g/dL (12.0-15.0); Lymphocyte # 0.31 X10^3/ul (0.83-4.51); Lymphocyte % 5.3 % (19-41); Mean Corp Hgb Conc 32.1 g/dL (32-36); Mean Corpuscular Hgb 28.1 pg (27.0-32.0); Mean Corpuscular Volume 87.5 fL (81-99); Monocyte# 0.23 X10^3/uL; NRBC Flagged by Analyzer 0 % (0-5); Neutrophil # 5.23 X10^3/uL (2.7-7.7); POSITIVE DIFFERENTIAL YES; Platelet Count 248 K/mm3 (150-450); RBC Distribution Width CV 13.9 % (11.6-14.6); RBC Distribution Width SD 44.2 fl (35.1-43.9); Red Blood Count 2.81 M/mm3 (4.2-5.4); White Blood Count 5.8 K/mm3 (4.4-11.0)
[2021-11-10 07:06] LABS: Anion Gap 11 (5-15); BUN 56 mg/dL (7-18); BUN/Creat Ratio 6.4 RATIO (10-20); Calcium,Total 7.8 mg/dL (8.5-10.1); Chloride 95 mmol/L (98-107); Creatinine, Serum 8.79 mg/dL (0.55-1.02); EST Glomerular Filtration Rate 5 mL/min (>60); Est Glom Filt Rate - Afr Amer 6 mL/min (>60); Estimated Creatinine Clearance 5.45 ml/min; Glucose 166 mg/dL (74-106); Potassium 5.9 mmol/L (3.5-5.1); Sodium Level 129 mmol/L (136-145)
[2021-11-10 07:12] LABS: Differential Indicated SCAN CRITERIA MET
[2021-11-10 07:23] LABS: Differential Comment SCANNED
[2021-11-10] MEDS: Nystatin Powder 15gm Bottle 1 APPLIC TOPICAL ×2 (08:25→21:12)
--- NOTE | 2021-11-10 09:35 | PN.SURG_ITS ---
Subjective Subjective Patient seen and examined during AM rounds. She is found resting flat on her back in her bed. She is less cooperative with questioning today, but denies any complaints. In conversations with her this morning, he states that she has experienced more confusion and has conveyed this during their conversations over the last couple of days. Objective Data Objective Data Vital Signs: Vital Signs Temp Pulse Resp BP Pulse Ox 98.2 F 69 18 117/41 L 92 11/10/21 08:18 11/10/21 08:18 11/10/21 08:18 11/10/21 08:18 11/10/21 08:18 Oxygen Flow Rate (L/min) 3 Oxygen Delivery Method Nasal Cannula Weight: 324 lb 4.8 oz Body Mass Index (BMI) 59.3 Intake & Output: Intake and Output for Last 24 Hours 11/08/21 11/09/21 11/10/21 23:59 23:59 23:59 Intake Total 445 / 445 200 / 200 Output Total 140 / 145 45 / 65 30 / 30 Balance 305 / 300 155 / 135 -30 / -30 Lab / Micro Data Result Diagrams: 11/10/21 06:16 11/10/21 06:05 Labs: Laboratory Results - last 24 hr 11/09/21 11:08: POC Glucose 139 H 11/09/21 11:57: Random Vancomycin 17.3 H 11/09/21 16:44: POC Glucose 112 H 11/09/21 22:18: POC Glucose 148 H 11/10/21 06:05: WBC Cancelled, Corrected WBC Cancelled, RBC Cancelled, Hgb Cancelled, Hct Cancelled, MCV Cancelled, MCH Cancelled, MCHC Cancelled, RDW Std Deviation Cancelled, RDW Coeff of Loyda Cancelled, Plt Count Cancelled, MPV Cancelled, Immature Gran % (Auto) Cancelled, Neut % (Auto) Cancelled, Lymph % (Auto) Cancelled, [place] % (Auto) Cancelled, Eos % (Auto) Cancelled, Baso % (Auto) Cancelled, Absolute Neuts (auto) Cancelled, Absolute Lymphs (auto) Cancelled, Total Counted Cancelled, Neutrophils % (Manual) Cancelled, Band Neutrophils % Cancelled, Lymphocytes % (Manual) Cancelled, Monocytes % (Manual) Cancelled, Eosinophils % (Manual) Cancelled, Basophils % (Manual) Cancelled, Metamyelocytes % Cancelled, Myelocytes % Cancelled, Promyelocytes % Cancelled, Blast Cells % Cancelled, Plasma Cell % (Manual) Cancelled, Other Cells % Cancelled, Nucleated RBC % Cancelled, Nucleated RBCs/100 WBC Cancelled, Differential Comment Cancelled, Diff Path Review Cancelled, Hypersegmented Neuts Cancelled, Atypical Lymphocytes Cancelled, Reactive Lymphocytes Cancelled, Smudge Cells Cancelled, Toxic Granulation Cancelled, Toxic Vacuolation Cancelled, Dohle Bodies Cancelled, Jimy Rods Cancelled, Platelet Estimate Cancelled, Plt Morphology Comment Cancelled, RBC Morphology Cancelled, Polychromasia Cancelled, Hypoch romasia Cancelled, Poikilocytosis Cancelled, Basophilic Stippling Cancelled, Anisocytosis Cancelled, Microcytosis Cancelled, Macrocytosis Cancelled, Spherocytes Cancelled, Sickle Cells Cancelled, Target Cells Cancelled, Tear Drop Cells Cancelled, Ovalocytes Cancelled, Stomatocytes Cancelled, Ruth-[place] Bodies Cancelled, [place] Cells Cancelled, Bite Cells Cancelled, Crenated Cell Cancelled, Acanthocytes (Spur) Cancelled, Rouleaux Cancelled, Schistocytes Cancelled 11/10/21 06:05: Sodium 129 L, Potassium 5.9 H, Chloride 95 L, Carbon Dioxide 23.0, Anion Gap 11, BUN 56 H, Creatinine 8.79 H*, Estim Creat Clear Calc 5.45, Est GFR (MDRD) Af Amer 6 L, Est GFR (MDRD) Non-Af 5 L, BUN/Creatinine Ratio 6.4 L, Glucose 166 H, Calcium 7.8 L 11/10/21 06:05: Random Vancomycin 20.7 H 11/10/21 06:16: WBC 5.8, RBC 2.81 L, Hgb 7.9 L, Hct 24.6 L, MCV 87.5, MCH 28.1, MCHC 32.1, RDW Std Deviation 44.2 H, RDW Coeff of Loyda 13.9, Plt Count 248, MPV 9.0, Immature Gran % (Auto) 0.500, Neut % (Auto) 90.0 H, Lymph % (Auto) 5.3 L, [place] % (Auto) 4.0, Eos % (Auto) 0.0, Baso % (Auto) 0.2, Absolute Neuts (auto) 5.2, Absolute Lymphs (auto) 0.31 L, Nucleated RBC % 0, Differential Comment SCANNED 11/10/21 06:37: POC Glucose 180 H Micro: Microbiology 11/05/21 14:01 Catheter Insertion Site Gram Stain - Final 11/05/21 14:01 Catheter Insertion Site Wound Culture - Final No growth aerobically. 11/05/21 14:01 Catheter Insertion Site Anaerobic Culture - Final No anaerobic bacteria isolated. 11/08/21 08:36 Blood Culture (Wb) - Anticubital Right Blood Culture - Preliminary Staphylococcus aureus 11/07/21 12:30 Blood Culture (Wb) - Right Hand Blood Culture - Preliminary Staphylococcus species 11/06/21 10:15 Blood Culture (Wb) - Venous Blood Culture - Final Meth. resistant Staph. aureus 11/04/21 11:14 Blood Culture (Wb) - Right Hand Blood Culture - Final Meth. resistant Staph. aureus 11/03/21 18:10 Blood Culture (Wb) - Central Line Blood Culture - Final Meth. resistant Staph. aureus 11/03/21 14:30 Blood Culture (Wb) - Right Hand Blood Culture - Final Meth. resistant Staph. aureus 10/30/21 03:40 Stool Ova and Parasites - Final 10/30/21 02:39 Blood Culture (Wb) - Femoral Artery Bacteria Detection (PCR) - Final Enterococcus faecalis 10/30/21 02:39 Blood Culture (Wb) - Femoral Artery Blood Culture - Final Enterococcus faecalis Meth. resistant Staph. aureus Staphylococcus epidermidis 10/30/21 03:32 Sputum, Tracheal Aspirate Gram Stain - Final 10/30/21 03:32 Sputum, Tracheal Aspirate Respiratory Culture - Final Gram positive gilberto Strep not Strep pneumo 10/30/21 02:55 Urine Catheter - Catheter Urine Culture - Final Culture exhibits no growth. 10/30/21 03:40 Stool Stool Lactoferrin - Final 10/30/21 03:40 Stool Enteric Bacteriology - Final 10/30/21 03:40 Stool C. difficile DNA Amplification - Final 10/30/21 04:30 Mucosa - Nasopharyngeal Influenza Types A,B Direct FA (MILI) - Final 10/30/21 03:30 Urine Catheter - Mckeon Legionella Antigen - Final 10/30/21 03:30 Urine Catheter - Mckeon Streptococcus pneumoniae Antigen (M - Final 10/30/21 04:11 Nasal Secretion SARS-CoV-2 Antigen (Rapid) - Final Physical Exam Const no apparent distress Constitutional Narrative: Patient occasionally loses focus with responses and has to be redirected to the question being asked of her Neck Neck Narrative: Wellness healing tunneled catheter tunneling insertion sites without surrounding erythema in the right chest and neck, respectively Narrative: No evidence of prior catheter insertion in the right groin. No signs of rash Assessment & Plan Assessment/Plan (1) Bacteremia: PLAN: Patient's blood cultures remain positive for staph aureus despite the line holiday and ongoing IV antibiotic therapy. (2) Acute kidney injury: PLAN: Patient requires dialysis today given her hyperkalemia. After conversations with nephrology, will plan for a temporary dialysis catheter given her persistent staph aureus bacteremia. This has been discussed with patient's as well. Would plan for a ultrasound-guided, bedside procedure later today. Charges/Coding Visit Charges Inpatient E&M: 21152 Subs Hosp L2
--- NOTE | 2021-11-10 09:50 | PN.RENAL_ITS ---
Documented by User: PEPPER Natarajan 11/10/21 09:56 Subjective Subjective Resting in bed, denies any complaints. No overnight events. Objective Data Objective Data Vital Signs: Vital Signs Temp Pulse Resp BP Pulse Ox 98.2 F 69 18 117/41 L 92 11/10/21 08:18 11/10/21 08:18 11/10/21 08:18 11/10/21 08:18 11/10/21 08:18 Oxygen Flow Rate (L/min) 3 Oxygen Delivery Method Nasal Cannula Weight: 147.1 kg Body Mass Index (BMI) 59.3 Intake & Output: Intake and Output for Last 24 Hours 11/08/21 11/09/21 11/10/21 23:59 23:59 23:59 Intake Total 445 / 445 200 / 200 Output Total 140 / 145 45 / 65 30 / 30 Balance 305 / 300 155 / 135 -30 / -30 Lab / Micro Data Result Diagrams: 11/11/21 05:44 11/11/21 05:44 Labs: Laboratory Results - last 24 hr 11/09/21 11:08: POC Glucose 139 H 11/09/21 11:57: Random Vancomycin 17.3 H 11/09/21 16:44: POC Glucose 112 H 11/09/21 22:18: POC Glucose 148 H 11/10/21 06:05: WBC Cancelled, Corrected WBC Cancelled, RBC Cancelled, Hgb Cancelled, Hct Cancelled, MCV Cancelled, MCH Cancelled, MCHC Cancelled, RDW Std Deviation Cancelled, RDW Coeff of Loyda Cancelled, Plt Count Cancelled, MPV Cancelled, Immature Gran % (Auto) Cancelled, Neut % (Auto) Cancelled, Lymph % (Auto) Cancelled, [place] % (Auto) Cancelled, Eos % (Auto) Cancelled, Baso % (Auto) Cancelled, Absolute Neuts (auto) Cancelled, Absolute Lymphs (auto) Cancelled, Total Counted Cancelled, Neutrophils % (Manual) Cancelled, Band Neutrophils % Cancelled, Lymphocytes % (Manual) Cancelled, Monocytes % (Manual) Cancelled, Eosinophils % (Manual) Cancelled, Basophils % (Manual) Cancelled, Metamyelocytes % Cancelled, Myelocytes % Cancelled, Promyelocytes % Cancelled, Blast Cells % Cancelled, Plasma Cell % (Manual) Cancelled, Other Cells % Cancelled, Nucleated RBC % Cancelled, Nucleated RBCs/100 WBC Cancelled, Differential Comment Cancelled, Diff Path Review Cancelled, Hypersegmented Neuts Cancelled, Atypical Lymphocytes Cancelled, Reactive Lymphocytes Cancelled, Smudge Cells Cancelled, Toxic Granulation Cancelled, Toxic Vacuolation Cancelled, Dohle Bodies Cancelled, Jimy Rods Cancelled, Platelet Estimate Cancelled, Plt Morphology Comment Cancelled, RBC Morphology Cancelled, Polychromasia Cancelled, Hypoch romasia Cancelled, Poikilocytosis Cancelled, Basophilic Stippling Cancelled, Anisocytosis Cancelled, Microcytosis Cancelled, Macrocytosis Cancelled, Spherocytes Cancelled, Sickle Cells Cancelled, Target Cells Cancelled, Tear Drop Cells Cancelled, Ovalocytes Cancelled, Stomatocytes Cancelled, [place] Bodies Cancelled, [place] Cells Cancelled, Bite Cells Cancelled, Crenated Cell Cancelled, Acanthocytes (Spur) Cancelled, Rouleaux Cancelled, Schistocytes Cancelled 11/10/21 06:05: Sodium 129 L, Potassium 5.9 H, Chloride 95 L, Carbon Dioxide 23.0, Anion Gap 11, BUN 56 H, Creatinine 8.79 H*, Estim Creat Clear Calc 5.45, Est GFR (MDRD) Af Amer 6 L, Est GFR (MDRD) Non-Af 5 L, BUN/Creatinine Ratio 6.4 L, Glucose 166 H, Calcium 7.8 L 11/10/21 06:05: Random Vancomycin 20.7 H 11/10/21 06:16: WBC 5.8, RBC 2.81 L, Hgb 7.9 L, Hct 24.6 L, MCV 87.5, MCH 28.1, MCHC 32.1, RDW Std Deviation 44.2 H, RDW Coeff of Loyda 13.9, Plt Count 248, MPV 9.0, Immature Gran % (Auto) 0.500, Neut % (Auto) 90.0 H, Lymph % (Auto) 5.3 L, [place] % (Auto) 4.0, Eos % (Auto) 0.0, Baso % (Auto) 0.2, Absolute Neuts (auto) 5.2, Absolute Lymphs (auto) 0.31 L, Nucleated RBC % 0, Differential Comment SCANNED 11/10/21 06:37: POC Glucose 180 H Micro: Microbiology 11/05/21 14:01 Catheter Insertion Site Gram Stain - Final 11/05/21 14:01 Catheter Insertion Site Wound Culture - Final No growth aerobically. 11/05/21 14:01 Catheter Insertion Site Anaerobic Culture - Final No anaerobic bacteria isolated. 11/08/21 08:36 Blood Culture (Wb) - Anticubital Right Blood Culture - Preliminary Staphylococcus aureus 11/07/21 12:30 Blood Culture (Wb) - Right Hand Blood Culture - Preliminary Staphylococcus species 11/06/21 10:15 Blood Culture (Wb) - Venous Blood Culture - Final Meth. resistant Staph. aureus 11/04/21 11:14 Blood Culture (Wb) - Right Hand Blood Culture - Final Meth. resistant Staph. aureus 11/03/21 18:10 Blood Culture (Wb) - Central Line Blood Culture - Final Meth. resistant Staph. aureus 11/03/21 14:30 Blood Culture (Wb) - Right Hand Blood Culture - Final Meth. resistant Staph. aureus 10/30/21 03:40 Stool Ova and Parasites - Final 10/30/21 02:39 Blood Culture (Wb) - Femoral Artery Bacteria Detection (PCR) - Final Enterococcus faecalis 10/30/21 02:39 Blood Culture (Wb) - Femoral Artery Blood Culture - Final Enterococcus faecalis Meth. resistant Staph. aureus Staphylococcus epidermidis 10/30/21 03:32 Sputum, Tracheal Aspirate Gram Stain - Final 10/30/21 03:32 Sputum, Tracheal Aspirate Respiratory Culture - Final Gram positive gilberto Strep not Strep pneumo 10/30/21 02:55 Urine Catheter - Catheter Urine Culture - Final Culture exhibits no growth. 10/30/21 03:40 Stool Stool Lactoferrin - Final 10/30/21 03:40 Stool Enteric Bacteriology - Final 10/30/21 03:40 Stool C. difficile DNA Amplification - Final 10/30/21 04:30 Mucosa - Nasopharyngeal Influenza Types A,B Direct FA (MILI) - Final 10/30/21 03:30 Urine Catheter - Mckeon Legionella Antigen - Final 10/30/21 03:30 Urine Catheter - Mckeon Streptococcus pneumoniae Antigen (M - Final 10/30/21 04:11 Nasal Secretion SARS-CoV-2 Antigen (Rapid) - Final Physical Exam Narrative General: No apparent distress HEENT: Normocephalic, atraumatic. Mucous membrane moist Heart: Normal S1, S2. No rubs or murmurs Lungs: faint rhonchi Abdomen: Obese, normal bowel sound, soft, nontender Extremity: No clubbing, cyanosis, or edema Assessment & Plan Assessment/Plan (1) Acute kidney injury: PLAN: -The patient was initiated on dialysis when she was admitted to hospital in [place] recently (in September 2021, less than 3 months ago), so she is still considered ALEXY. -ALEXY was thought to be secondary to ischemic ATN related to sepsis due to pyelonephritis. -However, there is no signs of recovery from ALEXY. The patient does have a underlying chronic kidney disease stage IV. -If no recovery 3 months after start of HD, she will be considered ESRD. -Will continue MWF HD schedule. -HD today, 3.5hrs, 2kbath, 2L UF after new line placement. (2) Chronic kidney disease, stage 4 (severe): PLAN: -Per previous notes, the patient has stage IV chronic kidney disease prior to her admission to the hospital in [place]. -Last available serum creatinine that I can see on record was from November 2020. At that time, her serum creatinine was 1.55 mg/dL, estimated GFR 34 mL/min putting her in stage IIIb CKD. -Renal dysfunction may have deteriorated in the past year to stage IV CKD. -CKD is likely due to diabetic kidney disease. (3) Hyperkalemia: PLAN: -K+ 5.9 today, should resolve with HD today, 2k bath. She is npo but once diet resumed recommend renal diet -Continue to monitor K. (4) Bacteremia: PLAN: -Patient has Enterococcus and MRSA bacteremia. -Central lines (including dialysis catheter) have been removed. -Antimicrobial as per hospital medicine and ID services. -To get new non-tunneled HD line on 11/10/21, temporary line since blood culture has not yet cleared of bacteremia. Blood culture from 11/08/2021 was still positive for staph aureus, probable MRSA. BC drawn 11/09 pending Documented by User: Dr. Marni Parnell MD 11/11/21 18:33 Objective Data Lab / Micro Data Result Diagrams: 11/11/21 05:44 11/11/21 05:44
--- NOTE | 2021-11-10 10:00 | CASEMGMT ---
SW faxed updates to [facility]. Pepper Freeman FINANCIAL COORDINATOR [employer]X DESIGN LEAD
--- NOTE | 2021-11-10 10:11 | CASEMGMT ---
Addendum entered by Lizette Espinosa 11/10/21 10:42: Per Cassy nephro [employer] INSUR[employer] SALES REPRESENTATIVE, Dr. Mauro would not be ok for pt to be discharged with temp cath. Cassy states she will reach out to ID regarding when tunnel cath can be placed. CM to follow. Sven BOJORQUEZ CM Original Note: Pt is now scheduled for temp cath not tunnel cath today d/t still positive blood cx's. Call to Jutsus at [facility] and he states pt can discharge with temp cath but it's not ideal. CM to follow with nephro regarding same. Sven BOJORQUEZ CM
--- NOTE | 2021-11-10 11:15 | PN.HOSP_ITS ---
Subjective Subjective No issues overnight, she is resting comfortably this morning. There are reports of periodic confusion during her stay Objective Data Objective Data Vital Signs: Vital Signs Temp Pulse Resp BP Pulse Ox 98.2 F 69 18 117/41 L 92 11/10/21 08:18 11/10/21 08:18 11/10/21 08:18 11/10/21 08:18 11/10/21 08:18 Oxygen Flow Rate (L/min) 3 Oxygen Delivery Method Nasal Cannula Weight: 324 lb 4.8 oz Body Mass Index (BMI) 59.3 Intake & Output: Intake and Output for Last 24 Hours 11/09/21 11/10/21 11/11/21 03:59 03:59 03:59 Intake Total 250 / 250 200 / 200 Output Total 45 / 45 60 / 60 10 / 10 Balance 205 / 205 140 / 140 -10 / -10 Lab / Micro Data Result Diagrams: 11/10/21 06:16 11/10/21 06:05 Labs: Laboratory Results - last 24 hr 11/09/21 11:08: POC Glucose 139 H 11/09/21 11:57: Random Vancomycin 17.3 H 11/09/21 16:44: POC Glucose 112 H 11/09/21 22:18: POC Glucose 148 H 11/10/21 06:05: WBC Cancelled, Corrected WBC Cancelled, RBC Cancelled, Hgb Cancelled, Hct Cancelled, MCV Cancelled, MCH Cancelled, MCHC Cancelled, RDW Std Deviation Cancelled, RDW Coeff of Loyda Cancelled, Plt Count Cancelled, MPV Cancelled, Immature Gran % (Auto) Cancelled, Neut % (Auto) Cancelled, Lymph % (Auto) Cancelled, [place] % (Auto) Cancelled, Eos % (Auto) Cancelled, Baso % (Auto) Cancelled, Absolute Neuts (auto) Cancelled, Absolute Lymphs (auto) Cancelled, Total Counted Cancelled, Neutrophils % (Manual) Cancelled, Band Neutrophils % Ca ncelled, Lymphocytes % (Manual) Cancelled, Monocytes % (Manual) Cancelled, Eosinophils % (Manual) Cancelled, Basophils % (Manual) Cancelled, Metamyelocytes % Cancelled, Myelocytes % Cancelled, Promyelocytes % Cancelled, Blast Cells % Cancelled, Plasma Cell % (Manual) Cancelled, Other Cells % Cancelled, Nucleated RBC % Cancelled, Nucleated RBCs/100 WBC Cancelled, Differential Comment Cancelled, Diff Path Review Cancelled, Hypersegmented Neuts Cancelled, Atypical Lymphocytes Cancelled, Reactive Lymphocytes Cancelled, Smudge Cells Cancelled, Toxic Granulation Cancelled, Toxic Vacuolation Cancelled, Dohle Bodies Cancelled, Jimy Rods Cancelled, Platelet Estimate Cancelled, Plt Morphology Comment Cancelled, RBC Morphology Cancelled, Polychromasia Cancelled, Hypochromasia Cancelled, Poikilocytosis Cancelled, Basophilic Stippling Cancelled, Anisocytosis Cancelled, Microcytosis Cancelled, Macrocytosis Cancelled, Spherocytes Cancelled, Sickle Cells Cancelled, Target Cells Cancelled, Tear Drop Cells Cancelled, Ovalocytes Cancelled, Stomatocytes Cancelled, Ruth-Avenel Bodies Cancelled, [place]brook Cells Cancelled, Bite Cells Cancelled, Crenated Cell Cancelled, Acanthocytes (Spur) Cancelled, Rouleaux Cancelled, Schistocytes Cancelled 11/10/21 06:05: Sodium 129 L, Potassium 5.9 H, Chloride 95 L, Carbon Dioxide 23.0, Anion Gap 11, BUN 56 H, Creatinine 8.79 H*, Estim Creat Clear Calc 5.45, Est GFR (MDRD) Af Amer 6 L, Est GFR (MDRD) Non-Af 5 L, BUN/Creatinine Ratio 6.4 L, Glucose 166 H, Calcium 7.8 L 11/10/21 06:05: Random Vancomycin 20.7 H 11/10/21 06:16: WBC 5.8, RBC 2.81 L, Hgb 7.9 L, Hct 24.6 L, MCV 87.5, MCH 28.1, MCHC 32.1, RDW Std Deviation 44.2 H, RDW Coeff of Loyda 13.9, Plt Count 248, MPV 9.0, Immature Gran % (Auto) 0.500, Neut % (Auto) 90.0 H, Lymph % (Auto) 5.3 L, [place] % (Auto) 4.0, Eos % (Auto) 0.0, Baso % (Auto) 0.2, Absolute Neuts (auto) 5.2, Absolute Lymphs (auto) 0.31 L, Nucleated RBC % 0, Differential Comment SCANNED 11/10/21 06:37: POC Glucose 180 H Micro: Microbiology 11/05/21 14:01 Catheter Insertion Site Gram Stain - Final 11/05/21 14:01 Catheter Insertion Site Wound Culture - Final No growth aerobically. 11/05/21 14:01 Catheter Insertion Site Anaerobic Culture - Final No anaerobic bacteria isolated. 11/08/21 08:36 Blood Culture (Wb) - Anticubital Right Blood Culture - Preliminary Staphylococcus aureus 11/07/21 12:30 Blood Culture (Wb) - Right Hand Blood Culture - Preliminary Staphylococcus species 11/06/21 10:15 Blood Culture (Wb) - Venous Blood Culture - Final Meth. resistant Staph. aureus 11/04/21 11:14 Blood Culture (Wb) - Right Hand Blood Culture - Final Meth. resistant Staph. aureus 11/03/21 18:10 Blood Culture (Wb) - Central Line Blood Culture - Final Meth. resistant Staph. aureus 11/03/21 14:30 Blood Culture (Wb) - Right Hand Blood Culture - Final Meth. resistant Staph. aureus 10/30/21 03:40 Stool Ova and Parasites - Final 10/30/21 02:39 Blood Culture (Wb) - Femoral Artery Bacteria Detection (PCR) - Final Enterococcus faecalis 10/30/21 02:39 Blood Culture (Wb) - Femoral Artery Blood Culture - Final Enterococcus faecalis Meth. resistant Staph. aureus Staphylococcus epidermidis 10/30/21 03:32 Sputum, Tracheal Aspirate Gram Stain - Final 10/30/21 03:32 Sputum, Tracheal Aspirate Respiratory Culture - Final Gram positive gilberto Strep not Strep pneumo 10/30/21 02:55 Urine Catheter - Catheter Urine Culture - Final Culture exhibits no growth. 10/30/21 03:40 Stool Stool Lactoferrin - Final 10/30/21 03:40 Stool Enteric Bacteriology - Final 10/30/21 03:40 Stool C. difficile DNA Amplification - Final 10/30/21 04:30 Mucosa - Nasopharyngeal Influenza Types A,B Direct FA (MILI) - Final 10/30/21 03:30 Urine Catheter - Mckeon Legionella Antigen - Final 10/30/21 03:30 Urine Catheter - Mckeon Streptococcus pneumoniae Antigen (M - Final 10/30/21 04:11 Nasal Secretion SARS-CoV-2 Antigen (Rapid) - Final Physical Exam Const alert, oriented x3 and no apparent distress General Appearance: cooperative Nutritional Appearance: morbidly obese HEENT normocephalic and moist oral mucous membranes Eyes PERRL, EOMs intact bilaterally and conjunctivae normal Neck supple and no JVD Resp normal respiratory effort, no retractions and no use of accessory muscles Auscultation: diminished lung sounds; Negative for crackles, rales, rhonchi or wheezes Cardio regular rate, regular rhythm, S1 normal heart sound, S2 normal heart sound and no murmurs GI soft to palpation, non-tender and non-distended; Negative for hepatosplenomegaly Extremity no clubbing, cyanosis or edema Skin no rashes or lesions noted Neuro no focal motor deficits and no sensory deficits noted Psych Mood & Affect: flat affect Assessment & Plan Assessment/Plan (1) Acute kidney injury: (2) Gross hematuria: (3) Atrial fibrillation: QUALIFIERS: Atrial fibrillation type: unspecified Qualified Code(s): I48.91 - Unspecified atrial fibrillation (4) Bilateral pneumonia: QUALIFIERS: Pneumonia type: due to unspecified organism Lung location: unspecified part of lung Qualified Code(s): J18.9 - Pneumonia, unspecified organism PLAN: #acute on chronic hypoxic respiratory failure due to Bilateral pneumonia * Sputum cultures grew alphahemolytic strep. * on IV vancomycin * remains on 2L of oxygen. Titrate oxygen to maintain sats >90% #MRSA bacteremia * Blood PCR grew Enterococcus faecalis as well as MRSA. * ID on board. Had 2D echo which showed EF of 40 to 45% with evidence of diastolic dysfunction and akinetic apex as well as septal hypokinesis. * repeat blood cultures x 2 still growing mrsa * femoral line and dialysis catheter removed. * On IV vancomycin * had BRITTA which showed no evidence of endocarditis * CT of the thoracic spine done due to complaints of back pain shwoed bilateral pneumonia and bilateral pleural pleural effusions with a stable T11 compression deformity * Blood cultures repeated. Permacath cannot be reinserted until her blood cultures have cleared. * since her repeat blood cultures are still positive, will have temporary dialysis catheter inserted today so she can resume dialysis #ALEXY on CKD 4 * dialysis catheter removed. * nephrology on board * now on dialysis holiday as dialysis catheter has been removed. For insertion of temporary dialysis catheter on Wednesday11/09/2021 * CR is up to 7.83 today. #Acute hematuria * Patient was on Eliquis which has been discontinued. CT of the abdomen and pelvis ordered by urology showed a 5.7 cm x 6 cm mass in the inferior pole of the left kidney which could be a mass versus hematoma. I discussed this with Dr. Grant who stated that patient will need to follow-up at a tertiary facility with this could be evaluated further. * Hematuria is improving. * repeat CT with contrast showed hyperdense abnormality with abnormal contour along the posterior margin of the right kidney measuring 7.5 x 4.6 cm with an additional rounded heterogeneous abnormality in the upper pole of the right kidney measuring up to 5 cm and findings could represent underlying malignancy possibly complicated by hemorrhage with capsular hematoma. * per urology, no plans for intervention in regards to possible malignancy during this admission. If there are still concerns with bleeding into the right kidney, she may require referral to tertiary facility for intervention with IR. * Continue to monitor hemoglobin. If we continue to have nonclearance of her blood cultures I would likely consider any type of hematoma in her kidney and is now an abscess and she would need to be transferred. #Ischemic cardiomyopathy: EF known to be 40 to 45%. On aspirin and Plavix. #Type 2 diabetes mellitus: On Lantus 30 units nightly. Insulin sliding scale. Accu-Cheks AC at bedtime. #Hypothyroidism: On Synthroid #Hypertension: On metoprolol #Non-STEMI: Thought to be type II non-STEMI. Cardiology on board. Cardiology does not plan on any further work-up now. #Acute on chronic anemia * likely due to hematuria. Required blood transfusion during this admission * Hb today: 7.3 * transfuse if Hb <7 #SUper morbid obesity: BMI is 53.8. complicates acute care, expected recovery and prognosis. DVT: SCDs Charges/Coding Visit Charges Inpatient E&M: 92283 Subs Hosp L2
[2021-11-10 11:16] LABS: Bedside Glucose 172 mg/dL (70-110)
--- NOTE | 2021-11-10 12:36 | PCM.PN.ID ---
ID ID: Route of nutrition/ use of supplements: [] Nutritional Intake: [] IV Site: [] Cho Catheter: [] Assessment & Plan Assessment/Plan (1) Chronic renal failure: (2) Gross hematuria: (3) Acute and chronic respiratory failure with hypercapnia: (4) Bacteremia: PLAN: MRSA, enterococcus, and CoNS bacteremia in 1 of 1 bcx, with permacath in place on admit as well as pacemaker. Reported recent MRSA uti, not clear if came from cho or from hematogenous spread. TTE here was poor quality study. On vanc, zosyn stopped. Permacath removed 11/05. BRITTA neg for vegetation on valve or pacemaker lead. Not clear why she has a polymicrobial bacteremia. CT abd/pelvis concern for renal cancer. Urology following. Pt with chronic back pain but has been worsening since admit. CT spine did not show osteo/discitis/epidural abscess. Repeat bcx still with staph, turning (+) within 24 hours. Cannot get permacath until bcx are cleared. Will repeat today. Temp HD line being placed. Will change vanc to dapto. If she cannot clear bcx, will need to consider aspiration of renal mass/hematoma or tagged wbc. Will follow, d/w Dr. Hernández. Pt getting line placed this AM, unable to physically see and examine.
--- NOTE | 2021-11-10 12:50 | NURSING ---
This RN as well as Merari Ziegler RN, assisted Dr Laureano in a bedside placement of temporary dialysis catheter with right groin access. Patient voiced understanding of procedure. Throughout procedure patient grew increasingly confused and agitated; moving around frequently, screaming, and becoming verbally abusive to the staff in the room. Many attempts were made by Dr Laureano, Merari, and myself to redirect and explain the importance of the procedure and the need to be still. Patient continued to resist, screaming, moving etc. Patient's was brought into the room in an attempt to calm patient down to be able to tolerate finishing procedure. Patient continued to resist but held still enough for Dr. Laureano to complete the procedure. Patient's voiced appreciation.
--- NOTE | 2021-11-10 13:20 | PCM.OP.PRO ---
Procedure Report Date of Procedure: 11/10/21 Procedure name: Insertion of temporary hemodialysis catheter (12 Swedish X 20 cm straight)ANIBAL Velasquez Procedure detail: After obtaining consent from patient's spouse patient was positioned in nearly flat. I then had a trust administrative assistant retract the patient's pannus and examined the right groin. It was difficult to clearly see the patient's vascular anatomy initially, but I was able to locate the femoral artery and confirmed pulsatile flow with color Doppler. Unfortunately, I was not able to see the same flow when I placed immediately over the vein. I did attempt the same process on the patient's left groin and found the vein to be much smaller on this side and also without flow. Therefore, I made the decision to proceed with placement on the right. The patient's right lower pannus was then sterilely prepped with chlorhexidine and an trust administrative assistant provided retraction with sterile gloves. The site was then sterilely draped in the vessels were again localized with ultrasound. The superficial tissues of the groin were then anesthetized with a local block using 25 mL Xylocaine. Under direct ultrasound guidance the vein was accessed with return of dark red blood. Using a Seldinger technique a guidewire was placed with some difficulty due to lack of patient cooperation. The guidewire tract was then opened at the skin with an 11 blade and serially dilated. At one point the patient began to flex at the hip as the smaller dilator was already inserted into the soft tissue. Initially the patient refused to cooperate and be redirected by either myself or nursing that was present, so we elected to bring the patient's loved one and in the room to try to redirect her. After much yelling, derogatory comments, and coaxing, the patient complied. Unfortunately, this lack of cooperation did result in greater blood loss than usual. Then the hemodialysis catheter was inserted into the vein. Both ports aspirated and flushed with ease. To maintain patency, 3 mL sterile saline were used to lock each port. The catheter was then sewn in using 2-0 nylon in three-point fixation. Insertion site was cleaned and a chlorhexidine dressing was placed about the catheter to maintain sterility. Complications: Greater than usual blood loss EBL: 75 mL
[2021-11-10 13:52] LABS: Pathologist Review Reviewed
[2021-11-10 16:35] LABS: Bedside Glucose 97 mg/dL (70-110)
[2021-11-10] MEDS: Heparin 10,000 UNITS/10 ML Vial 2800 UNITS IV (17:48)
--- NOTE | 2021-11-10 18:06 | DIALYSIS ---
HD x 3.5 hours complete. Ran on 2k bath. UF of 1500ml. Used temporary right femoral dialysis catheter. Lumens closed with heparin per fill volume. Caps placed. Dressing is intact. See tx sheet for more details. Report was given to RENO Jang.
[2021-11-10] MEDS: busPIRone 5 MG Tablet PO ×2 (18:51→21:11)
[2021-11-10] MEDS: Clopidogrel Bisulfate 75 MG Tablet PO (18:51)
[2021-11-10] MEDS: Aspirin 81 MG TAB.CHEW PO (18:52)
[2021-11-10] MEDS: Amiodarone 200 MG Tablet PO (18:52)
[2021-11-10] MEDS: 0.9% Saline Lock 10 ML Syringe IV ×3 (18:52→21:11)
[2021-11-10] MEDS: Metoprolol Tartrate 50 MG Tablet PO (21:10)
[2021-11-10] MEDS: oxyCODONE 5 MG Tablet PO (21:11)
[2021-11-10] MEDS: Acetaminophen 650 MG/20 ML UDC PO (21:11)
[2021-11-10] MEDS: Pravastatin 80 MG Tablet PO (21:11)
[2021-11-10] MEDS: MELATONIN 10 MG TABLET PO (21:11)
[2021-11-10] MEDS: Levothyroxine 125 MCG Tablet PO (21:15)
[2021-11-10 21:46] LABS: Bedside Glucose 91 mg/dL (70-110)
[2021-11-11] VITALS (11 sets, daily range): BP systolic 108–133; BP diastolic 28–53; PULSE 62–71; RESP 16–18; TEMP 36.6–37.2; O2SAT 97–100
[2021-11-11 06:13] LABS: Absolute Lymphocyte Count 0.65 X10^3/uL (0.83-4.51); Absolute Neutrophil Count 4.2 X10^3/uL (2.0-7.7); Basophil# 0.02 X10^3/uL; Basophil% 0.4 % (0-1); Eosinophil# 0.11 X10^3/uL; Hematocrit 22.2 % (37-47); Lymphocyte # 0.65 X10^3/ul (0.83-4.51); Lymphocyte % 11.5 % (19-41); Mean Corp Hgb Conc 31.5 g/dL (32-36); Mean Corpuscular Hgb 28.1 pg (27.0-32.0); Mean Corpuscular Volume 89.2 fL (81-99); Mean Platelet Vol. 9.3 fl (6.2-12.0); Monocyte# 0.61 X10^3/uL; Monocyte% 10.8 % (0-10); NRBC Flagged by Analyzer 0.5 % (0-5); Neutrophil # 4.22 X10^3/uL (2.7-7.7); Neutrophil % 74.9 % (47-70); Platelet Count 255 K/mm3 (150-450); RBC Distribution Width CV 14.1 % (11.6-14.6); RBC Distribution Width SD 45.8 fl (35.1-43.9); Red Blood Count 2.49 M/mm3 (4.2-5.4); White Blood Count 5.6 K/mm3 (4.4-11.0)
[2021-11-11] MEDS: Acetaminophen 650 MG/20 ML UDC PO ×2 (06:31→21:29)
[2021-11-11] MEDS: oxyCODONE 5 MG Tablet PO ×2 (06:36→16:00)
[2021-11-11 06:40] LABS: Bedside Glucose 87 mg/dL (70-110)
[2021-11-11 06:43] LABS: Anion Gap 5 (5-15); BUN 30 mg/dL (7-18); BUN/Creat Ratio 5.9 RATIO (10-20); Calcium,Total 7.4 mg/dL (8.5-10.1); Chloride 99 mmol/L (98-107); Creatinine, Serum 5.12 mg/dL (0.55-1.02); EST Glomerular Filtration Rate 9 mL/min (>60); Est Glom Filt Rate - Afr Amer 11 mL/min (>60); Estimated Creatinine Clearance 9.36 ml/min; Glucose 77 mg/dL (74-106); Potassium 4.1 mmol/L (3.5-5.1); Sodium Level 132 mmol/L (136-145)
--- NOTE | 2021-11-11 09:58 | PCM.PN.ID ---
Physical Exam Narrative Back pain stable. No fever. Const alert and no apparent distress General Appearance: cooperative Resp normal air movement and clear to auscultation bilaterally Cardio regular rate and regular rhythm GI soft to palpation, non-tender and non-distended Skin no rashes or lesions noted ID ID: Route of nutrition/ use of supplements: [] Nutritional Intake: [] IV Site: [] Cho Catheter: [] Assessment & Plan Assessment/Plan (1) Chronic renal failure: (2) Gross hematuria: (3) Acute and chronic respiratory failure with hypercapnia: (4) Bacteremia: PLAN: MRSA, enterococcus, and CoNS bacteremia in 1 of 1 bcx, with permacath in place on admit as well as pacemaker. Reported recent MRSA uti, not clear if came from cho or from hematogenous spread. TTE here was poor quality study. Initially on vanc/zosyn. Permacath removed 11/05. BRITTA neg for vegetation on valve or pacemaker lead. Not clear why she has a polymicrobial bacteremia. CT abd/pelvis concern for renal cancer. Urology following. Pt with chronic back pain. CT spine did not show osteo/discitis/epidural abscess. Repeat bcx still with staph, turning (+) within 24 hours. Cannot get permacath until bcx are cleared. Will repeat today. Temp HD line placed. 11/10 changed vanc to dapto. If she cannot clear bcx, will need to consider aspiration of renal mass/hematoma or tagged wbc scan. Will follow
--- NOTE | 2021-11-11 10:10 | PN.HOSP_ITS ---
Subjective Subjective Feels a little better today, denies any significant pain. She was not able to undergo dialysis yesterday hemoglobin is down to 7 she did have some bleeding during the procedure yesterday so we will continue to monitor. Objective Data Objective Data Vital Signs: Vital Signs Temp Pulse Resp BP Pulse Ox 98.2 F 70 18 127/46 H 97 11/11/21 09:15 11/11/21 09:15 11/11/21 09:15 11/11/21 09:15 11/11/21 09:15 Oxygen Flow Rate (L/min) 3 Oxygen Delivery Method Nasal Cannula Weight: 321 lb 10.471 oz Body Mass Index (BMI) 59.3 Intake & Output: Intake and Output for Last 24 Hours 11/10/21 11/11/21 11/12/21 03:59 03:59 03:59 Intake Total 200 / 200 68 / 68 0 / 0 Output Total 60 / 60 1575 / 1575 25 / 25 Balance 140 / 140 -1507 / -1507 -25 / -25 Lab / Micro Data Result Diagrams: 11/11/21 05:44 11/11/21 05:44 Labs: Laboratory Results - last 24 hr 11/08/21 05:13: Diff Path Review Reviewed 11/10/21 11:11: POC Glucose 172 H 11/10/21 16:32: POC Glucose 97 11/10/21 21:09: POC Glucose 91 11/11/21 05:44: WBC 5.6, RBC 2.49 L, Hgb 7.0 L, Hct 22.2 L, MCV 89.2, MCH 28.1, MCHC 31.5 L, RDW Std Deviation 45.8 H, RDW Coeff of Loyda 14.1, Plt Count 255, MPV 9.3, Immature Gran % (Auto) 0.400, Neut % (Auto) 74.9 H, Lymph % (Auto) 11.5 L, [place] % (Auto) 10.8 H, Eos % (Auto) 2.0, Baso % (Auto) 0.4, Absolute Neuts (auto) 4.2, Absolute Lymphs (auto) 0.65 L, Nucleated RBC % 0.5 11/11/21 05:44: Sodium 132 L, Potassium 4.1, Chloride 99, Carbon Dioxide 28.0, Anion Gap 5, BUN 30 H, Creatinine 5.12 H, Estim Creat Clear Calc 9.36, Est GFR (MDRD) Af Amer 11 L, Est GFR (MDRD) Non-Af 9 L, BUN/Creatinine Ratio 5.9 L, Glucose 77, Calcium 7.4 L 11/11/21 06:33: POC Glucose 87 Micro: Microbiology 11/08/21 08:36 Blood Culture (Wb) - Anticubital Right Blood Culture - Final Staphylococcus aureus 11/09/21 17:43 Blood Culture (Wb) - Right Hand Bacteria Detection (PCR) - Preliminary Staphylococcus aureus 11/09/21 17:43 Blood Culture (Wb) - Right Hand Blood Culture - Preliminary 11/05/21 14:01 Catheter Insertion Site Gram Stain - Final 11/05/21 14:01 Catheter Insertion Site Wound Culture - Final No growth aerobically. 11/05/21 14:01 Catheter Insertion Site Anaerobic Culture - Final No anaerobic bacteria isolated. 11/07/21 12:30 Blood Culture (Wb) - Right Hand Blood Culture - Preliminary Staphylococcus species 11/06/21 10:15 Blood Culture (Wb) - Venous Blood Culture - Final Meth. resistant Staph. aureus 11/04/21 11:14 Blood Culture (Wb) - Right Hand Blood Culture - Final Meth. resistant Staph. aureus 11/03/21 18:10 Blood Culture (Wb) - Central Line Blood Culture - Final Meth. resistant Staph. aureus 11/03/21 14:30 Blood Culture (Wb) - Right Hand Blood Culture - Final Meth. resistant Staph. aureus 10/30/21 03:40 Stool Ova and Parasites - Final 10/30/21 02:39 Blood Culture (Wb) - Femoral Artery Bacteria Detection (PCR) - Final Enterococcus faecalis 10/30/21 02:39 Blood Culture (Wb) - Femoral Artery Blood Culture - Final Enterococcus faecalis Meth. resistant Staph. aureus Staphylococcus epidermidis 10/30/21 03:32 Sputum, Tracheal Aspirate Gram Stain - Final 10/30/21 03:32 Sputum, Tracheal Aspirate Respiratory Culture - Final Gram positive gilberto Strep not Strep pneumo 10/30/21 02:55 Urine Catheter - Catheter Urine Culture - Final Culture exhibits no growth. 10/30/21 03:40 Stool Stool Lactoferrin - Final 10/30/21 03:40 Stool Enteric Bacteriology - Final 10/30/21 03:40 Stool C. difficile DNA Amplification - Final 10/30/21 04:30 Mucosa - Nasopharyngeal Influenza Types A,B Direct FA (MILI) - Final 10/30/21 03:30 Urine Catheter - Mckeon Legionella Antigen - Final 10/30/21 03:30 Urine Catheter - Mckeon Streptococcus pneumoniae Antigen (M - Final 10/30/21 04:11 Nasal Secretion SARS-CoV-2 Antigen (Rapid) - Final Physical Exam Narrative Const alert, oriented x3 and no apparent distress General Appearance: cooperative Nutritional Appearance: morbidly obese HEENT normocephalic and moist oral mucous membranes Eyes PERRL, EOMs intact bilaterally and conjunctivae normal Neck supple and no JVD Resp normal respiratory effort, no retractions and no use of accessory muscles Auscultation: diminished lung sounds; Negative for crackles, rales, rhonchi or wheezes Cardio regular rate, regular rhythm, S1 normal heart sound, S2 normal heart sound and no murmurs GI soft to palpation, non-tender and non-distended; Negative for hepatosplenomegaly Extremity no clubbing, cyanosis or edema Temporary dialysis catheter right groin Skin no rashes or lesions noted Neuro no focal motor deficits and no sensory deficits noted Psych Mood & Affect: flat affect Assessment & Plan Assessment/Plan (1) Acute kidney injury: (2) Gross hematuria: (3) Atrial fibrillation: QUALIFIERS: Atrial fibrillation type: unspecified Qualified Code(s): I48.91 - Unspecified atrial fibrillation (4) Bilateral pneumonia: QUALIFIERS: Pneumonia type: due to unspecified organism Lung location: unspecified part of lung Qualified Code(s): J18.9 - Pneumonia, unspecified organism PLAN: #acute on chronic hypoxic respiratory failure due to Bilateral pneumonia * Sputum cultures grew alphahemolytic strep. * Transition to daptomycin by infectious disease * remains on 3L of oxygen, which is her baseline #MRSA bacteremia * Blood PCR grew Enterococcus faecalis as well as MRSA. * ID on board. Had 2D echo which showed EF of 40 to 45% with evidence of diastolic dysfunction and akinetic apex as well as septal hypokinesis. * repeat blood cultures still growing mrsa * Temporary dialysis catheter was placed in the right groin on 11/10/2021 * On IV daptomycin every 48 hours * had BRITTA which showed no evidence of endocarditis * CT of the thoracic spine done due to complaints of back pain showed bilateral pneumonia and bilateral pleural pleural effusions with a stable T11 compression deformity * Blood cultures repeated. Permacath cannot be reinserted until her blood cultures have cleared. * There is some concern that with the lack of clearance from her blood cultures that the potential hematoma that she has in her kidney could be an abscess if blood cultures do not start to clear we will need to decide between transfer to tertiary care facility versus a tagged white blood cell scan to try to identify the source of infection #ALEXY on CKD 4 * dialysis catheter removed. * nephrology on board * She did agree to dialysis, will continue on a MWF schedule #Acute hematuria * Patient was on Eliquis which has been discontinued. CT of the abdomen and pelvis ordered by urology showed a 5.7 cm x 6 cm mass in the inferior pole of the left kidney which could be a mass versus hematoma. I discussed this with Dr. Grant who stated that patient will need to follow-up at a tertiary facility with this could be evaluated further. * Hematuria is improving. * repeat CT with contrast showed hyperdense abnormality with abnormal contour along the posterior margin of the right kidney measuring 7.5 x 4.6 cm with an additional rounded heterogeneous abnormality in the upper pole of the right kidney measuring up to 5 cm and findings could represent underlying malignancy possibly complicated by hemorrhage with capsular hematoma. * per urology, no plans for intervention in regards to possible malignancy during this admission. If there are still concerns with bleeding into the right kidney, she may require referral to tertiary facility for intervention with IR. * Continue to monitor hemoglobin. If we continue to have nonclearance of her blood cultures I would likely consider any type of hematoma in her kidney and is now an abscess and she would need to be transferred. #Ischemic cardiomyopathy: EF known to be 40 to 45%. On aspirin and Plavix. #Type 2 diabetes mellitus: On Lantus 30 units nightly. Insulin sliding scale. Accu-Cheks AC at bedtime. #Hypothyroidism: On Synthroid #Hypertension: On metoprolol #Non-STEMI: Thought to be type II non-STEMI. Cardiology on board. Cardiology does not plan on any further work-up now. #Acute on chronic anemia * likely due to hematuria. Required blood transfusion during this admission * Hb today: 7.0 * transfuse if Hb <7 #SUper morbid obesity: BMI is 58.8. complicates acute care, expected recovery and prognosis. DVT: SCDs Charges/Coding Visit Charges Inpatient E&M: 48027 Subs Hosp L2
--- NOTE | 2021-11-11 10:20 | PCM.PN.REN ---
Documented by User: PEPPER Natarajan 11/11/21 10:32 Subjective Subjective Resting in bed, no overnight events. Did not eat breakfast this am. Objective Data Objective Data Vital Signs: Vital Signs Temp Pulse Resp BP Pulse Ox 98.2 F 70 18 127/46 H 97 11/11/21 09:15 11/11/21 09:15 11/11/21 09:15 11/11/21 09:15 11/11/21 09:15 Oxygen Flow Rate (L/min) 3 Oxygen Delivery Method Nasal Cannula Weight: 145.9 kg Body Mass Index (BMI) 59.3 Intake & Output: Intake and Output for Last 24 Hours 11/09/21 11/10/21 11/11/21 23:59 23:59 23:59 Intake Total 200 / 200 68 0 / 0 Output Total 45 / 65 1580 / 1595 40 / 40 Balance 155 / 135 -1512 / -1527 -40 / -40 Lab / Micro Data Result Diagrams: 11/11/21 05:44 11/11/21 05:44 Labs: Laboratory Results - last 24 hr 11/08/21 05:13: Diff Path Review Reviewed 11/10/21 11:11: POC Glucose 172 H 11/10/21 16:32: POC Glucose 97 11/10/21 21:09: POC Glucose 91 11/11/21 05:44: WBC 5.6, RBC 2.49 L, Hgb 7.0 L, Hct 22.2 L, MCV 89.2, MCH 28.1, MCHC 31.5 L, RDW Std Deviation 45.8 H, RDW Coeff of Loyda 14.1, Plt Count 255, MPV 9.3, Immature Gran % (Auto) 0.400, Neut % (Auto) 74.9 H, Lymph % (Auto) 11.5 L, [place] % (Auto) 10.8 H, Eos % (Auto) 2.0, Baso % (Auto) 0.4, Absolute Neuts (auto) 4.2, Absolute Lymphs (auto) 0.65 L, Nucleated RBC % 0.5 11/11/21 05:44: Sodium 132 L, Potassium 4.1, Chloride 99, Carbon Dioxide 28.0, Anion Gap 5, BUN 30 H, Creatinine 5.12 H, Estim Creat Clear Calc 9.36, Est GFR (MDRD) Af Amer 11 L, Est GFR (MDRD) Non-Af 9 L, BUN/Creatinine Ratio 5.9 L, Glucose 77, Calcium 7.4 L 11/11/21 06:33: POC Glucose 87 Micro: Microbiology 11/08/21 08:36 Blood Culture (Wb) - Anticubital Right Blood Culture - Final Staphylococcus aureus 11/09/21 17:43 Blood Culture (Wb) - Right Hand Bacteria Detection (PCR) - Preliminary Staphylococcus aureus 11/09/21 17:43 Blood Culture (Wb) - Right Hand Blood Culture - Preliminary 11/05/21 14:01 Catheter Insertion Site Gram Stain - Final 11/05/21 14:01 Catheter Insertion Site Wound Culture - Final No growth aerobically. 11/05/21 14:01 Catheter Insertion Site Anaerobic Culture - Final No anaerobic bacteria isolated. 11/07/21 12:30 Blood Culture (Wb) - Right Hand Blood Culture - Preliminary Staphylococcus species 11/06/21 10:15 Blood Culture (Wb) - Venous Blood Culture - Final Meth. resistant Staph. aureus 11/04/21 11:14 Blood Culture (Wb) - Right Hand Blood Culture - Final Meth. resistant Staph. aureus 11/03/21 18:10 Blood Culture (Wb) - Central Line Blood Culture - Final Meth. resistant Staph. aureus 11/03/21 14:30 Blood Culture (Wb) - Right Hand Blood Culture - Final Meth. resistant Staph. aureus 10/30/21 03:40 Stool Ova and Parasites - Final 10/30/21 02:39 Blood Culture (Wb) - Femoral Artery Bacteria Detection (PCR) - Final Enterococcus faecalis 10/30/21 02:39 Blood Culture (Wb) - Femoral Artery Blood Culture - Final Enterococcus faecalis Meth. resistant Staph. aureus Staphylococcus epidermidis 10/30/21 03:32 Sputum, Tracheal Aspirate Gram Stain - Final 10/30/21 03:32 Sputum, Tracheal Aspirate Respiratory Culture - Final Gram positive gilberto Strep not Strep pneumo 10/30/21 02:55 Urine Catheter - Catheter Urine Culture - Final Culture exhibits no growth. 10/30/21 03:40 Stool Stool Lactoferrin - Final 10/30/21 03:40 Stool Enteric Bacteriology - Final 10/30/21 03:40 Stool C. difficile DNA Amplification - Final 10/30/21 04:30 Mucosa - Nasopharyngeal Influenza Types A,B Direct FA (MILI) - Final 10/30/21 03:30 Urine Catheter - Cho Legionella Antigen - Final 10/30/21 03:30 Urine Catheter - Cho Streptococcus pneumoniae Antigen (M - Final 10/30/21 04:11 Nasal Secretion SARS-CoV-2 Antigen (Rapid) - Final Physical Exam Narrative Const: A&O to person and place, gets confused wtih recent events. Cardi: S1 S2 RRR Resp: Clear anteriorly, diminished breath sounds posterior bases Extremities: no pitting edema Non-tunneled HD catheter right femoral cho with scant urine in tubing Assessment & Plan Assessment/Plan (1) Acute kidney injury: PLAN: -The patient was initiated on dialysis when she was admitted to hospital in [place] recently (in September 2021, less than 3 months ago), so she is still considered ALEXY. -ALEXY was thought to be secondary to ischemic ATN related to sepsis due to pyelonephritis. -However, there is no signs of recovery from ALEXY. The patient does have a underlying chronic kidney disease stage IV. -If no recovery 3 months after start of HD, she will be considered ESRD. -Will continue MWF HD schedule. -no acute indication for [employer] today, next HD tomorrow. Tolerated HD 11/10 with 1.5L UF - ok to removed cho. UOP for 24 hours is <150ml. Only had 80ml UOP last 24 hours. (2) Chronic kidney disease, stage 4 (severe): PLAN: -Per previous notes, the patient has stage IV chronic kidney disease prior to her admission to the hospital in [place]. -Last available serum creatinine that I can see on record was from November 2020. At that time, her serum creatinine was 1.55 mg/dL, estimated GFR 34 mL/min putting her in stage IIIb CKD. -Renal dysfunction may have deteriorated in the past year to stage IV CKD. -CKD is likely due to diabetic kidney disease. (3) Hyperkalemia: PLAN: -K+ 4.1 today, continue renal diet -Continue to monitor K. (4) Bacteremia: PLAN: -Patient has Enterococcus and MRSA bacteremia. -TDC removed 11/05. BRITTA negative for vegetation on valve or pacer lead. CT abd/pelvis suggestive of subcapsular renal hematoma or underlying mass, urology following. CT spine did not show osteo/discitis/epidural abscess. -Central lines (including dialysis catheter) have been removed. -Antimicrobial as per hospital medicine and ID services. Currently on dapto -Temporary HD catheter placed 11/10/21, for now temporary HD line since blood culture has not yet cleared of bacteremia. Blood culture from 11/08/2021 was still positive for staph aureus, probable MRSA. BC drawn 11/09 pending. Documented by User: Dr. Marni Parnell MD 11/11/21 18:33 Objective Data Lab / Micro Data Result Diagrams: 11/11/21 05:44 11/11/21 05:44
[2021-11-11] MEDS: Metoprolol Tartrate 50 MG Tablet PO ×2 (10:37→21:25)
[2021-11-11] MEDS: Aspirin 81 MG TAB.CHEW PO (10:37)
[2021-11-11] MEDS: Clopidogrel Bisulfate 75 MG Tablet PO (10:37)
[2021-11-11] MEDS: Amiodarone 200 MG Tablet PO (10:37)
[2021-11-11] MEDS: Nystatin Powder 15gm Bottle 1 APPLIC TOPICAL ×2 (10:38→21:26)
[2021-11-11 11:01] LABS: Bedside Glucose 86 mg/dL (70-110)
--- NOTE | 2021-11-11 11:14 | CASEMGMT ---
According to the [facility], the following are in-network tertiary facilities: [facility], [facility], [facility], [facility], [facility], [facility], [facility], [facility], and . Sven BOJORQUEZ CM
[2021-11-11] MEDS: busPIRone 5 MG Tablet PO ×2 (12:22→21:25)
[2021-11-11 15:56] LABS: Bedside Glucose 117 mg/dL (70-110)
[2021-11-11] MEDS: Pravastatin 80 MG Tablet PO (21:26)
[2021-11-11] MEDS: Levothyroxine 125 MCG Tablet PO (21:26)
[2021-11-11] MEDS: MELATONIN 10 MG TABLET PO (21:30)
[2021-11-11 22:36] LABS: Bedside Glucose 124 mg/dL (70-110)
[2021-11-12] VITALS (12 sets, daily range): BP systolic 110–179; BP diastolic 43–65; PULSE 58–80; RESP 12–18; TEMP 36.2–36.5; O2SAT 95–100
[2021-11-12] MEDS: oxyCODONE 5 MG Tablet PO ×2 (04:12→11:58)
[2021-11-12 05:21] LABS: Absolute Lymphocyte Count 0.89 X10^3/uL (0.83-4.51); Absolute Neutrophil Count 3.3 X10^3/uL (2.0-7.7); Basophil# 0.04 X10^3/uL; Basophil% 0.8 % (0-1); Eosinophil# 0.18 X10^3/uL; Eosinophils% 3.5 % (0-5); Hematocrit 22.2 % (37-47); Hemoglobin 6.7 g/dL (12.0-15.0); Lymphocyte # 0.89 X10^3/ul (0.83-4.51); Lymphocyte % 17.3 % (19-41); Mean Corp Hgb Conc 30.2 g/dL (32-36); Mean Corpuscular Hgb 27.7 pg (27.0-32.0); Mean Corpuscular Volume 91.7 fL (81-99); Monocyte# 0.72 X10^3/uL; NRBC Flagged by Analyzer 0.4 % (0-5); Neutrophil # 3.28 X10^3/uL (2.7-7.7); Neutrophil % 63.8 % (47-70); Platelet Count 257 K/mm3 (150-450); RBC Distribution Width SD 47.2 fl (35.1-43.9); Red Blood Count 2.42 M/mm3 (4.2-5.4); White Blood Count 5.1 K/mm3 (4.4-11.0)
[2021-11-12 05:55] LABS: Anion Gap 6 (5-15); BUN 43 mg/dL (7-18); Calcium,Total 7.7 mg/dL (8.5-10.1); Chloride 97 mmol/L (98-107); Creatinine, Serum 6.17 mg/dL (0.55-1.02); EST Glomerular Filtration Rate 7 mL/min (>60); Est Glom Filt Rate - Afr Amer 9 mL/min (>60); Estimated Creatinine Clearance 7.76 ml/min; Glucose 101 mg/dL (74-106); Potassium 4.2 mmol/L (3.5-5.1); Sodium Level 132 mmol/L (136-145)
[2021-11-12 06:51] LABS: Bedside Glucose 123 mg/dL (70-110)
[2021-11-12] MEDS: Nystatin Powder 15gm Bottle 1 APPLIC TOPICAL (10:00)
[2021-11-12] MEDS: Insulin Lispro 100 UNIT/ML INSULN.PEN SC (11:49)
[2021-11-12 11:56] LABS: Bedside Glucose 160 mg/dL (70-110)
[2021-11-12] MEDS: Epoetin Alfa epbx 10,000 UNITS/ML 10000 UNIT SC (12:48)
--- NOTE | 2021-11-12 13:07 | PCM.PN.ID ---
Physical Exam Narrative Feeling about the same. Mild abd soreness. No fever. Const alert and no apparent distress General Appearance: cooperative Resp normal air movement and clear to auscultation bilaterally Cardio regular rate and regular rhythm GI soft to palpation, non-tender and non-distended Skin no rashes or lesions noted ID ID: Route of nutrition/ use of supplements: [] Nutritional Intake: [] IV Site: [] Cho Catheter: [] Assessment & Plan Assessment/Plan (1) Chronic renal failure: (2) Gross hematuria: (3) Acute and chronic respiratory failure with hypercapnia: (4) Bacteremia: PLAN: MRSA, enterococcus, and CoNS bacteremia in 1 of 1 bcx, with permacath in place on admit as well as pacemaker. Reported recent MRSA uti, not clear if came from cho or from hematogenous spread. TTE here was poor quality study. Initially on vanc/zosyn. Permacath removed 11/05. BRITTA neg for vegetation on valve or pacemaker lead. Not clear why she has a polymicrobial bacteremia. CT abd/pelvis concern for renal cancer. Urology following. Pt with chronic back pain. CT spine did not show osteo/discitis/epidural abscess. Repeat bcx still with staph, turning (+) within 24 hours. Cannot get permacath until bcx are cleared. Will repeat today. Temp HD line placed. 11/10 changed vanc to dapto. If she cannot clear bcx, will need to consider aspiration of renal mass/hematoma. Will order wbc scan. Will follow
--- NOTE | 2021-11-12 13:12 | NURSING ---
Blood product administration started with dialysis at this time.
--- NOTE | 2021-11-12 15:28 | PCM.PN.REN ---
Documented by User: PEPPER Natarajan 11/12/21 15:35 Subjective Subjective Seen on dialysis, tolerating treatment well. Objective Data Objective Data Vital Signs: Vital Signs Temp Pulse Resp BP Pulse Ox 97.7 F L 70 18 171/63 H 99 11/12/21 14:10 11/12/21 15:00 11/12/21 14:10 11/12/21 14:10 11/12/21 14:10 Oxygen Flow Rate (L/min) 3 Oxygen Delivery Method Nasal Cannula Weight: 145.3 kg Body Mass Index (BMI) 59.3 Intake & Output: Intake and Output for Last 24 Hours 11/10/21 11/11/21 11/12/21 23:59 23:59 23:59 Intake Total 68 / 68 480 / 480 640 / 640 Output Total 1580 / 1595 40 / 40 0 / 0 Balance -1512 / -1527 440 / 440 640 / 640 Lab / Micro Data Result Diagrams: 11/12/21 05:09 11/12/21 05:09 Labs: Laboratory Results - last 24 hr 11/11/21 15:48: POC Glucose 117 H 11/11/21 21:23: POC Glucose 124 H 11/12/21 05:09: WBC 5.1, RBC 2.42 L, Hgb 6.7 L, Hct 22.2 L, MCV 91.7, MCH 27.7, MCHC 30.2 L, RDW Std Deviation 47.2 H, RDW Coeff of Loyda 14.0, Plt Count 257, MPV 9.0, Immature Gran % (Auto) 0.600, Neut % (Auto) 63.8, Lymph % (Auto) 17.3 L, [place] % (Auto) 14.0 H, Eos % (Auto) 3.5, Baso % (Auto) 0.8, Absolute Neuts (auto) 3.3, Absolute Lymphs (auto) 0.89, Nucleated RBC % 0.4 11/12/21 05:09: Sodium 132 L, Potassium 4.2, Chloride 97 L, Carbon Dioxide 29.0, Anion Gap 6, BUN 43 H, Creatinine 6.17 H, Estim Creat Clear Calc 7.76, Est GFR (MDRD) Af Amer 9 L, Est GFR (MDRD) Non-Af 7 L, BUN/Creatinine Ratio 7.0 L, Glucose 101, Calcium 7.7 L 11/12/21 06:46: POC Glucose 123 H 11/12/21 08:18: Blood Type O POSITIVE, Antibody Screen NEGATIVE, Crossmatch See Detail 11/12/21 11:40: POC Glucose 160 H 11/12/21 12:15: COVID-19 ([facility]) Not Detected Micro: Microbiology 11/07/21 12:30 Blood Culture (Wb) - Right Hand Blood Culture - Final Staphylococcus aureus 11/09/21 17:43 Blood Culture (Wb) - Right Hand Bacteria Detection (PCR) - Final Staphylococcus aureus 11/09/21 17:43 Blood Culture (Wb) - Right Hand Blood Culture - Preliminary Staphylococcus aureus 11/08/21 08:36 Blood Culture (Wb) - Anticubital Right Blood Culture - Final Meth. resistant Staph. aureus 11/10/21 06:16 Blood Culture (Wb) - Right Hand Blood Culture - Final Staphylococcus aureus 11/11/21 10:45 Blood Culture (Wb) - Anticubital Right Blood Culture - Preliminary 11/09/21 18:00 Blood Culture (Wb) - Right Hand Blood Culture - Preliminary 11/05/21 14:01 Catheter Insertion Site Gram Stain - Final 11/05/21 14:01 Catheter Insertion Site Wound Culture - Final No growth aerobically. 11/05/21 14:01 Catheter Insertion Site Anaerobic Culture - Final No anaerobic bacteria isolated. 11/06/21 10:15 Blood Culture (Wb) - Venous Blood Culture - Final Meth. resistant Staph. aureus 11/04/21 11:14 Blood Culture (Wb) - Right Hand Blood Culture - Final Meth. resistant Staph. aureus 11/03/21 18:10 Blood Culture (Wb) - Central Line Blood Culture - Final Meth. resistant Staph. aureus 11/03/21 14:30 Blood Culture (Wb) - Right Hand Blood Culture - Final Meth. resistant Staph. aureus 10/30/21 03:40 Stool Ova and Parasites - Final 10/30/21 02:39 Blood Culture (Wb) - Femoral Artery Bacteria Detection (PCR) - Final Enterococcus faecalis 10/30/21 02:39 Blood Culture (Wb) - Femoral Artery Blood Culture - Final Enterococcus faecalis Meth. resistant Staph. aureus Staphylococcus epidermidis 10/30/21 03:32 Sputum, Tracheal Aspirate Gram Stain - Final 10/30/21 03:32 Sputum, Tracheal Aspirate Respiratory Culture - Final Gram positive gilberto Strep not Strep pneumo 10/30/21 02:55 Urine Catheter - Catheter Urine Culture - Final Culture exhibits no growth. 10/30/21 03:40 Stool Stool Lactoferrin - Final 10/30/21 03:40 Stool Enteric Bacteriology - Final 10/30/21 03:40 Stool C. difficile DNA Amplification - Final 10/30/21 04:30 Mucosa - Nasopharyngeal Influenza Types A,B Direct FA (MILI) - Final 10/30/21 03:30 Urine Catheter - Mckeon Legionella Antigen - Final 10/30/21 03:30 Urine Catheter - Mckeon Streptococcus pneumoniae Antigen (M - Final 10/30/21 04:11 Nasal Secretion SARS-CoV-2 Antigen (Rapid) - Final Physical Exam Narrative Const: A&O to person and place, gets confused wtih recent events. Cardi: S1 S2 RRR Resp: Clear anteriorly, faint expiratory wheezing Extremities: no pitting edema Non-tunneled HD catheter right femoral accessed for dialysis Assessment & Plan (1) Acute kidney injury: PLAN: -The patient was initiated on dialysis when she was admitted to hospital in [place] recently (in September 2021, less than 3 months ago), so she is still considered ALEXY. -ALEXY was thought to be secondary to ischemic ATN related to sepsis due to pyelonephritis. -However, there is no signs of recovery from ALEXY. The patient does have a underlying chronic kidney disease stage IV. -If no recovery 3 months after start of HD, she will be considered ESRD. -Will continue MWF HD schedule. -Hemoglobin 6.7 today, patient to get 1 unit PRBC with HD. Received MAZIN today. -For dialysis today, and attempt 2-3L UF as patient/blood pressure tolerates. Tolerated HD 11/10 with 1.5L UF -Mckeon removed yesterday. (2) Chronic kidney disease, stage 4 (severe): PLAN: -Per previous notes, the patient has stage IV chronic kidney disease prior to her admission to the hospital in [place]. -Last available serum creatinine that I can see on record was from November 2020. At that time, her serum creatinine was 1.55 mg/dL, estimated GFR 34 mL/min putting her in stage IIIb CKD. -Renal dysfunction may have deteriorated in the past year to stage IV CKD. -CKD is likely due to diabetic kidney disease. (3) Hyperkalemia: PLAN: -K+ 4.2 today, continue renal diet -Continue to monitor K. (4) Bacteremia: PLAN: -Patient has Enterococcus and MRSA bacteremia. -TDC removed 11/05. BRITTA negative for vegetation on valve or pacer lead. CT abd/pelvis suggestive of subcapsular renal hematoma or underlying mass, urology following. CT spine did not show osteo/discitis/epidural abscess. -Central lines (including dialysis catheter) have been removed. -Antimicrobial as per hospital medicine and ID services. Currently on dapto -Temporary HD catheter placed 11/10/21, for now temporary HD line since blood culture has not yet cleared of bacteremia. Blood culture from 11/08, 11/09 still positive for staph aureus, probable MRSA. - Discussed with Dr. Hernández, possible transfer to [facility] for persistent bacteremia, unclear source. Documented by User: Dr. Marni Parnell MD 11/12/21 18:38 Objective Data Lab / Micro Data Result Diagrams: 11/12/21 05:09 11/12/21 05:09
--- NOTE | 2021-11-12 15:41 | PN.HOSP_ITS ---
Subjective Subjective Doing well, no issues overnight. Her blood cultures are still rapidly turning positive despite being on vancomycin and daptomycin for MRSA Objective Data Objective Data Vital Signs: Vital Signs Temp Pulse Resp BP Pulse Ox 97.7 F L 70 18 171/63 H 99 11/12/21 14:10 11/12/21 15:00 11/12/21 14:10 11/12/21 14:10 11/12/21 14:10 Oxygen Flow Rate (L/min) 3 Oxygen Delivery Method Nasal Cannula Weight: 320 lb 5.306 oz Body Mass Index (BMI) 59.3 Intake & Output: Intake and Output for Last 24 Hours 11/11/21 11/12/21 11/13/21 03:59 03:59 03:59 Intake Total 68 / 68 480 / 480 640 / 640 Output Total 1575 / 1575 0 / 0 Balance -1507 / -1507 455 / 455 640 / 640 Lab / Micro Data Result Diagrams: 11/12/21 05:09 11/12/21 05:09 Labs: Laboratory Results - last 24 hr 11/11/21 15:48: POC Glucose 117 H 11/11/21 21:23: POC Glucose 124 H 11/12/21 05:09: WBC 5.1, RBC 2.42 L, Hgb 6.7 L, Hct 22.2 L, MCV 91.7, MCH 27.7, MCHC 30.2 L, RDW Std Deviation 47.2 H, RDW Coeff of Loyda 14.0, Plt Count 257, MPV 9.0, Immature Gran % (Auto) 0.600, Neut % (Auto) 63.8, Lymph % (Auto) 17.3 L, Jay % (Auto) 14.0 H, Eos % (Auto) 3.5, Baso % (Auto) 0.8, Absolute Neuts (auto) 3.3, Absolute Lymphs (auto) 0.89, Nucleated RBC % 0.4 11/12/21 05:09: Sodium 132 L, Potassium 4.2, Chloride 97 L, Carbon Dioxide 29.0, Anion Gap 6, BUN 43 H, Creatinine 6.17 H, Estim Creat Clear Calc 7.76, Est GFR (MDRD) Af Amer 9 L, Est GFR (MDRD) Non-Af 7 L, BUN/Creatinine Ratio 7.0 L, Glucose 101, Calcium 7.7 L 11/12/21 06:46: POC Glucose 123 H 11/12/21 08:18: Blood Type O POSITIVE, Antibody Screen NEGATIVE, Crossmatch See Detail 11/12/21 11:40: POC Glucose 160 H 11/12/21 12:15: COVID-19 (CUCA) Not Detected Micro: Microbiology 11/07/21 12:30 Blood Culture (Wb) - Right Hand Blood Culture - Final Staphylococcus aureus 11/09/21 17:43 Blood Culture (Wb) - Right Hand Bacteria Detection (PCR) - Final Staphylococcus aureus 11/09/21 17:43 Blood Culture (Wb) - Right Hand Blood Culture - Preliminary Staphylococcus aureus 11/08/21 08:36 Blood Culture (Wb) - Anticubital Right Blood Culture - Final Meth. resistant Staph. aureus 11/10/21 06:16 Blood Culture (Wb) - Right Hand Blood Culture - Final Staphylococcus aureus 11/11/21 10:45 Blood Culture (Wb) - Anticubital Right Blood Culture - Preliminary 11/09/21 18:00 Blood Culture (Wb) - Right Hand Blood Culture - Preliminary 11/05/21 14:01 Catheter Insertion Site Gram Stain - Final 11/05/21 14:01 Catheter Insertion Site Wound Culture - Final No growth aerobically. 11/05/21 14:01 Catheter Insertion Site Anaerobic Culture - Final No anaerobic bacteria isolated. 11/06/21 10:15 Blood Culture (Wb) - Venous Blood Culture - Final Meth. resistant Staph. aureus 11/04/21 11:14 Blood Culture (Wb) - Right Hand Blood Culture - Final Meth. resistant Staph. aureus 11/03/21 18:10 Blood Culture (Wb) - Central Line Blood Culture - Final Meth. resistant Staph. aureus 11/03/21 14:30 Blood Culture (Wb) - Right Hand Blood Culture - Final Meth. resistant Staph. aureus 10/30/21 03:40 Stool Ova and Parasites - Final 10/30/21 02:39 Blood Culture (Wb) - Femoral Artery Bacteria Detection (PCR) - Final Enterococcus faecalis 10/30/21 02:39 Blood Culture (Wb) - Femoral Artery Blood Culture - Final Enterococcus faecalis Meth. resistant Staph. aureus Staphylococcus epidermidis 10/30/21 03:32 Sputum, Tracheal Aspirate Gram Stain - Final 10/30/21 03:32 Sputum, Tracheal Aspirate Respiratory Culture - Final Gram positive gilberto Strep not Strep pneumo 10/30/21 02:55 Urine Catheter - Catheter Urine Culture - Final Culture exhibits no growth. 10/30/21 03:40 Stool Stool Lactoferrin - Final 10/30/21 03:40 Stool Enteric Bacteriology - Final 10/30/21 03:40 Stool C. difficile DNA Amplification - Final 10/30/21 04:30 Mucosa - Nasopharyngeal Influenza Types A,B Direct FA (MILI) - Final 10/30/21 03:30 Urine Catheter - Mckeon Legionella Antigen - Final 10/30/21 03:30 Urine Catheter - Mckeon Streptococcus pneumoniae Antigen (M - Final 10/30/21 04:11 Nasal Secretion SARS-CoV-2 Antigen (Rapid) - Final Physical Exam Narrative Const alert, oriented x3 and no apparent distress General Appearance: cooperative Nutritional Appearance: morbidly obese HEENT normocephalic and moist oral mucous membranes Eyes PERRL, EOMs intact bilaterally and conjunctivae normal Neck supple and no JVD Resp normal respiratory effort, no retractions and no use of accessory muscles Auscultation: diminished lung sounds; Negative for crackles, rales, rhonchi or wheezes Cardio regular rate, regular rhythm, S1 normal heart sound, S2 normal heart sound and no murmurs GI soft to palpation, non-tender and non-distended; Negative for hepatosplenomegaly Extremity no clubbing, cyanosis or edema Temporary dialysis catheter right groin Skin no rashes or lesions noted Neuro no focal motor deficits and no sensory deficits noted Psych Mood & Affect: flat affect Assessment & Plan Assessment/Plan (1) Acute kidney injury: (2) Gross hematuria: (3) Atrial fibrillation: QUALIFIERS: Atrial fibrillation type: unspecified Qualified Code(s): I48.91 - Unspecified atrial fibrillation (4) Bilateral pneumonia: QUALIFIERS: Pneumonia type: due to unspecified organism Lung location: unspecified part of lung Qualified Code(s): J18.9 - Pneumonia, unspecified organism PLAN: #acute on chronic hypoxic respiratory failure due to Bilateral pneumonia * Sputum cultures grew alphahemolytic strep. * Transition to daptomycin by infectious disease * remains on 3L of oxygen, which is her baseline #MRSA bacteremia * Blood PCR grew Enterococcus faecalis as well as MRSA. * ID on board. Had 2D echo which showed EF of 40 to 45% with evidence of diastolic dysfunction and akinetic apex as well as septal hypokinesis. * repeat blood cultures still growing mrsa * Temporary dialysis catheter was placed in the right groin on 11/10/2021 * On IV daptomycin every 48 hours * had BRITTA which showed no evidence of endocarditis * CT of the thoracic spine done due to complaints of back pain showed bilateral pneumonia and bilateral pleural pleural effusions with a stable T11 compression deformity * Blood cultures repeated. Permacath cannot be reinserted until her blood cultures have cleared. * Given the fact that her blood cultures continue to turn positive within 24 hours and she has a worsening anemia with the hematuria and the findings of the potential subcapsular right renal hematoma, I did discuss the case with [facility] john[facility] and they have accepted the patient in transfer * #ALEXY on CKD 4 * dialysis catheter removed. In a temporary dialysis catheter was placed * nephrology on board * She did agree to dialysis, will continue on a MWF schedule #Acute hematuria * Patient was on Eliquis which has been discontinued. CT of the abdomen and pelvis ordered by urology showed a 5.7 cm x 6 cm mass in the inferior pole of the left kidney which could be a mass versus hematoma. I discussed this with Dr. Grant who stated that patient will need to follow-up at a tertiary facility with this could be evaluated further. * Hematuria is improving. * repeat CT with contrast showed hyperdense abnormality with abnormal contour along the posterior margin of the right kidney measuring 7.5 x 4.6 cm with an additional rounded heterogeneous abnormality in the upper pole of the right kidney measuring up to 5 cm and findings could represent underlying malignancy possibly complicated by hemorrhage with capsular hematoma. * per urology, no plans for intervention in regards to possible malignancy during this admission. If there are still concerns with bleeding into the right kidney, she may require referral to tertiary facility for intervention with IR. * Continue to monitor hemoglobin. If we continue to have nonclearance of her b lood cultures I would likely consider any type of hematoma in her kidney and is now an abscess and she would need to be transferred. #Ischemic cardiomyopathy: EF known to be 40 to 45%. On aspirin and Plavix. #Type 2 diabetes mellitus: On Lantus 30 units nightly. Insulin sliding scale. Accu-Cheks AC at bedtime. #Hypothyroidism: On Synthroid #Hypertension: On metoprolol #Non-STEMI: Thought to be type II non-STEMI. Cardiology on board. Cardiology does not plan on any further work-up now. #Acute on chronic anemia * likely due to hematuria. Required blood transfusion during this admission * Hb today: 6.7, will transfuse 1 unit with dialysis #SUper morbid obesity: BMI is 58.8. complicates acute care, expected recovery and prognosis. DVT: SCDs Charges/Coding Visit Charges Inpatient E&M: 90585 Subs Hosp L2
[2021-11-12 16:51] LABS: Bedside Glucose 113 mg/dL (70-110)
--- NOTE | 2021-11-12 17:11 | DIALYSIS ---
Hemodialysis x4 hours completed at 1635 on a 3K bath, tolerated well, UF 3000mL, received 1 unit of PRBCs with dialysis, no signs/symptoms of transfusion reaction, accessed via right groin temporary dialysis catheter, worked fairly well, max BFR 325, clotting noted in arterial chamber, next tx planned for Wednesday
[2021-11-12] MEDS: Aspirin 81 MG TAB.CHEW PO (17:36)
[2021-11-12] MEDS: Clopidogrel Bisulfate 75 MG Tablet PO (17:36)
[2021-11-12] MEDS: Amiodarone 200 MG Tablet PO (17:36)
--- NOTE | 2021-11-13 13:49 | PCM.DC.SUM ---
Providers Date of Admission: 10/30/21 Date of Discharge: 11/12/21 Primary Care Physician: Dr. Blaire Pizano MD Consultations 10/30/21 08:26 Consult: Cardiology Routine Consulting Provider: Sami Araujo Reason for Consult: Elevated troponin EMERGENT Consult: No MD Notified: Yes Date Notified: 10/30/21 Time Notified: 09:09 Method of Notification: Page Consult: Junior Account Manager / Pulmonary Medicine Routine Consulting Provider: Cruz Phillip Reason for Consult: Vent management EMERGENT Consult: No MD Notified: Yes Date Notified: 10/30/21 Time Notified: 08:47 Method of Notification: Verbal Consult: Nephrology Routine Consulting Provider: Salena Mauro Reason for Consult: ESRD, new dialysis patient EMERGENT Consult: No Notified: Yes Date Notified: 10/30/21 Time Notified: 09:01 Method of Notification: Answering Service 10/30/21 14:02 Consult: Urology Routine Consulting Provider: Janet Grant Reason for Consult: hematuria EMERGENT Consult: Yes MD Notified: Yes Date Notified: 10/30/21 Time Notified: 14:02 Method of Notification: Page Method of Consult:: In-Person 11/03/21 14:04 Consult: Infectious Disease Routine Consulting Provider: Mesfin Lewis Reason for Consult: MRSA bacteremia EMERGENT Consult: No Notified: Yes Date Notified: 11/03/21 Time Notified: 14:05 Method of Notification: Verbal 11/04/21 11:51 Consult: General Surgery Routine Consulting Provider: Ron Laureano Reason for Consult: Tunneled line removal. cell [phone] if any questions. HD today. EMERGENT Consult: No Notified: Yes Date Notified: 11/04/21 Time Notified: 12:48 Method of Notification: Text Reason For Visit: ACUTE HYPOXEMIC RESPIRATORY FAILURE Diagnosis Discharge Diagnosis (1) Acute kidney injury: Status: Acute Code(s): N17.9 - Acute kidney failure, unspecified (2) Chronic kidney disease, stage 4 (severe): Status: Chronic Code(s): N18.4 - Chronic kidney disease, stage 4 (severe) (3) Hyperkalemia: Status: Acute Code(s): E87.5 - Hyperkalemia (4) Bacteremia: Status: Acute Code(s): R78.81 - Bacteremia Medications at Discharge Home Medications albuterol sulfate 2.5 mg INHALATION Q6H 07/29/21 amiodarone 200 mg tablet 200 mg PO DAILY 07/29/21 apixaban 5 mg tablet 2.5 tablet PO BID 07/29/21 gabapentin 400 mg capsule 400 cap PO DAILY 07/29/21 insulin glargine 100 unit/mL (3 mL) subcutaneous pen 75 ml SUBCUT QHS 07/29/21 insulin lispro 100 unit/mL subcutaneous pen 0 ml SUBCUT ACHS 07/29/21 levothyroxine 125 mcg tablet 125 tablet PO QHS 07/29/21 losartan 25 mg tablet 50 ea PO DAILY 07/29/21 metoprolol succinate 50 mg tablet,extended release 24 hr 50 tablet PO BID 07/29/21 nitroglycerin 0.4 mg sublingual tablet 0.4 mg SUBLINGUAL Q5M PRN 07/29/21 omeprazole 20 mg capsule,delayed release 20 mg PO DAILY cap 07/29/21 pravastatin 80 mg tablet 80 tablet PO QHS 07/29/21 buspirone 5 mg PO BID 10/30/21 clopidogrel 75 mg PO DAILY 10/30/21 cyanocobalamin (vitamin B-12) 1,000 mcg PO DAILY 10/30/21 gabapentin 1,200 mg PO QHS 10/30/21 guaifenesin [Mucinex] 600 mg PO BID 10/30/21 hydrocodone-acetaminophen [Loda] 1 tab PO Q8H PRN 10/30/21 multivitamin 1 tab PO DAILY 10/30/21 zinc 50 mg PO DAILY 10/30/21 zolpidem 10 mg PO QHS PRN 10/30/21 Hospital Course Operations None Procedures Dialysis, Transesophageal Echo and Transthoracic echo Summary of Care Provided Minutes Spent on Discharge: 45 Hospital Course: Per HPI: YANIRA LEMOS, is a 61 F with a significant history of CAD status post 5 stent; atrial fibrillation on Eliquis; diabetes mellitus; COPD; 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 Patient progressed at the long-term to a stage that she was no longer responsive. Her pulse ox was in the 70s to 80s. Squad subsequently brought patient to the emergency department on a nonrebreather mask. On the nonrebreather mask her oxygen saturation was 95%. When a nonrebreather mask was taken off her oxygen saturation dropped to about 50%. Patient was responding to only pain. Reportedly at the long-term patient hemoglobin was 6.9. History above was taken for emergent department doctor as patient was intubated and sedated on mechanical ventilation at the time of examination. Also nurses at the emergency department where the patient has had loose stools and stool specimen has been sent to the lab. History was then taken from patient's over the phone. Per patient about 2 and half weeks ago patient was diagnosed with UTI that affected her kidneys and required her to be started on dialysis. After each dialysis episode patient required the use of BiPAP and then she gets unresponsive to the point that her is wondering whether the BiPAP machine is causing her to be unresponsive. Hospital Course: #acute on chronic hypoxic respiratory failure due to Bilateral pneumonia ?Sputum cultures grew alphahemolytic strep. ?Transition to daptomycin by infectious disease ?Remains on 3L of oxygen, which is her baseline #MRSA bacteremia ?Blood PCR grew Enterococcus faecalis as well as MRSA. ?ID on board. Had 2D echo which showed EF of 40 to 45% with evidence of diastolic dysfunction and akinetic apex as well as septal hypokinesis. ?Repeat blood cultures still growing mrsa ?Temporary dialysis catheter was placed in the right groin on 11/10/2021 ?On IV daptomycin every 48 hours ?Had BRITTA which showed no evidence of endocarditis ?CT of the thoracic spine done due to complaints of back pain showed bilateral pneumonia and bilateral pleural pleural effusions with a stable T11 compression deformity ?Blood cultures repeated. Permacath cannot be reinserted until her blood cultures have cleared. ?Given the fact that her blood cultures continue to turn positive within 24 hours and she has a worsening anemia with the hematuria and the findings of the potential subcapsular right renal hematoma, I did discuss the case with Jose Carlos johnson and they have accepted the patient in transfer #ALEXY on CKD 4 ?Dialysis catheter removed. In a temporary dialysis catheter was placed ?Nephrology on board ?She did agree to dialysis, will continue on a MWF schedule #Acute hematuria ?Patient was on Eliquis which has been discontinued. CT of the abdomen and pelvis ordered by urology showed a 5.7 cm x 6 cm mass in the inferior pole of the left kidney which could be a mass versus hematoma. I discussed this with Dr. Grant who stated that patient will need to follow-up at a tertiary facility with this could be evaluated further. ?Hematuria is improving. ?Repeat CT with contrast showed hyperdense abnormality with abnormal contour along the posterior margin of the right kidney measuring 7.5 x 4.6 cm with an additional rounded heterogeneous abnormality in the upper pole of the right kidney measuring up to 5 cm and findings could represent underlying malignancy possibly complicated by hemorrhage with capsular hematoma. ?Per urology, no plans for intervention in regards to possible malignancy during this admission. If there are still concerns with bleeding into the right kidney, she may require referral to tertiary facility for intervention with IR. ?Continue to monitor hemoglobin. If we continue to have nonclearance of her blood cultures I would likely consider any type of hematoma in her kidney and is now an abscess and she would need to be transferred. #Ischemic cardiomyopathy: EF known to be 40 to 45%. On aspirin and Plavix. #Type 2 diabetes mellitus: On Lantus 30 units nightly. Insulin sliding scale. Accu-Cheks AC at bedtime. #Hypothyroidism: On Synthroid #Hypertension: On metoprolol #Non-STEMI: Thought to be type II non-STEMI. Cardiology on board. Cardiology does not plan on any further work-up now. #Acute on chronic anemia ?Likely due to hematuria. Required blood transfusion during this admission ?Hb today: 6.7, will transfuse 1 unit with dialysis #SUper morbid obesity: BMI is 58.8. complicates acute care, expected recovery and prognosis. Weight / BMI Weight Weight: 320 lb 5.306 oz Body Mass Index (BMI) 59.3 ABG / Lab / Microbiology Data Result Diagrams: 11/12/21 05:09 11/12/21 05:09 Laboratory: Laboratory Results - last 24 hr 11/12/21 08:18: Crossmatch See Detail 11/12/21 12:15: COVID-19 (CUCA) Not Detected 11/12/21 16:44: POC Glucose 113 H Microbiology: Microbiology 11/11/21 10:45 Blood Culture (Wb) - Anticubital Right Blood Culture - Preliminary Staphylococcus aureus 11/09/21 18:00 Blood Culture (Wb) - Right Hand Blood Culture - Preliminary Staphylococcus aureus 11/09/21 17:43 Blood Culture (Wb) - Right Hand Bacteria Detection (PCR) - Final Staphylococcus aureus 11/09/21 17:43 Blood Culture (Wb) - Right Hand Blood Culture - Preliminary Meth. resistant Staph. aureus 11/07/21 12:30 Blood Culture (Wb) - Right Hand Blood Culture - Final Staphylococcus aureus 11/08/21 08:36 Blood Culture (Wb) - Anticubital Right Blood Culture - Final Meth. resistant Staph. aureus 11/10/21 06:16 Blood Culture (Wb) - Right Hand Blood Culture - Final Staphylococcus aureus 11/05/21 14:01 Catheter Insertion Site Gram Stain - Final 11/05/21 14:01 Catheter Insertion Site Wound Culture - Final No growth aerobically. 11/05/21 14:01 Catheter Insertion Site Anaerobic Culture - Final No anaerobic bacteria isolated. 11/06/21 10:15 Blood Culture (Wb) - Venous Blood Culture - Final Meth. resistant Staph. aureus 11/04/21 11:14 Blood Culture (Wb) - Right Hand Blood Culture - Final Meth. resistant Staph. aureus 11/03/21 18:10 Blood Culture (Wb) - Central Line Blood Culture - Final Meth. resistant Staph. aureus 11/03/21 14:30 Blood Culture (Wb) - Right Hand Blood Culture - Final Meth. resistant Staph. aureus 10/30/21 03:40 Stool Ova and Parasites - Final 10/30/21 02:39 Blood Culture (Wb) - Femoral Artery Bacteria Detection (PCR) - Final Enterococcus faecalis 10/30/21 02:39 Blood Culture (Wb) - Femoral Artery Blood Culture - Final Enterococcus faecalis Meth. resistant Staph. aureus Staphylococcus epidermidis 10/30/21 03:32 Sputum, Tracheal Aspirate Gram Stain - Final 10/30/21 03:32 Sputum, Tracheal Aspirate Respiratory Culture - Final Gram positive gilberto Strep not Strep pneumo 10/30/21 02:55 Urine Catheter - Catheter Urine Culture - Final Culture exhibits no growth. 10/30/21 03:40 Stool Stool Lactoferrin - Final 10/30/21 03:40 Stool Enteric Bacteriology - Final 10/30/21 03:40 Stool C. difficile DNA Amplification - Final 10/30/21 04:30 Mucosa - Nasopharyngeal Influenza Types A,B Direct FA (MILI) - Final 10/30/21 03:30 Urine Catheter - Mckeon Legionella Antigen - Final 10/30/21 03:30 Urine Catheter - Mckeon Streptococcus pneumoniae Antigen (M - Final 10/30/21 04:11 Nasal Secretion SARS-CoV-2 Antigen (Rapid) - Final Meaningful Use Info Meaningful Use Diagnoses (Choose all that apply): None applicable Discharge Plan Admission Admit Date/Time: 10/30/21 03:33 Attending Provider: Toni Hernández Primary Care Provider: Blaire Pizano Consulting Providers: Sami Araujo ; Cruz Phillip ; Salena Mauro ; Janet Grant ; Mesfin Lewis ; Ron Laureano Discharge Orders/Prescriptions Prescriptions: No Action insulin lispro 100 unit/mL insulin pen 0 ml subcut ACHS RF: 0 Eliquis 5 mg tablet 2.5 tablet PO BID RF: 0 gabapentin 400 mg capsule 400 cap PO DAILY RF: 0 Lantus Solostar U-100 Insulin 100 unit/mL (3 mL) insulin pen 75 ml subcut QHS RF: 0 levothyroxine 125 mcg tablet 125 tablet PO QHS RF: 0 losartan 25 mg tablet 50 ea PO DAILY RF: 0 metoprolol succinate 50 mg tablet extended release 24 hr 50 tablet PO BID RF: 0 nitroglycerin 0.4 mg tablet, sublingual 0.4 mg sublingual Q5M PRN (Reason: Chest Pain) RF: 0 omeprazole 20 mg capsule,delayed release(DR/EC) 20 mg PO DAILY RF: 0 pravastatin 80 mg tablet 80 tablet PO QHS RF: 0 albuterol sulfate 2.5 mg /3 mL (0.083 %) solution for nebulization 2.5 mg inhalation Q6H RF: 0 amiodarone 200 mg tablet 200 mg PO DAILY RF: 0 multivitamin Tablet 1 tab PO DAILY RF: 0 hydrocodone-acetaminophen [Loda] 5-325 mg Tablet 1 tab PO Q8H PRN (Reason: Pain) RF: 0 cyanocobalamin (vitamin B-12) 1,000 mcg Tablet 1,000 mcg PO DAILY RF: 0 clopidogrel 75 mg Tablet 75 mg PO DAILY RF: 0 zolpidem 10 mg Tablet 10 mg PO QHS PRN (Reason: Insomnia) RF: 0 zinc 50 mg Capsule 50 mg PO DAILY RF: 0 gabapentin 400 mg Tablet 1,200 mg PO QHS RF: 0 guaifenesin [Mucinex] 600 mg Tablet Extended Release 12hr 600 mg PO BID RF: 0 buspirone 5 mg Tablet 5 mg PO BID RF: 0 Referrals / Follow Up: Dequan Garay MD [STAFF PHYSICIAN] - 11/28/21 1:00 pm Blaire Pizano MD [Primary Care Provider] - Disposition Discharge Orders: Discharge Patient (Routine); Ordered 11/12/21 Ordered By: Dr. Toni Hernández Charges/Coding Visit Charges Inpatient E&M: 50494 Disch Hosp
== END 2021-11-12 18:54 | disposition short-term general hospital (02) | DRG 208 ==
LOC: ED 02:06 → ICU 05:50 → PCU 11-03 07:25 → ICU 11-03 10:51
PROVIDERS: Anesthesiology; Internal Medicine; Internal Medicine Critical Care Medicine; Internal Medicine Infectious Disease; Internal Medicine Nephrology; Student in an Organized Health Care Education/Training Program; Surgery; Admitting Provider Hospitalist; Emergency Provider Emergency Medicine; PCP Internal Medicine; Visit Provider Family Medicine
PROC: 0JPTXXZ Removal of Tunneled Vascular Access Device from Trunk Subcutaneous Tissue and Fascia, External Approach (ICD-10-PCS; principal; 2021-11-05 12:45)
DX: J15.4 Pneumonia due to other streptococci (principal); J96.21 Acute and chronic respiratory failure with hypoxia; N17.0 Acute kidney failure with tubular necrosis; I50.33 Acute on chronic diastolic (congestive) heart failure; N18.6 End stage renal disease; I21.A1 Myocardial infarction type 2; J96.22 Acute and chronic respiratory failure with hypercapnia; R78.81 Bacteremia; D62 Acute posthemorrhagic anemia; E87.1 Hypo-osmolality and hyponatremia; Z68.43 Body mass index [BMI] 50.0-59.9, adult; I13.2 Hypertensive heart and chronic kidney disease with heart failure and with stage 5 chronic kidney disease, or end stage renal disease; I42.9 Cardiomyopathy, unspecified; N30.01 Acute cystitis with hematuria; E11.42 Type 2 diabetes mellitus with diabetic polyneuropathy; E11.22 Type 2 diabetes mellitus with diabetic chronic kidney disease; Z99.2 Dependence on renal dialysis; I48.91 Unspecified atrial fibrillation; E66.01 Morbid (severe) obesity due to excess calories; Z79.4 Long term (current) use of insulin; E11.65 Type 2 diabetes mellitus with hyperglycemia; I25.10 Atherosclerotic heart disease of native coronary artery without angina pectoris; E87.5 Hyperkalemia; E03.9 Hypothyroidism, unspecified; B95.62 Methicillin resistant Staphylococcus aureus infection as the cause of diseases classified elsewhere; I95.9 Hypotension, unspecified; M19.90 Unspecified osteoarthritis, unspecified site; B95.2 Enterococcus as the cause of diseases classified elsewhere; I25.5 Ischemic cardiomyopathy; D63.1 Anemia in chronic kidney disease; Z79.01 Long term (current) use of anticoagulants; R31.0 Gross hematuria; Z23 Encounter for immunization; G89.29 Other chronic pain; N28.89 Other specified disorders of kidney and ureter; Z79.02 Long term (current) use of antithrombotics/antiplatelets; Z79.899 Other long term (current) drug therapy; Z95.810 Presence of automatic (implantable) cardiac defibrillator
CPT/HCPCS: 31500; 31720; 36415; 36556; 36600; 70450; 71045; 71250; 72129; 74176; 74177; 80048; 80069; 80076; 80202; 81001; 82140; 82550; 82803; 82962; 83036; 83605; 83630; 83735; 83880; 84443; 84478; 84484; 85014; 85018; 85025; 85610; 85730; 86706; 86850; 86900; 86901; 86920; 86922; 87040; 87070; 87075; 87077; 87086; 87149; 87177; 87186; 87205; 87209; 87340; 87426; 87449; 87493; 87506; 87635; 87804; 90937; 93005; 93306; 93312; 93320; 93325; 94002; 94003; 94660; 97110; 97162; 97163; 97167; 97530; 97535; 97802; 97803; 99251; 99285; G0008; J0878; J7030; J7040; J7050; P9016; Q9957; Q9967; 90686; A4216; C1752; C8929; G0257; G0463; J1940; J3010; J3490; Q5106; U0003; U0005

== ENCOUNTER → 2021-12-06 | Outpatient (REF) | payer SELFPAY ==
[2021-12-06 09:01] LABS: Bacteria 0 SEEN /hpf (None Seen); Mucous, Urine 0 SEEN /hpf (<or=2+); Red Blood Cells-Urine 0 SEEN /hpf (0-5); Squamous Epithelial Cells - UA 0 SEEN /hpf (5-10)
[2021-12-06 09:31] LABS: Color, Urine Yellow (Yellow); Glucose, Dipstick Normal (Normal); Ketone-Dipstick 5 mg/dl (Negative); Leukocyte Esterase-Dipstick 500 /ul (Negative); Nitrite-Dipstick Negative (Negative); Occult Blood-Urine 250 /ul (Negative); Protein-Dipstick 100 mg/dl (Negative); Urine Clarity Turbid (Clear); Urine Urobilinogen Normal (Normal)
[2021-12-06 09:32] LABS: Urine Bilirubin Dipstick 1 mg/dL (Negative)
[2021-12-06 09:45] LABS: White Blood Cells 50-100 SEEN /hpf (0-5)
== END | disposition home or self-care (01) ==
LOC: OLS.SW1020 05:00
PROVIDERS: PCP Internal Medicine; Referring Provider Internal Medicine; Visit Provider Internal Medicine
DX: N39.0 Urinary tract infection, site not specified (principal)
CPT/HCPCS: 81001; 87077; 87086; 87088; 87186

== ENCOUNTER → 2021-12-08 | Outpatient (REF) | payer SELFPAY ==
[2021-12-08 07:58] LABS: Absolute Lymphocyte Count 1.75 X10^3/uL (0.83-4.51); Absolute Neutrophil Count 4.3 X10^3/uL (2.0-7.7); Basophil# 0.03 X10^3/uL; Basophil% 0.4 % (0-1); Eosinophil# 0.17 X10^3/uL; Eosinophils% 2.4 % (0-5); Hematocrit 24.8 % (37-47); Hemoglobin 7.5 g/dL (12.0-15.0); Lymphocyte # 1.75 X10^3/ul (0.83-4.51); Lymphocyte % 24.8 % (19-41); Mean Corp Hgb Conc 30.2 g/dL (32-36); Mean Corpuscular Hgb 28.1 pg (27.0-32.0); Mean Corpuscular Volume 92.9 fL (81-99); Mean Platelet Vol. 8.5 fl (6.2-12.0); Monocyte# 0.75 X10^3/uL; Monocyte% 10.6 % (0-10); NRBC Flagged by Analyzer 0 % (0-5); Neutrophil # 4.33 X10^3/uL (2.7-7.7); Neutrophil % 61.4 % (47-70); Platelet Count 283 K/mm3 (150-450); RBC Distribution Width CV 14.2 % (11.6-14.6); RBC Distribution Width SD 48.2 fl (35.1-43.9); Red Blood Count 2.67 M/mm3 (4.2-5.4); White Blood Count 7.1 K/mm3 (4.4-11.0)
[2021-12-08 08:41] LABS: ALB/GLOB Ratio 0.3 RATIO (0.9-2.4); AST(SGOT) 16 U/L (15-37); Alanine Aminotransfer ALT/SGPT 10 U/L (13-56); Alkaline Phosphatase 121 U/L (45-117); Anion Gap 6 (5-15); BUN 48 mg/dL (7-18); Bilirubin, Direct 0.06 mg/dL (0.00-0.30); CPK Total, Creatine Kinase 74 U/L (26-192); Calcium,Total 8.3 mg/dL (8.5-10.1); Chloride 91 mmol/L (98-107); Creatinine, Serum 5.34 mg/dL (0.55-1.02); EST Glomerular Filtration Rate 9 mL/min (>60); Est Glom Filt Rate - Afr Amer 11 mL/min (>60); Globulin 6.2 g/dL (2.2-4.2); Glucose 118 mg/dL (74-106); Potassium 4.8 mmol/L (3.5-5.1); Protein, Total 8.2 g/dL (6.4-8.2); Sodium Level 126 mmol/L (136-145); Thyroid Stim Hormone (TSH) 3.32 uIU/mL (0.358-3.74)
[2021-12-08 09:36] LABS: Hemoglobin A1c 5.8 % (3.8-5.6)
== END | disposition home or self-care (01) ==
LOC: OLS.SW1020 04:00
PROVIDERS: PCP Internal Medicine; Visit Provider Internal Medicine
DX: E11.22 Type 2 diabetes mellitus with diabetic chronic kidney disease (principal); N17.9 Acute kidney failure, unspecified; Z99.2 Dependence on renal dialysis; J96.11 Chronic respiratory failure with hypoxia; E03.9 Hypothyroidism, unspecified; N18.9 Chronic kidney disease, unspecified; B95.62 Methicillin resistant Staphylococcus aureus infection as the cause of diseases classified elsewhere
CPT/HCPCS: 36415; 80053; 82248; 82550; 83036; 84443; 85025

== ENCOUNTER 2021-12-13 17:54 | Emergency (ER) | payer MEDICARE, SELFPAY ==
[2021-12-13] VITALS (8 sets, daily range): BP systolic 93–133; BP diastolic 44–61; PULSE 67–79; RESP 14–18; TEMP 36.1–36.6; O2SAT 95–100; BMI 47.9
--- NOTE | 2021-12-13 18:11 | EKG12_ITS ---
Test Reason : ABD PAIN Blood Pressure : / mmHG Vent. Rate : 075 BPM Atrial Rate : 075 BPM P-R Int : 228 ms QRS Dur : 112 ms QT Int : 402 ms P-R-T Axes : 059 -11 088 degrees QTc Int : 448 ms Sinus rhythm with 1st degree A-V block Anterior infarct , age undetermined Abnormal ECG Confirmed by KYM TAYLOR, ALE ([id number]), multimedia editor ELAINE ORNELAS ([id number]) on 12/15/2021 11:40:38 A M Referred By: ANA Confirmed By:MARY MEJÍA MD
--- NOTE | 2021-12-13 18:13 | EDS_ITS ---
HPI HPI - GI History of Present Illness Chief Complaint: Abd Pain Informant: patient and spouse/S.O. Narrative Narrative: Brought in by EMS from rehab facility spouse is present currently. Has been at rehab for the past 2.5 weeks. Reported having abdominal symptoms past 3 weeks. For the past 2 weeks only 2 bowel movements. Last time was 3 days ago. States since then has not had flatus. Partial colectomy 4 years ago. No other abdominal surgeries. Patient oligoanuric states maybe had 5 urinations in 9 weeks. Started dialysis 8 weeks ago followed by Dr. Manjeet Ziegler from [facility]. Reports the last 5 dialysis has only finished usp through due to hypotension. Denies chest pains or cough. Reported subjective fevers. EMS had no fevers present here without any fevers. Denies history of bowel obstructions. Patient is chronically on Percocets for history of back pain. Reported been using bowel regiment at the facility to try to get bowel movements going. Reported yesterday is vomiting throughout the day. Decreased p.o. intake. Has not tried drinking or eating today. Later review patient's history had admission October 30- for continued treatment of her urinary tract infection. However there was findings of alphahemolytic strep from her sputum culture also noted bacteremia with Enterococcus faecalis along with MRSA. She was being treated with antibiotics in the hospital. However CAT scan on November 05 had concerns for capsular hematoma in the right kidney along with a trending down hemoglobin therefore she was transferred to [facility] for further management. confirms this, states there was no intervention and just management. He reports she has been nonambulatory since starting dialysis. 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 Kidney disease Kidney failure Obesity Pneumonia Polyneuropathy due to type 2 diabetes mellitus Recurrent infections Renal mass Sleep apnea Type 2 diabetes mellitus with stage 3 chronic kidney disease UTI (urinary tract infection) Vision problem Home Medications amiodarone 200 mg tablet 100 mg PO DAILY 07/29/21 [History Last Taken Unknown] apixaban 5 mg tablet 2.5 tablet PO BID 07/29/21 [History Last Taken Unknown] gabapentin 400 mg capsule 200 cap PO DAILY 07/29/21 [History Last Taken Unknown] insulin lispro 100 unit/mL subcutaneous pen 6 unit SUBCUT TIDCM 07/29/21 [History Last Taken Unknown] levothyroxine 125 mcg tablet 125 tablet PO QHS 07/29/21 [History Last Taken Unknown] losartan 25 mg tablet 50 ea PO DAILY 07/29/21 [History Last Taken Unknown] metoprolol succinate 50 mg tablet,extended release 24 hr 50 tablet PO DAILY 07/29/21 [History Last Taken Unknown] nitroglycerin 0.4 mg sublingual tablet 0.4 mg SUBLINGUAL Q5M PRN 07/29/21 [History Last Taken Unknown] omeprazole 20 mg capsule,delayed release 20 mg PO DAILY cap 07/29/21 [History Last Taken Unknown] pravastatin 80 mg tablet 80 tablet PO QHS 07/29/21 [History Last Taken Unknown] clopidogrel 75 mg PO DAILY 10/30/21 [History Last Taken Unknown] cyanocobalamin (vitamin B-12) 1,000 mcg PO DAILY 10/30/21 [History Last Taken Unknown] guaifenesin [Mucinex] 600 mg PO BID PRN 10/30/21 [History Last Taken Unknown] zinc 50 mg PO DAILY 10/30/21 [History Last Taken Unknown] zolpidem 10 mg PO QHS PRN 10/30/21 [History Last Taken Unknown] acetazolamide 12/13/21 [History Last Taken Unknown] daptomycin 700 mg IV MOWEFR 12/13/21 [History Last Taken Unknown] diphenhydramine HCl 25 mg PO QHS 12/13/21 [History Last Taken Unknown] doxepin 50 mg PO QHS 12/13/21 [History Last Taken Unknown] ferrous sulfate 325 mg PO BID 12/13/21 [History Last Taken Unknown] insulin glargine [Lantus Solostar U-100 Insulin] 35 unit SUBCUT QHS 12/13/21 [History Last Taken Unknown] lidocaine 1 applic TOPICAL 4X/DAY 12/13/21 [History Last Taken Unknown] melatonin 5 mg PO QHS 12/13/21 [History Last Taken Unknown] multivitamin 1 tab PO DAILY 12/13/21 [History Last Taken Unknown] nystatin 1 applic TOPICAL BID 12/13/21 [History Last Taken Unknown] oxycodone-acetaminophen [Percocet] 1 tab PO Q8H PRN 12/13/21 [History Last Taken Unknown] rifampin 300 mg PO DAILY 12/13/21 [History Last Taken Unknown] sennosides-docusate sodium [Senna Plus] 1 tab PO 12/13/21 [History Last Taken Unknown] Allergy/AdvReac Type Severity Reaction Status Date / Time adhesive tape Allergy Intermediate Rash Verified 12/13/21 18:02 codeine Allergy Intermediate n/a Verified 12/13/21 18:02 exenatide Allergy Intermediate n/a Verified 12/13/21 18:02 nalbuphine [From Nubain] Allergy Intermediate n/a Verified 12/13/21 18:02 pantoprazole [From Protonix] Allergy Intermediate n/a Verified 12/13/21 18:02 trioxsalen Allergy Intermediate n/a Verified 12/13/21 18:02 adhesive Allergy rash Verified 12/13/21 18:02 Family History Other Depression Diabetes Heart disease High cholesterol Hypertension Kidney disease Myocardial infarction Social History Smoking Status: Never smoker alcohol intake: never substance use type: does not use what type of physical activity do you participate in: none ROS ROS ED Constitutional Constitutional ED: Reports fever(s); Denies chills or sweats Eyes Eyes: Denies change in vision ENT ENT ED: Denies dysphagia or sore throat Cardiovascular Cardiovascular: Denies chest pain, leg edema, palpitations or racing heartbeat Respiratory/Chest Respiratory/Chest: Denies cough, dyspnea or dyspnea on exertion Gastrointestinal Gastrointestinal: Reports abdominal pain and vomiting; Denies diarrhea or nausea Genitourinary Genitourinary ED: Denies dysuria, hematuria or urinary frequency Musculoskeletal Musculoskeletal: Denies back pain, extremity pain or neck pain Integumentary Denies rash or wounds Neurologic Neurologic: Denies headache(s), paresthesias or weakness EXAM Physical Exam Const Vital Signs: 12/13/21 17:56 12/13/21 18:05 12/13/21 19:11 Temperature 96.9 F L 96.9 F L 97.6 F L Temperature Source Temporal Temporal Temporal Pulse Rate 79 76 73 Respiratory Rate 14 14 16 Blood Pressure 133/61 H 133/61 H 99/44 L Blood Pressure Mean 85 85 62 Pulse Ox 100 100 100 Oxygen Delivery Method Nasal Cannula Nasal Cannula Nasal Cannula Oxygen Flow Rate (L/min) 2 2 2 12/13/21 20:00 12/13/21 21:00 12/13/21 22:00 Temperature 97.6 F L 97.8 F 97.8 F Temperature Source Temporal Temporal Temporal Pulse Rate 68 79 69 Respiratory Rate 16 16 18 Blood Pressure 100/47 L 93/44 L 102/48 L Blood Pressure Mean 64 60 66 Pulse Ox 97 99 95 Oxygen Delivery Method Nasal Cannula Nasal Cannula Nasal Cannula Oxygen Flow Rate (L/min) 2 2 2 12/13/21 23:00 Temperature 97.6 F L Temperature Source Temporal Pulse Rate 67 Respiratory Rate 16 Blood Pressure 101/44 L Blood Pressure Mean 63 Pulse Ox 100 Oxygen Delivery Method Nasal Cannula Oxygen Flow Rate (L/min) 2 Positive well nourished, well developed and obese General Appearance ED: well developed and NAD Nutritional Appearance: obese HEENT Reports moist mucous membranes normocephalic and atraumatic Eyes PERRL, EOMs intact bilaterally and conjunctivae normal General Eye ED: Yes normal appearance of both eyes Neck no lymphadenopathy and supple General: Negative for tenderness Chest Wall Chest Narrative: Right upper chest wall Vas-Cath clean, dry, intact. Chest: Negative for tenderness Resp normal respiratory effort and normal air movement Effort and Inspection: symmetric chest movement; Negative for respiratory distress Cardio regular rate, regular rhythm and no murmurs Peripheral Pulses: pulses 2+ throughout GI normal to inspection, nondistended, normoactive bowel sounds GI Narrative: Mild generalized tenderness no guarding or rebound. Auscultation: hypoactive bowel sounds Palpation: Negative for guarding or rebound tenderness present Back/Spine no CVA tenderness and no thoracic nor lumbar tenderness Extremity normal to inspection General Extremety ED: Negative for edema or tenderness General Extremity: Negative for edema Neuro oriented x3 and no sensory deficits noted Sensorium / Orientation: awake and alert Skin no rashes or lesions noted and no wounds MDM MDM MDM Narrative Medical decision making narrative: Patient presenting with vomiting since yesterday, no bowel movement since Wednesday. Reported abdominal pain. Nonsurgical abdomen. Patient given IV fluids morphine Zofran for symptoms. Abdominal labs noted white count 6.2 lipase 125 liver enzymes normal. Patient end-stage renal disease on dialysis creatinine 3.4 BUN 36 potassium 4.3. Sodium 129 last sodium was 126 normally around 10/27/1928. Chronic anemia with hemoglobin 8.4. Platelets 277. CT scan abdomen pelvis obtained showed no signs of obstruction no intra-abdominal process, noted stable encapsulated hematoma right kidney smaller than previous CT. However did report concerns for a new L3-L4 discitis versus osteomyelitis with some erosive abnormalities inferior L3 1 superior L4. Lactic acid returned 0.6. Blood cultures were obtained covered with Zosyn and vancomycin. I discussed with patient spouse, he states he thinks this was and currently is on antibiotics for 6 weeks. Diagnosed at [facility] and they are up there. Looking through patient's paperwork, apparently she is only on daptomycin and rifampin which is noted for treatment of her UTI. There is no other antibiotics or any other mentioning of discitis or osteomyelitis treatment. reports she has her chronic back pain that she deals with and sees pain management there has been no worsening symptoms. However the reported fever at the facility today. There is no fever on presentation. In the interim I discussed with neurosurgeon Dr. Keenan who called back, updated, with patient's complex that he recommended transfer back up to tertiary center. I discussed with [facility] transfer line, they discussed with me reviewed the patient's history noted they had a CT lumbar spine on November 21 in their system that noted discitis with L4 osteomyelitis concerns she had a follow-up with neurosurgeon. From the records also she could not see immediately any treatments for this. Therefore she discussed with her doctors, patient is excepted under the service of Dr. Ambriz. Requested a Covid swab which is ordered prior to transport. I discussed lab findings. Covid testing returned negative. Awaiting transport. Lab Data Attestation: I reviewed the patient's lab results. Labs: Laboratory Results - last 24 hr 12/13/21 12/13/21 12/13/21 18:12 18:12 18:12 WBC 6.2 RBC 3.00 L Hgb 8.4 L Hct 27.9 L MCV 93.0 MCH 28.0 MCHC 30.1 L RDW Std Deviation 48.2 H RDW Coeff of Loyda 14.2 Plt Count 277 MPV 8.3 Immature Gran % (Auto) 0.800 Neut % (Auto) 69.3 Lymph % (Auto) 16.4 L Maries % (Auto) 10.1 H Eos % (Auto) 2.9 Baso % (Auto) 0.5 Absolute Neuts (auto) 4.3 Absolute Lymphs (auto) 1.02 Nucleated RBC % 0 Sodium 129 L Potassium 4.3 Chloride 92 L Carbon Dioxide 33.0 H Anion Gap 4 L BUN 36 H Creatinine 3.40 H Estim Creat Clear Calc 14.09 Est GFR (MDRD) Af Amer 18 L Est GFR (MDRD) Non-Af 15 L BUN/Creatinine Ratio 10.6 Glucose 113 H Lactic Acid 0.6 Calcium 9.3 Total Bilirubin 0.30 Direct Bilirubin 0.08 AST 19 ALT 8 L Alkaline Phosphatase 117 Total Protein 8.6 H Albumin 2.0 L Globulin 6.6 H Lipase 125 Radiography Diagnostic Testing: Clinical Impression(s) from Imaging Studies Abdomen/Pelvis CT 12/13/21 18:35 IMPRESSION: 1. L3-L4 disc expansion with erosive abnormality at the inferior L3 and superior L4, new since comparison CT, suspicious for discitis/osteomyelitis, with possible involvement of the posterior L4 cortex/canal. 2. Decreased size of intermediate to slightly hyperdense collection in the inferior posterior right kidney may represent resolving subcapsular hematoma. Limited evaluation given lack of IV contrast. Based on prior study, definitive renal protocol (without and with IV contrast) CT (MRI, although preferred, may not be possible given the cardiac conduction device) recommended. Electronically Signed: Anthony Dent MD ([place]) at 18:57 EDT Reading Location ID and State: [facility] / [place] , Service support , EKG Initial EKG: Attestation: I personally reviewed and interpreted this EKG as follows: Comments: Sinus rate of 75, no ST or T wave changes, first-degree AV block, isolated T wave version leads aVL, nonspecific. Critical Care Time Critical Care Time: Yes Critical care time (excluding procedures): 30-74 minutes, Discussing w/Patient &/or Family/Hand Bookbinder, Discussing w/Consultants, Arranging Admission or Transfer, Performing Direct Patient Care at Bedside and - (50 minutes) Discharge Plan Triage Chief Complaint: Abd Pain ED Provider: Nikhil Silva Dx/Rx/DC Orders Clinical Impression: Lumbar discitis, Bacteremia, Pacemaker, Osteomyelitis of lumbar spine, Nausea & vomiting, Encounter for hemodialysis for ESRD Prescriptions: No Action insulin lispro 100 unit/mL insulin pen 6 unit subcut TIDCM RF: 0 Eliquis 5 mg tablet 2.5 tablet PO BID RF: 0 gabapentin 400 mg capsule 200 cap PO DAILY RF: 0 levothyroxine 125 mcg tablet 125 tablet PO QHS RF: 0 losartan 25 mg tablet 50 ea PO DAILY RF: 0 metoprolol succinate 50 mg tablet extended release 24 hr 50 tablet PO DAILY RF: 0 nitroglycerin 0.4 mg tablet, sublingual 0.4 mg sublingual Q5M PRN (Reason: Chest Pain) RF: 0 omeprazole 20 mg capsule,delayed release(DR/EC) 20 mg PO DAILY RF: 0 pravastatin 80 mg tablet 80 tablet PO QHS RF: 0 amiodarone 200 mg tablet 100 mg PO DAILY RF: 0 cyanocobalamin (vitamin B-12) 1,000 mcg Tablet 1,000 mcg PO DAILY RF: 0 clopidogrel 75 mg Tablet 75 mg PO DAILY RF: 0 zolpidem 10 mg Tablet 10 mg PO QHS PRN (Reason: Insomnia) RF: 0 zinc 50 mg Capsule 50 mg PO DAILY RF: 0 guaifenesin [Mucinex] 600 mg Tablet Extended Release 12hr 600 mg PO BID PRN (Reason: check) RF: 0 acetazolamide 250 mg tablet RF: 0 multivitamin Tablet 1 tab PO DAILY RF: 0 doxepin 50 mg Capsule 50 mg PO QHS RF: 0 lidocaine 5 % Cream 1 applic TOPICAL 4X/DAY RF: 0 oxycodone-acetaminophen [Percocet] 5-325 mg Tablet 1 tab PO Q8H PRN (Reason: Pain) RF: 0 rifampin 300 mg Capsule 300 mg PO DAILY RF: 0 diphenhydramine HCl 25 mg Capsule 25 mg PO QHS RF: 0 ferrous sulfate 325 mg (65 mg iron) Tablet 325 mg PO BID RF: 0 nystatin 100,000 unit/gram Powder 1 applic TOPICAL BID RF: 0 daptomycin 500 mg Recon Soln 700 mg IV MOWEFR RF: 0 Lantus Solostar U-100 Insulin 100 unit/mL (3 mL) Insulin Pen 35 unit SUBCUT QHS RF: 0 Senna Plus 8.6-50 mg Capsule 1 tab PO RF: 0 melatonin 5 mg Lozenge 5 mg PO QHS RF: 0 Primary Care Provider: Blaire Pizano Referrals: Blaire Pizano MD [Primary Care Provider] - Disposition Disposition: Transfer to Another Type HCF
[2021-12-13 18:22] LABS: Absolute Lymphocyte Count 1.02 X10^3/uL (0.83-4.51); Absolute Neutrophil Count 4.3 X10^3/uL (2.0-7.7); Basophil# 0.03 X10^3/uL; Basophil% 0.5 % (0-1); Eosinophil# 0.18 X10^3/uL; Eosinophils% 2.9 % (0-5); Hematocrit 27.9 % (37-47); Hemoglobin 8.4 g/dL (12.0-15.0); Lymphocyte # 1.02 X10^3/ul (0.83-4.51); Lymphocyte % 16.4 % (19-41); Mean Corp Hgb Conc 30.1 g/dL (32-36); Mean Platelet Vol. 8.3 fl (6.2-12.0); Monocyte# 0.63 X10^3/uL; Monocyte% 10.1 % (0-10); NRBC Flagged by Analyzer 0 % (0-5); Neutrophil # 4.31 X10^3/uL (2.7-7.7); Neutrophil % 69.3 % (47-70); Platelet Count 277 K/mm3 (150-450); RBC Distribution Width CV 14.2 % (11.6-14.6); RBC Distribution Width SD 48.2 fl (35.1-43.9); White Blood Count 6.2 K/mm3 (4.4-11.0)
[2021-12-13] MEDS: 0.9% Normal Saline 1,000 ML 125 ML IV (18:25)
[2021-12-13] MEDS: Morphine 4 MG/ML Syringe IV (18:26)
[2021-12-13] MEDS: Ondansetron 4 MG/2 ML Vial IV (18:26)
--- NOTE | 2021-12-13 18:35 | CT_ITS ---
STUDY: CT ABDOMEN AND PELVIS WITHOUT CONTRAST REASON FOR EXAM: Female, 61 years old. Pain, vomiting RADIATION DOSAGE (If Supplied By Facility): CTDIvol = ( 23.69 ) mGy, DLP = ( 1260.70 ) mGycm TECHNIQUE: Transaxial images were obtained from the dome of the diaphragm to the symphysis pubis without oral contrast, and without intravenous contrast. Sagittal and coronal images were reconstructed. Individualized dose optimization techniques were used for this CT. COMPARISON: 11/05/2021 FINDINGS: Atelectasis in the right more than left lung base with decreased volume pleural effusion since prior study. Coronary artery stent/atherosclerosis. Cardiac conduction device partially visualized. Normal liver. There are surgical clips in the gallbladder fossa consistent with a prior cholecystectomy. Normal spleen. Normal pancreas. Normal bilateral adrenal glands. No hydronephrosis. Slightly hyperdense collection along the posterior inferior right kidney has decreased in size currently measuring 4.5 x 4.8 cm (previously measured up to 7.5 cm). Normal visualized stomach. Normal small intestine. Normal colon. The appendix is visualized and appears normal. There is diffuse atherosclerotic calcification of the abdominal aorta, without a demonstrated aneurysm. Normal inferior vena cava. Normal retroperitoneum. Normal urinary bladder. There is absence of the uterus consistent with a prior hysterectomy. Edema and injection sites of the abdominal wall noted. There is expansion of the L3-L4 disc space with lytic abnormality involving the inferior L3 and superior L4 vertebral bodies (posterior dominant at L4), new since the prior study and best seen on image 106 series 602. Stable compression deformity of T11. L5 compression deformity is stable. CT/Abdomen/Pelvis without Cont IMPRESSION: 1. L3-L4 disc expansion with erosive abnormality at the inferior L3 and superior L4, new since comparison CT, suspicious for discitis/osteomyelitis, with possible involvement of the posterior L4 cortex/canal. 2. Decreased size of intermediate to slightly hyperdense collection in the inferior posterior right kidney may represent resolving subcapsular hematoma. Limited evaluation given lack of IV contrast. Based on prior study, definitive renal protocol (without and with IV contrast) CT (MRI, although preferred, may not be possible given the cardiac conduction device) recommended. Electronically Signed: Anthony Dent MD ([place]) at 18:57 EDT ,
[2021-12-13 18:45] LABS: AST(SGOT) 19 U/L (15-37); Alanine Aminotransfer ALT/SGPT 8 U/L (13-56); Alkaline Phosphatase 117 U/L (45-117); Anion Gap 4 (5-15); BUN 36 mg/dL (7-18); BUN/Creat Ratio 10.6 RATIO (10-20); Bilirubin, Direct 0.08 mg/dL (0.00-0.30); Calcium,Total 9.3 mg/dL (8.5-10.1); Chloride 92 mmol/L (98-107); EST Glomerular Filtration Rate 15 mL/min (>60); Est Glom Filt Rate - Afr Amer 18 mL/min (>60); Estimated Creatinine Clearance 14.09 ml/min; Globulin 6.6 g/dL (2.2-4.2); Glucose 113 mg/dL (74-106); Lipase 125 U/L (73-393); Potassium 4.3 mmol/L (3.5-5.1); Protein, Total 8.6 g/dL (6.4-8.2); Sodium Level 129 mmol/L (136-145)
[2021-12-13 19:40] LABS: Lactic Acid 0.6 mmol/L (0.4-1.9)
--- NOTE | 2021-12-13 22:10 | NURSING ---
CALLED [facility] PEREZ
--- NOTE | 2021-12-13 23:11 | NURSING ---
[facility] GEN ROOM [id number] NURSE TO NURSE [phone] CERVANTES
--- NOTE | 2021-12-13 23:17 | NURSING ---
CALLED [facility], ETA IS 20 TO 30 MIN
== END 2021-12-14 00:06 | disposition short-term general hospital (02) ==
PROVIDERS: Emergency Provider Emergency Medicine; PCP Internal Medicine; Visit Provider Emergency Medicine
DX: M46.46 Discitis, unspecified, lumbar region (principal); Z99.2 Dependence on renal dialysis; M46.26 Osteomyelitis of vertebra, lumbar region; I50.9 Heart failure, unspecified; E11.22 Type 2 diabetes mellitus with diabetic chronic kidney disease; E11.42 Type 2 diabetes mellitus with diabetic polyneuropathy; N18.6 End stage renal disease; Z79.4 Long term (current) use of insulin; R78.81 Bacteremia; R11.2 Nausea with vomiting, unspecified; E78.00 Pure hypercholesterolemia, unspecified; E66.9 Obesity, unspecified; Z95.0 Presence of cardiac pacemaker; Z79.899 Other long term (current) drug therapy
CPT/HCPCS: 74176; 80048; 80076; 83605; 83690; 85025; 87040; 87811; 93005; 96365; 96366; 96367; 96375; 99285; J7030; J7040; A4216; J2405